=== PATIENT | female | born 1970 | race Caucasian/White ===

== ENCOUNTER 2016-03-11 22:26 | Inpatient (IN) | payer MEDICARE, MEDICAID ==
[~2016-03-11] VITALS: Ht 104.1 cm; Wt 44.4 kg
[~2016-03-11 22:26] MED LIST: CETI10TA PO; CITA20TA PO; DES50 PO; GABA300C PO; HYDR1CAP2 PO; IND10 PO; MDR150V IM; OMEP20TA86 PO; PREN-105 PO
[2016-03-11 22:44] VITALS: BP 120/83; PULSE 94; RESP 20; O2SAT 100
--- NOTE | 2016-03-11 22:44 | ED.REPORT ---
HPI-Altered Mental Status Date of Service Mar 11, 2016 ED Provider: Butch Simmons MD A 45 year old female with a medical history including congenital dwarfism, pancytopenia, Felty syndrome, migraines, and CHF presents to the ED via EMS from [facility] with decreased level of consciousness onset this morning. Per EMS the patient has "heart-related issues." Nursing Notes Stated Complaint: DECREASED LOC Nursing Notes Reviewed: Yes Allergies: Coded Allergies: No Known Allergies (Unverified Allergy, Unknown, 03/11/16) Sulfa (Sulfonamide Antibiotics) (Verified Allergy, Unknown, 04/14/12) Scheduled Cetirizine-Expunged Drug, Do Not Renew! (Cetirizine-Expunged Drug, Do Not Renew! ) 10 Mg Tablet 10 MG PO DAILY Citalopram-Expunged Drug, Do Not Renew! (Citalopram-Expunged Drug, Do Not Renew! ) 20 Mg Tablet 20 MG PO DAILY Gabapentin-Expunged Drug, Do Not Renew! (Neurontin-Expunged Drug, Do Not Renew! ) 300 Mg Capsule 300 MG PO BID Hydrocod/APAP-Expunged, Do Not Renew! (Hydrocod/APAP 5/500-Expunged, Do Not Renew!) 1 Cap Capsule 2 CAP PO DAILY MedroxyPROGESTERone (Depo-Provera) 150 Mg/Ml Susp 150 MG IM [id number] Omeprazole-Expunged Drug, Do Not Renew! (Omeprazole-Expunged Drug, Do Not Renew! ) 20 Mg Tablet.dr 20 MG PO DAILY VITS-Expunged Drug, Do Not Renew! ( FORMULA-Expunged Drug, Do Not Renew!) 1 Each Tablet 1 EACH PO DAILY Propranolol-Expunged Drug, Do Not Renew! (Propranolol-Expunged Drug, Do Not Renew!) 10 Mg Tab PO Q6 PRN CESAR Trazodone-Expunged Drug, Do Not Renew! 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 Smoking History Unknown if Ever Smoker Social History Other Social History: Good social support, Lives in half-way Ambulatory Status Independent Review of Systems Unable to Obtain ROS Patient condition, Mental status Physical Exam Initial Vital Signs Vital Signs (First) Date Time Temp Pulse Resp B/P Pulse Ox O2 Delivery O2 Flow Rate FiO2 03/11/16 22:44 36.4 94 20 120/83 100 Room Air 03/11/16 22:45 10 Initial VS: Reviewed, Vital signs normal Alertness: Positive: Unresponsive Multiple body deformities related to congenital dwarfism and Felty syndrome. Head / Eyes: Atraumatic, PERRL Neck: Atraumatic, No swelling Respiratory / Chest: Breath sounds = bilat, No respiratory distress Rales / Rhonchi: Positive: Rhonchi diffuse (Bilateral) Cardiovascular: Heart rate NL, Regular rhythm, Heart sounds NL Mental Status: Positive: Unresponsive ENT: Airway patent, No pooling of secretions Skin: No swelling Color / Condition: Positive: Diaphoresis present No cellulitis Interpretation & Diagnostics Lab Results Interpretation Result Diagram: 03/11/16 2336 03/11/16 2336 Test 03/11/16 23:36 03/11/16 23:54 03/12/16 00:32 White Blood Count 6.2th/mm3 (3.8-10.1) Red Blood Count 5.63mil/mm3 (3.90-5.20) Hemoglobin 16.5g/dL (12.0-15.6) Hematocrit 50.5% (35.0-46.0) Mean Corpuscular Volume 89.7fL (81-100) Mean Corpuscular Hemoglobin 29.3pg (27.0-35.0) Mean Corpuscular Hemoglobin Concent 32.7% (32.0-37.0) Red Cell Distribution Width 15.5% (12.3-15.4) Platelet Count 292bil/L (150-400) Neutrophils (%) (Auto) 75% (40-74) Lymphocytes (%) (Auto) 15% (14-46) Monocytes (%) (Auto) 9% (4-12) Eosinophils (%) (Auto) 0% (0-5) Basophils (%) (Auto) 0% (0-3) Band Neutrophils % 1% (1-5) Sodium Level 145mEq/L (134-144) Potassium Level 4.3mEq/L (3.5-5.2) Chloride Level 94mEq/L (97-108) Carbon Dioxide Level 34mmol/L (18-29) Blood Urea Nitrogen 7mg/dL (6-24) Creatinine 0.15mg/dL (0.57-1.00) Estimat Glomerular Filtration Rate 763mL/min (>59) Glucose Level 150mg/dL (60-99) Calcium Level 10.4mg/dL (8.5-10.1) Phosphorus Level 4.1mg/dL (2.5-4.9) Magnesium Level 2.1mg/dL (1.6-2.6) Total Bilirubin 0.7mg/dL (0.0-1.2) Aspartate Amino Transf (AST/SGOT) 31U/L (0-50) Alanine Aminotransferase (ALT/SGPT) 12U/L (0-32) Alkaline Phosphatase 117U/L (25-150) Troponin T < 0.010ug/L (0.0-0.011) Total Protein 7.6g/dL (6.4-8.4) Albumin 4.5g/dL (3.4-5.0) Lipase 8U/L (13-60) Prothrombin Time 10.6sec (8.1-12.5) Prothromb Time International Ratio 0.99ratio Urine Color Yellow (YELLOW) Urine Appearance Cloudy (CLEAR,HAZY) Urine pH 6.0 (5.0-8.0) Urine Specific [place] 1.026 (1.003-1.035) Urine Protein 100mg/dL (NEG,TRACE) Urine Glucose (UA) Negativemg/dL (NEGATIVE) Urine Ketones 40mg/dL (NEGATIVE) Urine Occult Blood Negative (NEGATIVE) Urine Nitrite Positive (NEGATIVE) Urine Bilirubin Negative (NEGATIVE) Urine Urobilinogen Normalmg/dL (NORMAL) Urine Leukocyte Esterase Negative (NEGATIVE) Urine RBC 0-2/hpf (0-2) Urine WBC >50/hpf (0-5) Urine Epithelial Cells Moderate/hpf (NONE-MOD) Urine Crystals None seen (NONE SEEN) Urine Bacteria Many/hpf (NONE-FEW) Urine Hyaline Casts Rare/lpf (NONE) Urine Granular Casts None seen (NONE SEEN) Urine Waxy Casts None seen (NONE SEEN) Urine Red Blood Cell Casts None seen (NONE SEEN) Urine White Blood Cell Casts None seen (NONE SEEN) Urine Mucus Present (None Seen) Urine Trichomonas None seen (NONE SEEN) Urine Yeast None (NONE SEEN) Urinalysis Comment None Urine Culture Reflexed Indicated Lab values outside NL range: no clinical significance. ECG Interpretation ECG Interpretation: Sinus rhythm rate 95 Prolonged [place] interval Low voltage, extremity leads Time: 22:50 Interpreted by: ED physician X-Ray Chest Interpretation View: Portable, 1 view Interpretation / Wet Read by: Wet read ED physician Infiltrate / Pneumothorax: Infiltrate R lower lung, Infiltrate L upper lung Re-Eval/Medical Decision Med Decision/Clinical Course 35-year-old disabled female who is currently residing in a half-way. She presents with decreased mental status and is found to have multilobar pneumonia and urinary tract infection. She was very difficult to access and Dr. Devine was finally able to get a deep arm IV by ultrasound. She was hydrated and treated with healthcare associated pneumonia antibiotics. Her mental status improved considerably with hydration. Her case was discussed with Dr. Murry and she will be admitted to the hospitalist service. Source of Hx: Old records Re-Evaluation/Progress #1: Time of Eval: 23:30 Patient Status: Condition unchanged Re-Evaluation/Progress Note: Patient rechecked. Re-Evaluation/Progress #2: Time of Eval: 00:30 Patient Status: Condition improved Re-Evaluation/Progress Note: Patient is able to open her eyes. Discussed patient's case with her family. Discussed with patient's family x-ray and lab results, diagnosis, and plan for admit. Patient's family agrees with plan for care and all questions were addressed. Re-Evaluation/Progress #3: Time of Eval: 02:39 Patient Status: Condition improved Re-Evaluation/Progress Note: Patient is tachycardic and sleeping. She was awake and talking to family earlier. Consultation : Referral / Consult Name: Aj Murry MD Consulted With: Hospitalist Call Returned at: 02:32 Staff Sonographer: Agrees with eval, Agrees with plan, Accepts admit Counseled Regarding: Diagnosis, Lab results, Need for admission Patient Discharge & Departure Impression: Primary Impression: Pneumonia Pneumonia type: due to unspecified organism Laterality: bilateral Lung location: unspecified part of lung Qualified Code: J18.9 - Pneumonia, unspecified organism Additional Impressions: UTI (urinary tract infection) Urinary tract infection type: site unspecified Hematuria presence: without hematuria Qualified Code: N39.0 - Urinary tract infection, site not specified Sepsis Sepsis type: sepsis due to unspecified organism Qualified Code: A41.9 - Sepsis, unspecified organism Disposition: ADMITTED TO HOSPITAL Discharge Condition All VS Reviewed: Yes Condition: Stable Crit Care Except Billable Proc Time Spent: 30-74 minutes Services Performed: Patient management by me, Time spent at bedside, Reviewing test results, Reviewing imaging, Discussing patient care, Documentation in record, Time with fam/surrogate Critical Care Notes: Disabled 45-year-old patient with decreased level of consciousness. She was found to have pneumonia and UTI with likely sepsis. She will be admitted to [facility]. Scribe Attestation Portions of this note were transcribed by Enedina Silverman. I, Dr. Simmons, personally performed the history, physical exam, and medical decision-making; I reviewed and confirmed the accuracy of the information in the transcribed note. Signed by: Bernie Lozano, 03/12/2016, 04:08 Butch Simmons MD Mar 11, 2016 22:44 ENEDINA SILVERMAN Mar 11, 2016 23:18
[2016-03-11 22:45] VITALS: BP 120/83; PULSE 97; RESP 16; O2SAT 100
[2016-03-11 23:53] LABS: Mean Corpuscular Hemoglobin 29.3 pg (27.0-35.0); Mean Corpuscular Volume 89.7 fL (81-100); Platelet Count 292 bil/L (150-400)
[2016-03-12] VITALS (16 sets, daily range): BP systolic 82–124; BP diastolic 54–98; PULSE 97–143; RESP 13–24; O2SAT 92–100
[2016-03-12 00:07] LABS: INR 0.99 ratio
[2016-03-12] MEDS ORDERED: Piperacillin-Tazo 3.375 Gm Inj 3.375 GM in Dextrose 5% Minibag Plus 50 ML IV ONE (00:35)
[2016-03-12] MEDS ORDERED: levoFLOXacin Inj 750 MG in IV Premix 1 EACH IV ONE (00:35)
[2016-03-12] MEDS ORDERED: Vancomycin Dose per Pharmacist XX ONE (00:35)
[2016-03-12 00:37] LABS: Magnesium 2.1 mg/dL (1.6-2.6); Phosphorus 4.1 mg/dL (2.5-4.9)
[2016-03-12 00:38] LABS: Lipase 8 U/L (13-60); TROPONIN T < 0.010 ug/L (0.0-0.011)
[2016-03-12 00:49] LABS: BASOPHILS % (AUTO) 0 % (0-3); EOSINOPHILS % (AUTO) 0 % (0-5); MONOCYTES % (AUTO) 9 % (4-12); NEUTROPHILS % (AUTO) 75 % (40-74)
[2016-03-12 00:56] LABS: APPEARANCE,URINE CLOUDY (CLEAR,HAZY); COLOR,URINE YELLOW (YELLOW)
[2016-03-12 01:00] LABS: OCCULT BLOOD,URINE NEGATIVE (NEGATIVE); UROBILINOGEN,URINE NORMAL (NORMAL)
[2016-03-12] MEDS ORDERED: 0.9% Sodium Chloride 1,000 ML IV SCH (06:01)
--- NOTE | 2016-03-12 06:03 | PCM.HPMED ---
Subjective Date of Service Mar 12, 2016 Primary Provider: Admitting Physician: Aj Murry MD Primary Care Physician: Erlinda Mcclellan MD Attending Physician: Aj Murry MD Chief Complaint: altered mental status and cough History of Present Illness: Patient is a 45 year old female with a pmh as out line below that is presenting with altered mental status and shortness of breath. The family was not nearby for the history and the patient could not provide adequate history, the majority of the history was obtained throught ER physician. As per the ER physician the patient has been having worsening cough for the past few day which progressed to the point where the patient was having a difficult time staying awake and did not answer question appropriately. Patient was brought to the ED found to have an incidental finding of uti as well. Patient on exam was found to be saturating in the low 90s and upper 80s. Patient was placed on non rebreather, but only reached to 95%, most likely due to patients body habitus and existing infection. Patient is otherwise hemodynamically stable. Review of Systems: Unable to Obtain ROS Patient condition, Mental status Allergies Coded Allergies: No Known Allergies (Unverified Allergy, Unknown, 03/11/16) Sulfa (Sulfonamide Antibiotics) (Verified Allergy, Unknown, 04/14/12) Home Medications Cetirizine 10 Mg Tablet 10 MG PO DAILY Citalopram 20 Mg Tablet 20 MG PO DAILY Gabapentin 300 Mg Capsule 300 MG PO BID Hydrocod/APAP-1 Cap Capsule 2 CAP PO DAILY MedroxyPROGESTERone (Depo-Provera) 150 Mg/Ml Susp 150 MG IM [id number] Omeprazole 20 Mg Tablet.dr 20 MG PO DAILY VITS-1 Each Tablet 1 EACH PO DAILY Propranolol 10 Mg Tab PO Q6 PRN CESAR Trazodone 50 Mg Tab 50 MG PO HS PMH Congenital dwarfism Juvenile arthritis History of pancytopenia 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 Family History non-contributory Social History Hx Alcohol Use: No Hx Substance Use: No Smoking Status: Unknown if Ever Smoker Exam Vital Signs Vital Sign - Last Date Time Temp Pulse Resp B/P Pulse Ox O2 Delivery O2 Flow Rate FiO2 03/12/16 04:11 37.1 134 17 124/86 97 Non-Rebreather 15 Exam Multiple body deformities related to congenital dwarfism and Felty syndrome. Head / Eyes: Atraumatic, PERRL Neck: Atraumatic, No swelling Respiratory / Chest: Breath sounds = bilat, No respiratory distress, poor air exhange due to body habitus Rales / Rhonchi: Positive: Rhonchi diffuse (Bilateral) Cardiovascular: Heart rate NL, Regular rhythm, Heart sounds NL Mental Status: Positive: responsive however does not answer questions appropriately ENT: Airway patent, No pooling of secretions Skin: No swelling Color / Condition: Positive: Diaphoresis present Lab and Diagnostics Result Diagram: 03/11/166 03/11/162335 X-Rays, CTs and MRIs X-Ray Chest Interpretation View: Portable, 1 view Interpretation / Wet Read by: Wet read ED physician Infiltrate / Pneumothorax: Infiltrate R lower lung, Infiltrate L upper lung 12-lead ECG Sinus rhythm rate 95 Prolonged [place] interval Low voltage, extremity leads Assessment & Plan Patient is a 45 year old female with multiple medical problems that is presenting with a few day history of cough, that has now progressed to altered mental status with shortness of breath. Patient is currently stable albeit confused and tachypnic. Shortness of breath - Patient has had cough for the better part of the week - Patient seen to have bilateral pneumonia on chest xray - Patient is having a difficult time breathing secondary to pneumonia, scoliosis, and chest wall habitus - Pt currently saturating appropriately on non rebreather - will treat with ceftriaxone and azithromycin - will provide duoneb treatments periodically to improve oxygenation - will maintain patient on non rebreather for the time being UTI - Pt has an incidental finding of UTI - will treat with ceftriaxone as above Altered mental status - As per the family patient was mentating at her baseline until this morning - Pt was initially unresponsive however after fluid resuscitation and antibiotics patient was begging to speak - Pt is unable to understand questions and does not answer appropriately Hypertension - Established - c/w propranolol 10 mg q6 prn Depression - established - c/w trazadone and citalopram when pt is more alert and awak Juvenile arthritis - established - c.w gabapentin as prescribed DVT ppx via heparin GI ppx not warranted Pt is from home Aj Murry MD Mar 12, 2016 06:03
[2016-03-12] MEDS ORDERED: Polyethylene Glycol (PEG) 17 Gm Powder PO PRN (06:05)
[2016-03-12] MEDS ORDERED: Alum-Mag Hydrox-Simeth 30 mL Suspension PO PRN (06:05)
--- NOTE | 2016-03-12 08:02 | DRSVH ---
PROCEDURE: X-RAY CHEST ONE VIEW, PORTABLE ([id number]) INDICATIONS: decreased level of consciousness, diaphoresis TECHNIQUE: One view of the chest was acquired. COMPARISON: 12/16/2012 FINDINGS: Surgical changes and devices: None. Lungs and pleura: Probable small right pleural effusions, no pneumothorax. Lungs show diminished timothy g volume with patchy interstitial infiltrate, right greater than left. Mediastinum: Mediastinal contours appear normal. Heart size is unchanged. Bones and chest wall: No suspicious bony lesions. Overlying soft tissues appear unremarkable. IMPRESSION: Interstitial infiltrate, suspect for bronchopneumonia. Dictated by: Thien Lopez M.D. on 03/12/2016 at 8:00 Approved by: Thien Lopez M.D. on 03/12/2016 at 8:00
[2016-03-12] MEDS ORDERED: Azithromycin Inj 500 MG in Dextrose 5% w/Vial Mate 250 ML IV SCH (08:30)
[2016-03-12] MEDS ORDERED: cefTRIAXone Inj 1,000 MG in IV Premix 1 EACH IV SCH (08:30)
[2016-03-12] MEDS ORDERED: DEXT1DRO8 BOTH_EYES (08:58)
[2016-03-12] MEDS ORDERED: OMEP20CA11 PO (08:58)
[2016-03-12] MEDS ORDERED: ACET325T51 PO (08:58)
[2016-03-12] MEDS ORDERED: SENN-133 PO (08:58)
[2016-03-12] MEDS ORDERED: TRAZ-115 PO (08:58)
[2016-03-12] MEDS ORDERED: OXYC5TAB72 PO (08:58)
[2016-03-12] MEDS ORDERED: MTH10T PO (08:58)
[2016-03-12] MEDS ORDERED: MAG355OR31 PO (08:58)
[2016-03-12] MEDS ORDERED: PREN-12 PO (08:58)
[2016-03-12] MEDS ORDERED: GABA600T2 PO (08:58)
[2016-03-12] MEDS ORDERED: MONT10TA23 PO (08:58)
[2016-03-12] MEDS ORDERED: NA P133E23 RC (08:58)
[2016-03-12] MEDS ORDERED: KEN1C TOP (08:58)
[2016-03-12] MEDS ORDERED: CETI10CA PO (08:58)
[2016-03-12] MEDS ORDERED: MEDR150V3 IM (08:58)
[2016-03-12] MEDS ORDERED: POLY17PO2 PO (08:58)
[2016-03-12] MEDS ORDERED: MAGN400O4 PO (08:58)
[2016-03-12] MEDS ORDERED: L.AC1CAP6 PO (08:58)
[2016-03-12] MEDS ORDERED: ONDA-53 PO (08:58)
[2016-03-12] MEDS ORDERED: FLUT16SP NOSTRIL (08:58)
[2016-03-12] MEDS ORDERED: CITA20TA11 PO (08:58)
[2016-03-12] MEDS ORDERED: AMT50T PO (08:58)
[2016-03-12] MEDS ORDERED: PROP20TA5 PO (08:58)
[2016-03-12] MEDS ORDERED: LOPE2CAP PO (08:58)
[2016-03-12] MEDS ORDERED: PROC5TAB PO (08:58)
[2016-03-12] MEDS ORDERED: GUAI473S22 PO (08:58)
[2016-03-12] MEDS ORDERED: BISA10SU61 RC (08:58)
[2016-03-12] MEDS ORDERED: HYDR-3825 PO (08:58)
[2016-03-12] MEDS ORDERED: GUAI600T2 PO (08:58)
[2016-03-12] MEDS: Heparin 5,000 Unit/mL Inj SUBQ SCH ×2 (10:19→16:30)
[2016-03-12] MEDS ORDERED: 0.9% Sodium Chloride 250 ML IV ONE ×2 (11:45→15:30)
[2016-03-12] MEDS ORDERED: Albuterol 2.5 mg/3 mL Inhalation Solution NEB PRN (11:50)
[2016-03-12] MEDS ORDERED: Acetaminophen IV 1,000 MG in IV Premix 1 EACH IV PRN (11:55)
[2016-03-12] MEDS ORDERED: Sodium Chloride LOK Flush 10 mL Syringe IVFLUSH PRN ×2 (15:30)
[2016-03-12] MEDS: Albuterol-Ipratropium 3 mL Inhalation Solution NEB SCH ×2 (16:06→21:27)
[2016-03-12] MEDS: Norepineph 8,000 mCg/250 mL NS 8,000 MCG in IV Premix 1 EACH IV SCH (16:15)
--- NOTE | 2016-03-12 16:44 | NUR ---
Wound Care Pressure ulcer protocol received, rounded with nursing no skin issues at this time.
--- NOTE | 2016-03-12 17:02 | NUR ---
Hypotension/Tachycardia Pt. heart rate increased to high 130s-140 around 0900 this a.m. Tachycardia has been sustaining all day, despite fluid bolus and antibiotics. This afternoon BP began to drop from 110s/70s, to 80s/50s. Lowest MAP 63. MDs updated frequently with changes, and pt. transferred to CCU at 1630.
--- NOTE | 2016-03-12 17:56 | NUR ---
Transfer Pt transferred to CCU room # 2015 from [facility] room #2008 at 1730. Levophed ordered. IV therapy unable to place PICC at this time, IJ being ordered by purple team for anaesthesia to come place. DW=271/56 and SL=774. Aerosol mask at 50% fio2. Pt yells out when placed on her left side, favors right. Alert to person. 1/2 NS at 80cc/hr.
[2016-03-12] MEDS ORDERED: Piperacillin-Tazo 3.375 Gm Inj 3.375 GM in Dextrose 5% Minibag Plus 50 ML IV SCH (20:30)
[2016-03-12] MEDS: Linezolid Inj 600 MG in IV Premix 1 EACH IV SCH (20:58)
--- NOTE | 2016-03-12 21:52 | PCM.PNMED ---
Subjective Date of Service Mar 12, 2016 Subjective Meredith Sterling is a 45 year old female with a history of congenital dwarfism, juvenille arthritis, Felty syndrome, and CHF who presented to the ED from [facility] with altered mental status and shortness of breath. Admitted for severe sepsis secondary to pneumonia and UTI. Hospital day #1. Patient in mild respiratory distress, somnolent and confused. Not able to obtain review of systems due to patient condition. She is tachycardic with heart rate consistently in the 140s and hypotensive with SBP high 80s and low 90s. SpO2 98% on 11L oxymask. Exam Vital Signs Vital Sign - Last Date Time Temp Pulse Resp B/P Pulse Ox O2 Delivery O2 Flow Rate FiO2 03/12/16 19:30 Supplement Oxygen 03/12/16 19:22 37.0 134 13 99/80 98 40 03/12/16 16:06 12.00 Exam General: Somnolent, small female with multiple body deformities including severe kyphosis and bilateral contractures of lower extremities. In mild respiratory distress. HEENT: Atraumatic. External ears without defect. PERRLA, amblyopia, no scleral icterus. Mucosa dry. Neck: No jugular venous distension. No bruits. No lymphadenopathy or thyromegaly. Cardiovascular: Tachycardic, regular rhythm with no murmurs, rubs, or gallops appreciated Pulmonary: Moderate air movement with coarse rhonchi bilaterally.Increased respiratory effort with use of accessory muscles.Oxymask in place. Abdomen: Bowel tones present. Soft, nondistended. No hepatosplenomegaly or masses appreciated. Extremities: Bilateral contractures upper/lower extremities, brawny skin discoloration of feet bilaterally, club feet. no cyanosis or edema appreciated. Skin: Warm, damp, no rashes or ulcerations appreciated. IVs and Medications Medications Reviewed: Medications were reviewed in detail Lab and Diagnostics Laboratory Tests 03/11/16 23:36: White Blood Count 6.2, Red Blood Count 5.63, Hemoglobin 16.5, Hematocrit 50.5, Mean Corpuscular Volume 89.7, Mean Corpuscular Hemoglobin 29.3, Mean Corpuscular Hemoglobin Concent 32.7, Red Cell Distribution Width 15.5, Platelet Count 292, Neutrophils (%) (Auto) 75, Lymphocytes (%) (Auto) 15, Monocytes (%) ( Auto) 9, Eosinophils (%) (Auto) 0, Basophils (%) (Auto) 0, Band Neutrophils % 1 , Sodium Level 145, Potassium Level 4.3, Chloride Level 94, Carbon Dioxide Level 34, Blood Urea Nitrogen 7, Creatinine 0.15, Estimat Glomerular Filtration Rate 763, Glucose Level 150, Calcium Level 10.4, Phosphorus Level 4.1, Magnesium Level 2.1, Total Bilirubin 0.7, Aspartate Amino Transf (AST/SGOT) 31, Alanine Aminotransferase (ALT/SGPT) 12, Alkaline Phosphatase 117, Troponin T < 0.010, Total Protein 7.6, Lipase 8 03/11/16 23:54: Prothrombin Time 10.6, Prothromb Time International Ratio 0.99 03/12/16 00:32: Urine Color Yellow, Urine Appearance Cloudy, Urine pH 6.0, Urine Specific [place] 1.026, Urine Protein 100, Urine Glucose (UA) Negative, Urine Ketones 40 , Urine Occult Blood Negative, Urine Nitrite Positive, Urine Bilirubin Negative , Urine Urobilinogen Normal, Urine Leukocyte Esterase Negative, Urine RBC 0-2, Urine WBC >50, Urine Epithelial Cells Moderate, Urine Crystals None seen, Urine Bacteria Many, Urine Hyaline Casts Rare, Urine Granular Casts None seen, Urine Waxy Casts None seen, Urine Red Blood Cell Casts None seen, Urine White Blood Cell Casts None seen, Urine Mucus Present, Urine Trichomonas None seen, Urine Yeast None, Urinalysis Comment None, Urine Culture Reflexed Indicated, Urine Legionella pneumophilia Ag Negative 03/12/16 05:00: Albumin 3.4, Prealbumin 9, Procalcitonin 0.20 03/12/16 13:26: Hold Urine Received 03/12/16 13:45: Lactic Acid Level 1.7 Result Diagram: 03/11/16 2336 03/11/166 Microbiology Respiratory virus panel positive for RSV. MRSA screen, blood and urine cultures pending. Strep pneumo and Legionella urine antigens negative. X-Rays, CTs and MRIs X-Ray Chest Interpretation View: Portable, 1 view Interpretation / Wet Read by: Wet read ED physician Infiltrate / Pneumothorax: Infiltrate R lower lung, Infiltrate L upper lung 12-lead ECG Sinus rhythm rate 95 Prolonged [place] interval Low voltage, extremity leads Assessment & Plan 45 year old female with multiple medical problems that is presenting with a few day history of cough, that has now progressed to altered mental status with shortness of breath. Admitted for severe sepsis secondary to pneumonia and UTI. Hospital day #1. 1. Severe sepsis, present on admission. Active -Met criteria on admission with temp 37.7, HR 117, RR 22, pulmonary and urinary source of infection as well as encephalopathy. -CXR findings consistent with bilateral pneumonia -Received dose of zosyn/vancomycin and levofloxacin in the ED. -Pt hypotensive despite ongoing fluid resuscitation and transferred to CCU to initiate pressor support -IV therapy unable to place PICC line due to patient's unique anatomy and increased risk for complications. -Spoke with IR, who agree placing line in this pt is high risk. -Re-evaluate after patient has received 2liters of fluid resuscitation.If still requiring pressor support, consult IR or anesthesiology. -Continue IV fluids, antibiotics and trend infectious markers. 2. Pneumonia, acute (likely HCAP). present on admission. Active. -Pt full-time resident of [facility], start antibiotics for HCAP coverage. -Resp panel positive for RSV, Strep pneumo and Legionella urine antigens negative -MRSA screen, blood and sputum cultures pending -Switch Ceftriaxone/azithromycin to Linezolid, levofloxacin and zoysn for HCAP. -Continue antibiotics, supplemental oxygen and bronchodilators 3. Acute UTI, present on admission. Active. -Pt does not have chronic indwelling catheter at baseline. -Urine analysis- pyuria. Culture pending -Continue antibiotics, as above. 4. Acute encephalopathy, present on admission. Active -Pt was unresponsive on arrival and not at baseline mentation, per family. -Likely secondary to #1. -Continue treatment for sepsis, as above. 5. Chronic hypertension, present on admission. Stable -Hold home medication in setting of hypotension secondary to sepsis. -Resume home dosing of propranolol when appropriate. 6. Chronic depression, present on admission. Stable -Hold home citalopram due to risk of serotonin syndrome when combined with Linezolid -Continue home dosing trazadone and citalopram when appropriate. 7. Juvenile arthritis, chronic. present on admission. Stable -Continue home dosing, gabapentin. High-risk medication: IV dilaudid Acetaminophen-fever/headache/mild/moderate pain Antiemetics, as needed Bowel regimen, as needed. Pain Evaluation: Adequate Pain Control VTE Prophylaxis: Sub-Q Heparin (Unfractionated) VTE Mechanical Devices: Intermittant Pneumatic CD Resuscitation Status: CPR: Attempt Resuscitation Attending Statement The patient was seen and examined together with Dr. Solis on 03-12-16 and I agree with the history, exam and plan as outlined in the note above. Sumi Solis DO Mar 12, 2016 21:52 Natalia Fermin MD Mar 13, 2016 16:37
[2016-03-12] MEDS: HYDROmorphone 0.5 mg/0.5 mL iSecure Syringe IVPUSH PRN (22:05)
[2016-03-13] VITALS (12 sets, daily range): BP systolic 91–115; BP diastolic 58–75; PULSE 112–138; RESP 12–21; O2SAT 94–100
[2016-03-13] MEDS: Heparin 5,000 Unit/mL Inj SUBQ SCH ×3 (00:07→16:30)
[2016-03-13] MEDS: Albuterol-Ipratropium 3 mL Inhalation Solution NEB SCH ×4 (01:15→21:33)
[2016-03-13 04:31] LABS: EOSINOPHILS % (AUTO) 0 % (0-5); Mean Corpuscular Volume 89.3 fL (81-100); Platelet Count 190 bil/L (150-400)
[2016-03-13 04:48] LABS: Magnesium 1.5 mg/dL (1.6-2.6)
[2016-03-13 05:05] LABS: BASOPHILS % (AUTO) 0 % (0-3); MONOCYTES % (AUTO) 5 % (4-12); NEUTROPHILS % (AUTO) 64 % (40-74)
[2016-03-13 05:06] LABS: Phosphorus 0.6 mg/dL (2.5-4.9)
[2016-03-13] MEDS ORDERED: Potassium Phos (mEq) Inj 40 MEQ in Dextrose 5% 500 ML IV ONE (05:20)
[2016-03-13] MEDS ORDERED: Magnesium Sulf 4 Gm/100 mL H2O 4 GM in IV Premix 1 EACH IV ONE (05:20)
--- NOTE | 2016-03-13 06:40 | NUR ---
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 MD notified of electrolytes, micro results. Replacements ordered. MD aware of poor IV access and med compatibility issues. Patient prefers to be on her right side at all times. Patient is turned Q2 hours but at times does not stay on back or left side for more than 30 minutes, starts yelling out "Help me!" and requests to be turned. Education of pressure ulcers offered. Patient has a difficult time getting comfortable. Dilaudid administered x1, moderately effective. Close monitoring of skin on right hip.
--- NOTE | 2016-03-13 07:46 | DRSVH ---
PROCEDURE: US RENAL SONOGRAM INDICATIONS: UTI, r/o pyelonephritis TECHNIQUE: Real-time scanning was performed of the kidneys and bladder, with image documentation. COMPARISON: None. FINDINGS: Kidneys: Kidneys are normal in size. Right kidney measures 10.9 cm long; left kidney measures 10.9 cm long. Right renal cortical thickness is 1.3 cm; left renal cortical thickness is 1.3 cm. Renal c ortical echotexture is normal. No hydronephrosis or nephrolithiasis. No suspicious solid mass lesio ns. Right renal cyst measuring 1.4 x 1.2 x 1.3 cm. Left renal cyst measuring 3.3 x 2.9 x 3.0, and 1. 2 x 0.9 x 1.1 cm. The upper pole left kidney is not well visualized sonographically secondary to body habitus Bladder: Decompressed and grossly unremarkable secondary to Beltran catheter Miscellaneous: No free pelvic fluid. IMPRESSION: No hydronephrosis. Bilateral simple appearing renal cysts. Dictated by: Koby Miller M.D. on 03/13/2016 at 7:44 Approved by: Koby Miller M.D. on 03/13/2016 at 7:44
--- NOTE | 2016-03-13 08:25 | DRSVH ---
PROCEDURE: X-RAY CHEST ONE VIEW, PORTABLE ([id number]) INDICATIONS: shortness of breath TECHNIQUE: One view of the chest was acquired. COMPARISON: [facility], CR, CHEST 1VW, 09/09/2010, 11:38. [facility], CR, X R CHEST 1VW (PORTABLE), 03/11/2016, 23:14. FINDINGS: Limited evaluation due to skeletal deformity Surgical changes and devices: None. Lungs and pleura: No pleural effusions or pneumothorax. No gross focal consolidation or interval ruy nge in patchy opacities in particular involving the right lung base since 03/11/16 Mediastinum: Mediastinal contours appear normal. Heart size is normal. Bones and chest wall: No suspicious bony lesions. Bilateral shoulder degeneration. Overlying soft t issues appear unremarkable. Severe scoliosis. IMPRESSION: Overall no interval change in patchy right basilar opacities since 03/11/16. No new focal c onsolidation Dictated by: Koby Miller M.D. on 03/13/2016 at 8:23 Approved by: Koby Miller M.D. on 03/13/2016 at 8:23
[2016-03-13] MEDS: HYDROmorphone 0.5 mg/0.5 mL iSecure Syringe IVPUSH PRN (09:03)
--- NOTE | 2016-03-13 09:32 | PCM.PNMED ---
Subjective Date of Service Mar 13, 2016 Subjective Patient has improved overnight, she is a bit more responsive, blood pressure has improved with NS bolus nd patient is off pressors. Positive blood culture, gram positive cocci,, gram negative rods in the urine culture today. Multiple electrolyte abnormalities that are being addressed. I passed a NG-Tube this am , patient tolerated procedure well. IV therapy unable to establish new IV, I spoke with anesthesia, they will stop by and evaluate for IG or EJ with ultrasound. 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, lethargic but awakens to voice, cooperative Eyes, disconjugate ENMT, moist membranes, CV; murmur, no gallop, regular Resp; course, no wheezing GI; soft, nonacute, nontender MS; multiple contractures Vital Sign - Last Date Time Temp Pulse Resp B/P Pulse Ox O2 Delivery O2 Flow Rate FiO2 03/13/16 03:31 Supplement Oxygen 03/13/16 03:28 37.3 122 18 97/75 98 03/13/16 01:15 11.00 40 Intake and Output 03/12/16 03/12/16 03/13/16 Cumulative From/Thru 14:59 22:59 06:59 03/11/16 22:44 - 03/13/16 06:33 Intake Total 1724 ml 1724 ml Output Total 600 ml 600 ml Balance 1124 ml 1124 ml Intake IV Total 1724 ml 1724 ml Output Urine Total 600 ml 600 ml # Bowel Movements 2 2 Lab and Diagnostics Result Diagram: 03/13/16 0335 03/13/16 0335 Microbiology Respiratory virus panel positive for RSV. MRSA screen, blood and urine cultures pending. Strep pneumo and Legionella urine antigens negative. X-Rays, CTs and MRIs X-Ray Chest Interpretation View: Portable, 1 view Interpretation / Wet Read by: Wet read ED physician Infiltrate / Pneumothorax: Infiltrate R lower lung, Infiltrate L upper lung 12-lead ECG Sinus rhythm rate 95 Prolonged W[place] interval Low voltage, extremity leads Assessment & Plan 45 year old female with multiple medical problems that is presenting with a few day history of cough, that has now progressed to altered mental status with shortness of breath. Admitted for severe sepsis secondary to pneumonia and UTI. Hospital day #1. 1. Severe sepsis, present on admission. improving -Met criteria on admission with temp 37.7, HR 117, RR 22, pulmonary and urinary source of infection as well as encephalopathy. -CXR findings consistent with bilateral pneumonia, also with UTI acute -continue treating underlying infections 2. Pneumonia, acute (likely HCAP). present on admission. Active. -tests positive for rsv, possible bacterial etiology -Pt full-time resident of [facility], start antibiotics for HCAP coverage. -Resp panel positive for RSV, Strep pneumo and Legionella urine antigens negative -MRSA screen, blood and sputum cultures pending -continue Levaquin, linezolid, change Zosyn to cefepime (hypokalemia) 3. Acute UTI, present on admission. Active. -Pt does not have chronic indwelling catheter at baseline. -Urine analysis- pyuria. Culture pending -Continue antibiotics, as above. -Ultrasound unremarkable 4. Acute encephalopathy, present on admission.improving -Pt was unresponsive on arrival and not at baseline mentation, per family. -Likely secondary to #1. -Continue treatment for sepsis, as above. 5. Chronic hypertension, present on admission. Stable -Hold home medication in setting of hypotension secondary to sepsis. -Resume home dosing of propranolol when appropriate. 6. Chronic depression, present on admission. Stable -Hold home citalopram due to risk of serotonin syndrome when combined with Linezolid -Continue home dosing trazadone and citalopram when appropriate. 7. Juvenile arthritis, chronic. present on admission. Stable -Continue home dosing, gabapentin. 8. Chronic pain meds, present on admission, avctive -restart methadone to avoid withdrawl -give 50% dose bid 9. IV access, -I am unable to get additional access, spoike with Dr. Trujillo who asked me to call Anesthesia, I did and they will stop by in a while. 10. reported history of CHF, present on admission, stable -obtain echo to check function, no other echo available High-risk medication: IV dilaudid Acetaminophen-fever/headache/mild/moderate pain Antiemetics, as needed Bowel regimen, as needed. VTE Prophylaxis: Sub-Q Heparin (Unfractionated) VTE Mechanical Devices: Intermittant Pneumatic CD Resuscitation Status: CPR: Attempt Resuscitation Natalia Fermin MD Mar 13, 2016 09:32
[2016-03-13] MEDS: Ondansetron 2 mg/mL 2 mL Inj IVPUSH PRN ×2 (09:44→22:13)
[2016-03-13] MEDS ORDERED: Potassium Chloride 20 mEq/15 mL 15mL Oral Soln PO STA (10:32)
[2016-03-13] MEDS: Linezolid Inj 600 MG in IV Premix 1 EACH IV SCH ×2 (10:48→20:23)
[2016-03-13] MEDS: levoFLOXacin Inj 750 MG in IV Premix 1 EACH IV SCH (10:48)
[2016-03-13] MEDS: D5 0.9% NaCl + KCl 20 mEq/L 1,000 ML IV SCH (11:04)
[2016-03-13] MEDS: Sodium-Potassium Phosphorus Packet TUBE SCH ×2 (11:32→20:24)
[2016-03-13] MEDS: Methadone 10 mg/mL Oral Concentrate PO SCH ×2 (11:33→21:13)
[2016-03-13] MEDS ORDERED: HYDROmorphone 0.5 mg/0.5 mL iSecure Syringe IVPUSH ONE (12:25)
--- NOTE | 2016-03-13 13:03 | NUR ---
IJ Right IJ placed by at 1230 after several unsuccessful peripheral attempts. AM antibiotics started. NG placed in left nare by . Able to push PO Phos-Nak and K+ via NG. Receiving PRN IV Dilaudid, and scheduled PO methadone for pain. Large loose incontinent stool. Beltran draining freely. Contact/Droplet precautions posted. Family at bedside.
[2016-03-13] MEDS ORDERED: Lactated Ringer's 1,000 ML IV ONE (13:23)
--- NOTE | 2016-03-13 13:38 | DRSVH ---
PROCEDURE: X-RAY CHEST ONE VIEW, PORTABLE ([id number]) INDICATIONS: CATH TIP PLACEMENT TECHNIQUE: One view of the chest was acquired. COMPARISON: [facility], CR, XR CHEST 1VW (PORTABLE), 03/13/2016, 3:37. FINDINGS: Surgical changes and devices: Right internal jugular central venous catheter with the tip projecting in the lower SVC. Enteric tube with the tip in the stomach Lungs and pleura: Patchy right basilar opacities as before. No interval change Mediastinum: Mediastinal contours appear normal. Heart size is normal. Bones and chest wall: No suspicious bony lesions. Overlying soft tissues appear unremarkable. Bila teral shoulder joint degeneration. IMPRESSION: Right central venous catheter with the tip projecting in the lower SVC Enteric tube with the tip in the stomach Dictated by: Koby Miller M.D. on 03/13/2016 at 13:34 Approved by: Koby Miller M.D. on 03/13/2016 at 13:36
[2016-03-13] MEDS ORDERED: Lactated Ringer's 500 ML IV ONE (13:40)
--- NOTE | 2016-03-13 13:49 | CONS ---
[address] [address] CONSULTATION REPORT PATIENT: TRAM LAZO : 1970 MR#: [id number] ADMIT: 03/12/2016 JOB ID: [id number] DATE OF SERVICE: 03/13/2016 PULMONARY CRITICAL CARE CONSULTATION NOTE: This is a 45-year-old woman with congenital dwarfism, juvenile rheumatoid arthritis presenting with severe sepsis seen in consultation at the request of Dr. Fermin for acute respiratory failure with hypoxia. HISTORY OF PRESENT ILLNESS: The patient has difficult to understand speech because of her dwarfism. I was able to obtain much of the history from review of medical records. She reportedly lives at [facility] and was brought in because of cough and worsening shortness of breath. She was hypoxic in the emergency department and initially admitted to [facility]. She has been on 10-11 L oxygen via OxyMask and had pulmonary infiltrates on her chest x-ray. She also had urine culture that was growing E. coli as well as a positive blood culture with gram-positive cocci. She has been broadly covered with linezolid, Zosyn, and levofloxacin for sepsis, unknown source. She had some episodes of hypotension which resolved with 1.5 L of IV fluid given as boluses. Overnight she was moved to the ICU because of issues with blood pressure and hypoxia. We have struggled with IV access and peripheral IV placement because of her congenital dwarfism. Symptom-hanna, she continues to have a cough productive of thick yellow sputum, as well as shortness of breath. She had a fever to 39.2 overnight. Past medical history, social history, family history, and review of systems could not be obtained directly from the patient because of extreme difficulty understanding her speech. PAST MEDICAL HISTORY: 1. Congenital dwarfism. 2. Juvenile rheumatoid arthritis. 3. 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 4. Choledocholithiasis status post cholecystectomy. PHYSICAL EXAMINATION: Vital signs reviewed. T-max 39.2, pulse 138, respirations 18, BP 115/63, sats 98% on 10-11 L aerosol mask. General: This is an extremely petite woman because of her congenital dwarfism with multiple contractures of the arms. Neck: Has extremely unusual anatomy because of her dwarfism and neck fusion, and she has a thick short neck with kyphoscoliosis. HEENT: She has thick yellow secretions inside her mouth. Speech is very difficult to understand. Heart: Regular rate, rhythm. Tachycardic. No murmurs. Lungs: Bilateral rhonchi. Abdomen: Nontender. Extremities: Multiple contractures in the upper and lower extremities. Skin: No rashes. LABORATORIES: Reviewed. WBC 9.8, hemoglobin 13, platelets 190. Chemistry also reviewed. Notable for potassium of 2.8, phos of 0.6, lactate down to 1.2 this morning. CO2 of 31. Procalcitonin is 0.75 this morning from 0.2 yesterday. CULTURES: Respiratory viral PCR is positive for RSV. Blood culture positive for gram-positive cocci. Urine strep pneumoniae antigen is negative. Urine culture has gram-negative rods likely E. coli. Chest x-ray reviewed and shows bilateral right greater than left infiltrates. ASSESSMENT: 1. Severe sepsis. 2. Acute hypoxic respiratory failure. 3. Gram-positive cocci bacteremia. 4. Respiratory syncytial virus pneumonia. 5. Eschericia coli urinary tract infection. 6. Congenital dwarfism with kyphoscoliosis and juvenile rheumatoid arthritis. RECOMMENDATIONS: This 45-year-old woman with multiple pre-existing medical problems as listed above is presenting with severe sepsis due to unclear source, pulmonary versus urine, plus/minus bacteremia. We are waiting on cultures to give us more information. We have had a lot of difficulty with IV access so far and despite multiple attempts a peripheral IV could not be placed for any medications, so we just placed a right IJ central line through which meds are being administered. Hemodynamically she is stable at this time and does not require pressors. Her blood pressure has improved with IV fluid boluses. Antibiotic-hanna she is getting linezolid, levofloxacin, and cefepime at this time. I am hoping we can stop the linezolid as soon as her MRSA nasal swab comes back. Other positive cultures are as detailed above. She has chronic pain for which she takes narcotics and these are being managed by the primary hospitalist team. She is on appropriate DVT prophylaxis. Her parents were updated at the bedside. TIME: Critical care time 60 minutes.
--- NOTE | 2016-03-13 13:58 | PROCED ---
[address] [address] PROCEDURE NOTE PATIENT: TRAM LAZO : 1970 MR#: [id number] ADMIT: 03/12/2016 JOB ID: [id number] DATE OF SERVICE: 03/13/2016 POSTOPERATIVE DIAGNOSIS(ES): PREOPERATIVE DIAGNOSIS(ES): SURGEON: Nathalia Olivera MD, pulmonary critical care medicine. PROCEDURE: Right internal jugular central venous catheter placement. INDICATION: Hypotension, IV access, severe sepsis. Informed consent was obtained from the patient after risks and benefits of the procedure including bleeding, inadvertent arterial catheterization and pneumothorax were discussed. The patient was unable to sign the consent but a verbal consent was obtained with a witness present. DESCRIPTION: An ultrasound was used to localize the right internal jugular vein. Because of the patient's dwarfism and neck anatomy this was somewhat difficult. The area was then prepped and draped in a sterile fashion. We proceeded to administer local anesthetic in the skin and subcutaneous tissue of the right neck. A finder needle was used to identify and enter the right internal jugular vein under ultrasound guidance and a flash of blood was obtained. Guidewire was then passed. Ultrasound was used again to confirm guidewire was present in the vein and not the artery. We then used a scalpel to make an incision at the skin entry point. Dilator was passed without difficulty. Triple lumen catheter was then passed and secured at 15 cm. Chest x-ray: Postprocedure chest x-ray showed line is in appropriate position at the cavoatrial junction. There is no pneumothorax. The patient tolerated the procedure well. There were no complications.
--- NOTE | 2016-03-13 14:21 | NUR ---
Levophed BP dropped to 68/33. 500cc LR bolus given over 30min per . BP 74/48, Levophed started at 1415, 0.05mcg/kg/min. Labs sent. Pediatric mask placed by RT.
[2016-03-13] MEDS: Norepineph 8,000 mCg/250 mL NS 8,000 MCG in IV Premix 1 EACH IV SCH ×2 (14:44→18:20)
[2016-03-13] MEDS ORDERED: 0.9% Sodium Chloride 1,000 ML ONE (16:04)
--- NOTE | 2016-03-13 16:31 | NUR ---
NUTRITION ASSESSMENT: ASSESS:45 YO female admitted to CCU with severe sepsis, acute hypoxic respiratory failure, gram-positive cocci bacteremia, respiratory syncytial virus pneumonia, eschericia coli UTI in patient with congenital dwarfism with kyphoscoliosis and juvenile rheumatoid arthritis. She is currently NPO, pending swallow evaluation. AMS improved. Code status: full. PMHx:Congenital dwarfism, kyphoscoliosis, juvenile RA, migraines, bilateral leg contractures, CHF, HTN, depression. DIET:NPO pending swallow eval. LABS: Reviewed. Chloride 95, CO2 31, Glu 282. MEDICATIONS: Reviewed. NUTRITION FOCUSED PHYSICAL ASSESSMENT: GI symptoms / stool: No stool reported.Jones: 9. Skin Integrity: Wound evaluation pending. ANTHROPOMETRICS: Current Wt: 46.4 kgBMI: 42.0 kg/m2. IBW: Unable to calculate due to decreased height. ESTIMATED NEEDS (CLASS III OBESITY): Calories: 510 - 650 calories (11 - 14 kcal / kg BW) Protein: 28 - 37 g protein (0.6 - 0.8 g / kg BW) Fluid: Approx 1392 ml (30 ml / kg BW) NUTRITION DIAGNOSIS: 1)Chewing / swallowing difficulties related to congenital malformations, as evidenced by NPO status, pending swallow evaluation. INTERVENTION: 1) No intervention at this time. MONITOR/EVALUATE: Diet advance / tolerance, PO intake, labs, GI/nutrition status. Follow up per high nutrition risk guidelines.
--- NOTE | 2016-03-13 16:43 | NUR ---
Social Work Screening D: EMR reviewed. See initial assessment. Pt is a 45Y old female admitted for Pneumonia, UTI, Sepsis. Insurance is Medicare and [facility] Supplement. PCP is Dr. Mcclellan. Per EMR, Pt comes from [facility] where she is a LTC resident. Pt has resided there since 2010. Pt uses a wheel chair at base and has limited use of her hands. Pt requires total care. ALMA DELIA spoke with Roxanne Fulton at [facility] who confirms the above. Pt able to return when medically stable. SW anticipates Pt to discharge back to [facility] when medically stable, likely via [facility] transport. SW to follow. A: Pt who comes from [facility]-LTC P: SW spoke with Roxanne Fulton at [facility] who confirms the above. Pt able to return when medically stable. ALMA DELIA anticipates Pt to discharge back to [facility] when medically stable, likely via [facility] transport. SW to follow. TIARA Guardado
[2016-03-13 17:37] LABS: Magnesium 3.5 mg/dL (1.6-2.6); Phosphorus 3.6 mg/dL (2.5-4.9)
--- NOTE | 2016-03-13 17:37 | DRSVH ---
[facility] [address] [place] [place] [address] Echocardiogram Report Name: TRAM LAZO JStudy Date: 03/13/2016 Height: 41 in Hospital Exam Location: [facility] Weight: 102 lb Gender: Female BSA: 1.1 m2 : 1970 Age: 45 yrs BP: 115/63 mmHg Reason For Study: REPORTED HISTORY OF CHF Ordering Physician: HOSPITALIST MIKEerformed By: Adam Garrett Referring Physician: Natalia PIERRE Interpretation Summary Patient has dwarfism. The LV is difficult to reliably measure due to angle. The left ventricular cavity is small. There is normal left ventricular wall thickness. The left ventricular ejection fraction is grossly normal or hyperdynamic. Regional wall motion abnormalities cannot be excluded due to limited visualization. The right ventricular cavity is small. The right ventricular systolic function is normal. The right ventricular systolic pressure is estimated at 34 mmHg assuming a right atrial pressure of 3 mm Hg. The left atrium is not well visualized. The aortic root is normal size. Procedure: A two-dimensional transthoracic echocardiogram with color flow and Doppler was performed. The study quality was technically difficult. The patient needed to be in a right lateral decubuitus position which complicated scanning. Apical views could not be obtained. The patient was in sinus tachycardia with heart rates between 132-139 bpm during the exam. Left Ventricle: The left ventricular cavity is small. There is normal left ventricular wall thickness. The left ventricular ejection fraction is grossly normal. Regional wall motion abnormalities cannot be excluded due to limited visualization. Right Ventricle: The right ventricular cavity is small. The right ventricular systolic function is normal. Atria: The left atrium is not well visualized. Right atrium not well visualized. The interatrial septum is intact with no evidence for an atrial septal defect. Mitral Valve: The mitral valve is not well visualized. There is no mitral regurgitation noted. Aortic Valve: The aortic valve opens well. There is no aortic valve stenosis. No aortic regurgitation is present. Tricuspid Valve: The tricuspid valve is not well visualized, but is grossly normal. There is trace tricuspid regurgitation. The right ventricular systolic pressure is estimated at 34 mmHg assuming a right atrial pressure of 3 mm Hg. Pulmonic Valve: The pulmonic valve is not well seen, but is grossly normal. There is a trace or physiologic amount of pulmonic regurgitation. Great Vessels: The aortic root is normal size. The pulmonary artery is normal size. The IVC is of normal diameter and collapses greater than 50% with a sniff. This suggests a low right atrial pressure of 3 mm Hg. Pericardium/ Pleura There is no pericardial effusion. Doppler Measurements & Calculations TR max avery: 293.0 cm/sec TR max P.3 mmHg Reading Physician:DALJIT
[2016-03-13] MEDS: Meropenem Inj 1,000 MG in IV Premix 1 EACH IV SCH (18:18)
--- NOTE | 2016-03-13 18:44 | NUR ---
BP Levophed at 0.04mcg/kg/min. CVP=3. Bolused LR 500cc, CP remained at 3. Bolused 250cc per . Total of 750cc LR bolus on day shift. 550cc output of weber.
[2016-03-13] MEDS: Famotidine Inj 20 MG in IV Premix 1 EACH IV SCH (20:24)
[2016-03-13] MEDS ORDERED: Methadone 10 mg/mL Oral Concentrate PO SCH (20:30)
[2016-03-13] MEDS ORDERED: Cefepime Inj 2 GM in IV Premix 1 EACH IV SCH (20:30)
[2016-03-14] VITALS (11 sets, daily range): BP systolic 110–134; BP diastolic 65–86; PULSE 107–126; RESP 16–26; O2SAT 96–100
[2016-03-14] MEDS: Meropenem Inj 1,000 MG in IV Premix 1 EACH IV SCH ×3 (00:01→16:14)
[2016-03-14] MEDS: Heparin 5,000 Unit/mL Inj SUBQ SCH ×4 (00:01→23:54)
[2016-03-14] MEDS: D5 0.9% NaCl + KCl 20 mEq/L 1,000 ML IV SCH ×2 (03:41→16:15)
[2016-03-14 03:57] LABS: BASOPHILS % (AUTO) 0.1 % (0-3); EOSINOPHILS % (AUTO) 0 % (0-5); MONOCYTES % (AUTO) 5.2 % (4-12); Mean Corpuscular Volume 90.7 fL (81-100); NEUTROPHILS % (AUTO) 84.6 % (40-74); Platelet Count 148 bil/L (150-400)
[2016-03-14 04:24] LABS: Phosphorus 3.7 mg/dL (2.5-4.9)
[2016-03-14] MEDS ORDERED: Acetaminophen IV 1,000 MG in IV Premix 1 EACH IV ONE (04:30)
--- NOTE | 2016-03-14 06:24 | NUR ---
Hemodynamics CVP 6, MAP > 65, able to titrate Levophed off. No boluses given. Maintenance rate infusing. Tele remains ST 100-120.
[2016-03-14] MEDS: Albuterol-Ipratropium 3 mL Inhalation Solution NEB SCH ×4 (07:41→21:02)
[2016-03-14] MEDS: Famotidine Inj 20 MG in IV Premix 1 EACH IV SCH ×2 (08:39→21:04)
[2016-03-14] MEDS: Linezolid Inj 600 MG in IV Premix 1 EACH IV SCH ×2 (08:39→21:04)
[2016-03-14] MEDS: levoFLOXacin Inj 750 MG in IV Premix 1 EACH IV SCH (08:40)
[2016-03-14] MEDS: Sodium-Potassium Phosphorus Packet TUBE SCH ×2 (08:42→21:06)
[2016-03-14] MEDS ORDERED: 0.9% Sodium Chloride 250 ML ONE (08:48)
[2016-03-14] MEDS: Methadone 10 mg/mL Oral Concentrate PO SCH ×2 (09:48→21:09)
--- NOTE | 2016-03-14 10:26 | DRSVH ---
PROCEDURE: X-RAY CHEST ONE VIEW, PORTABLE ([id number]) INDICATIONS: sob TECHNIQUE: One view of the chest was acquired. COMPARISON: None. FINDINGS: Surgical changes and devices: There is an NG tube into the stomach. There is a right internal jugular central line with the tip at the level of the inferior aspect of the right hilum. rebrander le ads are seen over the chest. Lungs and pleura: There are patchy areas of density in the right lower lung field in the periphery o f the right mid to upper lung field as well as the left perihilar area. Compared to the previous days film I do not see any worsening or improvement. Mediastinum: Mediastinal contours appear normal. Heart size is normal. Bones and chest wall: Prominent rotoscoliosis convex to the right in the thoracolumbar junction regio n.. Overlying soft tissues appear unremarkable. IMPRESSION: Changes of bilateral pneumonia without worsening or improvement since the previous film a t 1244 hrs. 03/13/16 Dictated by: Ashkan Helton M.D. on 03/14/2016 at 10:24 Approved by: Ashkan Helton M.D. on 03/14/2016 at 10:24
[2016-03-14] MEDS: Norepineph 8,000 mCg/250 mL NS 8,000 MCG in IV Premix 1 EACH IV SCH ×2 (13:45→16:02)
--- NOTE | 2016-03-14 14:59 | PROG NOTE ---
[address] [address] PROGRESS NOTE PATIENT: TRAM LAZO : 1970 MR#: [id number] ADMIT: 03/12/2016 JOB ID: [id number] CORRECTED REPORT: DATE: 03/14/2016 PULMONARY/CRITICAL CARE PROGRESS NOTE: The patient is a 45-year-old woman with congenital dwarfism and juvenile rheumatoid arthritis admitted with acute hypoxic respiratory failure and septic shock due to pneumonia. INTERVAL HISTORY: She has a cough with sputum and some physical discomfort and shortness of breath but no other complaints. She has been having nosebleeds. REVIEW OF SYSTEMS: As above. No fever, chills. PHYSICAL EXAMINATION: Vital signs reviewed. Temperature 36.6, pulse 111, respirations 21, BP 112/70, sats 98% on 10 L aerosol mask. Extremely petite woman due to dwarfism with deformities in all her limbs due to her juvenile rheumatoid arthritis. Speech is very difficult to understand. Chest clear today. LABORATORIES: Reviewed. Procalcitonin is down to 0.2. Nasal swab was positive for MRSA. Also respiratory viral PCR is positive for RSV. Urine culture positive for E. coli. Blood cultures still positive for gram-positive cocci which has not been speciated. IMAGING: Chest x-ray shows no change compared to prior, with bilateral pulmonary infiltrates. ASSESSMENT: 1. Septic shock. Now off pressors. 2. Acute hypoxic respiratory failure. On aerosol mask. 3. Acute RSV pneumonia. 4. E. coli urinary tract infection. 5. ? gram-positive cocci bacteremia. 6. Healthcare associated pneumonia. 7. Congenital dwarfism with kyphoscoliosis and juvenile rheumatoid arthritis. RECOMMENDATIONS: This 45-year-old woman presented with hypoxemia and hypotension requiring vasopressors very briefly yesterday. She has been off pressors for a while now, hemodynamically stable. She is on an aerosol mask, humidified for comfort because of her nosebleeds. She had a central line placed yesterday in the right internal jugular vein for IV access and this is her only IV access at this point. She is getting antibiotics through it and Dr. Hernandez is now involved, managing antibiotics and making adjustments. Given that her nasal swab is positive for MRSA, it looks like we will need to cover this at least until we know more about the organism in her blood She is on narcotics for chronic pain. ADDITIONAL INFORMATION: CRITICAL CARE TIME: 35 minutes Addenda added by KACEY 04/22/16 at 9:27am
--- NOTE | 2016-03-14 15:29 | NUR ---
NAIN Signed TIARA Guardado
[2016-03-14] MEDS: Mupirocin 2% 22 Gm Ointment TOPICAL SCH ×2 (16:02→21:05)
--- NOTE | 2016-03-14 16:25 | CONS ---
[address] [address] CONSULTATION REPORT PATIENT: TRAM LAZO : 1970 MR#: [id number] ADMIT: 03/12/2016 JOB ID: [id number] DATE OF SERVICE: 03/14/2016 INFECTIOUS DISEASE CONSULTATION: I thank Dr. Fermin for this timely consult. REASON FOR CONSULTATION: Complicated urinary tract infection with sepsis, possible pneumonia, and respiratory syncytial viral infection. HISTORY OF PRESENT ILLNESS: The patient is an unfortunate 45-year-old woman with a variety of congenital musculoskeletal problems including dwarfism and contractures of the extremities. These problems have left her unable to care for herself and she currently resides in a group home facility in [place] and gets around some apparently with a wheelchair. The patient was in her usual compensated state of health until this March 12 or so, when she developed progressive cough and shortness of breath. Apparently this had started a couple of days before and was steadily worsening. She was evaluated in the emergency department and found to be hypoxic and because of that was placed on a mask and admitted to the [facility] initially. She was subsequently transferred to the ICU with some possible hypotension. Her admission was on March 12 and her transfer to the ICU was March 13. The reason for transfer to the ICU with some hypotension, which resolved fairly quickly, as well as increasing respiratory difficulty. The patient is very difficult to understand. At this point she is quite somnolent and short of breath and, although she is awake, I really cannot understand more than a couple of words of her history. I have attempted to ask her yes or no type questions, but even this has been difficult. This morning she tells me that she continues to be short of breath and that she would like to be repositioned. She also notes that she has some cough. Beyond that, I am uncertain as to much that is going on with her as of this morning. I did discuss this case extensively with the numerous physicians taking care of her, as well as the ICU nurse at the bedside, to get a better appreciation for her situation. PAST MEDICAL HISTORY: 1. 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 3. History of juvenile rheumatoid arthritis. 4. Extensive contractures of all four limbs. 5. History of MRSA bacteremia in 2010. 6. Possible history of congestive heart failure. SOCIAL HISTORY: The patient neither smokes nor drinks and lives in a group home facility. FAMILY HISTORY: Could not be obtained as I just cannot understand enough of what the patient says. REVIEW OF SYSTEMS: Likewise unobtainable. The patient is not able to speak more than one word at a time and even that is extraordinarily difficult to understand secondary to her hoarse voice and shortness of breath. PHYSICAL EXAMINATION: Reveals a chronically ill-appearing woman, lying on her right side in the ICU bed. She is receiving supplemental oxygen but is not intubated. The patient is obviously very short, as one would expect from her dwarfish, and has contractures of the extremities, more so in the lower than upper extremities. She is obese, given that her weight is almost 50 kg and her height is only about 100 cm. Today's temperature is 36.6. Note that she had high fevers during her first 24 hours in the hospital with a spike to 39.2 at one point but has been afebrile now for 48 hours. Her pulse is 107, respiratory rate 16, blood pressure 112/70. She is saturating reasonably well with some blow-by facial oxygen. Despite her normal respiratory rate and reasonable sats, she appears short of breath as one watches her breathe, partly due to what appears to be a lot of secretions. Examination of the head reveals no obvious recent injury. Sinuses are nontender. There is some facial flushing. The nose appears normal. Oral cavity difficult to examine as the patient does not open her mouth very far, but what I see is no thrush or hairy leukoplakia. No apparent pharyngitis. The neck is fairly rigidly flexed, and I think is part of her underlying orthopedic issues. A right IJ line has been placed and is in good position. Her lungs are notable for diminished breath sounds, with rales and rhonchi bilaterally. Cardiac tones regular rate and rhythm, without murmur. Abdomen has an umbilical hernia. It is a bit obese. Soft and nontender. She has a Beltran catheter now but not does not usually have one. Examination of her buttocks and perineal area reveals some mild erythema in the inner thighs but otherwise negative. No evidence of skin breakdown or infection in that area. The legs are contractured. She has Charcot type feet bilaterally. The lower extremities do not appear infected and they are not edematous. Neurologically, the patient is apparently not able to do much, and she did not move her extremities at all during my examination. LABORATORIES: Include a white count which has ranged from 6000 to 9000. The diff on yesterday's labs showed 16% bands, otherwise the diff has been fairly innocuous, though today there is 85% polys. Creatinine is 0.59 today. Procalcitonin has been 0.2, 0.7, and 0.2 on three successive measurements the last three days. Her urinalysis showed greater than 50 white cells and her urine grew an E coli which was resistant to quinolones. Urine Legionella and urine pneumococcal antigens were negative. Other micro data includes one of four blood cultures on admission which grew a coag-negative staph, which I am certain is a contaminant. Followup blood cultures have been negative. Multiplex respiratory PCR was positive for RSV and a nasal swab positive for MRSA. Chest x-ray is difficult to interpret due to her body habitus but her films show what appears to be some bilateral interstitial changes. IMPRESSION: This is a difficult patient to evaluate given the fact that she is currently not speaking a great deal and is very difficult to understand when she does speak. Based on the limited history we have, it sounds like her presentation of three days ago was largely of her respiratory nature, and I suspect that is primarily due to her RSV pneumonia. Her reassuring procalcitonin levels suggest this is not a serious bacterial pneumonia. Another concern here, in addition to the RSV respiratory tract process, is the heavy pyuria the patient had which has grown a somewhat resistant E. coli. It would appear the patient has a significant urinary tract infection and I think that is contributing to her situation. Note that by report she does not have a Beltran at the [facility], though she does have one here, so I think that the heavy pyuria and urine cultures positive for E. coli likely explain most of her initial fever, and perhaps some of her initial toxicity, which now seems to be improving. The patient is also colonized with MRSA, though I see no reason to suspect that she has an underlying MRSA pneumonia at this point. In summary, it seems reasonable that the patient has both an RSV respiratory tract infection which may be causing these interstitial infiltrates as well as a complicated but not bacteremic E. coli urinary tract infection. I doubt that she has any significant bacterial pneumonia. RECOMMENDATIONS: 1. I would add Bactroban nasal ointment to her regimen in an attempt to decolonize her from the MRSA. 2. We can continue with linezolid overnight while we closely observe the patient. 3. Will continue with the meropenem as well overnight while we observe this patient. 4. Will go ahead and stop the linezolid as it is certainly not going to work for the E. coli in the urine and I am not at all certain that the patient has any significant respiratory infection beyond her RSV. 5. Will considerably narrow the patient's antibiotics tomorrow, depending on her clinical course overnight. Thank you very much for this consultation.
--- NOTE | 2016-03-14 17:07 | PCM.PNMED ---
Subjective Date of Service Mar 14, 2016 Subjective Meredith Sterling is a 45 year old female with a history of congenital dwarfism, juvenille arthritis, Felty syndrome, and CHF who presented to the ED from [facility] with altered mental status and shortness of breath. Admitted for severe sepsis secondary to pneumonia and UTI. Hospital day #3 No acute events overnight. Per nursing, able to titrate off norepinephrine and patient remains tachycardic with heart rate 100-120. Patient somnolent, appears confused and slurring her words. Not able to obtain review of systems due to patient condition. She is tachycardic with heart rate consistently in low 100s-120s. Hemodynamically stable with SpO2 98% on 10L aerosol mask with FiO2 of 40%. Exam Vital Signs Vital Sign - Last Date Time Temp Pulse Resp B/P Pulse Ox O2 Delivery O2 Flow Rate FiO2 03/14/16 07:42 107 100 Aerosol Mask 11.00 50 03/14/16 07:41 16 03/14/16 03:42 36.6 112/70 Intake and Output 03/13/16 03/13/16 03/14/16 Cumulative From/Thru 15:00 23:00 07:00 03/11/16 22:44 - 03/14/16 06:18 Intake Total 2099 ml 1645 ml 5468 ml Output Total 550 ml 725 ml 1875 ml Balance 1549 ml 920 ml 3593 ml Intake IV Total 2099 ml 1645 ml 5468 ml Output Urine Total 550 ml 725 ml 1875 ml # Bowel Movements 2 4 Exam General: Somnolent, small female with multiple body deformities including severe kyphosis and bilateral contractures of lower extremities. In mild respiratory distress. HEENT: Atraumatic. External ears without defect. PERRLA, amblyopia, no scleral icterus. Mucosa dry. Neck: No jugular venous distension. No bruits. No lymphadenopathy or thyromegaly. Cardiovascular: Tachycardic, regular rhythm with no murmurs, rubs, or gallops appreciated Pulmonary: Moderate air movement with coarse rhonchi bilaterally.Increased respiratory effort with use of accessory muscles.Oxymask in place. Abdomen: Bowel tones present. Soft, nondistended. No hepatosplenomegaly or masses appreciated. Extremities: Bilateral contractures upper/lower extremities, brawny skin discoloration of feet bilaterally, club feet. no cyanosis or edema appreciated. Skin: Warm, damp, no rashes or ulcerations appreciated. IVs and Medications Medications Reviewed: Medications were reviewed in detail Lab and Diagnostics White Blood Count 8.3, Red Blood Count 3.65, Hemoglobin 10.6, Hematocrit 33.1, Mean Corpuscular Volume 90.7, Mean Corpuscular Hemoglobin 29.0, Mean Corpuscular Hemoglobin Concent 32.0, Red Cell Distribution Width 15.0, Platelet Count 148, Neutrophils (%) (Auto) 84.6, Lymphocytes (%) (Auto) 9.6, Monocytes (% ) (Auto) 5.2, Eosinophils (%) (Auto) 0, Basophils (%) (Auto) 0.1 Sodium Level 144, Potassium Level 3.7, Chloride Level 103, Carbon Dioxide Level 32, Blood Urea Nitrogen 11, Creatinine 0.59, Estimat Glomerular Filtration Rate 157, Glucose Level 134, Calcium Level 8.2, Phosphorus Level 3.7, Total Bilirubin 0.6, Aspartate Amino Transf (AST/SGOT) 19, Alanine Aminotransferase ( ALT/SGPT) 10, Alkaline Phosphatase 73, Total Protein 4.4, Albumin 2.5 Procalcitonin 0.20 Result Diagram: 03/14/16 0345 03/14/16 0345 Microbiology Respiratory virus panel positive for RSV. MRSA screen positive. Blood cultures 1 of 2 positive for GRAM POSITIVE COCCI Urine culture positive for E. coli Strep pneumo and Legionella urine antigens negative. X-Rays, CTs and MRIs X-RAY CHEST ONE VIEW, PORTABLE (03/14/16) IMPRESSION: Interstitial infiltrate, suspect for bronchopneumonia. Dictated and approved by: Thien Lopez M.D. on 03/12/2016 at 8:00 US RENAL SONOGRAM (03/13/16) IMPRESSION: - No hydronephrosis. - Bilateral simple appearing renal cysts. Dictated and approved by: Koby Miller M.D. on 03/13/2016 at 7:44 X-RAY CHEST ONE VIEW, PORTABLE (03/14/16) IMPRESSION: Overall no interval change in patchy right basilar opacities since . No new focal consolidation Dictated and approved by: Koby Miller M.D. on 03/13/2016 at 8:23 X-RAY CHEST ONE VIEW, PORTABLE (03/14/16) IMPRESSION: Right central venous catheter with the tip projecting in the lower SVC Enteric tube with the tip in the stomach Dictated and approved by: Koby Miller M.D. on 03/13/2016 at 13:34 . 12-lead ECG Sinus rhythm rate 95 Prolonged MT interval Low voltage, extremity leads Assessment & Plan 45 year old female with multiple medical problems that is presenting with a few day history of cough, that has now progressed to altered mental status with shortness of breath. Admitted for severe sepsis secondary to pneumonia and UTI. Hospital day #3. 1. Severe sepsis, present on admission. Improving -Met criteria on admission with temp 37.7, HR 117, RR 22, encephalopathy, urinary & pulmonary source of infection -Continue treating underlying infections 2. Acute bacteremia, present on admission. Active. -Blood culture positive for gram positive, coag negative, cocci -Echo with no evidence of vegetations. -MRSA screen positive -Continue antibiotics, as below 3. Pneumonia, acute (likely HCAP). present on admission. Active. -Positive for RSV, possible bacterial etiology. MRSA screen positive. -Pt full-time resident of [facility], antibiotics to cover HCAP -Right lower lobe opacities as well as bilateral perihilar opacities on chest xray -Blood cultures, as above -Stop levofloxacin. Continue Linezolid, meropenem and Bactroban nasal ointment, per ID. -Day 3 of antibiotics. 4. Acute UTI, present on admission. Active. -Pt does not have chronic indwelling catheter at baseline. Renal ultrasound unremarkable -Urine culture positive for E. coli, resistant to levofloxacin, ciprofloxacin and tetracycline -Continue antibiotics, as above 5. Acute encephalopathy, present on admission. Active -Pt was unresponsive on arrival and not at baseline mentation, per family. -Likely secondary to #1. -Continue treatment for sepsis, as above. 6. Acute hyperglycemia, present on admission. Active -Pt w/ no known diagnosis of diabetes -Most recent blood glucose, 282. -HbA1c pending -Blood glucose monitoring q6h -Low dose correctional insulin lispro ordered. 7.Chronic hypertension, present on admission. Stable -Hold home medication in setting of hypotension secondary to sepsis. -Resume home dosing of propranolol when appropriate. 8. Chronic depression, present on admission. Stable -Hold home citalopram due to risk of serotonin syndrome when combined with Linezolid -Continue home dosing citalopram when pt no longer receiving Linezolid. 9. Juvenile arthritis, chronic. present on admission. Stable -Continue home dosing, gabapentin. 10. Chronic pain, present on admission. Active -Continue methadone at reduced dose to avoid withdrawal 11. Reported history of CHF, present on admission. Stable -Echo (03/14/16) while an suboptimal study showed no evidence of CHF. High-risk medication: IV dilaudid 0.5mg Q6h prn Acetaminophen-fever/headache/mild/moderate pain Antiemetics, as needed Bowel regimen, as needed. Pain Evaluation: Adequate Pain Control VTE Prophylaxis: Sub-Q Heparin (Unfractionated) VTE Mechanical Devices: Intermittant Pneumatic CD Resuscitation Status: CPR: Attempt Resuscitation Attending Statement The patient was seen and examined together with Dr. Solis on 03-14-16 and I agree with the history, exam and plan as outlined in the note above. Sumi Solis DO Mar 14, 2016 09:06 Natalia Fermin MD Mar 15, 2016 15:54
[2016-03-14] MEDS ORDERED: Glucose 40% Oral Gel 15 Gm Tube PO PRN (17:35)
--- NOTE | 2016-03-14 17:50 | NUR ---
IJ Pt has been off Levophed since 03/13/16 at 1700. BP has been stable. Pt has been receiving D5 1/2 N2 with 20 meq K at 60cc/hr and Zyvox and Meropenem IV. Pt has been on an aerosol peds mask with fio2 40% Pt started pulling on her O2 tube and was placed back on her face. Pt became restless and unable to answer yes and no questions. Venous gases were ordered. When entering the room to collect gases the 3 L right IJ had been half way pulled out. IV therapy, and notified. IV therapy tried a peripheral site several times but was unsuccessful. Pt is up 5L on fluid with 600cc out of weber. Awaiting to see if antibiotic can be given through her NGT. Ordered WC consult for redness and rashing in dian area and right inner thigh, ordered Nystatin cream. Held heparin r/t right nare bleed where NG placed.
--- NOTE | 2016-03-14 17:58 | NUR ---
IV Attempts I am Rashid Nguyen RN, both tried to obtain peripheral IV access with and without ultrasound without success. I then notified Angie HALL the patients nurse and informed her. She then called Dr. Cage and advised him. I then called Dr. Cage and discussed the difficulty with IV attempts. I provied Dr. Cage with the phone number for Dr. Diaz from anesthesia to discuss placing another central line. Jammie Gracia
--- NOTE | 2016-03-14 20:33 | DRSVH ---
PROCEDURE: X-RAY CHEST ONE VIEW, PORTABLE ([id number]) INDICATIONS: tube placement. TECHNIQUE: One view of the chest was acquired. COMPARISON: [facility], CR, XR CHEST 1VW (PORTABLE), 03/14/2016, 4:54. FINDINGS: Surgical changes and devices: There is an NG tube in the stomach. Previously present right internal j ugular central line has been removed. Lungs and pleura: No pneumothorax or pleural fluid is seen. The bilateral patchy infiltrates remain u nchanged since the film at 0454 hrs. 03/14/16. Mediastinum: Mediastinal contours appear normal. Heart size is normal. Bones and chest wall: No suspicious bony lesions. Overlying soft tissues appear unremarkable. IMPRESSION: There is no change in the bilateral infiltrates. NG tube into the stomach. Dictated by: Ashkan Helton M.D. on 03/14/2016 at 20:31 Approved by: Ashkan Helton M.D. on 03/14/2016 at 20:31
--- NOTE | 2016-03-14 20:46 | DRSVH ---
PROCEDURE: X-RAY ABDOMEN, ONE VIEW ([id number]) INDICATIONS: femoral line placement TECHNIQUE: One view of the abdomen acquired. COMPARISON: None. FINDINGS: Surgical changes and devices: There is a catheter in the region of the left inguinal area consistent with a femoral line extending superiorly. The position suggests this is venous as opposed to arterial . There is an NG tube on the margin of the images. There is a small angiocatheter overlying the right upper pelvis. Whether this is in the patient overlying the patient I cannot tell. Bowel: Bowel gas pattern is normal. Soft tissues: No suspicious abdominal calcifications. Visualized solid organ contours appear normal in size. Bones: Severe rotoscoliosis and degenerative changes and malformed hips are noted. IMPRESSION: Left inguinal catheter placement. Medial position but suggest venous. Dictated by: Ashkan Helton M.D. on 03/14/2016 at 20:44 Approved by: Ashkan Helton M.D. on 03/14/2016 at 20:44
[2016-03-14] MEDS ORDERED: Sodium Chloride LOK Flush 10 mL Syringe IVFLUSH PRN ×2 (21:05)
--- NOTE | 2016-03-14 21:09 | ABG ---
DateTimeAnalyzed 21:03:00 -_ pH ____7.298 - pCO2 ___70.0__ -mmHg pO2 ___51.1__ -mmHg HCO3- ___33.2__ -mmol/L ABE ____5.6__ -mmol/L tHb ___10.4__ -g/dL O2Hb ___84.1__ -% COHb ____1.3__ -% MetHb ____0.9__ -% sO2 ___86.0__ -% FIO2 ___40.0__ -% Drawn By RN - Date/Time Notified____ 21:07:00 -_ Spontaneous_RR ___26.0__ -b/min Liter_Flow ____7.0__ -L/min Oxygen Device 1 __OXYMASK - Notified By BLF - Notified Whom JOSSE SWAN RN - B 743 -mmHg tO2 ___12.4__ -Vol% Osmani test N/A -
--- NOTE | 2016-03-14 21:11 | PROCED ---
[address] [address] PROCEDURE NOTE PATIENT: TRAM LAZO : 1970 MR#: [id number] ADMIT: 03/12/2016 JOB ID: [id number] DATE OF SERVICE: POSTOPERATIVE DIAGNOSIS(ES): PREOPERATIVE DIAGNOSIS(ES): SURGEON: Duncan Diaz MD. I was asked to see this patient by the hospitalist secondary to need for IV access. The patient had previously had a central line which she pulled and we were unable to establish peripheral IV access due to the patient's body habitus. The patient has severe rheumatoid arthritis and her body skeleton is very distorted and contorted in a state of contracture. After obtaining informed consent from her legal guardians, the patient was positioned for right IJ access. The right IJ area of the neck was sterilely prepped with ChloraPrep and full barrier precautions were taken. Ultrasound guidance was used to identify the internal jugular vein and 1% lidocaine was used to create a skin wheal infiltration. The vein was cannulated and venous blood was aspirated, after which a guidewire was advanced into the introducer needle. The introducer needle was pulled and a skin chavez was made after which attempt was made to dilate the incision over the guidewire. I was unable to advance the dilator more then 3 cm in and subsequently the catheter as well was unable to be advanced over the guidewire more than 3 cm. It appeared that there was an obstruction of some sort which I believe to be at the level of the clavicle which was preventing further advancement. Most likely this is a result of the patient's body habitus. After some attempts were made unsuccessfully it was decided that we would pursue a femoral approach. Thus, the left femoral groin area was prepped with ChloraPrep and full barrier precautions were taken. Using ultrasound guidance, the femoral vein was cannulated with the introducer needle and a guidewire was advanced easily. Skin chavez was made and dilator was advanced over the guidewire and that was also easily advanced. Then a triple-lumen 7-Tajik catheter was advanced over the guidewire using Seldinger technique. The guidewire was removed and the line was sutured in place at the hub. It was decided that suturing the line as opposed to a simple occlusive barrier was necessary given the patient's tendency to pull her IV access. Abdominal x-ray was done, and venous blood gases also pending. All three ports of the line were aspirated and aspirated well with dark red blood. Of note, I did review the x-ray and it showed the central line has a 90-degree bend in it. However, once again, the line appears to be venous and is aspirating well and this extreme angulation is due to the patient's anatomy. The patient tolerated the procedure reasonably and vital signs were stable.
[2016-03-14] MEDS: Insulin LISPRO 300 Unit/3 mL Inj SUBQ SCH (21:17)
[2016-03-15] VITALS (15 sets, daily range): BP systolic 114–127; BP diastolic 74–96; PULSE 111–127; RESP 18–26; O2SAT 98–100
[2016-03-15] MEDS: Meropenem Inj 1,000 MG in IV Premix 1 EACH IV SCH ×3 (00:35→17:36)
[2016-03-15 04:52] LABS: BASOPHILS % (AUTO) 0.1 % (0-3); EOSINOPHILS % (AUTO) 0 % (0-5); MONOCYTES % (AUTO) 4.3 % (4-12); Mean Corpuscular Hemoglobin 28.8 pg (27.0-35.0); Mean Corpuscular Volume 91.3 fL (81-100); NEUTROPHILS % (AUTO) 86.4 % (40-74); Platelet Count 141 bil/L (150-400)
--- NOTE | 2016-03-15 05:43 | NUR ---
IV / Resp / GI IV access established in right femoral vein by anesthesia. Patient immediately reaches for the line and tries to pull on it. Attempted to orient patient but unable to do so. MD is notified and orders received for a soft wrist restraint to protect the line. Patient continues to immediately attempt to reach for line when restraint is removed for her repositioning and assessments. Venous gas ordered on day shift and drawn after line is placed. MD notified of results and orders received for RT to start high flow O2 as suggested by RT. Patient has a frequent cough, weak but productive at times. 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 Frequent skin care and divine applied.
[2016-03-15] MEDS: Famotidine Inj 20 MG in IV Premix 1 EACH IV SCH ×2 (07:37→20:52)
[2016-03-15] MEDS: Linezolid Inj 600 MG in IV Premix 1 EACH IV SCH ×2 (07:38→20:18)
[2016-03-15] MEDS: Mupirocin 2% 22 Gm Ointment TOPICAL SCH ×2 (07:38→20:52)
[2016-03-15] MEDS: Insulin LISPRO 300 Unit/3 mL Inj SUBQ SCH ×4 (07:38→21:53)
[2016-03-15] MEDS: Albuterol-Ipratropium 3 mL Inhalation Solution NEB SCH ×4 (08:00→19:32)
[2016-03-15] MEDS: Sodium-Potassium Phosphorus Packet TUBE SCH ×2 (08:30→20:52)
[2016-03-15] MEDS: Heparin 5,000 Unit/mL Inj SUBQ SCH ×2 (08:30→17:35)
[2016-03-15] MEDS: Methadone 10 mg/mL Oral Concentrate PO SCH ×2 (09:36→21:00)
[2016-03-15] MEDS: D5 0.9% NaCl + KCl 20 mEq/L 1,000 ML IV SCH (11:10)
--- NOTE | 2016-03-15 11:12 | NUR ---
NUTRITION FOLLOW UP: ASSESS: 45 YO F admitted to CCU with severe sepsis, acute hypoxic respiratory failure, gram-positive cocci bacteremia, RSV pneumonia, e.coli UTI in patient with congenital dwarfism. Pt remains NPO X 3 days, plan for speech eval. PMHx: Congenital dwarfism, kyphoscoliosis, juvenile RA, migraines, bilateral leg contractures, CHF, HTN, depression. DIET: NPO pending swallow eval. LABS: Reviewed. Cr 0.52, Glu 119, Alb 2.6, PAB 6 MEDICATIONS: Reviewed. GI: 5 BM 03/15. Loose stool noted. SKIN: No skin issues per wound eval. ANTHROPOMETRICS: Current Wt: 48.4 kg, BMI: 44.6 kg/m2. IBW: 31 kg, Adj BW 35.4 kg. ESTIMATED NEEDS: BMI Calories: 886-1065 calories (25-30 kcal/kg Adj. BW) Protein: 43-53 g protein (1.2-1.5 g/kg Adj. BW) Fluid: Approx 1392 ml (30 ml/kg BW) NUTRITION DIAGNOSIS: 1) Chewing/swallowing difficulties related to congenital malformations, as evidenced by NPO status, pending swallow evaluation.---PERSISTS. INTERVENTION: 1) Diet advance per speech therapy. If unable to advance diet in the next 48 hours consider nutrition support. MONITOR/EVALUATE: Diet advance, NPO status, ST eval, labs, GI/nutrition status. Follow per high nutrition risk guidelines.
--- NOTE | 2016-03-15 11:27 | NUR ---
Evaluation completed. Please go to "Notes" then click on "Assessments and Notes" (bottom left corner of screen). Then select appropriate discipline tab on top of screen.
--- NOTE | 2016-03-15 11:42 | PROG NOTE ---
[address] [address] PROGRESS NOTE PATIENT: TRAM LAZO : 1970 MR#: [id number] ADMIT: 03/12/2016 JOB ID: [id number] PULMONARY CRITICAL CARE NOTE: DATE: 03/15/2016 PROBLEM: 1. Hypoxemic hypercarbic respiratory failure. 2. Pneumonia. 3. Congenital dwarfism. 4. Juvenile rheumatoid arthritis. SUBJECTIVE: None. Very difficult to understand her speech. I believe she indicated she was not having any pain or breathing problem. OBJECTIVE: Temperature 37, with T-max being 37.6. Pulse 115-127, respiratory rate 20-26. Blood pressure 127/74. O2 sat on high-flow system with an FiO2 of 0.35 and a flow of 40 L a minute was 99%. General appearance: Lying in bed. Appears uncomfortable, but nods off to sleep. Opens her eyes to visual stimuli. Seems to look around, though does not always seem to focus on any particular object. With speaking to her directly, she does seem to focus on the questioner. Mouth: Unable to examine. Chest: Difficult to examine, but her left chest sounds are clear. Her right chest has numerous crackles throughout both lung akers. Heart: Difficult to auscultate. Abdomen: Soft. Extremities: Wrapped in Joaquin bandage. LABORATORY DATA: Shows a white count of 7400 with moderate neutrophilia. Hemoglobin 9.3, slowly decreasing. Platelet count 141,000, down from 292,000 four days ago. Sodium 142, potassium 3.5, chloride 100, CO2 is 33, BUN 8, creatinine 0.5, calcium 8.6, magnesium 2. Transaminases are normal. Total protein 4.2, albumin 2.6, pre-albumin is 6. Procalcitonin is 25.65, up from 0.2 yesterday. Urine for Legionella antigen is negative. Urine for Streptococcal pneumoniae antigen is negative. MRSA nasal screen is positive. Respiratory viral PCR panel positive for RSV. Sputum growing MRSA resistant to cefazolin, clindamycin, erythromycin, as well as oxacillin. Sensitive to linezolid and vancomycin. Chest x-ray shows significant scoliosis. Concave to the left. Infiltrate in the right lower lung field, with some increased interstitial markings in the right upper lung field. ASSESSMENT: 1. Pneumonia. Etiology unclear. May be dealing with respiratory syncytial virus. Possibly Staphylococcus. On appropriate antibiotics. 2. Hypoxemic hypercarbic respiratory failure. Oxygen by mask apparently not sufficient to satisfy O2 needs. Currently, unable to wear BiPAP, as she did not tolerate the adult mask. Probably needs pediatric mask in any case. Currently, she is on high-flow system which is resulting in O2 saturations of 99%+. Concerned about the ventilatory component here. She does not seem particularly lethargic. Is somewhat uncomfortable. Although not ideal, will have to settle for this modality for the moment. Would wonder about an OxyMask. On FiO2 of 0.35 with a flow of 40 L a minute. Probably could supply enough oxygen with the OxyMask alone, though not sure the benefit over the high-flow system, as neither is of any ventilatory support. 3. Inadequate IV access. The patient pulled out her IJ line yesterday. Currently has a femoral line. Looking at her habitus, not quite sure where we are going to get lines. Her arms are certainly not going to be able to take a line. Might have to be content for the moment for the femoral line, changing it as soon as we can, maybe when she can take enteral medications via the nasogastric tube. PLAN: 1. Supplement potassium. 2. Check with Respiratory Therapy that we have adequate suction catheters if she gets intubated with a smallish tube. Hopefully, she will not need intubation but conquer this problem on her own. 3. Discuss nutrition as well as IV access. TIME SPENT: Critical care, 22 minutes.
--- NOTE | 2016-03-15 12:43 | PROG NOTE ---
[address] [address] PROGRESS NOTE PATIENT: TRAM LAZO : 1970 MR#: [id number] ADMIT: 03/12/2016 JOB ID: [id number] DATE: 03/15/2016 REASON FOR FOLLOWUP: RSV pneumonia/possible MRSA pneumonia and E. coli urinary tract infection in a woman from a care home facility. INTERVAL HISTORY: Overnight, the patient has had issues with pulling out IV lines, and for that reason a new line had to be placed in the left groin and restraints added. She continues to be moderately short of breath and the almost noncommunicative. The patient can occasionally give one-word answers to questions, but today when seen on rounds, she is really not interactive at all, though she is intermittently awake and fidgeting with airway tubing. This case was discussed extensively during ICU rounds this morning. PHYSICAL EXAMINATION: Reveals a woman with congenital abnormalities as described yesterday. She is breathing through trach and lying comfortably in bed. She is not, however, very interactive. As noted, when she came in back on the , she spiked high fevers and has now been afebrile for 48 hours or so. Temp now 37 degrees, pulse 1-teens to 120s, blood pressure 122/74. She is not on any vasopressor agents at this point. She is saturating well on 35% flow. Eyes without conjunctivitis. Trach site looks benign. Lungs more clear than yesterday with fair air flow bilaterally. Some scattered rales and rhonchi are heard, however. Abdomen without change. The only skin abnormality is a possible Anh in posterior thighs, intertriginous zones, that was seen yesterday but is not especially severe or concerning at this point. LABORATORIES: Include white count 7400, platelet count 141,000. Creatinine 0.52. LFTs are normal. Procalcitonin is 26. Urinalysis as previously mentioned, greater than 50 white cells, and the urine culture grew an E. coli which was resistant to most of our oral agents except trimethoprim, sulfamethoxazole, and nitrofurantoin. Also note that this is actually penicillin susceptible but resistant to quinolones and tetracycline. Other positive cultures of interest include a single positive blood culture for coag-negative staph which is almost certainly a contaminant. Sputum has grown MRSA. Note that the Gram stain showed many polys, though moderate mixed mary was seen on the Gram stain, MRSA grew in heavy concentrations with a legal financial specialist growth of what appears to be a pseudomonad. Nasal swab was also positive for MRSA. PCR was positive for respiratory syncytial virus. Abdominal x-ray was done overnight which shows a placement of a left inguinal catheter which appears to be venous. Most recent chest radiograph was done yesterday which shows no changes in the patchy bilateral infiltrates seen previously. IMPRESSION: This is a difficult patient to examine because of her multiple skeletal abnormalities, as well as the fact that she has been largely noncommunicative during the past few days. It sounds like she was primarily admitted for respiratory process which sounds most consistent with respiratory syncytial virus pneumonia. Her bump in procalcitonin levels overnight, however, strongly suggest that there is an underlying bacterial process which could be her multidrug or somewhat resistant Escherichia coli complicated urinary tract infection, or perhaps complicating methicillin-resistant Staphylococcus aureus pneumonia. At this point, I am more concerned about the possibility of methicillin-resistant Staphylococcus aureus complicated in respiratory syncytial virus pneumonia and about the Escherichia coli in the urine which seems fairly straightforward in terms of its treatment. RECOMMENDATIONS: 1. Will continue with nasal Bactroban. 2. Will continue with linezolid as a drug for her possible MRSA pneumonia. Note that this could be given orally, as it is 100% orally absorbed. 3. Will continue with the meropenem for one more day while we await the susceptibilities on the Pseudomonas from the sputum. 4. This case discussed extensively during ICU rounds this morning and will continue to follow.
[2016-03-15] MEDS: Norepineph 8,000 mCg/250 mL NS 8,000 MCG in IV Premix 1 EACH IV SCH (13:31)
--- NOTE | 2016-03-15 13:31 | NUR ---
03/15/16 Wound Care [facility] Patient seen for pressure ulcer protocol. Patient found with excoriated but intact area, not related to pressure, approx 8cm x 8cm to left inner thigh. Applied Calmoseptine. Per nursing, patient rolls self back to right side after any repositioning. No redness or evidence of pressure to right hip or leg. Recommend cont q2hour turning schedule, continue use of P500 bed, and placing pillows to keep on left side during turns. Recommend apply calmoseptine daily to excoriated area. Wound care to follow up as needed.
--- NOTE | 2016-03-15 14:35 | PCM.PNMED ---
Subjective Date of Service Mar 15, 2016 Subjective Meredith Sterling is a 45 year old female with a history of congenital dwarfism, juvenille arthritis, Felty syndrome, and CHF who presented to the ED from [facility] with altered mental status and shortness of breath. Admitted for severe sepsis secondary to pneumonia and UTI. Hospital day . Overnight patient had left femoral access obtained as she pulled out her right IJ. No other acute events overnight. Per nursing, able to titrate off norepinephrine and patient remains tachycardic with heart rate 100-120. Patient responds to yes and no questions intermittently. Unable to understand other verbalization and she slurs and mumbles. Mother at bedside this afternoon has the same difficulty. Mother states that she is normally conversational and feeds herself at baseline. She remains hemodynamically stable on high flow at FiO2 of 35%. Exam Vital Signs Vital Sign - Last Date Time Temp Pulse Resp B/P Pulse Ox O2 Delivery O2 Flow Rate FiO2 03/15/16 05:02 121 22 100 Nasal Cannula 40 40 03/15/16 03:17 37.4 123/77 Intake and Output 03/14/16 03/14/16 03/15/16 Cumulative From/Thru 15:00 23:00 07:00 03/11/16 22:44 - 03/15/16 06:21 Intake Total 945 ml 971 ml 7384 ml Output Total 600 ml 875 ml 3350 ml Balance 345 ml 96 ml 4034 ml Intake IV Total 945 ml 971 ml 7384 ml Output Urine Total 600 ml 875 ml 3350 ml # Bowel Movements 5 9 Exam General: Somnolent, small female with multiple body deformities including severe kyphosis and bilateral contractures of lower extremities. In mild respiratory distress. HEENT: Atraumatic. External ears without defect. PERRLA, amblyopia, no scleral icterus. Mucosa dry. Neck: No jugular venous distension. No bruits. No lymphadenopathy or thyromegaly. Cardiovascular: Tachycardic, regular rhythm with no murmurs, rubs, or gallops appreciated Pulmonary: Moderate air movement with coarse rhonchi bilaterally.Increased respiratory effort with use of accessory muscles.Oxymask in place. Abdomen: Bowel tones present. Soft, nondistended. No hepatosplenomegaly or masses appreciated. Extremities: Bilateral contractures upper/lower extremities, brawny skin discoloration of feet bilaterally, club feet. no cyanosis or edema appreciated. Skin: Warm, damp, no rashes or ulcerations appreciated. IVs and Medications Medications Meropenem Heparin subcutaneous Methadone 5 mg every 12 Linezolid Famotidine DuoNeb Dilaudid 0.5 mg every 6 when necessary Norepinephrine Lispro Lab and Diagnostics Result Diagram: 03/15/1641403/15/16414 Microbiology Respiratory virus panel positive for RSV. MRSA screen positive. Blood cultures 1 of 2 positive for GRAM POSITIVE COCCI Urine culture positive for E. coli Strep pneumo and Legionella urine antigens negative. X-Rays, CTs and MRIs X-RAY CHEST ONE VIEW, PORTABLE (03/14/16) IMPRESSION: Interstitial infiltrate, suspect for bronchopneumonia. Dictated and approved by: Thien Lopez M.D. on 03/12/2016 at 8:00 US RENAL SONOGRAM (03/13/16) IMPRESSION: - No hydronephrosis. - Bilateral simple appearing renal cysts. Dictated and approved by: Koby Miller M.D. on 03/13/2016 at 7:44 X-RAY CHEST ONE VIEW, PORTABLE (03/14/16) IMPRESSION: Overall no interval change in patchy right basilar opacities since . No new focal consolidation Dictated and approved by: Koby Miller M.D. on 03/13/2016 at 8:23 X-RAY CHEST ONE VIEW, PORTABLE (03/14/16) IMPRESSION: Right central venous catheter with the tip projecting in the lower SVC Enteric tube with the tip in the stomach Dictated and approved by: Koby Miller M.D. on 03/13/2016 at 13:34 . 12-lead ECG Sinus rhythm rate 95 Prolonged MN interval Low voltage, extremity leads Assessment & Plan 45 year old female with multiple medical problems that is presenting with a few day history of cough, that has now progressed to altered mental status with shortness of breath. Admitted for severe sepsis secondary to pneumonia and UTI. Hospital day 5. 1. Severe sepsis, present on admission. Improving -Met criteria on admission with temp 37.7, HR 117, RR 22, encephalopathy, urinary & pulmonary source of infection -Continue treating underlying infections. 2. Acute bacteremia, present on admission. Active. -Blood culture positive for gram positive, coag negative, cocci -Echo with no evidence of vegetations. -MRSA screen positive -Continue antibiotics, as below 3. Pneumonia, acute (likely HCAP). present on admission. Active. -Positive for RSV, possible bacterial etiology. MRSA screen positive. -Pt full-time resident of [facility], antibiotics to cover HCAP -Right lower lobe opacities as well as bilateral perihilar opacities on chest xray. -Repeat chest x-ray tomorrow. -Blood cultures, as above -Stop levofloxacin. Continue Linezolid, meropenem and Bactroban nasal ointment, per ID. -Day 4 of antibiotics. 4. Acute UTI, present on admission. Active. -Pt does not have chronic indwelling catheter at baseline. Renal ultrasound unremarkable. -Urine culture positive for E. coli, resistant to levofloxacin, ciprofloxacin and tetracycline. -Continue antibiotics, as above. 5. Acute encephalopathy, present on admission. Active -Pt was unresponsive on arrival and not at baseline mentation, per family. Baseline mentation per family is conversational and able to feed herself. -Likely secondary to #1. -Continue treatment for sepsis, as above. 6. Acute hyperglycemia, present on admission. Active -Pt w/ no known diagnosis of diabetes -Most recent blood glucose, 119. -HbA1c pending -Blood glucose monitoring q6h -Low dose correctional insulin lispro ordered. 7.Chronic hypertension, present on admission. Stable -Hold home medication in setting of hypotension secondary to sepsis. -Resume home dosing of propranolol when appropriate. 8. Chronic depression, present on admission. Stable -Hold home citalopram due to risk of serotonin syndrome when combined with Linezolid -Continue home dosing citalopram when pt no longer receiving Linezolid. 9. Juvenile arthritis, chronic. present on admission. Stable -Continue home dosing, gabapentin. 10. Chronic pain, present on admission. Active -Continue methadone at reduced dose to avoid withdrawal 11. Reported history of CHF, present on admission. Stable -Echo (03/14/16) while an suboptimal study showed no evidence of CHF. High-risk medication: IV dilaudid 0.5mg Q6h prn Acetaminophen-fever/headache/mild/moderate pain Antiemetics, as needed Bowel regimen, as needed. Disposition: Patient continues to have altered mental status far below baseline. We will continue antibiotics per infectious disease appreciate pulmonology/critical care following. Discharge back to [facility]. Pain Evaluation: Adequate Pain Control GI Prophylaxis: H2 amparo VTE Prophylaxis: Sub-Q Heparin (Unfractionated) VTE Mechanical Devices: Intermittant Pneumatic CD Resuscitation Status: CPR: Attempt Resuscitation Attending Statement The patient was seen and examined together with Dr. Clifford on 03/15/2016 and I agree with the history, exam and plan as outlined in the note above. . JEANNIE CLIFFORD DO Mar 15, 2016 06:46 Braxton Gaona MD Mar 17, 2016 07:43
[2016-03-15] MEDS ORDERED: 0.9% Sodium Chloride 250 ML ONE (17:32)
--- NOTE | 2016-03-15 17:54 | NUR ---
Mentation/bowel movements/respiratory Throughout shift, pt mumbling words, and it is unclear if she is coherent. She will squeeze your hand when asked to, but otherwise does not seem to be following direction. She does track with her eyes. Mom states this is different from her baseline. MD aware. Pt had x4 loose small bowel movements on day shift. Sent sample per order. Using calmoseptine and nystatin on dian area/rectum. Pt coughing intermittently that sounds dry and barking. Using oral suction PRN, but only getting out scant-small amount of white creamy secretions. Pt continues to be on high flow O2. Frequent oral care, turns and rounding continues. Pt independently turns to right, even when putting pillows and intentionally turning to left.
--- NOTE | 2016-03-15 22:26 | NUR ---
Mother Porsha calling [employer] First call stating a doctor was suppose to call her ama at home to discuss why daughter is not talking. Shortly thereafter calling again wondering if daughter may have had a stroke. Pt eyes open. Makes eye contact not answering or nodding start of shift. Would squeeze hands when asked. After cleaning pt stool and repositioning to opposite side pt saying "turn, turn" wanting go back to R side. Also soft restraint on L hand to protect L femoral CVL line and pt stating "let go". No c/o pain. Coughing, productive yellow sputum.
[2016-03-16] VITALS (13 sets, daily range): BP systolic 128–148; BP diastolic 80–116; PULSE 105–121; RESP 16–36; O2SAT 95–100
[2016-03-16] MEDS: Heparin 5,000 Unit/mL Inj SUBQ SCH ×3 (00:10→16:46)
[2016-03-16] MEDS: Meropenem Inj 1,000 MG in IV Premix 1 EACH IV SCH (00:11)
[2016-03-16] MEDS: D5 0.9% NaCl + KCl 20 mEq/L 1,000 ML IV SCH ×2 (04:16→17:00)
[2016-03-16 05:12] LABS: BASOPHILS % (AUTO) 0.1 % (0-3); EOSINOPHILS % (AUTO) 0 % (0-5); MONOCYTES % (AUTO) 6.3 % (4-12); Mean Corpuscular Hemoglobin 28.7 pg (27.0-35.0); Mean Corpuscular Volume 89.9 fL (81-100); NEUTROPHILS % (AUTO) 78.7 % (40-74); Platelet Count 145 bil/L (150-400)
--- NOTE | 2016-03-16 06:30 | NUR ---
P: neuros I: reorient, oral care, repositioning, explain care E: Generally awake. Makes eye contact. Has only state "turn" and "let go" last night, otherwise not answering or nodding to any direct questions. Pt nudges staff hands away when care given. Restraints to protect high flow, NGT, L groin CVL, weber. Tele ST, borderline 1st AVB, moderately high BP. MAX temp 38 AX. Stooling x 4. High Flow at 28% (40L), sats in the high 90s. RR teens to mid/high 20s. Intermittently coughing. Yellow sputum x 2.
[2016-03-16] MEDS ORDERED: KCl 40 mEq/100 mL (CENTRAL) 20 MEQ in IV Premix 1 EACH IV ONE (06:45)
[2016-03-16] MEDS: Albuterol-Ipratropium 3 mL Inhalation Solution NEB SCH ×4 (07:44→21:00)
[2016-03-16] MEDS: Insulin LISPRO 300 Unit/3 mL Inj SUBQ SCH ×4 (08:00→22:00)
[2016-03-16] MEDS: Famotidine Inj 20 MG in IV Premix 1 EACH IV SCH ×2 (08:17→20:58)
[2016-03-16] MEDS: Mupirocin 2% 22 Gm Ointment TOPICAL SCH ×2 (08:28→20:59)
--- NOTE | 2016-03-16 08:43 | DRSVH ---
PROCEDURE: X-RAY CHEST ONE VIEW, PORTABLE ([id number]) INDICATIONS: shortness of breath TECHNIQUE: One view of the chest was acquired. COMPARISON: [facility], CR, XR CHEST 1VW (PORTABLE), 03/14/2016, 19:57. [facility], CR, XR CHEST 1VW (PORTABLE), 03/14/2016, 4:54. FINDINGS: Surgical changes and devices: Nasogastric tube in normal position.. Lungs and pleura: No pleural effusions or pneumothorax. Lungs are unchanged, with reduced inspirato ry volume, and prominent convex rightward scoliosis again noted. Bibasilar atelectasis and/or pneumo daniella appears present. Mediastinum: Mediastinal contours appear normal. Heart size is normal. Bones and chest wall: No suspicious bony lesions. Overlying soft tissues appear unremarkable. IMPRESSION: Stable appearance of the chest, nasogastric tube in normal position. There is bibasilar atelectasis but also likely superimposed mild or early pneumonia greater on the right than the left, previously also present. Dictated by: Bill Long M.D. on 03/16/2016 at 8:41 Approved by: Bill Long M.D. on 03/16/2016 at 8:41
[2016-03-16] MEDS: Linezolid Inj 600 MG in IV Premix 1 EACH IV SCH (08:55)
[2016-03-16] MEDS: Sodium-Potassium Phosphorus Packet TUBE SCH ×2 (08:57→20:59)
--- NOTE | 2016-03-16 09:59 | PROG NOTE ---
[address] [address] PROGRESS NOTE PATIENT: TRAM LAZO : 1970 MR#: [id number] ADMIT: 03/12/2016 JOB ID: [id number] DATE: 03/16/2016 REASON FOR FOLLOW UP: Pneumonia and complex urinary tract infection in a patient with respiratory failure. INTERVAL HISTORY: Overnight, the patient has been relatively stable, though her mental status has still not returned to baseline and she continues to have fevers. The patient is still not communicative, though she is awake and occasionally will give a one-word answer to question, but the single word answers are often unintelligible. This case was discussed extensively during ICU rounds and with the pharmacy. PHYSICAL EXAMINATION: Reveals a woman with multiple skeletal abnormalities, lying supine in her ICU bed. She is receiving oxygen by nasal prongs. She continues to have low-grade fevers, including a temperature of 38 degrees during the night, and she is 37.9 right now. Eyes without scleral icterus or conjunctivitis. Lungs with rales at the bases. Abdomen benign. No new lines or devices are present. LABORATORIES: Include a white count of 6900, platelet count 145, which is improving. Creatinine 0.48. LFTs are normal. Procalcitonin has come down from 25 yesterday to 8 today. Urinalysis had greater than 50 white cells on admission and that urine culture grew E. coli. Sputum had grown MRSA and nasal swabs also grew MRSA. The respiratory viral multiplex PCR was positive for RSV. C. diff was done and was negative. IMAGING: Includes a chest x-ray, which shows stable appearance of the chest with atelectasis. Difficult to tell, but there may also be some pneumonia at the right base. IMPRESSION: This continues to be a complex case of a woman with multiple skeletal abnormalities as well as Felty syndrome. She was admitted from the group home where she resides for respiratory distress and was also found to have a complicated urinary tract infection with Escherichia coli. Her pneumonia seems to be due to two things, namely respiratory syncytial virus and possibly methicillin-resistant Staphylococcus aureus. She was initially treated with linezolid, but it has now been recognized that patient drugs was an selective serotonin reuptake inhibitor which was given to her at the nursing facility, and it could be that some of her altered mental status and perhaps even her low-grade continuing fevers are due to serotonin syndrome. RECOMMENDATIONS: 1. Will continue with nasal Bactroban. 2. Will switch the linezolid to ceftaroline. 3. We will be able to stop the meropenem entirely as the ceftaroline will cover both the MRSA in the sputum as well as the E. coli, allowing us to consolidate and simplify therapy. 4. This case discussed in detail with the ICU team as well as the ICU pharmacist.
--- NOTE | 2016-03-16 10:04 | PCM.PNMED ---
Subjective Date of Service Mar 16, 2016 Subjective PULMONARY CRITICAL CARE NOTE: PROBLEM: 1. Hypoxemic hypercarbic respiratory failure. 2. Pneumonia. 3. Congenital dwarfism. 4. Juvenile rheumatoid arthritis. SUBJECTIVE: Fever overnight with Tmax of 38C. Nursing report of patient requesting "turn, turn, turn" indicating desire to be on right side. Patient reportedly also indicating desire to have restraints removed. However, restraints maintained due to patient attempts to remove L femoral CV line. Very difficult to understand her speech. She does make eye contact, and does lightly squeeze hands on command. Mother was in last night, and reported that the patient's baseline mentation is active, conversational, and feeds self. Exam Vital Signs Vital Sign - Last Date Time Temp Pulse Resp B/P Pulse Ox O2 Delivery O2 Flow Rate FiO2 03/16/16 08:04 37.9 110 22 148/116 99 high flow 03/16/16 07:45 29 03/16/16 07:44 40 Intake and Output 03/15/16 03/15/16 03/16/16 Cumulative From/Thru 15:00 23:00 07:00 03/11/16 22:44 - 03/16/16 06:29 Intake Total 1187 ml 1185 ml 9756 ml Output Total 750 ml 850 ml 4950 ml Balance 437 ml 335 ml 4806 ml Intake IV Total 1187 ml 1185 ml 9756 ml Output Urine Total 750 ml 650 ml 4750 ml Gastric Drainage Total 200 ml 200 ml # Bowel Movements 4 4 17 Exam General: obese female lying in hospital bed on L side. does not appear to be in acute distress. HEENT: Opens eyes and makes eye contact. conjunctiva not injected, EOMi. Membranes moist. Chest: coarse rhonchorous breath sounds throughout, but worse on the R. cough is wet and weak. CV: Tachycardic without appreciable murmur. radials are 2+ bilaterally. ABD: Soft and nontender with infrequent, normal-sounding BT. EXT: contractures in all 4 extremities. LE wrapped in Joaquin bandage bilaterally. IVs and Medications IV Fluids D5 with KCl at 60ml/hr Medications Reviewed: Medications were reviewed in detail Medications Primary team ordered 20mEq of KCl today. Continues on Meropenem and Linezolid for now. Mupirocin and Nystatin. Continues on Methadone. Lab and Diagnostics calcium 8.3 (corrects to 9.3). LFT are normal. Total protein 4.2, albumin 2.6. Procalcitonin is 8.39, down from 25.65 yesterday. Result Diagram: 03/16/16 0500 03/16/16 0500 Microbiology Urine for Legionella antigen is negative. Urine for Streptococcal pneumoniae antigen is negative. MRSA nasal screen is positive. Respiratory viral PCR panel positive for RSV. Sputum growing MRSA resistant to cefazolin, clindamycin , erythromycin, as well as oxacillin. Sensitive to linezolid and vancomycin. C. diff was negative. X-Rays, CTs and MRIs Chest x-ray shows significant scoliosis. Concave to the left. Infiltrate in the right lower lung field, with some increased interstitial markings in the right upper lung field. No significant improvement from 03/14/16. Assessment & Plan ASSESSMENT: Problem list: 1. Hypoxemic hypercarbic respiratory failure. 2. Pneumonia. 3. Congenital dwarfism. 4. Juvenile rheumatoid arthritis. 5. Rash, likely cutaneous candidiasis 1. Pneumonia. Etiology unclear (likely viral, but some thought to secondary bacterial, or fungal). Question dealing with solitary respiratory syncytial virus. Possibly Staphylococcus (though question colonization vs infection). Given the fact that she is not really improving, there is suspicion that she has a secondary pulmonary infection. Discussed antibiotics today on ICU rounds , and will plan per ID to stop Linezolid (given risk of serotonin syndrome in setting of concomitant SSRI administration) and replace with Ceftaroline (would cover both MRSA and E. coli UTI). There is some concern that we do not have a clear understanding of the underlying process. Will pursue CT chest for improved visualization today. She is 4.8L fluid balance positive without significant peripheral edema. Consideration could be made for some diuresis should the CT demonstrate fluid overload. 2. Hypoxemic, hypercarbic respiratory failure. Oxygen by mask was apparently not sufficient to satisfy O2 needs, and she was started on high-flow on 03/14/16. Currently, unable to wear BiPAP, as she did not tolerate the adult mask. Probably needs pediatric mask in any case, and we are pursuing that with RT. Currently, she is on high-flow system (0.25 FiO2, 40L/min) which is resulting in O2 saturations of 99%+. Concerned about the ventilatory component here. She does not seem particularly lethargic, and yesterday's VBG (noted above) did not demonstrate a significant acute component to her hypercapnia. However, there is the question of her chronic hypercapnia (significant kyphoscoliosis perhaps resulting in restrictive function). Is somewhat uncomfortable and incontinent of stool. Although not ideal, will have to settle for this modality for the moment. Probably could supply enough oxygen with the OxyMask alone, though not sure the benefit over the high-flow system, as neither is of any ventilatory support. Please note that we do have the appropriate-sized ETT and suction catheters if, hopefully not necessary, she needs to be intubated. 3. Inadequate IV access. The patient pulled out her IJ line 03/15/16. Currently has a L femoral line. Looking at her habitus, not quite sure where we are going to get lines. Her arms are certainly not going to be able to take a line. Might have to be content for the moment for the femoral line, changing it as soon as we can, maybe when she can take enteral medications via the nasogastric tube. PLAN: 1. Supplement potassium per primary team. 2. CT chest today. 3. Discussed nutrition on rounds, and will start trickle TF. 4. Antibiotics per primary and ID. Lines: L femoral CV, Beltran DVT: Heparin SQ GI: Famotidine TIME SPENT: Critical care, 45 minutes. Attending Statement The patient was seen and examined together with Dr. Huerta on 03/16/2016 and I agree with the history, exam and plan as outlined in the note above. Kwan Huerta DO Mar 16, 2016 10:04 Jacobo Gipson MD Apr 07, 2016 17:23
--- NOTE | 2016-03-16 10:06 | DRSVH ---
PROCEDURE: CT CHEST WITH CONTRAST ([id number]) INDICATIONS: respiratory failure, PNA TECHNIQUE: After the administration of intravenous contrast, 5 mm thick sections acquired from the pulmonary api shyam to the posterior costophrenic angles. 7 mm thick coronal and sagittal MIP reformats were acquire d. For radiation dose reduction, the following was used: automated exposure control, adjustment of mA and/or kV according to patient size. COMPARISON: None. FINDINGS: Image quality: Degraded by motion artifact. Lungs and pleura: There is moderate to severe patchy bilateral mid and lower lung predominant air spa ce opacity, as well as scattered groundglass densities. There are scattered superimposed focal nodula r and groundglass densities. For instance within the right upper lobe anterolaterally, there is a 9 m m diameter subpleural nodule. There are scattered groundglass densities within the bilateral apices p osteriorly, ranging in size from 5-12 mm. Groundglass density within the left upper lobe anterolatera lly measuring 9 mm. No pneumothorax. Small right pleural effusion. Central and peripheral airways are patent and normal in caliber. Mediastinum: Heart size is normal. No pericardial effusion. No mediastinal or hilar adenopathy by size criteria. Thoracic aorta and central pulmonary arteries are normal in size. Esophagus is aishwarya l in caliber. No hiatal hernia. Bones and chest wall: No suspicious bony lesions. Moderate to severe rightward curvature of the mid/ lower thoracic spine. Severe thoracic kyphosis. No vertebral body compression fractures. No axillary or supraclavicular adenopathy by size criteria. Thyroid gland is within normal limits. Abdomen: Visualized portions of the upper abdomen demonstrate a 28 mm diameter personally calcified vascular structure at the superior splenic filum, suggestive of a splenic artery aneurysm. IMPRESSION: 1. Moderate to severe bilateral pneumonia. Small right parapneumonic effusion. 2. Superimposed nodular and ground glass densities, possibly due to focal pneumonitis. Followup chest CT in 3 months is recommended to exclude the less likely possibility of underlying neoplasm. 3. Severe kyphoscoliosis. 4. Probable 20 mm diameter splenic artery aneurysm. Dictated by: Rickie Meeks M.D. on 03/16/2016 at 10:03 Approved by: Rickie Meeks M.D. on 03/16/2016 at 10:03
--- NOTE | 2016-03-16 10:17 | PCM.PNMED ---
Subjective Date of Service Mar 16, 2016 Subjective Meredith Sterling is a 45 year old female with a history of congenital dwarfism, juvenille arthritis, Felty syndrome, and CHF who presented to the ED from [facility] with altered mental status and shortness of breath. Admitted for severe sepsis secondary to pneumonia and UTI. Hospital day 6. Patient febrile overnight with Tmax of 38. No other acute events overnight. Patient remained tachycardic with heart rates between 100-120. Today patient squeezes hand on command but does not respond to other questions. She remains hemodynamically stable and is currently on high flow oxygen with an FiO2 of 25% at 40 L. No significant improvement in mentation over the last few days. Exam Vital Signs Vital Sign - Last Date Time Temp Pulse Resp B/P Pulse Ox O2 Delivery O2 Flow Rate FiO2 03/16/16 06:28 121 03/16/16 06:00 Supplement Oxygen 03/16/16 04:30 37.5 18 141/80 99 28 03/16/16 04:25 40 Intake and Output 03/15/16 03/15/16 03/16/16 Cumulative From/Thru 15:00 23:00 07:00 03/11/16 22:44 - 03/16/16 06:29 Intake Total 1187 ml 1185 ml 9756 ml Output Total 750 ml 850 ml 4950 ml Balance 437 ml 335 ml 4806 ml Intake IV Total 1187 ml 1185 ml 9756 ml Output Urine Total 750 ml 650 ml 4750 ml Gastric Drainage Total 200 ml 200 ml # Bowel Movements 4 4 17 Exam General: Small female with multiple body deformities including severe kyphosis and bilateral contractures of lower extremities. In mild respiratory distress. No verbal responses. HEENT: Atraumatic. External ears without defect. PERRLA, amblyopia, no scleral icterus. Mucosa dry. Neck: No jugular venous distension. No bruits. No lymphadenopathy or thyromegaly. Cardiovascular: Tachycardic, regular rhythm with no murmurs, rubs, or gallops appreciated Pulmonary: Moderate air movement with coarse rhonchi bilaterally right greater than left. High flow cannula in place. Abdomen: Bowel tones present. Soft, nondistended. No hepatosplenomegaly or masses appreciated. Extremities: Bilateral contractures upper/lower extremities, brawny skin discoloration of feet bilaterally, club feet. no cyanosis or edema appreciated. Skin: Rash in groin and left leg consistent with yeast. Lab and Diagnostics Pro calcitonin 8.39 Result Diagram: 03/16/16 0500 03/16/16 0500 Microbiology Respiratory virus panel positive for RSV. MRSA screen positive. Blood cultures 1 of 2 positive for GRAM POSITIVE COCCI Urine culture positive for E. coli Strep pneumo and Legionella urine antigens negative. C diff PCR negative. X-Rays, CTs and MRIs X-RAY CHEST ONE VIEW, PORTABLE (03/14/16) IMPRESSION: Interstitial infiltrate, suspect for bronchopneumonia. Dictated and approved by: Thien Lopez M.D. on 03/12/2016 at 8:00 US RENAL SONOGRAM (03/13/16) IMPRESSION: - No hydronephrosis. - Bilateral simple appearing renal cysts. Dictated and approved by: Koby Miller M.D. on 03/13/2016 at 7:44 X-RAY CHEST ONE VIEW, PORTABLE (03/14/16) IMPRESSION: Overall no interval change in patchy right basilar opacities since . No new focal consolidation Dictated and approved by: Koby Miller M.D. on 03/13/2016 at 8:23 X-RAY CHEST ONE VIEW, PORTABLE (03/14/16) IMPRESSION: Right central venous catheter with the tip projecting in the lower SVC Enteric tube with the tip in the stomach Dictated and approved by: Koby Miller M.D. on 03/13/2016 at 13:34 . 12-lead ECG Sinus rhythm rate 95 Prolonged [place] interval Low voltage, extremity leads Assessment & Plan 45 year old female with multiple medical problems that is presenting with a few day history of cough, that has now progressed to altered mental status with shortness of breath. Admitted for severe sepsis secondary to pneumonia and UTI. Hospital day 6. 1. Severe sepsis, present on admission. Improving -Met criteria on admission with temp 37.7, HR 117, RR 22, encephalopathy, urinary & pulmonary source of infection -Continue treating underlying infections. 2. Healthcare associated pneumonia, has not on admission. Active. -Positive for RSV, possible bacterial etiology. MRSA screen positive. -Pt full-time resident of [facility], antibiotics to cover HCAP -Right lower lobe opacities as well as bilateral perihilar opacities on chest xray. -Repeat chest x-ray today showed minimal/no improvement. -Blood cultures are +1 out of 4 thought to be contaminant. -Levofloxacin, linezolid, and meropenem stopped in antibiotics switched to ceftaroline per ID. As patient was not improving and concern for possible interaction between citalopram and linezolid. -CT chest with contrast planned for today to further evaluate pneumonia and look for possible abscess or necrotizing component. 3. Acute UTI, present on admission. Active. -Pt does not have chronic indwelling catheter at baseline. Renal ultrasound unremarkable. -Urine culture positive for E. coli, resistant to levofloxacin, ciprofloxacin and tetracycline. -Continue antibiotics, as above. 4. Acute encephalopathy, present on admission. Active -Pt was unresponsive on arrival and not at baseline mentation, per family. Baseline mentation per family is conversational and able to feed herself. -Likely secondary to #1. -Continue treatment for sepsis, as above. 5. Acute hyperglycemia, present on admission. Active -Pt w/o known diagnosis of diabetes -Most recent blood glucose, 125. -HbA1c pending -Blood glucose monitoring q6h -Low dose correctional insulin lispro ordered. 6.Chronic hypertension, present on admission. Stable -Hold home medication in setting of hypotension secondary to sepsis. -Resume home dosing of propranolol when appropriate. 7. Chronic depression, present on admission. Stable -Hold home citalopram due to risk of serotonin syndrome when combined with Linezolid -Continue home dosing citalopram when pt no longer receiving Linezolid. 8. Juvenile arthritis, chronic. present on admission. Stable -Continue home dosing, gabapentin. 9. Chronic pain, present on admission. Active -Continue methadone at reduced dose to avoid withdrawal 10. Reported history of CHF, present on admission. Stable -Echo (03/14/16) while an suboptimal study showed no evidence of CHF. 11. Acute bacteremia, present on admission. Ruled out. -1 out of 4 blood culture positive for gram positive, coag negative, cocci. Thought to be contaminant. -Echo with no evidence of vegetations. High-risk medication: IV dilaudid 0.5mg Q6h prn Acetaminophen-fever/headache/mild/moderate pain Antiemetics, as needed Bowel regimen, as needed. Disposition: Patient continues to have altered mental status far below baseline. Patient's respiratory status improving with decreased O2 needs. We will continue antibiotics per infectious disease appreciate pulmonology/ critical care following. Discharge back to [facility]. GI Prophylaxis: H2 amparo VTE Prophylaxis: Sub-Q Heparin (Unfractionated) VTE Mechanical Devices: Intermittant Pneumatic CD Resuscitation Status: CPR: Attempt Resuscitation Attending Statement The patient was seen and examined together with Dr. Clifford on 03/16/2016 and I agree with the history, exam and plan as outlined in the note above. . JEANNIE CLIFFORD DO Mar 16, 2016 06:49 Braxton Gaona MD Mar 17, 2016 07:43
--- NOTE | 2016-03-16 10:39 | NUR ---
NUTRITION FOLLOW UP: ASSESS: 45 YO F admitted to CCU with severe sepsis, acute hypoxic respiratory failure, gram-positive cocci bacteremia, RSV pneumonia, e.coli UTI in patient with congenital dwarfism. Pt continues to have AMS and failed ST eval. Received verbal orders per morning rounds to start TF. PMHx: Congenital dwarfism, kyphoscoliosis, juvenile RA, migraines, bilateral leg contractures, CHF, HTN, depression. DIET: NPO per ST LABS: Reviewed. K 3.1, CO2 34, We[employer] Housing [employer] .48, Glu 125, Ca 8.3, Alb 2.6 MEDICATIONS: Reviewed. GI: 9 BM 03/15. Loose stool noted. SKIN: No skin issues per wound eval. ANTHROPOMETRICS: Current Wt: 48.5 kg, BMI: 44.7 kg/m2. IBW: 36.8kg, Adj BW 39.7kg. ESTIMATED NEEDS: BMI Calories: 995-1190calories (25-30 kcal/kg Adj. BW) Protein: 45-60 g protein (1.2-1.5 g/kg Adj. BW) Fluid: Approx 1450 ml (30 ml/kg BW) NUTRITION DIAGNOSIS: 1) Chewing/swallowing difficulties related to congenital malformations, as evidenced by NPO status, pending swallow evaluation.---PERSISTS. 2) Inadequate oral intake related to decreased ability to consume sufficient energy as evidenced by current NPO status per ST due to AMS INTERVENTION: 1) Diet advance per speech therapy. 2) Due to persistent time NPO, received verbal orders to start trickle TF. Recommend start TF of Jevity 1.5 @ 10ml/hr with fluid flush of 40q 4 hrs. TF at trickle will provide 330kcal and 14g pro (33% kcal and 25% pro needs). Will monitor for tolerance and for okay per MD to advance TF past trickle. 3) Once okay to advance TF, recommend advance by 10ml q 6 hrs until reach goal rate of 35ml/hr to provide 1155kcal and 50g pro (100% estimated needs). MONITOR/EVALUATE: TF start/fortino, NPO status, ST eval, labs, GI/nutrition status. Follow per high nutrition risk guidelines.
--- NOTE | 2016-03-16 10:49 | NUR ---
Palliative Care Palliative Care received order from Dr 03/16/16 to assist with goals of care. Patient is a 45 year old woman with history of congenital dwarfism, juvenile arthritis, Felty syndrome and CHF. She was admitted 03/12/16 for care of severe sepsis secondary to pneumonia and UTI. Patient lives at [facility]. Porsha Asher (mom) [phone] Trevor Sterling (dad) [phone] Palliative Care to follow. Cass Davis Addendum: 03/16/16 at 1055 by CASS CASTRO Palliative Care [facility] today at [address] Mcintyre. Cass Davis
[2016-03-16] MEDS: Methadone 10 mg/mL Oral Concentrate PO SCH ×2 (11:14→21:16)
[2016-03-16] MEDS: Ceftaroline Inj 600 MG in Dextrose 5% 250 ML IV SCH ×2 (12:37→20:58)
--- NOTE | 2016-03-16 18:20 | PCM.CONPAL ---
Date of Service Mar 16, 2016 Date of Hospital Admission: Mar 12, 2016 at 02:52 Date of Palliative Consult: Mar 16, 2016 Reason Palliative Care Consult: Goals of Care Discussion Reason for Consultation Palliative Care received order from Dr 03/16/16 to assist with goals of care. Patient is a 45 year old woman with history of congenital dwarfism, juvenile arthritis, Felty syndrome and CHF. She was admitted 03/12/16 for care of severe sepsis secondary to pneumonia and UTI. Patient lives at [facility]. Porsha Sterling (mom) [phone] Trevor Sterling (dad) [phone] Hospital Unit @time of consult: Critical Care (room 2015) Palliative Care Recommendation Summary of palliative recommendations: Symptom management (Pain/other): per Attending Purple Team and Pulmonary Pattern Maker Programer. Patient's functional baseline (per Mom's history 03/16): Meredith could walk a little bit, with some assistance until she was about 10 years old. Since then, she has been wheelchair bound. She lived with her parents until about 4 years ago, when she moved to [facility]. Her PCP is Dr. Mcclellan. She loves to color, watch TV, play video games, collect stuffed animals and coloring books. She socializes with the facility staff, as all the other patients are much older than she. She follows staff around in her W/C, and is quite conversive. Sometimes strangers cannot understand her speech well, but people who are used to the way she talks, can understand her. She has a chronic cough, but no trouble swallowing or drinking thin fluids. She eats a regular diet, but meat is cut up for her into smaller bites. She loves sodas and sugary food. DPOA/Advanced Directives/POLST: 1. Code status: FULL. At this time, there is no identified need by medical team to engage family in discussions to change code or goals of care. At this time, we are asked to support family, spend more time talking to them about medical questions in order to free up the primary medical teams, and communicate family concerns back to the primary Attending team and/or consultants. 2. DPOA: Alena Story 3. POLST: unknown if prior paperwork, need to clarify. Family/emotional support: Good. Porsha Sterling (mom) [phone] Trevor Sterling ( dad) [phone]. Brother Gene in [place] and Sister Rupa locally. Spiritual support: not addressed today. Family Care Team Meeting (FCTM): 1. On 03/16, Dr. Mcintyre met with Mom Porsha to elicit her understanding of Meredith's medical condition. Her understanding is marginal and she worries about what she cannot understand. She wants frequent conversations with medical and nursing teams. She asks lots of questions about lab results and what they mean to the doctors, how they change a management plan for her daughter. She can see that her daughter is not waking up and carrying on conversations as she usually can do, and Porsha has a lot of anxiety about this. Porsha says that today is Meredith's 3rd day in the hospital "with no speech." She wants doctors to explain why Meredith is not speaking and worries that Meredith may have had a stroke. Dr. Mcintyre went over signs and symptoms of a stroke and explained that medical team does not think Meredith has that problem right now. Next, Dr. Mcintyre went over each of Meredith's current medical problems outlined in CCU rounds today, explaining them slowly and in simple Belarusian using no medical terms. Dr. Mcintyre timothy pictures to explain Meredith's finding of a splenic artery aneurysm and counseled that Mom will have to wait until surgery tells medical team what they think about this finding on her CT Chest/Abdomen today. Dr. Mcintyre explained lung findings on CT and counseled that Meredith will need a follow-up CT in 3 months to look at her lungs and her the artery coming out of her spleen. Dr. Mcintyre talked about each of Meredith's infections and how they cause sepsis and what sepsis is and how Mom can not expect sepsis to get better in a few days, because Meredith will need more time to recover. After 90 minutes of counseling, Porsha is more relaxed and seems to grasp more of the situation. Dr. Mcintyre counsels that the most likely problem keeping Meredith from speaking is that she is still too sick from her sepsis. Mom seems to accept this. Additional Medical Diagnoses with primary management by Hospitalist team include : 1. Sepsis with underlying infections of RSV pneumonia, E. coli UTI treated with ceftaroline. Also positive for MRSA (colonization), 2. Encephalopathy, not at prior baseline, likely due to #1 3. Acute hyperglycemia in context of no prior known diagnosis of diabetes 4. Chronic HTN 5. Chronic depression on home citalopram (Linozolid stopped to eliminate risk of serotonin syndrome) 6. Juvenile arthritis, on gabapentin and methadone for chronic pain. Prn dilaudid IV for acute pain here. 7. ? hx CHF, not found on ECHO here but study was suboptimal. Problems: (1) Palliative care by specialist Status: Acute ICD Code: Z51.5 Goals of Care Family Goals: 1. Family hopes for Meredith's full recovery to her prior baseline. 2. Family is medically not sophisticated, but desires daily [id number] contact from medical team to explain Meredith's condition as it changes. They mostly want to know a bottom line of are things getting better (or not). Not quite understanding the medical terms is frustrating and isolating for her parents, and heightens their worry and stress. Daily conversations that they can understand will be helpful. Palliative Care hopes to intercede here and relieve some of the burden on medical and nursing teams by acting as an paraprofessional interpreter for medical updates discussed in rounds. Resuscitation Status Resuscitation Status: CPR: Attempt Resuscitation POLST Updates/Changes Antibiotics: Use ABX if can Prolong Life Artificially Admin Nutrition: Long-Term Nutrition by Tube Feeding . 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 Pt had worsening cough for the past few days which progressed to the point where the patient was having a difficult time staying awake and did not answer question appropriately. Patient was brought to the ED found to have an incidental finding of UTI as well. Patient on exam was found to be saturating in the low 90s and upper 80s. Patient was placed on non rebreather, but only reached to 95%, most likely due to patients body habitus and existing infection. Patient is otherwise hemodynamically stable. She was admitted for severe sepsis due to UTI and pneumonia. Hospital Course: Today is Hospital Day 6 (Mar 16). On Mar 12, she was moved to the ICU because of issues with blood pressure and hypoxia. The medical team has struggled with IV access and peripheral IV placement because of her congenital dwarfism. She has had IV antibiotics to cover her UTI and oxygen support for her viral pneumonia. She was discussed extensively in CCU rounds today by Pulmonary (Dr. Gipson), ID (Dr Hernandez), respiratory therapist, RNs and her Attending Dr. Gaona ([facility]ist team). She was febrile overnight and tachycardic.She is on HFO2 or 25% at 40LPM. Concerns are primarily ongoing treatment for her sepsis and her decreased interaction with staff and family. However, today she does make eye contact, and does lightly squeeze hands on command. Medications Current Medications: Current Medications Insulin Human Lispro Nutritional Dose to be given pr... [facility] SUBQ; Start at 22:00 Ceftaroline Fosamil 600 mg/ Dextrose/Water 250 ml @ 250 mls/hr Q12 IV Last administered on 03/16/16t 12:37; Admin Dose 250 MLS/HR; Start 03/16/16 at 09:35 Ceftaroline Fosamil/Dextrose/ Water 250 ml @ 250 mls/hr Q12 IV; Start 03/16/16 at 20:30; Status Cancel Scheduled Amitriptyline (Amitriptyline) 50 Mg Tab 50 MG PO BID Cetirizine HCl (Zyrtec) 10 Mg Capsule 10 MG PO DAILY Citalopram (Citalopram) 20 Mg Tablet 20 MG PO DAILY Gabapentin (Gabapentin) 600 Mg Tablet 600 MG PO TID 6am, 12pm, 7pm L.acidoph & Paracasei,B.lactis (Probiotic) 10 Billion Cell Capsule 1 CAPSULE PO BID Medroxyprogesterone Acetate (Medroxyprogesterone Acetate) 150 Mg/1 Ml Vial 1 ML IM every 3 months Methadone (Methadone) 10 Mg Tab 10 MG PO QAM Montelukast (Montelukast) 10 Mg Tablet 10 MG PO DAILY Omeprazole (Omeprazole) 20 Mg Capsule.dr 20 MG PO DAILY Polyethylene Glycol 3350 (Polyethylene Glycol 3350) 17 Gm Powd.pack 17 GM PO every other day Vit W-Ca,Fe,FA(<1 mg) ( Formula) 1 Each Tablet 1 EACH PO DAILY Propranolol HCl (Propranolol HCl) 20 Mg Tablet 20 MG PO QID hold for HR <55 Trazodone (Trazodone) 50 Mg Tablet 50 MG PO HS Scheduled PRN Acetaminophen (Acetaminophen) 325 Mg Tablet 650 MG PO Q4H PRN PRN For Fever PO or [place] Bisacodyl (Dulcolax Rectal) 10 Mg Supp.rect 10 MG RC PRN For Constipation if no BM in 3 days, after trying milk of magnesia first Dextran 70/Hypromellose/Pf (Artificial Tears Drops) 1 Each Droperette 2 DROP BOTH_EYES Q1H PRN PRN dry eyes Fluticasone Propionate (Fluticasone Propionate Nasal) 16 Gm [place].susp 2 SPRAYS NOSTRIL QAM PRN PRN For Congestion Guaifenesin (Mucinex) 600 Mg Tablet.er 600 MG PO BID PRN PRN Allergies Guaifenesin/Codeine Phosphate (Guaifenesin AC Cough Syrup) 473 Ml Liquid 10 ML PO Q4H PRN PRN For Cough Hydrocodone-Acetaminophen 7.5-325 mg (Hydrocodone-Acetaminophen 7.5-325 mg) 1 Each Tablet 1 TAB PO TID PRN PRN For Pain Loperamide (Loperamide) 2 Mg Capsule 2 MG PO Q4H PRN PRN For Diarrhea or Loose Stool Mag Hydrox/Al Hydrox/Simeth (Antacid M Liquid) 355 Ml Oral.susp 30 ML PO Q4H PRN PRN For Indigestion Magnesium Hydroxide (Milk of Magnesia) 400 Mg/5 Ml Oral.susp 30 ML PO PRN For Constipation Na Phos,M-B/Na Phos,Di-Ba (Fleet Enema) 133 Ml Enema 1 DOSE RC PRN For Constipation if no BM 8 hours after suppository Ondansetron (Ondansetron) 4 Mg Tablet 4 MG PO Q4H PRN PRN For Nausea Prochlorperazine Maleate (Prochlorperazine) 5 Mg Tablet 5 MG PO QID PRN PRN For Nausea Sennosides (Senna) 8.6 Mg Tablet 17.2 MG PO DAILY PRN PRN For Constipation Triamcinolone Acet (Triamcinolone Acetonide Cream) 1 Applic/0.25 Gm Cr 1 APPLIC TOP DAILY PRN PRN rash apply daily to rash on low back/buttocks daily as needed oxyCODONE (oxyCODONE) 5 Mg Tablet 5 MG PO Q6H PRN PRN For Pain Objective Findings Exam Vital Sign - Last Date Time Temp Pulse Resp B/P Pulse Ox O2 Delivery O2 Flow Rate FiO2 03/16/16 16:54 117 27 96 OxyMask 2.00 03/16/16 12:52 38.7 147/100 03/16/16 11:37 24 Intake and Output 03/15/16 03/15/16 03/16/16 Cumulative From/Thru 15:00 23:00 07:00 03/11/16 22:44 - 03/16/16 06:29 Intake Total 1187 ml 1185 ml 9756 ml Output Total 750 ml 850 ml 4950 ml Balance 437 ml 335 ml 4806 ml Intake IV Total 1187 ml 1185 ml 9756 ml Output Urine Total 750 ml 650 ml 4750 ml Gastric Drainage Total 200 ml 200 ml # Bowel Movements 4 4 17 Objective General: small, obese female with severe kyphosis and bilateral contractures of lower extremities. Nonverbal, but sometimes moving lips as if trying to vocalize. HEENT: Atraumatic head, ears, nose. eyes: PERRL, amblyopia, nonicteric. MMM dry. Cardio: tachycardia, regular rhythm, no murmur appreciated Lungs: coarse B/L rhonchi, R>L Abdomen: soft, ND, NT, +bowel sounds. : weber catheter present Skin: mild erythema inner thighs, brawny skin color of feet Extremities: bilateral leg>arm contractures, Charcot foot presentation bilaterally (club feet/loss of arch) Neuro: tracking, follow simple command to shake feeder bilaterally with hands, nonverbal , mouth moving as if trying to speak. Lab/Diagnostics Lab and Imaging results reviewed in detail in EMR. Time spent Total time 130 minutes; >50% face to face with patient and/or family, providing counselling regarding plans and recommendations, and in care coordination with his/her medical teams. Included above, I spent 60 minutes counseling for advanced care planning with the patients family. copies to: Elrinda Mcclellan MD [facility] TulsaCelia medrano MD Mar 16, 2016 18:20
[2016-03-16] MEDS ORDERED: Ceftaroline Inj 600 MG in Dextrose 5% 250 ML IV SCH (20:30)
[2016-03-17] VITALS (10 sets, daily range): BP systolic 128–166; BP diastolic 0–92; PULSE 105–117; RESP 22–30; O2SAT 99–100
[2016-03-17] MEDS ORDERED: 0.9% Sodium Chloride 500 ML ONE (00:46)
[2016-03-17] MEDS: Heparin 5,000 Unit/mL Inj SUBQ SCH ×3 (01:29→16:35)
[2016-03-17 04:32] LABS: BASOPHILS % (AUTO) 0.3 % (0-3); EOSINOPHILS % (AUTO) 0 % (0-5); Mean Corpuscular Hemoglobin 28.6 pg (27.0-35.0); Mean Corpuscular Volume 90.8 fL (81-100); Platelet Count 138 bil/L (150-400)
--- NOTE | 2016-03-17 04:41 | NUR ---
P: Febrile I: scheduled ABX, remove covers, fan on in room, repositioning E: MAX temp 38.1. Makes some eye contact. Not speaking or following cues. High flow at 28% (30L). Sats in the high 90s. RR mid 30s start of shift and also any time care given -trend down to mid 20s while at rest during night. Tele ST, 1st AVB. BP moderately high at times. UOP elier. Stool x 2. Appears to sleep more tonight than prior night.
[2016-03-17 05:16] LABS: Magnesium 1.6 mg/dL (1.6-2.6); Phosphorus 2.6 mg/dL (2.5-4.9)
[2016-03-17] MEDS: Albuterol-Ipratropium 3 mL Inhalation Solution NEB SCH ×4 (07:46→19:59)
[2016-03-17] MEDS: Insulin LISPRO 300 Unit/3 mL Inj SUBQ SCH ×3 (08:00→16:48)
[2016-03-17] MEDS: Sodium-Potassium Phosphorus Packet TUBE SCH ×2 (08:30→20:06)
--- NOTE | 2016-03-17 09:09 | PROG NOTE ---
[address] [address] PROGRESS NOTE PATIENT: TRAM LAZO : 1970 MR#: [id number] ADMIT: 03/12/2016 JOB ID: [id number] DATE: 03/17/2016 INFECTIOUS DISEASE FOLLOW UP NOTE: REASON FOR FOLLOW UP: RSV pneumonia complicated by possible MRSA and/or Pseudomonas and/or aspiration pneumonia in a woman with congenital dwarfism and multiple skeletal abnormalities. INTERVAL HISTORY: Overnight, the patient has been relatively stable from an overall clinical point of view, but she has continued to have recrudescent fevers. In addition, her mental status is still below her baseline and she is not interactive, following commands or answering questions though she appears to be awake. This case discussed in detail with the ICU team. We carefully examined the CT scans of the chest with them as well as discussed antimicrobial management. This case also discussed with the nursing staff. PHYSICAL EXAMINATION: Reveals a woman with congenital dwarfism lying on her side in the ICU. She is breathing with paradoxical respirations with the aid of high-flow nasal oxygen. She is continuing to have good saturations with that mechanism of oxygen delivery. Still spiking temperatures, 38.1 earlier this morning, now 38. Pulse 110, respiratory rate in the upper 20s, blood pressure 130/84. The patient's eyes are open and she obviously tracks and is awake, but really does not interact in a meaningful way. NG tube is present. High-flow nasal oxygen is present. Oral examination is notable for a lot of secretions but nothing abnormal beyond that. The patient's lungs seem clear anteriorly today though there are still some crackles towards the bases. Cardiac tones: Tachycardia is noted. Abdomen is slightly distended with paradoxical respirations but no focal abnormalities. No skin rash. The extremities are perfused. LABORATORIES: Include a white count very stable at 7000, basically normal differential. Platelet count 138. Creatinine is 0.51. LFTs are normal. Albumin 2.6. Micro studies include a nasal swab positive for MRSA. Respiratory multiplex PCR positive for RSV and a sputum which grew mainly MRSA but also a light growth of Pseudomonas was just came on. Additionally, the patient's urine culture on admission grew an E. coli which was relatively susceptible to standard antimicrobials. IMAGING: Includes a CT scan of the chest, which we reviewed in detail today. It shows bilateral pneumonia with a right parapneumonic effusion as well as some ground glass infiltrates which were scattered through the lung akers. Some of the ground-glass infiltrates are a bit nodular in their appearance. IMPRESSION: This is a complex case of a woman with congenital dwarfism who comes in with respiratory distress which is probably primarily due to respiratory syncytial virus but has had persistent fevers and respiratory difficulty. Her sputum as well as her nasal swab have grown MRSA and her sputum also grew a light growth of Pseudomonas. I suspect that Pseudomonas is primarily just colonizing rather than infecting as it was not seen on the Gram stain and came up late in the cultures but probably cannot be overlooked in view of her ongoing fevers. The MRSA is of more concern and suggests the possibility of a secondary MRSA pneumonia following a severe respiratory infection with RSV. The patient also has what appears to be a UTI. She had heavy pyuria and the urine grew E. coli in a patient who does not use a Beltran ordinarily. Given her ongoing fevers and respiratory decompensation, I think it is reasonable to add coverage for anaerobic aspiration type organisms as well as Pseudomonas. One way to do this is with the addition of Zosyn. RECOMMENDATIONS: 1. Will continue with nasal Bactroban. 2. Will continue with ceftaroline for MRSA and I have asked the lab to check susceptibilities. 3. Will add Zosyn to the ceftaroline for coverage of possible anaerobic aspiration type pneumonia as well as for the Pseudomonas in the sputum. 4. This case discussed in great detail.
--- NOTE | 2016-03-17 09:26 | NUR ---
NAIN: Patient is delayed at base and is currently not verbally communicating at all. Mother is not in room this morning. EMERGENCY OPERATOR asked to follow up via phone today and give NAIN.
[2016-03-17] MEDS: Famotidine Inj 20 MG in IV Premix 1 EACH IV SCH ×2 (09:40→20:05)
[2016-03-17] MEDS: Ceftaroline Inj 600 MG in Dextrose 5% 250 ML IV SCH ×2 (09:45→20:37)
[2016-03-17] MEDS: guaiFENesin 20 mg/mL 10 mL Syrup PO SCH ×2 (09:46→16:34)
[2016-03-17] MEDS: D5 0.9% NaCl + KCl 20 mEq/L 1,000 ML IV SCH (09:50)
[2016-03-17] MEDS: Mupirocin 2% 22 Gm Ointment TOPICAL SCH ×2 (09:52→20:06)
[2016-03-17] MEDS: Piperacillin-Tazo 3.375 Gm Inj 3.375 GM in Dextrose 5% Minibag Plus 50 ML IV SCH ×2 (11:00→16:34)
[2016-03-17] MEDS: Methadone 10 mg/mL Oral Concentrate PO SCH ×2 (11:25→20:06)
--- NOTE | 2016-03-17 11:42 | PCM.PNMED ---
Subjective Date of Service Mar 17, 2016 Subjective PULMONARY CRITICAL CARE NOTE: PROBLEM: 1. Hypoxemic hypercarbic respiratory failure. 2. Pneumonia, viral and likely bacterial. 3. Congenital dwarfism. 4. Juvenile rheumatoid arthritis. SUBJECTIVE: Fever overnight with Tmax of 38.1C. otherwise, respiratory status remains unchanged. There was a short period of time overnight when she was off of oxygen mask (just room air) and satting in the mid 90s. Very difficult to understand her speech. She does make eye contact, and does lightly squeeze hands on command. ROS otherwise not obtainable. Exam Vital Signs Vital Sign - Last Date Time Temp Pulse Resp B/P Pulse Ox O2 Delivery O2 Flow Rate FiO2 03/17/16 08:15 Supplement Oxygen 03/17/16 08:15 37.8 111 28 166/0 99 28 03/17/16 07:47 30 Intake and Output 03/16/16 03/16/16 03/17/16 Cumulative From/Thru 15:00 23:00 07:00 03/11/16 22:44 - 03/17/16 06:01 Intake Total 1349 ml 62290 ml Output Total 1225 ml 6175 ml Balance 124 ml 4930 ml Intake IV Total 1072 ml 18317 ml Tube Feeding 117 ml 117 ml Tube Irrigant 160 ml 160 ml Output Urine Total 1225 ml 5975 ml Gastric Drainage Total 200 ml # Bowel Movements 3 20 Exam General: obese female lying in hospital bed on R side. does not appear to be in acute distress. HEENT: Opens eyes and makes eye contact. conjunctiva not injected, EOMi. Membranes moist. Chest: coarse rhonchorous breath sounds throughout, but worse on the R. cough is wet and weak. CV: Tachycardic without appreciable murmur. radials are 2+ bilaterally. ABD: Soft and nontender with infrequent, normal-sounding BT. EXT: contractures in all 4 extremities. LE wrapped in Joaquin bandage bilaterally. Lines: Left femoral CV line, Beltran catheter. IVs and Medications IV Fluids D5 with KCl at 60ml/hr Medications Reviewed: Medications were reviewed in detail Medications Ceftaroline, and ID started Zosyn today. Bactroban and nystatin. Continues on methadone with as needed Dilaudid Lab and Diagnostics Neutrophils 71%. Calcium 8.3 (corrects to 9.3). Magnesium 1.6, phosphorus 2.6. LFT are normal. Total protein 4.3, albumin 2.6. Procalcitonin is 1.48 ( yesterday 8.39, down from 25.65 03/15/16). Result Diagram: 03/17/1642403/17/16424 Microbiology Urine for Legionella antigen is negative. Urine for Streptococcal pneumoniae antigen is negative. MRSA nasal screen is positive. Respiratory viral PCR panel positive for RSV. Sputum growing MRSA resistant to cefazolin, clindamycin , erythromycin, as well as oxacillin. Sensitive to linezolid and vancomycin. C. diff was negative. X-Rays, CTs and MRIs Chest CT with contrast performed 03/16/16 demonstrated: IMPRESSION per radiology: 1. Moderate to severe bilateral pneumonia. Small right parapneumonic effusion. 2. Superimposed nodular and ground glass densities, possibly due to focal pneumonitis. Followup chest CT in 3 months is recommended to exclude the less likely possibility of underlying neoplasm. 3. Severe kyphoscoliosis. 4. Probable 20 mm diameter splenic artery aneurysm. 12-lead ECG Sinus rhythm rate 95 Prolonged LA interval Low voltage, extremity leads Assessment & Plan ASSESSMENT: Problem list: 1. Hypoxemic hypercarbic respiratory failure. 2. Pneumonia. 3. Congenital dwarfism. 4. Juvenile rheumatoid arthritis. 5. Rash, likely cutaneous candidiasis 1. Pneumonia. Etiology remains unclear (likely viral, but some thought to secondary bacterial, or fungal). Question dealing with solitary respiratory syncytial virus. Possibly Staphylococcus (though question colonization vs infection). Following significant discussion during ICU rounds today, there is the question of whether or not aspiration/anaerobes are a concern at this time. Given the fact that she is not really improving, this was discussed regarding antibiotics today on ICU rounds, and will plan per ID to continue Ceftaroline ( would cover both MRSA and E. coli UTI), and add Zosyn to extend coverage. Alternative differential diagnoses such as ILD or fungal infection are considered less likely at this time. There is also the question of long-term complications secondary to her underlying congenital dwarfism. Regardless, her significant kyphoscoliosis is likely contributing to her impaired ability to clear secretions and subsequent infection. I do not think that she would tolerate CPT at this time. Juvenile rheumatoid arthritis and is not historically/significantly associated with pulmonary sequela (such as ILD). She has not been on any medications for her JRA as far as we can tell from historical record. This is significant in that there are not medications which could potentially compromise her immune status. 2. Hypoxemic, hypercarbic respiratory failure. Oxygen by mask was apparently not sufficient to satisfy O2 needs, and she was started on high-flow on 03/14/16. Currently, unable to wear BiPAP, as she did not tolerate the adult mask. We now have pediatric masks that are available should she require this. Currently , she is on high-flow system (0.25 FiO2, 40L/min) which is resulting in O2 saturations of 99%+. Continue to be concerned about the ventilatory component here. She does not seem particularly lethargic, and VBG on 03/15/16 did not demonstrate a significant acute component to her hypercapnia. However, there is the question of her chronic hypercapnia (significant kyphoscoliosis perhaps resulting in restrictive function). Is somewhat uncomfortable and incontinent of stool. Although not ideal, will have to settle for this modality for the moment. Intermittent respiratory support with the OxyMask alone, though not sure the benefit over the high-flow system, as neither is of any ventilatory support. Please note that we do have the appropriate-sized ETT and suction catheters if, hopefully not necessary, she needs to be intubated. 3. Inadequate IV access. The patient pulled out her IJ line 03/15/16. Currently has a L femoral line. Looking at her habitus, not quite sure where we are going to get lines. Her arms are certainly not going to be able to take a line. Might have to be content for the moment for the femoral line, changing it as soon as we can, maybe when she can take enteral medications via the nasogastric tube. PLAN: 1. Per discussion with ID, Zosyn added to antibiotic regimen 2. Added mucolytic to be administered through her nasogastric tube to help thin secretions 3. Discussed nutrition on rounds, and will advance TF. DVT prophylaxis: Heparin SQ GI prophylaxis: Famotidine TIME SPENT: Critical care, 30 minutes. Attending Statement The patient was seen and examined together with Dr. Huerta on 03/17/2016 and I agree with the history, exam and plan as outlined in the note above. Kwan Huerta DO Mar 17, 2016 11:42 Jacobo Gipson MD Apr 07, 2016 17:32
--- NOTE | 2016-03-17 11:59 | NUR ---
NUTRITION FOLLOW UP: ASSESS: 45 YO F admitted to CCU with severe sepsis, acute hypoxic respiratory failure, gram-positive cocci bacteremia, RSV pneumonia, e.coli UTI in patient with congenital dwarfism. Pt continues to have AMS and failed ST eval. Trickle feeding started 03/16 pt tolerated well. Verbal order received to begin increasing TF to goal rate. PMHx: Congenital dwarfism, kyphoscoliosis, juvenile RA, migraines, bilateral leg contractures, CHF, HTN, depression. DIET: NPO per ST LABS: Reviewed. CO2 34, Cr 0.51, Glu 120, Ca 8.3, Albumin 2.6 MEDICATIONS: Reviewed. GI: BM x3 03/17 SKIN: No skin issues per wound eval. ANTHROPOMETRICS: Current Wt: 48.4 kg, BMI: 44.7 kg/m2. IBW: 36.8kg, Adj BW 39.7kg. Admit Wt: 44.6 kg ESTIMATED NEEDS: BMI Calories: 995-1190calories (25-30 kcal/kg Adj. BW) Protein: 45-60 g protein (1.2-1.5 g/kg Adj. BW) Fluid: Approx 1450 ml (30 ml/kg BW) NUTRITION DIAGNOSIS: 1) Chewing/swallowing difficulties related to congenital malformations, as evidenced by NPO status, pending swallow evaluation.---PERSISTS. 2) Inadequate oral intake related to decreased ability to consume sufficient energy as evidenced by current NPO status per ST due to AMS---IMPROVING INTERVENTION: 1) Diet advance per speech therapy. 2) Recommend advancing Jevity 1.5 by 10ml q 6 hrs until reach goal rate of 35ml/hr to provide 1155kcal and 50g pro (100% estimated needs). MONITOR/EVALUATE: TF fortino, NPO status, ST eval, labs, GI/nutrition status. Follow per high nutrition risk guidelines.
--- NOTE | 2016-03-17 14:42 | PCM.PNMED ---
Subjective Date of Service Mar 17, 2016 Subjective Meredith Sterling is a 45 year old female with a history of congenital dwarfism, juvenille arthritis, Felty syndrome, and CHF who presented to the ED from [facility] with altered mental status and shortness of breath. Admitted for severe sepsis secondary to pneumonia and UTI. Hospital day 7. Overnight: Patient febrile overnight with Tmax of 38.4. No other acute events overnight. Today: Patient remains tachycardic with heart rates between 100-120. Patient continues with no verbal responses. She will squeeze hand and move extremities on command. She remains hemodynamically stable and is currently on high flow oxygen with an FiO2 of 25% at 40 L. No significant improvement in mentation over the last few days. Exam Vital Signs Vital Sign - Last Date Time Temp Pulse Resp B/P Pulse Ox O2 Delivery O2 Flow Rate FiO2 03/17/16 04:30 116 30 100 HIGH FLOW 28 03/17/16 04:03 38.0 130/81 03/16/16 19:37 30 Intake and Output 03/16/16 03/16/16 03/17/16 Cumulative From/Thru 15:00 23:00 07:00 03/11/16 22:44 - 03/17/16 06:01 Intake Total 1349 ml 54147 ml Output Total 1225 ml 6175 ml Balance 124 ml 4930 ml Intake IV Total 1072 ml 40123 ml Tube Feeding 117 ml 117 ml Tube Irrigant 160 ml 160 ml Output Urine Total 1225 ml 5975 ml Gastric Drainage Total 200 ml # Bowel Movements 3 20 Exam General: Small female with multiple body deformities including severe kyphosis and bilateral contractures of lower extremities. In mild respiratory distress. No verbal responses. HEENT: Atraumatic. External ears without defect. PERRLA, amblyopia, no scleral icterus. Mucosa dry. Neck: No jugular venous distension. No bruits. No lymphadenopathy or thyromegaly. Cardiovascular: Tachycardic, regular rhythm with no murmurs, rubs, or gallops appreciated Pulmonary: Moderate air movement with coarse rhonchi bilaterally right greater than left. High flow cannula in place. Abdomen: Bowel tones present. Soft, nondistended. No hepatosplenomegaly or masses appreciated. Extremities: Bilateral contractures upper/lower extremities, brawny skin discoloration of feet bilaterally, club feet. no cyanosis or edema appreciated. Skin: Rash in groin and left leg consistent with yeast. Lab and Diagnostics Result Diagram: 03/17/16 04203/17/16424 Microbiology Respiratory virus panel positive for RSV. MRSA screen positive. Blood cultures 1 of 2 positive for GRAM POSITIVE COCCI Urine culture positive for E. coli Strep pneumo and Legionella urine antigens negative. C diff PCR negative. X-Rays, CTs and MRIs CT CHEST WITH CONTRAST IMPRESSION: 1. Moderate to severe bilateral pneumonia. Small right parapneumonic effusion. 2. Superimposed nodular and ground glass densities, possibly due to focal pneumonitis. Followup chest CT in 3 months is recommended to exclude the less likely possibility of underlying neoplasm. 3. Severe kyphoscoliosis. 4. Probable 20 mm diameter splenic artery aneurysm. Dictated by: Rickie Meeks M.D. on 03/16/2016 at 10:03 Approved by: Rickie Meeks M.D. on 03/16/2016 at 10:03 X-RAY CHEST ONE VIEW, PORTABLE (03/14/16) IMPRESSION: Interstitial infiltrate, suspect for bronchopneumonia. Dictated and approved by: Thien Lopez M.D. on 03/12/2016 at 8:00 US RENAL SONOGRAM (03/13/16) IMPRESSION: - No hydronephrosis. - Bilateral simple appearing renal cysts. Dictated and approved by: Koby Miller M.D. on 03/13/2016 at 7:44 X-RAY CHEST ONE VIEW, PORTABLE (03/14/16) IMPRESSION: Overall no interval change in patchy right basilar opacities since . No new focal consolidation Dictated and approved by: Koby Miller M.D. on 03/13/2016 at 8:23 X-RAY CHEST ONE VIEW, PORTABLE (03/14/16) IMPRESSION: Right central venous catheter with the tip projecting in the lower SVC Enteric tube with the tip in the stomach Dictated and approved by: Koby Miller M.D. on 03/13/2016 at 13:34. 12-lead ECG Sinus rhythm rate 95 Prolonged HI interval Low voltage, extremity leads Assessment & Plan 45 year old female with multiple medical problems that is presenting with a few day history of cough, that has now progressed to altered mental status with shortness of breath. Admitted for severe sepsis secondary to pneumonia and UTI. Hospital day 7. 1. Severe sepsis, present on admission. Improving -Met criteria on admission with temp 37.7, HR 117, RR 22, encephalopathy, urinary & pulmonary source of infection -Continue treating underlying infections. 2. Healthcare associated pneumonia, has not on admission. Active. -Positive for RSV, possible bacterial etiology. MRSA screen positive. -Pt full-time resident of [facility], antibiotics to cover HCAP -Right lower lobe opacities as well as bilateral perihilar opacities on chest xray. -Blood cultures are +1 out of 4 thought to be contaminant. -Levofloxacin, linezolid, and meropenem stopped and antibiotics switched to ceftaroline per ID. As patient was not improving and concern for possible interaction between citalopram and linezolid. -Piperacillin/Tazobactam added 03/17/16 for better anaerobic coverage. -Guaifenesin 200 mg every 8 hours to help thin secretions. -CT chest with contrast shows moderate to severe bilateral pneumonia with small right parapneumonic effusion. Superimposed nodular and groundglass densities. 3. Acute UTI, present on admission. Active. -Pt does not have chronic indwelling catheter at baseline. Renal ultrasound unremarkable. -Urine culture positive for E. coli, resistant to levofloxacin, ciprofloxacin and tetracycline. -Continue antibiotics, as above. 4. Acute encephalopathy, present on admission. Active -Pt was unresponsive on arrival and not at baseline mentation, per family. Baseline mentation per family is conversational and able to feed herself. -Likely secondary to #1. -Continue treatment for sepsis, as above. 5. Acute hyperglycemia, present on admission. Active -Pt w/o known diagnosis of diabetes -Most recent blood glucose, 125. -HbA1c 5.0 -Blood glucose monitoring q6h -Low dose correctional insulin lispro ordered. 6.Chronic hypertension, present on admission. Stable -Hold home medication in setting of hypotension secondary to sepsis. -Resume home dosing of propranolol when appropriate. 7. Chronic depression, present on admission. Stable -Consider restarting Citalopram 20 mg daily when appropriate. 8. Juvenile arthritis, chronic. present on admission. Stable -Continue home dosing, gabapentin. 9. Chronic pain, present on admission. Active -Continue methadone at reduced dose to avoid withdrawal 10. Reported history of CHF, present on admission. Stable -Echo (03/14/16) while an suboptimal study showed no evidence of CHF. 11. Acute bacteremia, present on admission. Ruled out. -1 out of 4 blood culture positive for gram positive, coag negative, cocci. Thought to be contaminant. -Echo with no evidence of vegetations. High-risk medication: IV dilaudid 0.5mg Q6h prn Acetaminophen-fever/headache/mild/moderate pain Antiemetics, as needed Bowel regimen, as needed. Disposition: Patient continues to have altered mental status far below baseline. Patient's respiratory status improving with decreased O2 needs. We will continue antibiotics per infectious disease appreciate pulmonology/ critical care following. Discharge back to [facility]. GI Prophylaxis: H2 amparo VTE Prophylaxis: Sub-Q Heparin (Unfractionated) VTE Mechanical Devices: Intermittant Pneumatic CD Resuscitation Status: CPR: Attempt Resuscitation Attending Statement The patient was seen and examined together with Dr. Clifford on 03/17/2016 and I agree with the history, exam and plan as outlined in the note above. . JEANNIE CLIFFORD DO Mar 17, 2016 07:01 Braxton Gaona MD Mar 18, 2016 12:22
--- NOTE | 2016-03-17 16:11 | PCM.PALLBR ---
Palliative Care Recommendation Summary of palliative recommendations: Symptom management (Pain/other): per Attending Purple Team and Pulmonary Integration Assistant. Patient's functional baseline (per Mom's history 03/16): Meredith could walk a little bit, with some assistance until she was about 10 years old. Since then, she has been wheelchair bound. She lived with her parents until about 4 years ago, when she moved to [facility]. Her PCP is Dr. Mcclellan. She loves to color, watch TV, play video games, collect stuffed animals and coloring books. She socializes with the facility staff, as all the other patients are much older than she. She follows staff around in her W/C, and is quite conversive. Sometimes strangers cannot understand her speech well, but people who are used to the way she talks, can understand her. She has a chronic cough, but no trouble swallowing or drinking thin fluids. She eats a regular diet, but meat is cut up for her into smaller bites. She loves sodas and sugary food. DPOA/Advanced Directives/POLST: 1. Code status: FULL. At this time, there is no identified need by medical team to engage family in discussions to change code or goals of care. At this time, we are asked to support family, spend more time talking to them about medical questions in order to free up the primary medical teams, and communicate family concerns back to the primary Attending team and/or consultants. 2. DPOA: Alena Story 3. POLST: unknown if prior paperwork, need to clarify. Family/emotional support: Good. Porsha Sterling (mom) [phone] Trevor Sterling ( dad) [phone]. Brother Gene in [place] and Sister Rupa locally. Spiritual support: not addressed today. Family Care Team Meeting (FCTM): 1. On 03/16, Dr. Mcintyre met with Alena Meierki to elicit her understanding of Meredith's medical condition. Her understanding is marginal and she worries about what she cannot understand. She wants frequent conversations with medical and nursing teams. She asks lots of questions about lab results and what they mean to the doctors, how they change a management plan for her daughter. She can see that her daughter is not waking up and carrying on conversations as she usually can do, and Porsha has a lot of anxiety about this. Porsha says that today is Meredith's 3rd day in the hospital "with no speech." She wants doctors to explain why Meredith is not speaking and worries that Meredith may have had a stroke. Dr. Mcintyre went over signs and symptoms of a stroke and explained that medical team does not think Meredith has that problem right now. Next, Dr. Mcintyre went over each of Meredith's current medical problems outlined in CCU rounds today, explaining them slowly and in simple Pakistani using no medical terms. Dr. Mcintyre timothy pictures to explain Meredith's finding of a splenic artery aneurysm and counseled that Mom will have to wait until surgery tells medical team what they think about this finding on her CT Chest/Abdomen today. Dr. Mcintyre explained lung findings on CT and counseled that Meredith will need a follow-up CT in 3 months to look at her lungs and her the artery coming out of her spleen. Dr. Mcintyre talked about each of Meredith's infections and how they cause sepsis and what sepsis is and how Mom can not expect sepsis to get better in a few days, because Meredith will need more time to recover. After 90 minutes of counseling, Porsha is more relaxed and seems to grasp more of the situation. Dr. Mcintyre counsels that the most likely problem keeping Meredith from speaking is that she is still too sick from her sepsis. Mom seems to accept this. On 03/17, Dr. Mcintyre met with Mom who is worried again, that Meredith either has something wrong with her vocal cords that makes it hard for her to speak, or she has had a stroke and is not mentating, so can't talk. After a lengthy discussion, she is somewhat accepting my counseling that Meredith may take a long time to start to show improvement, and that she is neither improving nor getting worse today, but the medical team thinks that her decreased mental status is primarily due to her sepsis, not a stroke or a vocal cord injury. Plan: on 03/18, PC provider will either meet Mom [id number] or talk to her on phone for update sometime after CCU rounds completed. Additional Medical Diagnoses with primary management by Hospitalist team include : 1. Sepsis with underlying infections of RSV pneumonia, E. coli UTI treated with ceftaroline. Also positive for MRSA (colonization), 2. Encephalopathy, not at prior baseline, likely due to #1 3. Acute hyperglycemia in context of no prior known diagnosis of diabetes 4. Chronic HTN 5. Chronic depression on home citalopram (Linozolid stopped to eliminate risk of serotonin syndrome) 6. Juvenile arthritis, on gabapentin and methadone for chronic pain. Prn dilaudid IV for acute pain here. 7. ? hx CHF, not found on ECHO here but study was suboptimal. Problems: (1) Palliative care by specialist Status: Acute ICD Code: Z51.5 Goals of Care Family Goals: 1. Family hopes for Meredith's full recovery to her prior baseline. 2. Family is medically not sophisticated, but desires daily [id number] contact from medical team to explain Meredith's condition as it changes. They mostly want to know a bottom line of are things getting better (or not). Not quite understanding the medical terms is frustrating and isolating for her parents, and heightens their worry and stress. Daily conversations that they can understand will be helpful. Palliative Care hopes to intercede here and relieve some of the burden on medical and nursing teams by acting as an warehouse and receiving supervisor for medical updates discussed in rounds. Resuscitation Status Resuscitation Status: CPR: Attempt Resuscitation POLST Updates/Changes Antibiotics: Use ABX if can Prolong Life Artificially Admin Nutrition: Long-Term Nutrition by Tube Feeding Total time 105 minutes; >50% face to face with patient and/or family, providing counselling regarding plans and recommendations, and in care coordination with his/her medical teams. Palliative Brief Note Date of Service Mar 17, 2016 . 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 Pt had worsening cough for the past few days which progressed to the point where the patient was having a difficult time staying awake and did not answer question appropriately. Patient was brought to the ED and on exam was found to be saturating in the low 90s and upper 80s. Patient was placed on non rebreather, but only reached to 95%, most likely due to patient's body habitus and existing infection. Patient is otherwise hemodynamically stable. She was admitted for severe sepsis due to UTI and pneumonia. Hospital Course: Today is Hospital Day 7 (Mar 17). On Mar 12, she was moved to the ICU because of issues with blood pressure and hypoxia. The medical team has struggled with IV access and peripheral IV placement because of her congenital dwarfism. She has had IV antibiotics to cover her UTI and oxygen support for her viral pneumonia. She was discussed extensively in CCU rounds today by Pulmonary (Dr. Gipson), ID (Dr Hernandez), respiratory therapist, RNs and [facility] Patient continues with no verbal responses. She will squeeze hand and move extremities on command. She remains hemodynamically stable and is currently on high flow oxygen with an FiO2 of 25% at 40 L. No significant improvement in mentation over the last few days. Exam: General: small, obese female with severe kyphosis and bilateral contractures of lower extremities. Nonverbal, but sometimes moving lips as if trying to vocalize. HEENT: Atraumatic head, ears, nose. eyes: PERRL, amblyopia, nonicteric. MMM dry. Cardio: tachycardia, regular rhythm, no murmur appreciated Lungs: coarse B/L rhonchi, R>L Abdomen: soft, ND, NT, +bowel sounds. : weber catheter present Skin: mild erythema inner thighs, brawny skin color of feet Extremities: bilateral leg>arm contractures, Charcot foot presentation bilaterally (club feet/loss of arch) Neuro: tracking, follow simple command to talent development consultant bilaterally with hands, nonverbal , mouth moving as if trying to speak. Lab/Diagnostics Result Diagram: 03/17/16 0425 Microbiology Respiratory virus panel positive for RSV. MRSA screen positive. Blood cultures 1 of 2 positive for GRAM POSITIVE COCCI Urine culture positive for E. coli Strep pneumo and Legionella urine antigens negative. C diff PCR negative. CT CHEST WITH CONTRAST 03/16/2016 IMPRESSION: 1. Moderate to severe bilateral pneumonia. Small right parapneumonic effusion. 2. Superimposed nodular and ground glass densities, possibly due to focal pneumonitis. Followup chest CT in 3 months is recommended to exclude the less likely possibility of underlying neoplasm. 3. Severe kyphoscoliosis. 4. Probable 28 mm diameter splenic artery aneurysm. Dictated by: Jesse Dykes Cynthia MD Mar 17, 2016 16:11
--- NOTE | 2016-03-17 17:54 | NUR ---
Social Work Note: Continued Discharge Planning Data& Assessment: Pt is not medically ready for discharge at this time. SW spoke with pt mother Misty to check in and assess for any unmet needs. Pt mother denies any needs and we confirmed the discharge plan of returning to [facility] as a [facility] Pt where she has lived for the past 11 years. SW to continue to follow if any needs arise. Plan: Anticipated discharge back to [facility] where she is a [facility]. Pt mother denies any needs at this time. SW to continue to follow. TIARA Claudio
--- NOTE | 2016-03-17 17:54 | NUR ---
NAIN verbal consent with pt mother via phone call. TIARA Claudio
--- NOTE | 2016-03-17 19:13 | NUR ---
P: Resp, Hemodynamics, Nutrition, Neuro I,E: Pt continues on high flow O2 today, and she seems to be doing better today, RR is down to the high 20's to low 30's, HR has been mostly in the 100's and BP stable. UOP was good, > 1000cc today. Pt is tolerating her tube feeds and they have been advanced per enterprise services manager up to 30cc at this time, goal is 35cc. Pt's family is here at this time and pt's mother was able to speak with Dr. Ibarra today and was updated on plan of care. Pt has some excoriated skin on her buttocks, upper posterior thighs and dian area. She had some stool leakage and this was causing ongoing problems with her skin even though she had calmoseptine on and was turned and cleaned frequently (at least Q2, at times more often). I placed an FMS this am and this has really helped to keep her skin clean and dry, and I have continued to apply calmoseptine Q2. Her skin already this evening looks improved.
[2016-03-17] MEDS: Insulin Human REGular 300 Unit/3 mL Inj SUBQ SCH (20:30)
[2016-03-18] VITALS (13 sets, daily range): BP systolic 110–140; BP diastolic 68–100; PULSE 98–126; RESP 20–27; O2SAT 98–100
[2016-03-18] MEDS: Heparin 5,000 Unit/mL Inj SUBQ SCH ×3 (00:56→16:48)
[2016-03-18] MEDS: guaiFENesin 20 mg/mL 10 mL Syrup PO SCH ×3 (00:56→16:49)
[2016-03-18] MEDS: Piperacillin-Tazo 3.375 Gm Inj 3.375 GM in Dextrose 5% Minibag Plus 50 ML IV SCH ×2 (00:56→10:07)
[2016-03-18] MEDS: Insulin Human REGular 300 Unit/3 mL Inj SUBQ SCH ×4 (02:30→22:13)
[2016-03-18 04:34] LABS: BASOPHILS % (AUTO) 0.4 % (0-3); EOSINOPHILS % (AUTO) 0 % (0-5); MONOCYTES % (AUTO) 9.4 % (4-12); Mean Corpuscular Hemoglobin 28.5 pg (27.0-35.0); Mean Corpuscular Volume 90.2 fL (81-100); NEUTROPHILS % (AUTO) 68.8 % (40-74); Platelet Count 146 bil/L (150-400)
[2016-03-18] MEDS: D5 0.9% NaCl + KCl 20 mEq/L 1,000 ML IV SCH (04:40)
--- NOTE | 2016-03-18 05:52 | NUR ---
P: decrease interaction I: repositioning, oral care, explain care E: Pt more alert tonight than prior night. Making some eye contact. Not following cues or talking. Watching tv. Trying to reposition self more than prior night. Sleeping best on her right side. Afebrile. Fan on in room. Tele SR/ST, 1st AVB. Lisa UOP. Tolerating TF. Green liquid stool via FMS. High flow 28%, 30L. Sats in the high 90s. RR low 20s to low 30s. Using accessory muscles w/ short fast respirations. Rare congested cough, nonproductive.
--- NOTE | 2016-03-18 08:12 | PCM.PNMED ---
Subjective Date of Service Mar 18, 2016 Subjective PULMONARY CRITICAL CARE NOTE: PROBLEM: 1. Hypoxemic hypercarbic respiratory failure. 2. Pneumonia, viral and likely bacterial. 3. Congenital dwarfism. 4. Juvenile rheumatoid arthritis. SUBJECTIVE: Afebrile overnight. Otherwise, respiratory status remains unchanged. She does make eye contact, and does lightly squeeze hands on command. ROS otherwise not obtainable. Exam Vital Signs Vital Sign - Last Date Time Temp Pulse Resp B/P Pulse Ox O2 Delivery O2 Flow Rate FiO2 03/18/16 07:51 36.9 110 23 140/100 100 high flow 28 03/18/16 05:21 30 Intake and Output 03/17/16 03/17/16 03/18/16 Cumulative From/Thru 15:00 23:00 07:00 03/11/16 22:44 - 03/18/16 05:07 Intake Total 1609 ml 1431 ml 42292 ml Output Total 1250 ml 775 ml 8200 ml Balance 359 ml 656 ml 5945 ml Intake IV Total 1174 ml 961 ml 03191 ml Tube Feeding 195 ml 320 ml 632 ml Tube Irrigant 240 ml 150 ml 550 ml Output Urine Total 1150 ml 750 ml 7875 ml Stool Total 100 ml 25 ml 125 ml Gastric Drainage Total 200 ml # Bowel Movements 20 Exam General: obese female lying in hospital bed on R side. does not appear to be in acute distress. HEENT: Opens eyes and makes eye contact. conjunctiva not injected, EOMi. Membranes moist. Chest: coarse rhonchorous breath sounds throughout, but worse on the R. CV: Tachycardic without appreciable murmur. radials are 2+ bilaterally. ABD: Soft and nontender with infrequent, normal- sounding BT. EXT: contractures in all 4 extremities. LE wrapped in Joaquin bandage bilaterally. Lines: Left femoral CV line, Beltran catheter. IVs and Medications IV Fluids D5 with Kcl at 60cc/hr Medications Reviewed: Medications were reviewed in detail Medications Ceftaroline, and ID started Zosyn. Bactroban and nystatin. Continues on methadone with as needed Dilaudid Lab and Diagnostics Result Diagram: 03/18/1642403/18/16424 Microbiology Urine for Legionella antigen is negative. Urine for Streptococcal pneumoniae antigen is negative. MRSA nasal screen is positive. Respiratory viral PCR panel positive for RSV. Sputum growing MRSA resistant to cefazolin, clindamycin , erythromycin, as well as oxacillin. Sensitive to linezolid and vancomycin. C. diff was negative. Assessment & Plan ASSESSMENT: Problem list: 1. Hypoxemic hypercarbic respiratory failure. 2. Pneumonia. 3. Congenital dwarfism. 4. Juvenile rheumatoid arthritis. 5. Rash, likely cutaneous candidiasis 1. Pneumonia. Etiology remains unclear (likely viral, but some thought to secondary bacterial, or fungal). Question dealing with solitary respiratory syncytial virus. Possibly Staphylococcus (though question colonization vs infection). Zosyn was added on 03/17/16 for suspected aspiration/anaerobes. ID to continue Ceftaroline (would cover both MRSA and E. coli UTI), and Zosyn to extend coverage. Alternative differential diagnoses such as ILD or fungal infection are considered less likely at this time. There is also the question of long-term complications secondary to her underlying congenital dwarfism. Regardless, her significant kyphoscoliosis is likely contributing to her impaired ability to clear secretions and subsequent infection. I do not think that she would tolerate CPT at this time. Juvenile rheumatoid arthritis and is not historically/significantly associated with pulmonary sequela (such as ILD). She has not been on any medications for her JRA as far as we can tell from historical record. This is significant in that there are not medications which could potentially compromise her immune status. 2. Hypoxemic, hypercarbic respiratory failure. Oxygen by mask was apparently not sufficient to satisfy O2 needs, and she was started on high-flow on 03/14/16. Currently, unable to wear BiPAP, as she did not tolerate the adult mask. We now have pediatric masks that are available should she require this. Currently , she is on high-flow system (0.28 FiO2, 40L/min) which is resulting in O2 saturations of 99%+. Continue to be concerned about the ventilatory component here. She does not seem particularly lethargic, and VBG on 03/15/16 did not demonstrate a significant acute component to her hypercapnia. However, there is the question of her chronic hypercapnia (significant kyphoscoliosis perhaps resulting in restrictive function). Although not ideal, will have to settle for this modality for the moment. Intermittent respiratory support with the OxyMask alone, though not sure the benefit over the high-flow system, as neither is of any ventilatory support. Please note that we do have the appropriate-sized ETT and suction catheters if, hopefully not necessary, she needs to be intubated. 3. Inadequate IV access. The patient pulled out her IJ line 03/15/16. Currently has a L femoral line. Looking at her habitus, not quite sure where we are going to get lines. Her arms are certainly not going to be able to take a line. Will discuss line options during rounds today (options include IJ or, if we can, a PICC-even midline). PLAN: 1. ID to continue abx as noted 2. Discuss nutrition on rounds, and lines. 3. Will add VBG to assessment this AM to monitor her pH and PCO2. DVT prophylaxis: Heparin SQ GI prophylaxis: Famotidine TIME SPENT: Critical care, 30 minutes. Attending Statement The patient was seen and examined together with Dr. Huerta on 03/18/2016 and I agree with the history, exam and plan as outlined in the note above. Kwan Huerta DO Mar 18, 2016 08:12 Jacobo Gipson MD Apr 07, 2016 17:40
[2016-03-18] MEDS: Sodium-Potassium Phosphorus Packet TUBE SCH ×2 (09:01→22:20)
[2016-03-18] MEDS: Methadone 10 mg/mL Oral Concentrate PO SCH ×2 (09:02→22:20)
[2016-03-18] MEDS: Famotidine Inj 20 MG in IV Premix 1 EACH IV SCH (09:02)
[2016-03-18] MEDS: Ceftaroline Inj 600 MG in Dextrose 5% 250 ML IV SCH (09:08)
[2016-03-18] MEDS: Mupirocin 2% 22 Gm Ointment TOPICAL SCH ×2 (09:10→22:20)
[2016-03-18] MEDS: Albuterol-Ipratropium 3 mL Inhalation Solution NEB SCH ×4 (09:36→20:12)
--- NOTE | 2016-03-18 09:52 | ABG ---
DateTimeAnalyzed 09:47:00 -_ pH ____7.438 - pCO2 ___55.1__ -mmHg pO2 ___40.5__ -mmHg HCO3- ___36.6__ -mmol/L ABE ___11.1__ -mmol/L tHb ___10.1__ -g/dL O2Hb ___73.4__ -% COHb ____1.6__ -% MetHb ____0.9__ -% sO2 ___75.3__ -% FIO2 ___28.0__ -% Drawn By gj - Date/Time Notified____ 09:52:00 -_ Spontaneous_RR ___20.0__ -b/min Liter_Flow ___30.0__ -L/min Oxygen Device 1 HIGH FLOW - Notified Whom DE LA HOUSSAYE - B 764 -mmHg tO2 ___10.4__ -Vol% Osmani test N/A -
--- NOTE | 2016-03-18 09:57 | DRSVH ---
PROCEDURE: X-RAY CHEST ONE VIEW, PORTABLE ([id number]) INDICATIONS: shortness of breath TECHNIQUE: One view of the chest was acquired. COMPARISON: [facility], CR, XR CHEST 1VW (PORTABLE), 03/16/2016, 5:27. [facility], CR, XR CHEST 1VW (PORTABLE), 03/14/2016, 19:57. FINDINGS: Surgical changes and devices: Nasogastric tube coiled within the gastric lumen. Lungs and pleura: No pleural effusions or pneumothorax. Lungs are somewhat difficult to accurately assess due to reduced inspiration and prominent convex-right scoliosis and patient tilt and rotation leftward. With this qualification there likely is bibasilar pneumonia greater on the right left, and possible mild superimposed pulmonary edema pattern. Mediastinum: Mediastinal contours appear normal. Heart size is normal. Bones and chest wall: No suspicious bony lesions. Overlying soft tissues appear unremarkable. IMPRESSION: Nasogastric tube in normal position, bibasilar pneumonia greater on the right than the le ft. Prominently reduced inspiratory volume and prominent convex-right scoliosis centered at the lowe r thoracic spine. Dictated by: Bill Long M.D. on 03/18/2016 at 9:54 Approved by: Bill Long M.D. on 03/18/2016 at 9:54
--- NOTE | 2016-03-18 10:16 | PROG NOTE ---
[address] [address] PROGRESS NOTE PATIENT: TRAM LAZO : 1970 MR#: [id number] ADMIT: 03/12/2016 JOB ID: [id number] DATE: 03/18/2016 INFECTIOUS DISEASE FOLLOW UP NOTE: REASON FOR FOLLOWUP: Possible pneumonia with urinary tract infection and respiratory syncytial virus infection in a woman with multiple skeletal abnormalities and congenital dwarfism. INTERVAL HISTORY: Overnight, the patient has remained stable from a hemodynamic and respiratory point of view, but she continues to be essentially mute in that she does not respond to conversation or questions and will attempt to pull out lines and devices if left to do so. Yesterday, I had an opportunity to discuss her normal clinical state with her correction physician, Dr. Chris Mcclellan. He reports that ordinarily she is driving around the correction conversing with many people and is completely lucid and normal except for a bit of difficulty with her speech which takes a while to understand but the content of her speech is completely fluid and logical on a normal day and this is dramatically different from what we have seen during her admission now which is just about to complete a full week. We continue to treat the patient for what could be a MRSA pneumonia or tracheal bronchitis superimposed on RSV as well as for her urinary tract infection but have seen little improvement with respect to her cognition. This case discussed exhaustively on the ICU rounds this morning as well as at the bedside with the nursing staff. PHYSICAL EXAMINATION: Reveals a woman whose eyes are open but who basically does not seem to be interacting in any way and makes no attempt to speak or follow commands. She remains afebrile and has been now for more than 24 hours after periods of fever in the first and second hospital day, as well as the fourth and fifth hospital days. Current pulse is about 110, respiratory rate in the low 20s, blood pressure 140/100. She is using high-flow nasal oxygen. Oral cavity cannot really be examined as she is not opening her mouth. Her lips appear normal. The eyes likewise without conjunctivitis. Nasal oxygen in place. Lungs: The largely transmitted upper airway sounds obscure most of her lung findings but she probably has a few rales at the bases but it is difficult given her abnormal anatomy to say with certainty. The patient's abdomen continues to be relatively benign. She has a Beltran catheter which she does not have in the correction. No skin rash noted. LABORATORIES: Include white blood count 9500, platelet count 146,000. Creatinine 0.42. LFTs normal. Procalcitonin is 1.48, which is down from 25 three days ago and eight two days ago. Urinalysis had heavy pyuria when she came in and grew an E coli which has now been treated, of course, for several days. In addition, a sputum has grown MRSA as well as a light growth of Pseudomonas. The respiratory PCR was positive for RSV and a nasal swab positive for MRSA. C. difficile was done and was negative. IMAGING: Includes a chest x-ray from today which shows little change. IMPRESSION: This continues to be a confusing case of a woman with congenital dwarfism and extensive musculoskeletal abnormalities who was admitted for respiratory issues and was found to have pyuria with the UTI. Early in her hospital stay, it was clear she had respiratory syncytial virus which likely produced a great deal of her pulmonary infiltrates and pulmonary issues. I am concerned that the patient may have a superimposed bacterial process and certainly the procalcitonin and other parameters as well as her fevers would be consistent with that. The exact nature of the pneumonia has been unclear. Initially we attempted to treat her with ceftaroline for the MRSA as well as for the E coli UTI which seemed like a parsimonious use of antibiotics, but due to failure to improve, we added Zosyn for enhanced anaerobic coverage being concerned about aspiration with her abnormal mental status. Today there is a crisis in that we are losing peripheral IV access and there is discussion about the risk and benefits of placement of a central line. Such a line will have to be very small and very short given the patient's body habitus and there would be increased risk of DVT and other issues in the upper extremity. A switch to oral antibiotics could be appropriate here and we have been asked to consider that by the team. RECOMMENDATIONS: 1. I would check a procalcitonin today to make sure we are still in the right direction with that parameter. 2. I think a trial of switching to oral antibiotics may not be unreasonable as the patient in no way appear septic or grossly infected at this point, and I think the risk of putting a central line in this patient are significant. 3. We could use doxycycline 100 mg down the NG tube 100 mg p.o. b.i.d., as well as Augmentin 875 p.o. b.i.d. These are relatively heavy doses considering her small size, but I think they are appropriate. This will provide coverage for the MRSA found in her airway which may be colonizing or infecting as well as coverage for any anaerobes which may have occurred during possible aspiration as well as cover the E coli which was the cause of her UTI. We will not have coverage anymore for Pseudomonas but the growth was only light growth and was not seen on the Gram stain of the sputum so I think it is probably a colonizer more than an infecting pathogen. 4. Will need to follow her closely on this oral regimen but at least it may give her freedom so that she can be among other things released from restraints and sat up in a chair where she will have better respiratory mechanics.
[2016-03-18] MEDS: Amoxicillin-Clav 875-125 mg Tablet PO SCH ×2 (11:13→22:19)
--- NOTE | 2016-03-18 11:46 | NUR ---
NUTRITION FOLLOW UP: ASSESS: 45 YO F admitted to CCU with severe sepsis, acute hypoxic respiratory failure, gram-positive cocci bacteremia, RSV pneumonia, e.coli UTI in patient with congenital dwarfism. Pt continues to be minimally interactive. ST unable to assess for the last few days. Pt tolerating TFs at goal rate. Verbal order received to increase fluids via NG d/t IVF @ 70 ml/hr being d/c'd. PMHx: Congenital dwarfism, kyphoscoliosis, juvenile RA, migraines, bilateral leg contractures, CHF, HTN, depression. DIET: NPO per ST LABS: Reviewed. CO2 35, Cr, 0.72, Glu 153, Ca 8.1, Albumin 2.7 MEDICATIONS: Reviewed. GI: BM x3 03/17 SKIN: No skin issues per wound eval. ANTHROPOMETRICS: Current Wt: 48.1 kg, BMI: 44.7 kg/m2. IBW: 36.8kg, Adj BW 39.7kg. Admit Wt: 44.6 kg ESTIMATED NEEDS: BMI Calories: 995-1190 calories (25-30 kcal/kg Adj. BW) Protein: 45-60 g protein (1.2-1.5 g/kg Adj. BW) Fluid: Approx 1450 ml (30 ml/kg BW) NUTRITION DIAGNOSIS: 1) Chewing/swallowing difficulties related to congenital malformations, as evidenced by NPO status, pending swallow evaluation.---PERSISTS. 2) Inadequate oral intake related to decreased ability to consume sufficient energy as evidenced by current NPO status per ST due to AMS---IMPROVING INTERVENTION: 1) Recommend free fluid flush w/ 45 ml q 1 hr. Flush + free fluid in TF provides 1665 ml/d H2O, meeting >100% of est fluid needs. 2) Recommend continuing Jevity 1.5 by 10ml q 6 hrs until reach goal rate of 35ml/hr to provide 1155kcal and 50g pro (100% estimated needs). 3) Diet advancement per ST MONITOR/EVALUATE: TF, NPO status, ST eval, labs, GI/nutrition status. Follow per high nutrition risk guidelines.
--- NOTE | 2016-03-18 11:53 | PCM.PNMED ---
Subjective Date of Service Mar 18, 2016 Subjective Meredith Sterling is a 45 year old female with a history of congenital dwarfism, juvenille arthritis, Felty syndrome, and CHF who presented to the ED from [facility] with altered mental status and shortness of breath. Admitted for severe sepsis secondary to pneumonia and UTI. Hospital day 8. Overnight: Patient afebrile since 0800 yesterday. No other acute events overnight. Today: Patient remains tachycardic with heart rates between 100-120. Patient continues with no verbal responses and does not follow commands. She remains hemodynamically stable and has been switched this morning to nasal canula. Exam Vital Signs Vital Sign - Last Date Time Temp Pulse Resp B/P Pulse Ox O2 Delivery O2 Flow Rate FiO2 03/18/16 06:33 112 03/18/16 05:21 20 100 Nasal Cannula 30 28 03/18/16 04:30 37.1 136/92 Intake and Output 03/17/16 03/17/16 03/18/16 Cumulative From/Thru 15:00 23:00 07:00 03/11/16 22:44 - 03/18/16 05:07 Intake Total 1609 ml 1431 ml 54022 ml Output Total 1250 ml 775 ml 8200 ml Balance 359 ml 656 ml 5945 ml Intake IV Total 1174 ml 961 ml 38404 ml Tube Feeding 195 ml 320 ml 632 ml Tube Irrigant 240 ml 150 ml 550 ml Output Urine Total 1150 ml 750 ml 7875 ml Stool Total 100 ml 25 ml 125 ml Gastric Drainage Total 200 ml # Bowel Movements 20 Exam General: Small female with multiple body deformities including severe kyphosis and bilateral contractures of lower extremities. In mild respiratory distress. No verbal responses. HEENT: Atraumatic. External ears without defect. PERRLA, amblyopia, no scleral icterus. Mucosa dry. Neck: No jugular venous distension. No bruits. No lymphadenopathy or thyromegaly. Cardiovascular: Tachycardic, regular rhythm with no murmurs, rubs, or gallops appreciated Pulmonary: Moderate air movement with coarse rhonchi bilaterally right greater than left. High flow cannula in place. Abdomen: Bowel tones present. Soft, nondistended. No hepatosplenomegaly or masses appreciated. Extremities: Bilateral contractures upper/lower extremities, brawny skin discoloration of feet bilaterally, club feet. no cyanosis or edema appreciated. Skin: Rash in groin and left leg consistent with yeast. Lab and Diagnostics CMP Test 03/16/16 14:40 03/17/16 04:25 03/18/16 04:25 Hold Dickens Top Tube Received Phosphorus Level 2.6mg/dL Magnesium Level 1.6mg/dL Procalcitonin 1.48ng/mL Sodium Level 142mEq/L Potassium Level 3.8mEq/L Chloride Level 99mEq/L Carbon Dioxide Level 35mmol/L Blood Urea Nitrogen 12mg/dL Creatinine 0.42mg/dL Estimat Glomerular Filtration Rate 233mL/min Glucose Level 153mg/dL Calcium Level 8.1mg/dL Total Bilirubin 1.0mg/dL Aspartate Amino Transf (AST/SGOT) 30U/L Alanine Aminotransferase (ALT/SGPT) 21U/L Alkaline Phosphatase 69U/L Total Protein 4.3g/dL Albumin 2.7g/dL Result Diagram: 03/18/1642403/18/16424 Microbiology Respiratory virus panel positive for RSV. MRSA screen positive. Blood cultures 1 of 2 positive for GRAM POSITIVE COCCI Urine culture positive for E. coli Strep pneumo and Legionella urine antigens negative. C diff PCR negative. X-Rays, CTs and MRIs CT CHEST WITH CONTRAST IMPRESSION: 1. Moderate to severe bilateral pneumonia. Small right parapneumonic effusion. 2. Superimposed nodular and ground glass densities, possibly due to focal pneumonitis. Followup chest CT in 3 months is recommended to exclude the less likely possibility of underlying neoplasm. 3. Severe kyphoscoliosis. 4. Probable 20 mm diameter splenic artery aneurysm. Dictated by: Rickie Meeks M.D. on 03/16/2016 at 10:03 Approved by: Rickie Meeks M.D. on 03/16/2016 at 10:03 X-RAY CHEST ONE VIEW, PORTABLE (03/14/16) IMPRESSION: Interstitial infiltrate, suspect for bronchopneumonia. Dictated and approved by: Thien Lopez M.D. on 03/12/2016 at 8:00 US RENAL SONOGRAM (03/13/16) IMPRESSION: - No hydronephrosis. - Bilateral simple appearing renal cysts. Dictated and approved by: Koby Miller M.D. on 03/13/2016 at 7:44 X-RAY CHEST ONE VIEW, PORTABLE (03/14/16) IMPRESSION: Overall no interval change in patchy right basilar opacities since . No new focal consolidation Dictated and approved by: Koby Miller M.D. on 03/13/2016 at 8:23 X-RAY CHEST ONE VIEW, PORTABLE (03/14/16) IMPRESSION: Right central venous catheter with the tip projecting in the lower SVC Enteric tube with the tip in the stomach Dictated and approved by: Koby Miller M.D. on 03/13/2016 at 13:34. 12-lead ECG Sinus rhythm rate 95 Prolonged [place] interval Low voltage, extremity leads Assessment & Plan 45 year old female with multiple medical problems that is presenting with a few day history of cough, that has now progressed to altered mental status with shortness of breath. Admitted for severe sepsis secondary to pneumonia and UTI. Hospital day 8. 1. Severe sepsis, present on admission. Resolved. -Met criteria on admission with temp 37.7, HR 117, RR 22, encephalopathy, urinary & pulmonary source of infection -Continue treating underlying infections. 2. Healthcare associated pneumonia, has not on admission. Active. -Positive for RSV. Sputum positive for MRSA. -Pt full-time resident of [facility], antibiotics to cover HCAP -Blood cultures are +1 out of 4 thought to be contaminant. -Antibiotics switched to PO: doxycycline 100 mg twice a day and Augmentin 875 mg twice a day by mouth. -Guaifenesin 200 mg every 8 hours to help thin secretions. -Right lower lobe opacities as well as bilateral perihilar opacities on chest xray. -CT chest with contrast shows moderate to severe bilateral pneumonia with small right parapneumonic effusion. Superimposed nodular and groundglass densities. 3. Acute UTI, present on admission. Active. -Pt does not have chronic indwelling catheter at baseline. Renal ultrasound unremarkable. -Urine culture positive for E. coli, resistant to levofloxacin, ciprofloxacin and tetracycline. -Continue antibiotics, as above. 4. Acute encephalopathy, present on admission. Active -Pt was unresponsive on arrival and not at baseline mentation, per family. Baseline mentation per family is conversational and able to feed herself. -Likely secondary to #1. -Continue treatment for sepsis, as above. 5. Acute hyperglycemia, present on admission. Active -Pt w/o known diagnosis of diabetes -HbA1c 5.0 -Blood glucose monitoring q6h -Low-dose regular insulin protocol in place. 6.Chronic hypertension, present on admission. Stable -Hold home medication in setting of hypotension secondary to sepsis. -Resume home dosing of propranolol when appropriate. 7. Chronic depression, present on admission. Stable -Consider restarting Citalopram 20 mg daily when appropriate. 8. Juvenile arthritis, chronic. present on admission. Stable -Continue home dosing, gabapentin. 9. Chronic pain, present on admission. Active -Continue methadone at reduced dose to avoid withdrawal 10. Reported history of CHF, present on admission. Stable -Echo (03/14/16) while an suboptimal study showed no evidence of CHF. 11. Nutrition - Tube feeds at goal at 35 mL's per hour. - Femoral line removed and supplemental fluids given through tube. - Nutrition following. Appreciate time and expertise. High-risk medication: IV dilaudid 0.5mg Q6h prn Acetaminophen-fever/headache/mild/moderate pain Antiemetics, as needed Bowel regimen, as needed. Disposition: Patient continues to have altered mental status far below baseline. Patient's respiratory status improving with decreased O2 needs. We will continue antibiotics per infectious disease appreciate pulmonology/ critical care following. Discharge back to [facility]. Pain Evaluation: Other (hard to assess as patient does not verbalize but appears comfortable) GI Prophylaxis: H2 amparo VTE Prophylaxis: Sub-Q Heparin (Unfractionated) VTE Mechanical Devices: Intermittant Pneumatic CD Resuscitation Status: CPR: Attempt Resuscitation Attending Statement The patient was seen and examined together with Dr. Clifford on 03/18/2069 and I agree with the history, exam and plan as outlined in the note above. . JEANNIE CLIFFORD DO Mar 18, 2016 06:57 Braxton Gaona MD Mar 18, 2016 12:21
--- NOTE | 2016-03-18 14:46 | NUR ---
Status change: Pt downgraded to PCC status, with tele. Tele ST 110s, VSS, O2 sats 95% on 2L NC. Tube feeds at goal of 35mL/hr. Femoral line d/c'd, pt has no IV access, okay per MD orders. Antibiotics per NG tube. Pt able to nod once this shift. Q2h turn, care ongoing.
--- NOTE | 2016-03-18 15:34 | PCM.PALLBR ---
Palliative Care Recommendation Meredith Sterling is a 45 year old female with a history of congenital dwarfism, juvenille arthritis, Felty syndrome, and CHF who presented to the ED from [facility] with altered mental status and shortness of breath. Admitted for severe sepsis secondary to pneumonia and UTI. Hospital day 8. Patient remains mostly unresponsive. No other acute events overnight. Summary of palliative recommendations: Symptom management (Pain/other): per Attending Purple Team and Pulmonary Medical Staff Assistant. Patient's functional baseline (per Mom's history 03/16): Meredith could walk a little bit, with some assistance until she was about 10 years old. Since then, she has been wheelchair bound. She lived with her parents until about 4 years ago, when she moved to [facility]. Her PCP is Dr. Mcclellan. She loves to color, watch TV, play video games, collect stuffed animals and coloring books. She socializes with the facility staff, as all the other patients are much older than she. She follows staff around in her W/C, and is quite conversive. Sometimes strangers cannot understand her speech well, but people who are used to the way she talks, can understand her. She has a chronic cough, but no trouble swallowing or drinking thin fluids. She eats a regular diet, but meat is cut up for her into smaller bites. She loves sodas and sugary food. DPOA/Advanced Directives/POLST: 1. Code status: FULL. At this time, there is no identified need by medical team to engage family in discussions to change code or goals of care. At this time, we are asked to support family, spend more time talking to them about medical questions in order to free up the primary medical teams, and communicate family concerns back to the primary Attending team and/or consultants. 2. DPOA: Alena Story 3. POLST: unknown if prior paperwork, need to clarify. Family/emotional support: Good. Porsha Sterling (mom) [phone] Trevor Sterling ( dad) [phone]. Brother Gene in [place] and Sister Rupa locally. Spiritual support: not addressed today. Family Care Team Meeting (FCTM): 1. On 03/16, Dr. Mcintyre met with Alena Story to elicit her understanding of Meredith's medical condition. Her understanding is marginal and she worries about what she cannot understand. She wants frequent conversations with medical and nursing teams. She asks lots of questions about lab results and what they mean to the doctors, how they change a management plan for her daughter. She can see that her daughter is not waking up and carrying on conversations as she usually can do, and Porsha has a lot of anxiety about this. Porsha says that today is Meredith's 3rd day in the hospital "with no speech." She wants doctors to explain why Meredith is not speaking and worries that Meredith may have had a stroke. Dr. Mcintyre went over signs and symptoms of a stroke and explained that medical team does not think Meredith has that problem right now. Next, Dr. Mcintyre went over each of Meredith's current medical problems outlined in CCU rounds today, explaining them slowly and in simple Macedonian using no medical terms. Dr. Mcintyre timothy pictures to explain Meredith's finding of a splenic artery aneurysm and counseled that Mom will have to wait until surgery tells medical team what they think about this finding on her CT Chest/Abdomen today. Dr. Mcintyre explained lung findings on CT and counseled that Meredith will need a follow-up CT in 3 months to look at her lungs and her the artery coming out of her spleen. Dr. Mcintyre talked about each of Meredith's infections and how they cause sepsis and what sepsis is and how Mom can not expect sepsis to get better in a few days, because Meredith will need more time to recover. After 90 minutes of counseling, Porsha is more relaxed and seems to grasp more of the situation. Dr. Mcintyre counsels that the most likely problem keeping Meredith from speaking is that she is still too sick from her sepsis. Mom seems to accept this. On 03/17, Dr. Mcintyre met with Mom who is worried again, that Meredith either has something wrong with her vocal cords that makes it hard for her to speak, or she has had a stroke and is not mentating, so can't talk. After a lengthy discussion, she is somewhat accepting my counseling that Meredith may take a long time to start to show improvement, and that she is neither improving nor getting worse today, but the medical team thinks that her decreased mental status is primarily due to her sepsis, not a stroke or a vocal cord injury. On 03/18, PC provider spoke with Mom on phone for update sometime after CCU rounds completed. She understands that the patient's condition, while more stable, is not changing regarding her encephalopathy. Counseled again about expecting a very slow progression of her return to baseline s/p sepsis. Mother called later in the afternoon, requesting that the medical team consider transfer of patient to [facility] "they know her there"--states that the patient was there 5 years ago, very sick, not expected to survive and they "pulled her through". Additional Medical Diagnoses with primary management by Hospitalist team include : 1. Sepsis with underlying infections of RSV pneumonia, E. coli UTI treated with ceftaroline. Also positive for MRSA (colonization), 2. Encephalopathy, not at prior baseline, likely due to #1 3. Acute hyperglycemia in context of no prior known diagnosis of diabetes 4. Chronic HTN 5. Chronic depression on home citalopram (Linozolid stopped to eliminate risk of serotonin syndrome) 6. Juvenile arthritis, on gabapentin and methadone for chronic pain. Prn dilaudid IV for acute pain here. 7. ? hx CHF, not found on ECHO here but study was suboptimal. Problems: (1) Palliative care by specialist Status: Acute ICD Code: Z51.5 Goals of Care Family Goals: 1. Family hopes for Meredith's full recovery to her prior baseline. 2. Family is medically not sophisticated, but desires daily [id number] contact from medical team to explain Meredith's condition as it changes. They mostly want to know a bottom line of are things getting better (or not). Not quite understanding the medical terms is frustrating and isolating for her parents, and heightens their worry and stress. Daily conversations that they can understand will be helpful. Palliative Care hopes to intercede here and relieve some of the burden on medical and nursing teams by acting as an beauty director for medical updates discussed in rounds. Resuscitation Status Resuscitation Status: CPR: Attempt Resuscitation POLST Updates/Changes Previous POLST?: No Antibiotics: Use ABX if can Prolong Life Artificially Admin Nutrition: Long-Term Nutrition by Tube Feeding Total time 35 minutes; >50% face to face with patient and/or family, providing counselling regarding plans and recommendations, and in care coordination with his/her medical teams. I copies to: Erlinda Mcclellan MD Palliative Brief Note Date of Service Mar 18, 2016 . Attended rounds for patient care, discussed support with , RN, PT. Mother contacted by phone for support. She continues to be worried about lack of return to baseline but does state that the patient did open her eyes and did squeeze/hold her finger when directed to last night during family visit. Encouraged family to visit and report any responses they get from patient. Stated goal of increased therapies to encourage her to wake up. Mother later requested transfer to [facility]--they cared for her during another serious setback and she survived; the mother is hopeful that "they" could provide life-saving care because "they know her" and they did before. Request passed on to attending team/resident.Mother instructed that transfer is unlikely as her care here is optimized. She is grateful to have her request considered. Melva Eduardo Mar 18, 2016 15:34
[2016-03-19] VITALS (14 sets, daily range): BP systolic 106–144; BP diastolic 80–103; PULSE 83–121; RESP 16–25; O2SAT 94–100
[2016-03-19] MEDS: Heparin 5,000 Unit/mL Inj SUBQ SCH ×3 (00:30→17:36)
[2016-03-19] MEDS: guaiFENesin 20 mg/mL 10 mL Syrup PO SCH ×3 (00:30→17:37)
[2016-03-19] MEDS: Insulin Human REGular 300 Unit/3 mL Inj SUBQ SCH ×4 (02:30→20:30)
[2016-03-19 05:19] LABS: BASOPHILS % (AUTO) 0.2 % (0-3); EOSINOPHILS % (AUTO) 0 % (0-5); MONOCYTES % (AUTO) 14.7 % (4-12); Mean Corpuscular Hemoglobin 28.2 pg (27.0-35.0); Mean Corpuscular Volume 88.4 fL (81-100); NEUTROPHILS % (AUTO) 62.4 % (40-74); Platelet Count 121 bil/L (150-400)
[2016-03-19 05:30] LABS: Magnesium 1.4 mg/dL (1.6-2.6); Phosphorus 3.2 mg/dL (2.5-4.9)
--- NOTE | 2016-03-19 06:05 | NUR ---
tube feedings pt vomiting tube feedings, turned off tube feedings and checked tube placement which was in the right place. unable to suction anything out of tube advanced tube a little bit and able to pull back 350cc called and reported to MD, order to placed tube feedings on hold and get a chest x-ray. MD looked at chest x-ray and he asked that tube be pulled back 3cm did. tube feedings still on hold, no more vomiting. pt has been non-verbal but did shake head no about being nausea. ok to use for medications
[2016-03-19] MEDS ORDERED: Magnesium Chloride SR 64 mg ER24 Tablet PO ONE (06:35)
[2016-03-19] MEDS: Albuterol-Ipratropium 3 mL Inhalation Solution NEB SCH ×4 (08:02→20:59)
[2016-03-19] MEDS: Amoxicillin-Clav 875-125 mg Tablet PO SCH (08:59)
[2016-03-19] MEDS: Methadone 10 mg/mL Oral Concentrate PO SCH ×2 (09:00→21:45)
[2016-03-19] MEDS: Sodium-Potassium Phosphorus Packet TUBE SCH ×2 (09:01→21:45)
[2016-03-19] MEDS: Mupirocin 2% 22 Gm Ointment TOPICAL SCH ×2 (09:01→21:45)
--- NOTE | 2016-03-19 09:43 | NUR ---
NAIN: Verbal consent from mother 230AM
--- NOTE | 2016-03-19 10:14 | DRSVH ---
PROCEDURE: X-RAY CHEST ONE VIEW, PORTABLE ([id number]) INDICATIONS: ng tube placement TECHNIQUE: One view of the chest was acquired. COMPARISON: [facility], CR, XR CHEST 1VW (PORTABLE), 03/18/2016, 5:07. FINDINGS: Surgical changes and devices: A nasogastric tube is redemonstrated in the left upper quadrant within the stomach.. Lungs and pleura: The lung apices are obscured by patient's neck soft tissues. There are persistent small bilateral pleural effusions as well as patchy bibasilar opacities, right greater than left. T here is also persistent mild pulmonary edema. Mediastinum: Mediastinal contours appear unchanged given differences in technique. Heart size is no rmal. Bones and chest wall: No suspicious bony lesions. Overlying soft tissues appear unremarkable. IMPRESSION: 1. Nasogastric tube redemonstrated within the stomach. 2. Small bilateral pleural effusions and mild pulmonary edema redemonstrated. 3. Patchy bibasilar airspace opacities, right greater than left, consistent with consolidation, aspi ration, or atelectasis. Dictated by: Dejon Santillan M.D. on 03/19/2016 at 10:12 Approved by: Dejon Santillan M.D. on 03/19/2016 at 10:12
--- NOTE | 2016-03-19 12:01 | PROG NOTE ---
[address] [address] PROGRESS NOTE PATIENT: TRAM LAZO : 1970 MR#: [id number] ADMIT: 03/12/2016 JOB ID: [id number] DATE: 03/19/2016 INFECTIOUS DISEASE FOLLOWUP NOTE: REASON FOR FOLLOWUP: RSV pneumonitis with possible MRSA superinfection and a probable E coli urinary tract infection in a patient with congenital dwarfism and multiple skeletal abnormalities. INTERVAL HISTORY: The patient has continued to be relatively stable in the PCC unit over the past 24 hours. She remains restrained, as the patient will pull out lines and devices, and does not seem to follow commands. Additionally, we note that the patient is verbal at the [facility] where she resides but she still is not speaking at all here which has been perplexing. Recall that yesterday we attempted to switch the ceftaroline she had been receiving IV for the possible respiratory MRSA and proven E. coli UTI to a combination of doxycycline and Augmentin to be given through an NG tube. The idea there was to allow the patient to be free of IVs, as they have been a constant problem and she seemed to be improving with a declining procalcitonin. Overnight a new problem has surfaced in that she has been vomiting, and there has been no ability to give her any intraoral nutrition or antibiotics. This morning the patient is once again lying in her PCC room. She is restrained and not sedated. Her eyes are open and they seem to track somewhat but she does not respond to conversation at all. PHYSICAL EXAMINATION: Reveals a restrained woman with the skeletal deformities and dwarfism previously described. She has now been completely afebrile for greater than 48 hours, about 60 hours. Temperature now 37.1, her pulse is 112, respiratory rate about 20, blood pressure 122/99. She is saturating well on room air. Her eyes are without conjunctivitis and seem to track normally. Oral cavity cannot be examined, as she is not opening her mouth. She is breathing with nasal cannula and oxygenating well to 99%. Her lungs have a bit of wheezing and an occasional crackle but if anything, seems to be improving as the days go by. Abdomen essentially benign, and she has some ecchymoses at the site of IVs in her arms, otherwise no change. LABORATORIES: Include white blood count very stable at 8000, normal diff. Creatinine is 0.45. Procalcitonin has been declining in a linear fashion. Recall that on March 15 a procalcitonin was 25, the next value was 8, then 0.5 yesterday and 0.23 today. C diff done two days ago was negative. Recall that earlier in her stay a week ago now a MRSA screen of the nose was positive. A respiratory syncytial viral PCR of the nares was positive, and sputum grew MRSA predominantly with a light growth of Pseudomonas aeruginosa. Urine showed pyuria and grew E. coli. IMAGING: A chest x-ray today shows nasogastric tube in the stomach, mild pulmonary edema and some patchy bibasilar airspace opacities consistent with consolidation, aspiration, or atelectasis. IMPRESSION: This has been a challenging case. The patient presented with respiratory difficulties from the fpc facility where she usually resides. It is clear that she has a respiratory syncytial viral pulmonary infection. Whether or not she has methicillin-resistant Staphylococcus aureus superinfection is unclear but we have treated it for several days now and would have likely completed what is a reasonable course for a methicillin-resistant Staphylococcus aureus superinfection of her viral respiratory tract infection based on the absence of fever, normalizing of white count and normalizing of procalcitonin. Likewise, her urinary tract infection has now been treated for about a week, and I think that will likely suffice. One might wish to extend the therapy for the urinary tract infection a bit longer with oral meds but right now, that is not possible, as the patient is vomiting and even the nasogastric tube access is not available. RECOMMENDATIONS: 1. I would discontinue all antibiotics and observe this patient. 2. I agree with Dr. Gipson that a cuellar part in her care will be to release her from these restraints as much as we can and get her out of bed and in a seated position either in a chair or wheelchair, so that her pulmonary mechanics improve. 3. I remain unclear as to the nature of her altered mental status in that she appears awake but is mute. We had earlier worried about serotonin syndrome due to the interaction of linezolid and SSRIs but she has now long since stopped the linezolid, and it is implausible that a serotonin syndrome would last this long. 4. This case discussed with the ICU team.
--- NOTE | 2016-03-19 13:36 | NUR ---
NUTRITION FOLLOW UP: ASSESS: 45 YO F admitted to CCU with severe sepsis, acute hypoxic respiratory failure, gram-positive cocci bacteremia, RSV pneumonia, e.coli UTI in patient with congenital dwarfism. Pt continues to be minimally interactive. ST unable to assess for the last few days. TF reached goal rate on 03/17. Pt was tolerating well until she had a bout of emesis overnight TFs on hold. Pt w/out BM since 03/17. PMHx: Congenital dwarfism, kyphoscoliosis, juvenile RA, migraines, bilateral leg contractures, CHF, HTN, depression. DIET: NPO per ST TUBE FEEDING: Jevity 1.5 @ 35ml/hr + 45 ml H2O flush q 1 hr to provide 1155kcal, 50g pro, and 1665 ml/d H2O (100% estimated needs). (ON HOLD) LABS: Reviewed. CO2 35, Cr, 0.45, Ca 8.1, Mg 1.4, Albumin 2.7 MEDICATIONS: Reviewed. GI: BM x3 03/17 SKIN: No skin issues per wound eval. ANTHROPOMETRICS: Current Wt: 48.1 kg, BMI: 44.7 kg/m2. IBW: 36.8kg, Adj BW 39.7kg. Admit Wt: 44.6 kg ESTIMATED NEEDS: BMI Calories: 995-1190 calories (25-30 kcal/kg Adj. BW) Protein: 45-60 g protein (1.2-1.5 g/kg Adj. BW) Fluid: Approx 1450 ml (30 ml/kg BW) NUTRITION DIAGNOSIS: 1) Chewing/swallowing difficulties related to congenital malformations, as evidenced by NPO status, pending swallow evaluation.---PERSISTS. 2) Inadequate oral intake related to decreased ability to consume sufficient energy as evidenced by current NPO status per ST due to AMS---PERSISTS, TFs now on hold. INTERVENTION: 1) When appropriate, recommend restarting TF @ 15 ml/hr. Once pt tolerating, advance 10 ml q 8 hrs to goal rate of 35 ml/hr + 45 ml H2O q 1 hr. 2) Diet per ST recommendations once they are able to assess pt MONITOR/EVALUATE: TF, NPO status, ST eval, labs, GI/nutrition status. Follow per high nutrition risk guidelines. Addendum: 03/20/16 at [address] Enteral feeding restarted; rate currently 10 ml/hr. Patient remains NPO.
--- NOTE | 2016-03-19 16:41 | PCM.PNMED ---
Subjective Date of Service Mar 19, 2016 Subjective Meredith Sterling is a 45 year old female with a history of congenital dwarfism, juvenille arthritis, Felty syndrome, and CHF who presented to the ED from [facility] with altered mental status and shortness of breath. Admitted for severe sepsis secondary to pneumonia and UTI. Hospital day 8. Overnight: Patient afebrile over last 48 hours. Patient vomited tube feedings. Tube feedings turned often to placement checked with chest x-ray. Tube pulled back 3 cm. Tube feeds placed on hold. Today: Patient not verbally responsive at this time. She does seem to track slightly better with her eyes and appears comfortable. No subsequent nausea. Residuals after medications given this morning was 25. Tube feeds will be restarted at 15 mL per hour. With hourly checks for residuals. ROS unable to obtain. Exam Vital Signs Vital Sign - Last Date Time Temp Pulse Resp B/P Pulse Ox O2 Delivery O2 Flow Rate FiO2 03/19/16 05:12 115 03/19/16 05:04 36.8 20 137/90 99 Nasal Cannula 2.00 03/18/16 07:51 28 Intake and Output 03/18/16 03/18/16 03/19/16 Cumulative From/Thru 15:00 23:00 07:00 03/11/16 22:44 - 03/19/16 06:10 Intake Total 1213 ml 526 ml 80268 ml Output Total 750 ml 1100 ml 38734 ml Balance 463 ml -574 ml 5834 ml Intake Oral 0 ml 0 ml IV Total 550 ml 03826 ml Tube Feeding 398 ml 235 ml 1265 ml Tube Irrigant 265 ml 291 ml 1106 ml Output Urine Total 700 ml 650 ml 9225 ml Stool Total 50 ml 100 ml 275 ml Gastric Drainage Total 350 ml 550 ml # Bowel Movements 20 Exam General: Small female with multiple body deformities including severe kyphosis and bilateral contractures of lower extremities. In mild respiratory distress. No verbal responses. HEENT: Atraumatic. External ears without defect. PERRLA, amblyopia, no scleral icterus. NG tube in place Neck: No jugular venous distension. No bruits. No lymphadenopathy or thyromegaly. Cardiovascular: Tachycardic, regular rhythm with no murmurs, rubs, or gallops appreciated Pulmonary: Moderate air movement with coarseness throughout. Nasal cannula in place. Abdomen: Bowel tones present. Soft, nondistended. No hepatosplenomegaly or masses appreciated. Extremities: Bilateral contractures upper/lower extremities, brawny skin discoloration of feet bilaterally, club feet. no cyanosis or edema appreciated. Arm restraints in place. Skin: Normal temperature, turgor, and texture. Area of ecchymosis on the right arm. No rash, ulcers, or subcutaneous nodules appreciated. Lab and Diagnostics Result Diagram: 03/19/16 0445 03/19/16 0445 Microbiology Respiratory virus panel positive for RSV. MRSA screen positive. Blood cultures 1 of 2 positive for GRAM POSITIVE COCCI Urine culture positive for E. coli Strep pneumo and Legionella urine antigens negative. C diff PCR negative. X-Rays, CTs and MRIs X-RAY CHEST ONE VIEW, PORTABLE IMPRESSION: 1. Nasogastric tube redemonstrated within the stomach. 2. Small bilateral pleural effusions and mild pulmonary edema redemonstrated. 3. Patchy bibasilar airspace opacities, right greater than left, consistent with consolidation, aspiration, or atelectasis. Dictated by: Dejon Santillan M.D. on 03/19/2016 at 10:12 Approved by: Dejon Santillan M.D. on 03/19/2016 at 10:12 CT CHEST WITH CONTRAST IMPRESSION: 1. Moderate to severe bilateral pneumonia. Small right parapneumonic effusion. 2. Superimposed nodular and ground glass densities, possibly due to focal pneumonitis. Followup chest CT in 3 months is recommended to exclude the less likely possibility of underlying neoplasm. 3. Severe kyphoscoliosis. 4. Probable 20 mm diameter splenic artery aneurysm. Dictated by: Rickie Meeks M.D. on 03/16/2016 at 10:03 Approved by: Rickie Meeks M.D. on 03/16/2016 at 10:03 X-RAY CHEST ONE VIEW, PORTABLE (03/14/16) IMPRESSION: Interstitial infiltrate, suspect for bronchopneumonia. Dictated and approved by: Thien Lopez M.D. on 03/12/2016 at 8:00 US RENAL SONOGRAM (03/13/16) IMPRESSION: - No hydronephrosis. - Bilateral simple appearing renal cysts. Dictated and approved by: Koby Miller M.D. on 03/13/2016 at 7:44 X-RAY CHEST ONE VIEW, PORTABLE (03/14/16) IMPRESSION: Overall no interval change in patchy right basilar opacities since . No new focal consolidation Dictated and approved by: Koby Miller M.D. on 03/13/2016 at 8:23 X-RAY CHEST ONE VIEW, PORTABLE (03/14/16) IMPRESSION: Right central venous catheter with the tip projecting in the lower SVC Enteric tube with the tip in the stomach Dictated and approved by: Koby Miller M.D. on 03/13/2016 at 13:34. 12-lead ECG Sinus rhythm rate 95 Prolonged NM interval Low voltage, extremity leads Assessment & Plan 45 year old female with multiple medical problems that is presenting with a few day history of cough, that has now progressed to altered mental status with shortness of breath. Admitted for severe sepsis secondary to pneumonia and UTI. Hospital day 8. 1. Severe sepsis, present on admission. Resolved. -Met criteria on admission with temp 37.7, HR 117, RR 22, encephalopathy, urinary & pulmonary source of infection -Continue treating underlying infections. 2. Healthcare associated pneumonia, present on admission. Treatment completed. -Positive for RSV. Sputum positive for MRSA. -Pt full-time resident of [facility], antibiotics to cover HCAP. -Guaifenesin 200 mg every 8 hours to help thin secretions. -Right lower lobe opacities as well as bilateral perihilar opacities on chest xray. -CT chest with contrast shows moderate to severe bilateral pneumonia with small right parapneumonic effusion. Superimposed nodular and groundglass densities. 3. Acute UTI, present on admission. Under treatment. -Pt does not have chronic indwelling catheter at baseline. Renal ultrasound unremarkable. -Urine culture positive for E. coli, resistant to levofloxacin, ciprofloxacin and tetracycline. -Completed antibiotic treatment. 4. Acute encephalopathy, present on admission. Active -Pt was unresponsive on arrival and not at baseline mentation, per family. Baseline mentation per family is conversational and controlling wheelchair. -Likely secondary to infectious process. -Patient more responsive with family. She will nod and squeeze hands but no verbal response. -Plan to get patient to wheelchair today and out of restraints. 5. Acute hyperglycemia, present on admission. Active -Pt w/o known diagnosis of diabetes -HbA1c 5.0 -Blood glucose monitoring q6h -Low-dose regular insulin protocol in place. 6.Chronic hypertension, present on admission. Stable -Restarted propranolol 10 mg 3 times a day. Home regimen is 20 mg 4 times a day. 7. Chronic depression, present on admission. Stable -Restarted Citalopram 20 mg daily. 8. Juvenile arthritis, chronic. present on admission. Stable -Home regimen includes gabapentin which is held at this time. 9. Chronic pain, present on admission. Active -Methadone 5 mg every 12 hours 10. Reported history of CHF, present on admission. Stable -Echo (03/14/16) while an suboptimal study showed no evidence of CHF. 11. Nutrition - Tube feeds restarted at 15 mL per hour due to emesis overnight. . - Nutrition following. Appreciate time and expertise. Acetaminophen-fever/headache/mild/moderate pain Antiemetics, as needed Bowel regimen, as needed. Disposition: Patient continues to have altered mental status far below baseline. Patient's respiratory status improving with decreased O2 needs. We will continue antibiotics per infectious disease appreciate pulmonology/ critical care following. Discharge back to [facility]. GI Prophylaxis: H2 amparo VTE Prophylaxis: Sub-Q Heparin (Unfractionated) VTE Mechanical Devices: Intermittant Pneumatic CD Resuscitation Status: CPR: Attempt Resuscitation Attending Statement The patient was seen and examined together with Dr. Clifford on 03/19/2016 and I agree with the history, exam and plan as outlined in the note above. . JEANNIE CLIFFORD DO Mar 19, 2016 07:20 Braxton Gaona MD Mar 19, 2016 16:45
--- NOTE | 2016-03-19 16:50 | PCM.PNMED ---
Subjective Date of Service Mar 19, 2016 Subjective PULMONARY CRITICAL CARE NOTE: PROBLEM: 1. Hypoxemic hypercarbic respiratory failure. 2. Pneumonia, viral and likely bacterial. 3. Congenital dwarfism. 4. Juvenile rheumatoid arthritis. 5. No IV access 6. N/V overnight (via NGT is the only route of medication administration currently). SUBJECTIVE: Yesterday, L femoral line was removed (moist area, but clean). IV nurse not able to appreciate any decent intravenous access points due to her extremity contractures. Afebrile overnight. Otherwise, respiratory status remains unchanged. She does make eye contact, but is otherwise noncommunicative. She had n/v overnight and TF were stopped. ROS otherwise not obtainable. Exam Vital Signs Vital Sign - Last Date Time Temp Pulse Resp B/P Pulse Ox O2 Delivery O2 Flow Rate FiO2 03/19/16 09:20 37.1 112 21 122/99 99 Room Air 03/19/16 08:02 2.00 03/18/16 07:51 28 Intake and Output 03/18/16 03/18/16 03/19/16 Cumulative From/Thru 15:00 23:00 07:00 03/11/16 22:44 - 03/19/16 06:10 Intake Total 1213 ml 526 ml 99681 ml Output Total 750 ml 1100 ml 18711 ml Balance 463 ml -574 ml 5834 ml Intake Oral 0 ml 0 ml IV Total 550 ml 33062 ml Tube Feeding 398 ml 235 ml 1265 ml Tube Irrigant 265 ml 291 ml 1106 ml Output Urine Total 700 ml 650 ml 9225 ml Stool Total 50 ml 100 ml 275 ml Gastric Drainage Total 350 ml 550 ml # Bowel Movements 20 Exam General: obese female lying in hospital bed on L side. does not appear to be in acute distress. HEENT: Opens eyes and makes eye contact. conjunctiva not injected, EOMi. Membranes moist. Chest: coarse rhonchorous breath sounds throughout, but worse on the R (though somewhat improved from yesterday). CV: Tachycardic without appreciable murmur. radials are 2+ bilaterally. ABD: Soft and nontender with infrequent, normal-sounding BT. EXT: contractures in all 4 extremities, ecchymosis of the RUE at the anterior shoulder. LE wrapped in Joaquin bandage bilaterally. Lines: Beltran catheter. NGT. IVs and Medications IV Fluids None Medications Reviewed: Medications were reviewed in detail Medications Doxycycline and Augmentin were started yesterday (Ceftaroline and Zosyn stopped) Bactroban and nystatin. Continues on methadone with as needed Dilaudid Lab and Diagnostics Result Diagram: 03/19/1644403/19/16444 Microbiology Urine for Legionella antigen is negative. Urine for Streptococcal pneumoniae antigen is negative. MRSA nasal screen is positive. Respiratory viral PCR panel positive for RSV. Sputum growing MRSA resistant to cefazolin, clindamycin , erythromycin, as well as oxacillin. Sensitive to linezolid and vancomycin. C. diff was negative. X-Rays, CTs and MRIs CXR today is largely unchanged from previous. Assessment & Plan ASSESSMENT: Problem list: 1. Hypoxemic hypercarbic respiratory failure. 2. Pneumonia. 3. Congenital dwarfism. 4. Juvenile rheumatoid arthritis. 5. Rash, likely cutaneous candidiasis 5. No IV access 6. N/V overnight (via NGT is the only route of medication administration currently). 1. Pneumonia. Etiology remains unclear (likely viral, but some thought to secondary bacterial, or fungal). Question dealing with solitary respiratory syncytial virus. Possibly Staphylococcus (though question colonization vs infection). Zosyn Ceftaroline have been stopped, and replaced with PO Doxycycline and Augmentin for coverage of MRSA and broad-spectrum pulmonary microbes. Alternative differential diagnoses such as ILD or fungal infection are considered less likely at this time. There is also the question of long- term complications secondary to her underlying congenital dwarfism. Regardless , her significant kyphoscoliosis is likely contributing to her impaired ability to clear secretions and subsequent infection. I do not think that she would tolerate CPT at this time. Juvenile rheumatoid arthritis and is not historically/significantly associated with pulmonary sequela (such as ILD). She has not been on any medications for her JRA as far as we can tell from historical record. This is significant in that there are not medications which could potentially compromise her immune status. 2. Hypoxemic, hypercarbic respiratory failure. Oxygen by mask was apparently not sufficient to satisfy O2 needs, and she was started on high-flow on 03/14/16. Currently, unable to wear BiPAP, as she did not tolerate the adult mask. We now have pediatric masks that are available should she require this. Currently , she is now on oxymask and satting well. However, there is the question of her chronic hypercapnia (significant kyphoscoliosis perhaps resulting in restrictive function). Please note that we do have the appropriate-sized ETT and suction catheters if, hopefully not necessary, she needs to be intubated. 3. Inadequate IV access. The patient pulled out her IJ line 03/15/16. L femoral line removed to avoid infectious complication. Looking at her habitus, not quite sure where we are going to get lines. Her arms are certainly not going to be able to take a line. PICC is not an option given her contractures. IJ may very well not be an option (anesthesiology was not able to thread an IJ after she pulled her first). At the current time, there is only the viable option of IO in an emergency situation. Pediatric IO available in the ER. 4. N/V have complicated her medication administration today (no IV access, and not really any great IM options given her coverage requirements). Clamp tube and test residuals. Restart TF tomorrow if doing well. PLAN: 1. ID to continue abx as noted 2. Discuss nutrition on rounds, and lines. DVT prophylaxis: Heparin SQ GI prophylaxis: Famotidine TIME SPENT: Critical care, 30 minutes. Attending Statement The patient was seen and examined together with Dr. Huerta on 03/19/2016 and I agree with the history, exam and plan as outlined in the note above. Kwan Huerta DO Mar 19, 2016 11:18 Jacobo Gipson MD Apr 07, 2016 17:46
--- NOTE | 2016-03-19 17:09 | PCM.PALLBR ---
Palliative Care Recommendation Meredith Sterling is a 45 year old female with a history of congenital dwarfism, juvenille arthritis, Felty syndrome, and CHF who presented to the ED from [facility] with altered mental status and shortness of breath. Admitted for severe sepsis secondary to pneumonia and UTI. Hospital day 8. The patient has her eyes open and appears to track as I speak to her today. She then withdraws without answering questions. The nurse states she DID verbally confirm that she was comfortable today after her bath. Summary of palliative recommendations: Symptom management (Pain/other): per Attending Purple Team and Pulmonary Spray Operator. Patient's functional baseline (per Mom's history 03/16): Meredith could walk a little bit, with some assistance until she was about 10 years old. Since then, she has been wheelchair bound. She lived with her parents until about 4 years ago, when she moved to [facility]. Her PCP is Dr. Mcclellan. She loves to color, watch TV, play video games, collect stuffed animals and coloring books. She socializes with the facility staff, as all the other patients are much older than she. She follows staff around in her W/C, and is quite conversive. Sometimes strangers cannot understand her speech well, but people who are used to the way she talks, can understand her. She has a chronic cough, but no trouble swallowing or drinking thin fluids. She eats a regular diet, but meat is cut up for her into smaller bites. She loves sodas and sugary food. DPOA/Advanced Directives/POLST: 1. Code status: FULL. At this time, there remains no identified need by medical team to engage family in discussions to change code or goals of care. At this time, we are asked to support family, spend more time talking to them about medical questions in order to free up the primary medical teams, and communicate family concerns back to the primary Attending team and/or consultants. 2. DPOA: Mom Porsha 3. POLST: unknown if prior paperwork, need to clarify. Family/emotional support: Good. Porsha Asher (mom) [phone] Trevor Alexsandersánchez ( dad) [phone]. Brother Gene in [place] and Sister Rupa [facility]. See discussion below with mother per phone for daily support, answering questions, liaison with medical team. Spiritual support: not addressed today. Additional Medical Diagnoses with primary management by Hospitalist team include : 1. Sepsis with underlying infections of RSV pneumonia, E. coli UTI treated with ceftaroline. Also positive for MRSA (colonization), 2. Encephalopathy, not at prior baseline, likely due to #1 3. Acute hyperglycemia in context of no prior known diagnosis of diabetes 4. Chronic HTN 5. Chronic depression on home citalopram (Linozolid stopped to eliminate risk of serotonin syndrome) 6. Juvenile arthritis, on gabapentin and methadone for chronic pain. Prn dilaudid IV for acute pain here. 7. ? hx CHF, not found on ECHO here but study was suboptimal. Problems: (1) Palliative care by specialist Status: Acute ICD Code: Z51.5 End of Life Preferences not addressed, but mother does seem to be more willing to consider the "what if " that lies ahead. Goals of Care Family Goals: 1. Family hopes for Meredith's full recovery to her prior baseline. 2. Family is medically not sophisticated, but desires daily [id number] contact from medical team to explain Meredith's condition as it changes. They mostly want to know a bottom line of are things getting better (or not). Not quite understanding the medical terms is frustrating and isolating for her parents, and heightens their worry and stress. Daily conversations that they can understand will be helpful. Palliative Care hopes to intercede here and relieve some of the burden on medical and nursing teams by acting as an pipe production worker for medical updates discussed in rounds. Resuscitation Status Resuscitation Status: CPR: Attempt Resuscitation POLST Updates/Changes Previous POLST?: No Antibiotics: Use ABX if can Prolong Life Artificially Admin Nutrition: Long-Term Nutrition by Tube Feeding POLST Review Outcome: No Change Total time 15 minutes; >50% face to face with patient and/or family, providing counselling regarding plans and recommendations, and in care coordination with his/her medical teams. copies to: Erlinda Mcclellan MD Palliative Brief Note Date of Service Mar 19, 2016 . Spoke with mother on the phone about patient condition today. She understands that the goal is to see if the patient can tolerate feedings and medications per tube. We talked at length about the patient's continued poor responsiveness. She wonders whether the patient has "lost her spirit" rather than being unable to respond. She reports that while the patient sometimes follows her with her eyes and did squeeze/hold her finger with seeming intention the other day, she did not do this last night. The mother is afraid her withdrawn affect is an indication of her "giving up". She will let the RN know when she is visiting today so that Dr. Sun can observe the patient with her mom. We confirmed that the goal of getting her in her chair may help, and the mother understands we are trying to personal development mentor when this can happen without undue stress to the patient. Melva Eduardo Mar 19, 2016 16:01 Resuscitation Status Resuscitation Status: CPR: Attempt Resuscitation POLST Updates/Changes Previous POLST?: No Antibiotics: Use ABX if can Prolong Life Artificially Admin Nutrition: Long-Term Nutrition by Tube Feeding Total time [ ] minutes; >50% face to face with patient and/or family, providing counselling regarding plans and recommendations, and in care coordination with his/her medical teams. I also spent an additional [ ] minutes counseling for advanced care planning with the patient/the patients family/the surrogate decision maker. Palliative Brief Note Date of Service Mar 19, 2016 . Spoke with mother on the phone about patient condition Melva Eduardo Mar 19, 2016 16:01
--- NOTE | 2016-03-19 17:47 | NUR ---
Tube Feeding Tube feeding started at 1530 at 15mls/hr. Checked residual at 1730 and had 45cc's come back out. Gave 1630 medications and restarted the tube feed but will inform MD of findings.
[2016-03-20] VITALS (13 sets, daily range): BP systolic 127–149; BP diastolic 85–98; PULSE 81–97; RESP 15–21; O2SAT 93–99
[2016-03-20] MEDS: guaiFENesin 20 mg/mL 10 mL Syrup PO SCH ×3 (02:19→15:57)
[2016-03-20] MEDS: Heparin 5,000 Unit/mL Inj SUBQ SCH ×3 (02:19→15:57)
[2016-03-20] MEDS: Insulin Human REGular 300 Unit/3 mL Inj SUBQ SCH ×4 (02:30→20:30)
[2016-03-20 03:44] LABS: Magnesium 1.5 mg/dL (1.6-2.6)
[2016-03-20 03:59] LABS: Mean Corpuscular Hemoglobin 28.9 pg (27.0-35.0); Mean Corpuscular Volume 88.4 fL (81-100)
--- NOTE | 2016-03-20 05:57 | NUR ---
Interaction/NG tube Patient awake but minimally interactive throughout shift. Makes some eye contact. Does not follow directions, no verbal interactions with caregivers. NG tube in place, meds given per tube without difficulty. Blood sugars in the 70s; 0300 sugar of 64. 20 ml apple juice given per NG tube and glucose improved to 74. Continue to monitor.
[2016-03-20] MEDS: Albuterol-Ipratropium 3 mL Inhalation Solution NEB SCH ×4 (08:14→20:31)
[2016-03-20] MEDS: Magnesium Chloride SR 64 mg ER24 Tablet PO SCH ×2 (09:52→11:47)
[2016-03-20] MEDS: Methadone 10 mg/mL Oral Concentrate PO SCH ×2 (09:54→20:52)
[2016-03-20] MEDS: Sodium-Potassium Phosphorus Packet TUBE SCH ×2 (09:56→20:52)
[2016-03-20] MEDS: Mupirocin 2% 22 Gm Ointment TOPICAL SCH ×2 (09:56→20:52)
--- NOTE | 2016-03-20 10:17 | NUR ---
Blood Glucose This morning BG check was 58, administered sugar water along with medications via NG tube. Will recheck BG in 1 hour. Addendum: 03/20/16 at 1622 by RAMOS GARZA RN Rechecked BG and it came up to 65, gave apple juice and checked again an hour later and it came up to 70. Tube feeding started at 1500. Will continue to monitor.
--- NOTE | 2016-03-20 11:42 | PROG NOTE ---
[address] [address] PROGRESS NOTE PATIENT: TRAM LAZO : 1970 MR#: [id number] ADMIT: 03/12/2016 JOB ID: [id number] DATE: 03/20/2016 PROBLEMS: 1. Pneumonia. 2. Congenital dwarfism. 3. Kyphoscoliosis. SUBJECTIVE: None. OBJECTIVE: Temperature 36.9, pulse 90, respiratory rate 21, blood pressure 127/85, O2 sat on room air is 94%. General appearance: Looking at examiner. Makes no attempt at verbal reply. Chest has some inspiratory, rather coarse leathery crackles in the upper lung akers, left more than right. Markedly decreased breath sounds in the lower lung akers with essentially absent breath sounds in the right lower lung field. Heart: Regular rhythm. Abdomen is soft. Extremities: 1+ pretibial edema on the left. None on the right. LABORATORY STUDIES: White cell count is 9200. Differential not available. Hemoglobin stable at 10. Platelet count rising at 203,000. Sodium 140, potassium 4.3, chloride 97, CO2 is 33, BUN 12, creatinine 0.4. Calcium is 8.1. Magnesium 1.5. ASSESSMENT: Pneumonia. Oxygenation markedly improved. Doing quite a bit better with regard to that. Concern about the right lower lung field as that seems to be compressed by the scoliosis and I think will be slow to clear. Mental status seems much better. She seems more awake. However, she remains nonverbal. Whether this is CALIBRATION TESTER pathology or whether it represents more of a frightened reaction is unclear. PLAN: 1. Continue current regimen and medications. 2. Work on nutritional status. 3. Hopefully we can get the NG tube out after a few days.
--- NOTE | 2016-03-20 15:14 | DRSVH ---
PROCEDURE: MRI BRAIN WITHOUT CONTRAST ([id number]) INDICATIONS: Altered mental status TECHNIQUE: Noncontrast axial T1 spin echo, axial T2 fast spin echo, sagittal and axial FLAIR, coronal T2 fast sp in echo, axial gradient echo, axial diffusion and ADC through the brain. COMPARISON: None. FINDINGS: Image quality: Diagnostic. Brain: There is no acute intra-axial or extra-axial hemorrhage. Fluid signal along the medial aspect of the anterior left frontal lobe adjacent to the focus is identified, which is asymmetric when comp ared to the contralateral side. No definite cyst or loculated fluid collection is appreciated within this region. The possibility of a subtle nonvisualized arachnoid cyst is difficult to exclude. The re is no shift of the midline falx related to this fluid. There may be mild mass effect of the fluid on the anterior left frontal lobe, however. No abnormal signal is appreciated on the flair images w ithin this region or the T1 images to suggest a chronic hemorrhage. A similar appearance is noted in volving the mid aspect of the right frontal lobe adjacent to the falx, which is slightly more centere d within the region of the convexity (image 18, series 6 and image 11, series 10). The orbits are gr ossly unremarkable. There are a few subtle areas of increased flair signal noted within the deep white matter of the supr atentorial brain adjacent to the frontal horns of the lateral ventricles. Along the dura of the righ t frontal region there is a structure adjacent to the dura that appears to have a dural tail that is isointense to the brain parenchyma and measures 1.2 x 0.7 x 1.0 cm. No definite additional lesions a re evident within the brain. There is no parenchymal edema. No restricted diffusion is present. Th e midline intracranial structures are within normal limits. The major expected intracranial flow voi ds are visualized and unremarkable. The ventricles and cortical sulci are age-appropriate. Bones: The imaged osseous structures are grossly intact. No suspicious osseous lesions are identifie d. There are large bilateral mastoid effusions. Mucosal thickening is noted involving the inferior bilateral maxillary sinuses. There is also mucosal thickening of the sphenoid sinuses and ethmoid ai r cells. Extracranial soft tissues: The imaged overlying soft tissues of the face and head are grossly unremar kable. IMPRESSION: 1. No acute intracranial hemorrhage or ischemia. 2. Moderate sized extra-axial lesion adjacent to the dura overlying the right frontal region probabl y is a meningioma. Contrast enhanced MRI is recommended. 3. Asymmetric prominence of the extra-axial fluid along the right and left frontal regions near the falx (left greater than right) is unusual and most likely represents arachnoid cysts. Chronic subdur al hygromas are felt to be less likely; however, cannot be excluded. 4. Prominent bilateral mastoid effusions. 5. Moderate paranasal sinus disease. Dictated by: Jakob Post M.D. on 03/20/2016 at 14:12 Approved by: Jakob Post M.D. on 03/20/2016 at 14:12
--- NOTE | 2016-03-20 15:53 | PCM.PNMED ---
Subjective Date of Service Mar 20, 2016 Subjective Meredith Sterling is a 45 year old female with a history of congenital dwarfism, juvenille arthritis, Felty syndrome, and CHF who presented to the ED from [facility] with altered mental status and shortness of breath. Admitted for severe sepsis secondary to pneumonia and UTI. Hospital day 9. Overnight: No acute events. Tube feeds stopped overnight. Today: Patient sitting in wheelchair. Appears comfortable. Responding with head nods to mother. No verbal responses at this time. Tube feeds restarted at 10 mls /hr. Low residuals this morning. ROS unable to obtain. Exam Vital Signs Vital Sign - Last Date Time Temp Pulse Resp B/P Pulse Ox O2 Delivery O2 Flow Rate FiO2 03/20/16 05:26 37.0 81 16 134/93 99 Nasal Cannula 2.00 03/18/16 07:51 28 Intake and Output 03/19/16 03/19/16 03/20/16 Cumulative From/Thru 15:00 23:00 07:00 03/11/16 22:44 - 03/20/16 06:32 Intake Total 60 ml 80 ml 99234 ml Output Total 450 ml 565 ml 78451 ml Balance -390 ml -485 ml 4959 ml Intake Oral 0 ml 0 ml IV Total 45722 ml Tube Feeding 30 ml 1295 ml Tube Irrigant 30 ml 80 ml 1216 ml Output Urine Total 450 ml 500 ml 31349 ml Stool Total 275 ml Gastric Drainage Total 65 ml 615 ml # Bowel Movements 100 120 Exam General: Small female with multiple body deformities including severe kyphosis and bilateral contractures of lower extremities. In mild respiratory distress. No verbal responses. HEENT: Atraumatic. External ears without defect. PERRLA, amblyopia, no scleral icterus. NG tube in place Neck: No jugular venous distension. No bruits. No lymphadenopathy or thyromegaly. Cardiovascular: Tachycardic, regular rhythm with no murmurs, rubs, or gallops appreciated Pulmonary: Moderate air movement with coarseness throughout. Nasal cannula in place. Abdomen: Bowel tones present. Soft, nondistended. No hepatosplenomegaly or masses appreciated. Extremities: Bilateral contractures upper/lower extremities, brawny skin discoloration of feet bilaterally, club feet. no cyanosis or edema appreciated. Arm restraints in place. Skin: Normal temperature, turgor, and texture. Area of ecchymosis on the right arm. No rash, ulcers, or subcutaneous nodules appreciated. Lab and Diagnostics Result Diagram: 03/20/1630203/20/16302 Microbiology Urine for Legionella antigen is negative. Urine for Streptococcal pneumoniae antigen is negative. MRSA nasal screen is positive. Respiratory viral PCR panel positive for RSV. Sputum growing MRSA resistant to cefazolin, clindamycin , erythromycin, as well as oxacillin. Sensitive to linezolid and vancomycin. C. diff was negative. X-Rays, CTs and MRIs CXR today is largely unchanged from previous. 12-lead ECG Sinus rhythm rate 95 Prolonged SD interval Low voltage, extremity leads Assessment & Plan 45 year old female with multiple medical problems that is presenting with a few day history of cough, that has now progressed to altered mental status with shortness of breath. Admitted for severe sepsis secondary to pneumonia and UTI. Hospital day 9. 1. Acute encephalopathy, present on admission. Active -Pt was unresponsive on arrival and not at baseline mentation, per family. Baseline mentation per family is conversational and controlling wheelchair. -Likely secondary to infectious process. -Patient more responsive with family. She will nod and squeeze hands but no verbal response. -Plan to get patient to wheelchair today and out of restraints. -MRI planned for today. 2. Severe sepsis, present on admission. Resolved. -Met criteria on admission with temp 37.7, HR 117, RR 22, encephalopathy, urinary & pulmonary source of infection 3. Healthcare associated pneumonia, present on admission. Treatment completed. -Positive for RSV. Sputum positive for MRSA. -Pt full-time resident of [facility], antibiotics to cover HCAP. -Guaifenesin 200 mg every 8 hours to help thin secretions. -Right lower lobe opacities as well as bilateral perihilar opacities on chest xray. -CT chest with contrast shows moderate to severe bilateral pneumonia with small right parapneumonic effusion. Superimposed nodular and groundglass densities. 4. Acute UTI, present on admission. Treatment completed. -Pt does not have chronic indwelling catheter at baseline. Renal ultrasound unremarkable. -Urine culture positive for E. coli, resistant to levofloxacin, ciprofloxacin and tetracycline. -Completed antibiotic treatment. 5. Acute hyperglycemia, present on admission. Active -Pt w/o known diagnosis of diabetes -HbA1c 5.0 -Blood glucose monitoring q6h -Low-dose regular insulin protocol in place. 6.Chronic hypertension, present on admission. Stable -Restarted propranolol 10 mg 3 times a day. Home regimen is 20 mg 4 times a day. 7. Chronic depression, present on admission. Stable -Restarted Citalopram 20 mg daily. 8. Juvenile arthritis, chronic. present on admission. Stable -Home regimen includes gabapentin which is held at this time. 9. Chronic pain, present on admission. Active -Methadone 5 mg every 12 hours 10. Reported history of CHF, present on admission. Stable -Echo (03/14/16) while an suboptimal study showed no evidence of CHF. 11. Nutrition - Tube feeds restarted at 10 mL per hour. - Will consider motility agent if residuals remain elevated. - Nutrition following. Appreciate time and expertise. Acetaminophen-fever/headache/mild/moderate pain Antiemetics, as needed Bowel regimen, as needed. Disposition: Patient continues to have altered mental status far below baseline. Patient's respiratory status improving with decreased O2 needs. We will continue antibiotics per infectious disease appreciate pulmonology/ critical care following. Discharge back to [facility]. VTE Mechanical Devices: Intermittant Pneumatic CD Resuscitation Status: CPR: Attempt Resuscitation Attending Statement The patient was seen and examined together with Dr. Sun on 03/20/2016 and I agree with the history, exam and plan as outlined in the note above. . JEANNIE SUN DO Mar 20, 2016 07:03 Braxton Gaona MD Mar 21, 2016 08:07
[2016-03-21] VITALS (12 sets, daily range): BP systolic 105–137; BP diastolic 82–97; PULSE 84–98; RESP 13–21; O2SAT 93–98
[2016-03-21] MEDS: guaiFENesin 20 mg/mL 10 mL Syrup PO SCH ×3 (00:05→16:27)
[2016-03-21] MEDS: Heparin 5,000 Unit/mL Inj SUBQ SCH ×3 (00:05→16:27)
[2016-03-21] MEDS: Insulin Human REGular 300 Unit/3 mL Inj SUBQ SCH ×4 (02:26→20:30)
--- NOTE | 2016-03-21 06:01 | NUR ---
Tube feed/Blood Glucose Trickle feed continues; residuals 5-10 mls. Tolerating feed with no apparent nausea and no vomiting. Blood glucose readings in the 60s early in the shift; apple juice given and BG improved to 69. Sugar water given and BG improved to 89. Continue to monitor.
[2016-03-21 06:03] LABS: Mean Corpuscular Volume 87.5 fL (81-100)
[2016-03-21] MEDS: Albuterol-Ipratropium 3 mL Inhalation Solution NEB SCH ×4 (07:44→19:54)
[2016-03-21] MEDS ORDERED: Vancomycin Serum Trough XX ONE (08:00)
[2016-03-21] MEDS: Sodium-Potassium Phosphorus Packet TUBE SCH ×2 (09:27→20:47)
[2016-03-21] MEDS: Magnesium Chloride SR 64 mg ER24 Tablet PO SCH (09:27)
[2016-03-21] MEDS: Methadone 10 mg/mL Oral Concentrate PO SCH ×2 (09:27→20:47)
[2016-03-21] MEDS: Mupirocin 2% 22 Gm Ointment TOPICAL SCH ×2 (09:28→20:48)
--- NOTE | 2016-03-21 12:33 | NUR ---
NAIN: verbal consent from mother @10:30
--- NOTE | 2016-03-21 14:33 | PCM.PNMED ---
Subjective Date of Service Mar 21, 2016 Subjective Meredith Sterling is a 45 year old female with a history of congenital dwarfism, juvenile arthritis, Felty syndrome, and CHF who presented to the ED from [facility] with altered mental status and shortness of breath. Admitted for severe sepsis secondary to RSV and pseudomonas pneumonia and UTI. Hospital day 10. Overnight: No acute events.Patient had small residuals overnight via NG tube. Today: This morning patient was interactive with nurse and began to verbalize. During our interview and exam the patient appeared to say "no" when asked if she was uncomfortable. ROS is not obtainable. Exam Vital Signs Vital Sign - Last Date Time Temp Pulse Resp B/P Pulse Ox O2 Delivery O2 Flow Rate FiO2 03/21/16 12:58 37.3 93 13 137/84 98 Room Air 03/20/16 08:05 2.00 03/18/16 07:51 28 Intake and Output 03/20/16 03/20/16 03/21/16 Cumulative From/Thru 15:00 23:00 07:00 03/11/16 22:44 - 03/21/16 05:55 Intake Total 58 ml 311 ml 05200 ml Output Total 900 ml 900 ml 58417 ml Balance -842 ml -589 ml 3528 ml Intake Oral 0 ml 0 ml IV Total 36481 ml Tube Feeding 38 ml 111 ml 1444 ml Tube Irrigant 20 ml 200 ml 1436 ml Output Urine Total 500 ml 900 ml 25108 ml Stool Total 400 ml 675 ml Gastric Drainage Total 615 ml # Bowel Movements 120 Exam General: Small female with multiple body deformities including severe kyphosis and bilateral contractures of lower extremities. In no respiratory distress. Following with eyes and did verbalize at one point. HEENT: Atraumatic. External ears without defect. PERRLA, amblyopia, no scleral icterus. NG tube in place Neck: No jugular venous distension. No bruits. No lymphadenopathy or thyromegaly. Cardiovascular: Tachycardic, regular rhythm with no murmurs, rubs, or gallops appreciated. Pulmonary: Moderate air movement with coarseness throughout. Nasal cannula in place. Abdomen: Bowel tones present. Soft, nondistended. No hepatosplenomegaly or masses appreciated. Extremities: Bilateral contractures upper/lower extremities, brawny skin discoloration of feet bilaterally, club feet. no cyanosis or edema appreciated. Arm restraints in place. Skin: Normal temperature, turgor, and texture. Area of ecchymosis on the right arm. No rash, ulcers, or subcutaneous nodules appreciated. IVs and Medications Medications Reviewed: Medications were reviewed in detail Lab and Diagnostics Result Diagram: 03/21/1644003/21/16440 Microbiology Urine for Legionella antigen is negative. Urine for Streptococcal pneumoniae antigen is negative. MRSA nasal screen is positive. Respiratory viral PCR panel positive for RSV. Sputum growing MRSA resistant to cefazolin, clindamycin , erythromycin, as well as oxacillin. Sensitive to linezolid and vancomycin. C. diff was negative. X-Rays, CTs and MRIs CXR today is largely unchanged from previous. 12-lead ECG Sinus rhythm rate 95 Prolonged FL interval Low voltage, extremity leads Assessment & Plan Meredith Sterling is a 45 year old female with a history of congenital dwarfism, juvenile arthritis, Felty syndrome, and CHF who presented to the ED from [facility] with altered mental status and shortness of breath. Admitted for severe sepsis secondary to RSV and pseudomonas pneumonia and UTI. Hospital day 10. 1. Acute encephalopathy, present on admission. Improving -Pt was unresponsive on arrival and not at baseline mentation, per family. Baseline mentation per family is conversational and controlling wheelchair. -Likely secondary to infectious process. -Patient more responsive with family. She will nod and squeeze hands but no verbal response. -MRI not revealing any intracranial pathology -Patient is much more interactive today, conversing with the nurse with improved interaction with our team. 2. Acute hyperglycemia, present on admission. Active -Pt w/o known diagnosis of diabetes -HbA1c 5.0 -Blood glucose monitoring q6h -Low-dose regular insulin protocol in place. 3. Severe sepsis, present on admission. Resolved. -Met criteria on admission with temp 37.7, HR 117, RR 22, encephalopathy, urinary & pulmonary source of infection 4. Healthcare associated pneumonia, present on admission. Treatment completed. -Positive for RSV. Sputum positive for MRSA. -Pt full-time resident of [facility], antibiotics to cover HCAP. -Guaifenesin 200 mg every 8 hours to help thin secretions. -Right lower lobe opacities as well as bilateral perihilar opacities on chest xray. -CT chest with contrast shows moderate to severe bilateral pneumonia with small right parapneumonic effusion. Superimposed nodular and groundglass densities. 5. Acute UTI, present on admission. Treatment completed. -Pt does not have chronic indwelling catheter at baseline. Renal ultrasound unremarkable. -Urine culture positive for E. coli, resistant to levofloxacin, ciprofloxacin and tetracycline. -Completed antibiotic treatment. 6.Chronic hypertension, present on admission. Stable -Restarted propranolol 10 mg 3 times a day. Home regimen is 20 mg 4 times a day. 7. Chronic depression, present on admission. Stable -Restarted Citalopram 20 mg daily. 8. Juvenile arthritis, chronic. present on admission. Stable -Home regimen includes gabapentin which is held at this time. 9. Chronic pain, present on admission. Active -Methadone 5 mg every 12 hours 10. Reported history of CHF, present on admission. Stable -Echo (03/14/16) while an suboptimal study showed no evidence of CHF. 11. Nutrition - Tube feeds restarted at 10 mL per hour. - Will consider motility agent if residuals remain elevated. - May need to broach the topic of PEG tube with family if this continues to be an issue. - Nutrition following. Appreciate time and expertise. Acetaminophen-fever/headache/mild/moderate pain Antiemetics, as needed Bowel regimen, as needed. Disposition: Patient's mentation appears to be improving significantly today. Will monitor over the next day or so and make a decision with the family about feeding with anticipated discharge early to mid part of this week. Discharge back to [facility] [place]. VTE Mechanical Devices: Intermittant Pneumatic CD Resuscitation Status: CPR: Attempt Resuscitation Attending Statement The patient was seen and examined together with Dr. Lara on 03/21/2016 and I agree with the history, exam and plan as outlined in the note above. . Steph Lara DO Mar 21, 2016 13:56 Braxton Gaona MD Mar 21, 2016 15:43
--- NOTE | 2016-03-21 14:38 | PROG NOTE ---
[address] [address] PROGRESS NOTE PATIENT: TRAM LAZO : 1970 MR#: [id number] ADMIT: 03/12/2016 JOB ID: [id number] DATE: 03/21/2016 PULMONARY FOLLOWUP NOTE: PROBLEM: Pneumonia. SUBJECTIVE: None. OBJECTIVE: Temperature 37.3 with T-max being 37.4. Pulse 93, respiratory rate 13-20, blood pressure 137/84, O2 sat on room air is 98%. General appearance: Looking around. Seems to orient on observer or make an effort to avoid looking at the observer. Seems a somewhat cognitive response. Makes no attempt at verbalization, though nurses state she has been vocalizing some with them. Comfortable appearing. No use of accessory muscles. Chest: Fair breath sounds bilaterally. There are a few crackles in the upper lung field. Seems to be clearing, with better air entry. Heart tones normal. Abdomen: Bowel tones present. LABORATORY DATA: Shows a white count of 14,000, up from yesterday's value of 9200. No differential available. Hemoglobin 10.9. Platelet count 272,000. Sodium 139, potassium 4.4, chloride 95, CO2 is 30, BUN 14, creatinine 0.5. Calcium 8.4. Procalcitonin yesterday was 2.3. Sputum from March 12, 2016, currently growing Pseudomonas aeruginosa with sensitivities to cefepime, the aminoglycosides, Zosyn, and ciprofloxacin, with an ASHU of less than or equal to 0.25 mcg/mL. ASSESSMENT: Pneumonia. Has patient clinically quite a bit better. Currently off supplemental oxygen. Breathing comfortably. Much more awake and alert. A problem currently is the Pseudomonas aeruginosa. There has been a slight increase in the white count. Unfortunately no diff is available. In addition, we did not get a procalcitonin today. She is without IV access due to her congenital dwarfism. At this point it is unclear whether to treat her with oral Cipro through the NG tube or merely monitor her. Will obtain a differential on the white count. If there is a left shift I would be more in favor of treating as best we can with oral agents. Alternatively might continue to just watch her at this point, getting a chest x-ray, procalcitonin level, diff on the white cell count. PLAN: 1. Ask for a differential on today's WBC. 2. Chest x-ray in the morning. 3. Procalcitonin in the morning. 4. For the moment will hold Cipro or consider levofloxacin once a day.
--- NOTE | 2016-03-21 15:40 | NUR ---
Social Work: Continued Discharge Planning shoe worker spoke with Carlotta in [facility] admissions and she stated that they will be able to accept the patient back with the feeding tube. Carlotta also stated that that patient will need to be transported back to the facility via medicaid transport. SW will continue to follow patient. Plan: Patient will discharge back to [facility] via [facility] transport. SW will continue to follow. Naye Veloz, ALEX, LUTHER
--- NOTE | 2016-03-21 18:30 | NUR ---
Tube feed/Blood glucose/Mentation Jevity currently running at 20mls/hour (increased from 10) with Q1 hour 20ml flush -- tolerating well throughout shift, no episodes of emesis and no apparent signs of GI/ distress. BG throughout shift high low 70s-mid 80s, no dextrose given, rechecked 15 minutes later per protocol and BG would range low 70s-mid 80s Patient alert to self, and would frequently make eye contact with RN but would not respond. After PRODUCT SPECIALIST and RN got patient up to her wheelchair at approx 1100, patient would respond with yes and no and although difficult to understand was discussing the TV show she was watching however her verbalization was not consistent and would remain silent other times throughout the shift. No reports of pain, 0 using FELDT scale.
[2016-03-22] VITALS (12 sets, daily range): BP systolic 109–137; BP diastolic 59–91; PULSE 77–97; RESP 11–20; O2SAT 93–97
[2016-03-22] MEDS: guaiFENesin 20 mg/mL 10 mL Syrup PO SCH ×4 (00:15→23:10)
[2016-03-22] MEDS: Heparin 5,000 Unit/mL Inj SUBQ SCH ×3 (00:17→15:44)
[2016-03-22] MEDS: Insulin Human REGular 300 Unit/3 mL Inj SUBQ SCH ×4 (02:30→20:30)
[2016-03-22 03:30] LABS: BASOPHILS % (AUTO) 0.2 % (0-3); EOSINOPHILS % (AUTO) 0.1 % (0-5); MONOCYTES % (AUTO) 21.5 % (4-12); Mean Corpuscular Hemoglobin 28.8 pg (27.0-35.0); Mean Corpuscular Volume 86.4 fL (81-100); NEUTROPHILS % (AUTO) 52.3 % (40-74); Platelet Count 272 bil/L (150-400)
--- NOTE | 2016-03-22 05:32 | NUR ---
Tube Feed/Blood Glucose/Mentation Tube feed running at 20 mls/hour. No signs of GI distress; residuals less than 10 ml at each check. Rate advanced to 25 ml/hour. Blood glucose readings of 114 and 104; no supplementary sugar sources given. Patient briefly interactive with nursing staff during care, saying "that's ok" and "yes" in response to some questions. Continue to monitor.
[2016-03-22] MEDS: Albuterol-Ipratropium 3 mL Inhalation Solution NEB SCH ×4 (08:02→20:25)
[2016-03-22] MEDS: Sodium-Potassium Phosphorus Packet TUBE SCH ×2 (09:24→22:47)
[2016-03-22] MEDS: Methadone 10 mg/mL Oral Concentrate PO SCH ×2 (09:25→22:52)
[2016-03-22] MEDS: Mupirocin 2% 22 Gm Ointment TOPICAL SCH ×2 (09:26→22:48)
--- NOTE | 2016-03-22 09:39 | DRSVH ---
PROCEDURE: X-RAY CHEST ONE VIEW, PORTABLE ([id number]) INDICATIONS: pneumonia TECHNIQUE: One view of the chest was acquired. COMPARISON: [facility], CR, XR CHEST 1VW (PORTABLE), 03/19/2016, 1:56. FINDINGS: Surgical changes and devices: Nasogastric tube present and the tip is not well-seen on the current ex am. Lungs and pleura: Trace right pleural effusion present otherwise lungs are clear. No pneumothorax. Mediastinum: Mediastinal contours appear normal. Heart size is normal. Bones and chest wall: No suspicious bony lesions. Overlying soft tissues appear unremarkable. S-sh aped scoliosis redemonstrated. IMPRESSION: Trace right pleural effusion otherwise interval resolution of basilar infiltrates. Dictated by: Nehemiah De León RRA Interpreted: Floresita Noble MD on 03/22/2016 at 9:39 Transcribed by: CHATA on 03/22/2016 at 9:39 Approved by: Floresita Noble M.D. on 03/22/2016 at 13:37
--- NOTE | 2016-03-22 09:45 | PCM.PNMED ---
Subjective Date of Service Mar 22, 2016 Subjective PULMONARY CRITICAL CARE NOTE: PROBLEM: 1. Hypoxemic hypercarbic respiratory failure. 2. Pneumonia, viral and likely bacterial. Improved. 3. Congenital dwarfism. 4. Juvenile rheumatoid arthritis. 5. No IV access SUBJECTIVE: Fever overnight of 38.1C. Nursing reports that she was much more talkative/interactive over the weekend, though somewhat selective in her interactions. Today, she denies pain of any kind (except for some discomfort associated with the BP cuff). She reports that her breathing is so/so, but denies significant SOB. Nursing reports that she was up most of the night watching TV. Limited ROS otherwise negative except as noted above. Exam Vital Signs Vital Sign - Last Date Time Temp Pulse Resp B/P Pulse Ox O2 Delivery O2 Flow Rate FiO2 03/22/16 09:19 37.4 97 18 122/65 93 Room Air 03/20/16 08:05 2.00 03/18/16 07:51 28 Intake and Output 03/21/16 03/21/16 03/22/16 Cumulative From/Thru 15:00 23:00 07:00 03/11/16 22:44 - 03/22/16 06:52 Intake Total 339 ml 527 ml 82231 ml Output Total 350 ml 38358 ml Balance 339 ml 177 ml 4044 ml Intake Oral 0 ml 0 ml IV Total 21015 ml Tube Feeding 108 ml 265 ml 1817 ml Tube Irrigant 231 ml 262 ml 1929 ml Output Urine Total 350 ml 48446 ml Stool Total 675 ml Gastric Drainage Total 615 ml # Bowel Movements 120 Exam General: obese female lying in hospital bed on L side. does not appear to be in acute distress. More communicative today. HEENT: Opens eyes and makes eye contact and tracks around the room. conjunctiva not injected, EOMi. Membranes moist. Voice is somewhat hoarse. Chest: fairly clear to auscultation today with minimal rhonchi. CV: Regular rate and rhythm without appreciable murmur. radials are 2+ bilaterally. ABD: Soft and nontender with infrequent, normal- sounding BT. EXT: contractures in all 4 extremities. LE wrapped in Joaquin bandage bilaterally. Lines: Beltran catheter. NGT. IVs and Medications IV Fluids None Medications Reviewed: Medications were reviewed in detail Medications Currently not on any antibiotics. Bactroban and nystatin. Continues on methadone with as needed Dilaudid Lab and Diagnostics Result Diagram: 03/22/16 0307 03/22/16 0307 Microbiology Urine for Legionella antigen is negative. Urine for Streptococcal pneumoniae antigen is negative. MRSA nasal screen is positive. Respiratory viral PCR panel positive for RSV. Sputum growing MRSA resistant to cefazolin, clindamycin , erythromycin, as well as oxacillin. Sputum also growing pseudomonas aeruginosa (pansensitive). C. diff was negative. X-Rays, CTs and MRIs Chest x-ray today shows resolution of bibasilar infiltrates with perhaps some persistence of the right small pleural effusion. Additional Diagnostics Her urine output has been decreasing on a daily basis (03/17-2375 mL, 03/18-1450 mL, 03/19-1100 mL, 03/20-1000 mL, 03/21-900 mL, 03/22 (today)-350 mL so far). Please note the tube feeds are currently going at 25 mL an hour, but no other maintenance fluids. Assessment & Plan ASSESSMENT: Problem list: 1. Hypoxemic hypercarbic respiratory failure. Resolved 2. Pneumonia. Resolved 3. Congenital dwarfism. 4. Juvenile rheumatoid arthritis. 5. No IV access 1. Pneumonia. Completed an antibiotic course per the recommendations of ID, and chest x-ray showing improvement/resolution of her bibasilar infiltrates. With the discovery of Pseudomonas in her sputum there is some consideration for further treatment. However, given her outpatient living situation and a significant, and her lack of worsening symptoms, and her recent antibiotic course completion, there is no further need for antibiotic coverage at this time (this is following discussion with ID). 2. Hypoxemic, hypercarbic respiratory failure. Resolved, and currently satting well on room air. She is much more communicative today, and I anticipate that as she gets up into her chair more she will continue to improve. 3. Inadequate IV access. Not currently requiring IV administration. The patient pulled out her IJ line 03/15/16. L femoral line removed to avoid infectious complication. Looking at her habitus, not quite sure where we are going to get lines. Her arms are certainly not going to be able to take a line. PICC is not an option given her contractures. IJ may very well not be an option (anesthesiology was not able to thread an IJ after she pulled her first) . At the current time, there is only the viable option of IO in an emergency situation. Pediatric IO available in the ER. PLAN: 1. We will continue to make ourselves available for any further questions or concerns, but will not continue to directly follow the patient. DVT prophylaxis: Heparin SQ GI prophylaxis: Famotidine TIME SPENT: Critical care, 25 minutes. Kwan Huerta DO Mar 22, 2016 09:45
--- NOTE | 2016-03-22 09:54 | PROG NOTE ---
[address] [address] PROGRESS NOTE PATIENT: TRAM LAZO : 1970 MR#: [id number] ADMIT: 03/12/2016 JOB ID: [id number] DATE: 03/22/2016 REASON FOR FOLLOW UP: Possible MRSA pneumonia superimposed on RSV respiratory tract infection. INTERVAL HISTORY: Over the weekend, the patient is awake! This is a dramatic improvement, as last week we were concerned about what appeared to be basically mutism in this patient who otherwise seemed to be recovering from her respiratory tract infections as well as possible urinary tract infection. Today, the patient is awake and alert. She denies significant shortness of breath, fevers, chills, or sweats, and notes she is feeling much better. PHYSICAL EXAMINATION: Reveals a woman who was febrile at midnight to 38.1, but otherwise has been afebrile now for many days. Her pulse is 95, respiratory rate 16. She is breathing room air and saturating 96%. Blood pressure 109/59. She is awake, alert, responds appropriately to questions and makes very reasonable requests. She still has an NG tube present. Oral cavity unremarkable. Lungs fairly clear bilaterally for the first time. Abdomen soft and nontender. The patient wears a diaper. She has no notable changes in the upper extremities. LABORATORIES: Include white count which jumped to 14,000 over the weekend, but is now down to 12,000. The diff is relatively normal but she has a monocytosis of 20%. In and of itself, the monocytosis accounts for her excess total white count. Creatinine is 0.52. Procalcitonin was 0.3 on the , and a repeat is pending today. No new cultures are available as C. diff done last week was negative. A brain MRI was done over the weekend, which was done because of her altered mental status, which has now resolved. This showed what was thought to be a meningioma in addition what appeared to be arachnoid cysts were noted as well as bilateral mastoid effusions. The chest x-ray of the showed patchy airspace opacities consistent with atelectasis or pneumonia. IMPRESSION: Though the patient did have a bump in white count over the weekend and a low-grade fever at midnight, her overall course is one of dramatic improvement. Today, she is awake and alert. for the first time, able to provide an excellent history, and basically denies any respiratory difficulty. She is saturating extremely well on room air and her lungs sound quite clear. Based on these clinical parameters, I would not be too worried about her mildly increased white count (almost all the excess in her white count is due to monocytes in any event) or her single low-grade fever spike. RECOMMENDATIONS: 1. I continue to watch the patient off systemic antibiotics. 2. Will continue with the nasal Bactroban. 3. We await this morning's procalcitonin. If it is less than 0.5, I would be most reassured and would absolutely continue to observe the patient without antibiotics. Thank you very much. Note that this case was discussed with the ICU team.
--- NOTE | 2016-03-22 10:25 | NUR ---
Evaluation completed. Rec: Stim diet with ice chips for comfort. MECHANICAL TECHNOLOGIST to follow Please go to "Notes" then click on "Assessments and Notes" (bottom left corner of screen). Then select appropriate discipline tab on top of screen.
--- NOTE | 2016-03-22 15:02 | PCM.PNMED ---
Subjective Date of Service Mar 22, 2016 Subjective Meredith Sterling is a 45 year old female with a history of congenital dwarfism, juvenile arthritis, Felty syndrome, and CHF who presented to the ED from [facility] with altered mental status and shortness of breath. Admitted for severe sepsis secondary to RSV and pseudomonas pneumonia and UTI. Hospital day 11. Overnight: No acute events. Patient had small residuals overnight via NG tube. Today: Patient conversive with nursing staff and myself. She verbalizes that she has no pain, nausea, vomiting. She would like to sit up in her wheelchair. Patient does not recall much of the last few days and requested to be updated on her progress. Remaining review of systems was negative. Exam Vital Signs Vital Sign - Last Date Time Temp Pulse Resp B/P Pulse Ox O2 Delivery O2 Flow Rate FiO2 03/22/16 03:53 37.0 92 11 109/59 93 Room Air 03/20/16 08:05 2.00 03/18/16 07:51 28 Intake and Output 03/21/16 03/21/16 03/22/16 Cumulative From/Thru 15:00 23:00 07:00 03/11/16 22:44 - 03/22/16 06:26 Intake Total 339 ml 527 ml 02102 ml Output Total 72391 ml Balance 339 ml 527 ml 4394 ml Intake Oral 0 ml IV Total 98501 ml Tube Feeding 108 ml 265 ml 1817 ml Tube Irrigant 231 ml 262 ml 1929 ml Output Urine Total 61961 ml Stool Total 675 ml Gastric Drainage Total 615 ml # Bowel Movements 120 Exam General: Small female with multiple body deformities including severe kyphosis and bilateral contractures of lower extremities. In no respiratory distress. Conversive. HEENT: Atraumatic. External ears without defect. PERRLA, amblyopia, no scleral icterus. NG tube in place. Neck: No jugular venous distension. No bruits. No lymphadenopathy or thyromegaly. Cardiovascular: Regular rate and rhythm with no murmurs, rubs, or gallops appreciated. Pulmonary: Moderate air movement with coarseness throughout. Nasal cannula in place. Abdomen: Bowel tones present. Soft, nondistended. No hepatosplenomegaly or masses appreciated. Extremities: Bilateral contractures upper/lower extremities, brawny skin discoloration of feet bilaterally, club feet. no cyanosis or edema appreciated. Arm restraints in place. Skin: Normal temperature, turgor, and texture. Area of ecchymosis on the right arm. No rash, ulcers, or subcutaneous nodules appreciated. Lab and Diagnostics Result Diagram: 03/22/16 03003/22/16306 Microbiology Urine for Legionella antigen is negative. Urine for Streptococcal pneumoniae antigen is negative. MRSA nasal screen is positive. Respiratory viral PCR panel positive for RSV. Sputum growing MRSA resistant to cefazolin, clindamycin , erythromycin, as well as oxacillin. Sensitive to linezolid and vancomycin. C. diff was negative. X-Rays, CTs and MRIs X-RAY CHEST ONE VIEW, PORTABLE ([id number]) IMPRESSION: Trace right pleural effusion otherwise interval resolution of basilar infiltrates. Dictated by: Nehemiah NORTONA Interpreted: Floresita Noble MD on 03/22/2016 at 9:39 Transcribed by: CHATA on 03/22/2016 at 9:39 Approved by: Floresita Noble M.D. on 03/22/2016 at 13:37 Assessment & Plan Meredith Sterling is a 45 year old female with a history of congenital dwarfism, juvenile arthritis, Felty syndrome, and CHF who presented to the ED from [facility] with altered mental status and shortness of breath. Admitted for severe sepsis secondary to RSV and pseudomonas pneumonia and UTI. Hospital day 11. 1. Acute encephalopathy, present on admission. Resolved. -Pt was unresponsive on arrival and not at baseline mentation, per family. Baseline mentation per family is conversational and controlling wheelchair. -Likely secondary to infectious process.e. -MRI not revealing any intracranial pathology -Today patient conversive with staff and myself. States she does not recall much of her hospitalization. 2. Acute hyperglycemia, present on admission. Active. -Pt w/o known diagnosis of diabetes -HbA1c 5.0 -Blood glucose monitoring q6h -Low-dose regular insulin protocol in place. 3. Severe sepsis, present on admission. Resolved. -Met criteria on admission with temp 37.7, HR 117, RR 22, encephalopathy, urinary & pulmonary source of infection 4. Healthcare associated pneumonia, present on admission. Treatment completed. -Positive for RSV. Sputum positive for MRSA. -Pt full-time resident of [facility], antibiotics to cover HCAP. -Guaifenesin 200 mg every 8 hours to help thin secretions. -Right lower lobe opacities as well as bilateral perihilar opacities on chest xray. -CT chest with contrast shows moderate to severe bilateral pneumonia with small right parapneumonic effusion. Superimposed nodular and groundglass densities. 5. Acute UTI, present on admission. Treatment completed. -Pt does not have chronic indwelling catheter at baseline. Renal ultrasound unremarkable. -Urine culture positive for E. coli, resistant to levofloxacin, ciprofloxacin and tetracycline. -Completed antibiotic treatment. 6.Chronic hypertension, present on admission. Stable -Restarted propranolol 10 mg 3 times a day. Home regimen is 20 mg 4 times a day. 7. Chronic depression, present on admission. Stable -Restarted Citalopram 20 mg daily. 8. Juvenile arthritis, chronic. present on admission. Stable -Home regimen includes gabapentin which is held at this time. 9. Chronic pain, present on admission. Active -Methadone 5 mg every 12 hours 10. Reported history of CHF, present on admission. Stable -Echo (03/14/16) while an suboptimal study showed no evidence of CHF. 11. Nutrition - Tube feeds advanced to 30 mils per hour. Residuals are minimal. - Speech evaluation cleared patient for stimulation diet on 03/22. Acetaminophen-fever/headache/mild/moderate pain Antiemetics, as needed Bowel regimen, as needed. Disposition: Patient's mentation significantly improved. Nutrition advanced to stimulation diet and continue tube feeds. Will discharge back to [facility] tomorrow pending any overnight events. Pain Evaluation: Adequate Pain Control GI Prophylaxis: H2 amparo VTE Prophylaxis: Sub-Q Heparin (Unfractionated) VTE Mechanical Devices: Intermittant Pneumatic CD Resuscitation Status: CPR: Attempt Resuscitation Attending Statement The patient was seen and examined together with Dr. Clifford on 03-22-16 and I agree with the history, exam and plan as outlined in the note above. JEANNIE CLIFFORD DO Mar 22, 2016 06:39 Natalia Fermin MD Mar 23, 2016 14:23
--- NOTE | 2016-03-22 18:20 | NUR ---
Mentation/Tube feed/Blood glucose Patient much more verbal this shift, delayed and mumbled speech but was conversing with staff. She was alert to self and knew she was in a hospital, but thought it was [facility] -- did not know the year. Jevity tube feed currently going at 35mls per hour with Q1 hour 40ml flush per Dr. Sun orders. Patient has been tolerating 35mls per hour feed okay with no n/v since approx 1400, 20ml flush increased to 40ml at approx 1800. Blood glucose levels 100s-130 throughout shift, which is a significant increase from 70s and 80s when I had this patient yesterday. Reported generalized pain, receiving scheduled liquid methadone. Tolerating some PO intake -- currently stimulation diet.
--- NOTE | 2016-03-22 19:40 | NUR ---
ng tube pulled out patient pulled ngtube out. unwitnessed. vs stable. blood sugar 100. 96% ra. afebrile. rr 16. patient fatigued. plan to replace ng tube.
--- NOTE | 2016-03-22 22:03 | DRSVH ---
PROCEDURE: X-RAY ABDOMEN, ONE VIEW ([id number]) INDICATIONS: NG TUBE PLACEMENT TECHNIQUE: One view of the abdomen acquired. COMPARISON: [facility], CR, XR CHEST 1VW (PORTABLE), 03/22/2016, 3:59. [facility], CR, XR ABD AP 1VW, 03/14/2016, 19:57. FINDINGS: Surgical changes and devices: There is a nasogastric tube redemonstrated with the tip extending into the stomach in the region of the antrum. Bowel: Bowel gas pattern is within normal limits. Soft tissues: There are small bilateral pleural effusions, left greater than right, with bibasilar p atchy infrahilar opacities. Bones: There is in marked dextroscoliosis of the thoracolumbar spine redemonstrated as well as the d ysmorphic appearance of the pelvis and hips. IMPRESSION: 1. Nasogastric tube extends into the stomach directed towards the antrum. 2. Small bilateral pleural effusions with medial bibasilar opacities in the lungs consistent with at electasis, consolidation, or aspiration. 3. Scoliosis of the thoracolumbar spine and dysmorphic appearance of the bony pelvis and hips redemo nstrated. Dictated by: Dejon Santillan M.D. on 03/22/2016 at 22:02 Approved by: Dejon Santillan M.D. on 03/22/2016 at 22:02
--- NOTE | 2016-03-22 23:02 | NUR ---
ng tube replaced replaced ng tube. abd xray shows ng tube leading toward antrum of stomach per radiologist report. ng feeds restarted at 35ml/hr. scheduled medications given. vs stable. no distress. patient transferred earlier back to bed. 2 person lift.
[2016-03-23] VITALS (10 sets, daily range): BP systolic 93–121; BP diastolic 68–93; PULSE 76–93; RESP 14–20; O2SAT 92–98
[2016-03-23] MEDS: Heparin 5,000 Unit/mL Inj SUBQ SCH ×4 (00:04→23:36)
[2016-03-23] MEDS: Insulin Human REGular 300 Unit/3 mL Inj SUBQ SCH ×4 (02:30→20:30)
[2016-03-23 04:13] LABS: Mean Corpuscular Hemoglobin 28.7 pg (27.0-35.0); Mean Corpuscular Volume 87.3 fL (81-100)
[2016-03-23] MEDS: Albuterol-Ipratropium 3 mL Inhalation Solution NEB SCH ×4 (08:00→20:45)
[2016-03-23] MEDS: Mupirocin 2% 22 Gm Ointment TOPICAL SCH ×2 (09:02→20:49)
[2016-03-23] MEDS: guaiFENesin 20 mg/mL 10 mL Syrup PO SCH ×3 (09:02→23:36)
[2016-03-23] MEDS: Methadone 10 mg/mL Oral Concentrate PO SCH ×2 (09:02→20:48)
[2016-03-23] MEDS: Sodium-Potassium Phosphorus Packet TUBE SCH ×2 (09:03→20:49)
--- NOTE | 2016-03-23 10:21 | PROG NOTE ---
[address] [address] PROGRESS NOTE PATIENT: TRAM LAZO : 1970 MR#: [id number] ADMIT: 03/12/2016 JOB ID: [id number] DATE: 03/23/2016 REASON FOR FOLLOWUP: RSV pneumonia in a patient colonized or perhaps infected with MRSA. INTERVAL HISTORY: The patient remains quite awake and conversant today, though she falls back to sleep if not stimulated. She reports her breathing is fine this morning, and she states she has no fevers or chills. No difficulty whatsoever breathing and denies GI problems as well. PHYSICAL EXAMINATION: Reveals an afebrile woman lying in bed. Temp 36.7, her last temperature is now almost 36 hours ago and since then, she has been completely afebrile. Pulse 76, respiratory rate 20, blood pressure 117/68. She is saturating well on room air. Oral cavity without change. Lungs reasonably clear posteriorly today. Abdomen basically negative. She does have considerable bruising on her upper extremities from blood draws and IV lines. LABORATORIES: Include white count 14,000. Note that this is 22% monocytes, however and if one takes out the monocytes she actually has a normal neutrophil count. Creatinine is 0.46. Procalcitonin was 0.1 yesterday down from a high of 25 one week ago. A repeat is pending today, though I am not certain we need to keep checking them given the fact we have reached basically a negative level. Micro studies include the positive nasal smear for MRSA previously as well as RSV that was found in respiratory viral PCR panel. Some Pseudomonas was also found in an earlier sputum, but I think that is likely to be strictly colonization. A chest x-ray done yesterday showed trace right pleural effusion, otherwise interval resolution of the bibasilar infiltrates. IMPRESSION: This patient seems to be doing extremely well off antibiotics. She received a short course of treatment for the MRSA as well which would also cover the E. coli that was found in the urine on admission. At this point she looks to be approaching her normal state of health and is free of infection or any outward sign of infection. The leukocytosis she has is exclusively due to monocytosis which has a broad differential diagnosis, but I do not think it is indicative of an underlying or under treated infection. RECOMMENDATIONS: 1. I would continue to watch this patient off antibiotics. 2. Will wait today's procalcitonin. 3. I will continue to follow this patient with you for the time being, but I do think the patient is nearing a point where she could be moved out of the [facility] and perhaps even transferred back to her retirement facility if she continues to be stable.
--- NOTE | 2016-03-23 10:43 | NUR ---
NUTRITION FOLLOW UP: ASSESS: 45 YO F admitted to CCU with severe sepsis, acute hypoxic respiratory failure, gram-positive cocci bacteremia, RSV pneumonia, e.coli UTI in patient with congenital dwarfism. Pt has slowly been improving, ST has placed pt on stimulation diet and is to re-evaluate pt again today. TF reached goal rate of 35ml/hr. Pt pulled out NG tube overnight but tube was able to be replaced and TF re-started with no complications. There was some confusion regarding fluid flushes. Pt is to get 45ml q 1 hr. Order in chart. Wt has decreased down to below admit wt. PMHx: Congenital dwarfism, kyphoscoliosis, juvenile RA, migraines, bilateral leg contractures, CHF, HTN, depression. DIET: NPO per ST TUBE FEEDING: Jevity 1.5 @ 35ml/hr + 45 ml H2O flush q 1 hr to provide 1155kcal, 50g pro, and 1665 ml/d H2O (100% estimated needs). LABS: Reviewed. Cl 96, CO2 31, Tap Dancer .46, Glu 120 MEDICATIONS: Reviewed. GI: BM x2 03/23 SKIN: No skin issues per wound eval. ANTHROPOMETRICS: Current Wt: 40.9 kg, BMI: 40.9 kg/m2. IBW: 36.8kg, Adj BW 39.7kg. Admit Wt: 44.6 kg ESTIMATED NEEDS: BMI Calories: 995-1190 calories (25-30 kcal/kg Adj. BW) Protein: 45-60 g protein (1.2-1.5 g/kg Adj. BW) Fluid: Approx 1450 ml (30 ml/kg BW) NUTRITION DIAGNOSIS: 1) Chewing/swallowing difficulties related to congenital malformations, as evidenced by NPO status, pending swallow evaluation.---PERSISTS, pt on stim diet 2) Inadequate oral intake related to decreased ability to consume sufficient energy as evidenced by current NPO status per ST due to AMS---IMPROVING W/TF @ GOAL INTERVENTION: 1) Continue TF of Jevity 1.5 @ goal rate of 35 ml/hr + 45 ml H2O q 1 hr. If pt is able to tolerate PO intake, recommend re-assessing TF goal rate and fluid flushes. Recommend continue TF until pt is able to tolerate <50% of all meals on general diet. 2) Diet per ST recommendations MONITOR/EVALUATE: TF, ST eval, labs, wt, GI/nutrition status. Follow per high nutrition risk guidelines.
--- NOTE | 2016-03-23 11:09 | PCM.PNMED ---
Subjective Date of Service Mar 23, 2016 Subjective PULMONARY CRITICAL CARE CONSULTATION PROGRESS NOTE: PROBLEM: 1. Hypoxemic hypercarbic respiratory failure. 2. Pneumonia, viral and likely bacterial. Treated and resolved. 3. Congenital dwarfism. 4. Juvenile rheumatoid arthritis. 5. No IV access 6. Continues to require nutritional supplementation SUBJECTIVE: Fever overnight of 38.1C. Nursing reports that she was much more talkative/interactive over the weekend, though somewhat selective in her interactions. Today, she denies pain of any kind (except for some discomfort associated with the BP cuff). She reports that her breathing is so/so, but denies significant SOB. Nursing reports that she was up most of the night watching TV. Exam Vital Signs Vital Sign - Last Date Time Temp Pulse Resp B/P Pulse Ox O2 Delivery O2 Flow Rate FiO2 03/23/16 08:00 76 20 96 Room Air 03/23/16 07:34 36.7 117/68 03/20/16 08:05 2.00 03/18/16 07:51 28 Intake and Output 03/22/16 03/22/16 03/23/16 Cumulative From/Thru 15:00 23:00 07:00 03/11/16 22:44 - 03/23/16 06:08 Intake Total 1020 ml 510 ml 54817 ml Output Total 500 ml 0 ml 03743 ml Balance 520 ml 510 ml 5074 ml Intake Oral 400 ml 50 ml 450 ml IV Total 09623 ml Tube Feeding 312 ml 220 ml 2349 ml Tube Irrigant 308 ml 240 ml 2477 ml Output Urine Total 500 ml 83002 ml Stool Total 675 ml Gastric Drainage Total 0 ml 615 ml # Voids 3 3 # Bowel Movements 2 122 Exam General: obese female lying in hospital bed on L side. does not appear to be in acute distress. More communicative today. HEENT: Opens eyes and makes eye contact and tracks around the room. conjunctiva not injected, EOMi. Membranes moist. Voice is somewhat hoarse. Chest: fairly clear to auscultation today with minimal rhonchi. CV: Regular rate and rhythm without appreciable murmur. radials are 2+ bilaterally. ABD: Soft and nontender with infrequent, normal- sounding BT. EXT: contractures in all 4 extremities. LE wrapped in Joaquin bandage bilaterally. Lines: Beltran catheter. NGT. IVs and Medications IV Fluids None Medications Reviewed: Medications were reviewed in detail Lab and Diagnostics Result Diagram: 03/23/1633403/23/16334 Microbiology Urine for Legionella antigen is negative. Urine for Streptococcal pneumoniae antigen is negative. MRSA nasal screen is positive. Respiratory viral PCR panel positive for RSV. Sputum growing MRSA resistant to cefazolin, clindamycin , erythromycin, as well as oxacillin. Sensitive to linezolid and vancomycin. Sputum also growing pseudomonas aeruginosa (pansensitive). C. diff was negative. Assessment & Plan ASSESSMENT: Problem list: 1. Hypoxemic hypercarbic respiratory failure. Resolved 2. Pneumonia. Resolved 3. Congenital dwarfism. 4. Juvenile rheumatoid arthritis. 5. No IV access 6. Continues to require nutritional supplementation 1. Pneumonia. Completed an antibiotic course per the recommendations of ID, and chest x-ray showing improvement/resolution of her bibasilar infiltrates. With the discovery of Pseudomonas in her sputum there is some consideration for further treatment. However, given her outpatient living situation and a significant, and her lack of worsening symptoms, and her recent antibiotic course completion, there is no further need for antibiotic coverage at this time (this is following discussion with ID). One point of concern is her elevated WBC. At this time agree with ID to hold off on further antibiotics and watch while awaiting repeat pro calcitonin today. 2. Hypoxemic, hypercarbic respiratory failure. Resolved, and currently satting well on room air. I anticipate that as she gets up into her chair more she will continue to improve. 3. Inadequate IV access. Not currently requiring IV administration. The patient pulled out her IJ line 03/15/16. L femoral line removed to avoid infectious complication. Looking at her habitus, not quite sure where we are going to get lines. Her arms are certainly not going to be able to take a line. PICC is not an option given her contractures. IJ may very well not be an option (anesthesiology was not able to thread an IJ after she pulled her first) . At the current time, there is only the viable option of IO in an emergency situation. Pediatric IO available in the ER. 4. At this point with reports of her tolerating stim diet, and continuing to get tube feeds at a rate of 35 mL/h through the NGT, the only further recommendation to be given would be to remove the NGT as soon as possible in order to minimize aspiration risk. PLAN: 1. Recommend removing NGT as soon as possible to reduce risk of aspiration. Pulmonary critical care team will sign off at this time. Please do not hesitate to contact us with further questions or concerns. DVT prophylaxis: Heparin SQ GI prophylaxis: Famotidine TIME SPENT: 25 minutes. Kwan Huerta DO Mar 23, 2016 11:09
--- NOTE | 2016-03-23 11:09 | NUR ---
Social Work Note: Readiness for Discharge Data& Assessment: Per MD pt is getting closer to being medically ready for discharge. ALMA DELIA spoke with Roxanne health and wellness coordinator from [facility] and confirmed they are able to accept pt today if medically ready when discharge orders are written. Confirmed that [facility] has pt formula Gevity 1.5 in stock for her NG tube. Pt is currently on 2L 02. SW to await for DC orders and arrange transportation for wheelchair van to transport pt to SNF. SW to continue to follow. Plan: Anticipated discharge to [facility] when medically ready. SW to await for DC orders and arrange transportation for wheelchair van to transport pt to SNF. SW to continue to follow. TIARA Claudio
[2016-03-23] MEDS ORDERED: ALBU2.5V4 NEB (12:06)
[2016-03-23] MEDS ORDERED: LACT-75 PO (12:06)
--- NOTE | 2016-03-23 13:23 | PCM.DIMED ---
JEANNIE CLIFFORD DO 03/23/16 1323: Discharge Instructions Date of Service Mar 23, 2016 Dates of Hospitalization Mar 12, 2016 at 02:52 Discharge Diagnosis Discharge Diagnosis 1. Acute encephalopathy, present on admission. Resolved. 2. Acute hyperglycemia, present on admission. Active. 3. Severe sepsis, present on admission. Resolved. 4. Healthcare associated pneumonia, present on admission. Treatment completed. 5. Acute UTI, present on admission. Treatment completed. 6.Chronic hypertension, present on admission. Stable 7. Chronic depression, present on admission. Stable 8. Juvenile arthritis, chronic. present on admission. Stable 9. Chronic pain, present on admission. Active 10. Reported history of CHF, present on admission. Stable Medication Instructions No changes to your medications have been made during your hospitalization. Jevity was added for nutrition. Currently Jevity is running at 35 ml/hr. Please continue to use Jevity per Speech pathologist. Diet Other (Tube feeds and stimulation diet. Please advance per speech pathologist ) Activity Other (Patient wheelchair bound at baseline) Call your provider Fever or Chills, Shortness of breath, Chest pain, Excessive diarrhea, Weakness ( unilateral) Patient Instructions - During your hospitalization you were treated for multiple infections which have now resolved at this time. - Please continue with your home medication regimen. - Use Jevity until you are able to eat a general diet. Currently Jevity is running at 35 ml/hr through your nasogastric tube. - Speech pathology at [facility] will continue to assess your tube feeds and ability to eat on your own. They will determine when your nasogastric tube can be removed. - Please follow up with Dr. Mcclellan within 1 week. - Repeat labs on 03/26/16, are recommended including a CBC and CMP. - Thank you for allowing us to participate in your care. Follow-up Provider: Erlinda Mcclellan MD Follow-up with PCP in: 1 week Natalia Fermin MD 04/19/16 0934: Discharge Instructions Attending's Statement The patient was seen and examined together with Dr. Clifford on 03-23-16 and I have added additional information to the note above. Patient was not discharged on this day, please see same residents progress note for the same day. JEANNIE CLIFFORD DO Mar 23, 2016 13:23 Natalia Fermin MD Apr 19, 2016 09:34
--- NOTE | 2016-03-23 13:40 | NUR ---
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 [employer]AK[employer] NANNY updated Addendum: 03/23/16 at 1410 by GIGI SILVERIO CM This transport was cancelled and we are currently working on discharge and plan to get patient back to [facility]. Updated SPANISH SPEAKING NANNY
--- NOTE | 2016-03-23 15:27 | NUR ---
Called and spoke with Roxanne Fulton sports coordinator at [facility] [phone]. She was told this morning about the NG tube and there was miscommunication on the function of this tube and what it entails to have someone with this tube. She confirmed with some nurses in the building that this particular tube requires certification and they would not be able to accept patient back tonight. [employer]PECTOR health unit supervisor updated on this case. Updated TIARA
--- NOTE | 2016-03-23 15:40 | NUR ---
Tube feed/wheelchair Patient has Jevity 1.5 running at 35ml/hr with a 45ml flush every hour. Patient is tolerating tube feed well. Pqatients wheelchair has not been working properly, patients family called [employer] to come take a look. Phillip was unable to fix here so they took wc to their shop. Family is aware. Phillip will remain in contact with family regarding status of wc.
--- NOTE | 2016-03-23 18:11 | PCM.PNMED ---
Subjective Date of Service Mar 23, 2016 Subjective Meredith Sterling is a 45 year old female with a history of congenital dwarfism, juvenile arthritis, Felty syndrome, and CHF who presented to the ED from [facility] with altered mental status and shortness of breath. Admitted for severe sepsis secondary to RSV and pseudomonas pneumonia and UTI. Hospital day 12. Overnight: No acute events. Today: Patient conversive with nursing staff and myself. She verbalizes that she has no pain, nausea, vomiting. She would like to sit up in her wheelchair. Remaining review of systems was negative. Exam Vital Signs Vital Sign - Last Date Time Temp Pulse Resp B/P Pulse Ox O2 Delivery O2 Flow Rate FiO2 03/23/16 17:20 82 17 113/70 95 Room Air 03/23/16 12:20 35.8 03/20/16 08:05 2.00 03/18/16 07:51 28 Intake and Output 03/22/16 03/22/16 03/23/16 Cumulative From/Thru 15:00 23:00 07:00 03/11/16 22:44 - 03/23/16 06:08 Intake Total 1020 ml 510 ml 12361 ml Output Total 500 ml 0 ml 89385 ml Balance 520 ml 510 ml 5074 ml Intake Oral 400 ml 50 ml 450 ml IV Total 64517 ml Tube Feeding 312 ml 220 ml 2349 ml Tube Irrigant 308 ml 240 ml 2477 ml Output Urine Total 500 ml 74912 ml Stool Total 675 ml Gastric Drainage Total 0 ml 615 ml # Voids 3 3 # Bowel Movements 2 122 Exam General: Small female with multiple body deformities including severe kyphosis and bilateral contractures of lower extremities. In no respiratory distress. Conversive. HEENT: Atraumatic. External ears without defect. PERRLA, amblyopia, no scleral icterus. NG tube in place. Neck: No jugular venous distension. No bruits. No lymphadenopathy or thyromegaly. Cardiovascular: Regular rate and rhythm with no murmurs, rubs, or gallops appreciated. Pulmonary: Moderate air movement with coarseness throughout. Nasal cannula in place. Abdomen: Bowel tones present. Soft, nondistended. No hepatosplenomegaly or masses appreciated. Extremities: Bilateral contractures upper/lower extremities, brawny skin discoloration of feet bilaterally, club feet. no cyanosis or edema appreciated. Arm restraints in place. Skin: Normal temperature, turgor, and texture. Area of ecchymosis on the right arm. No rash, ulcers, or subcutaneous nodules appreciated. Lab and Diagnostics Result Diagram: 03/23/1633403/23/16334 Microbiology Urine for Legionella antigen is negative. Urine for Streptococcal pneumoniae antigen is negative. MRSA nasal screen is positive. Respiratory viral PCR panel positive for RSV. Sputum growing MRSA resistant to cefazolin, clindamycin , erythromycin, as well as oxacillin. Sensitive to linezolid and vancomycin. Sputum also growing pseudomonas aeruginosa (pansensitive). C. diff was negative. Assessment & Plan Meredith Sterling is a 45 year old female with a history of congenital dwarfism, juvenile arthritis, Felty syndrome, and CHF who presented to the ED from [facility] with altered mental status and shortness of breath. Admitted for severe sepsis secondary to RSV and pseudomonas pneumonia and UTI. Hospital day 12. 1. Acute encephalopathy, present on admission. Resolved. -Pt was unresponsive on arrival and not at baseline mentation, per family. Baseline mentation per family is conversational and controlling wheelchair. -Likely secondary to infectious process.e. -MRI not revealing any intracranial pathology -Today patient conversive with staff and myself. States she does not recall much of her hospitalization. 2. Acute hyperglycemia, present on admission. Resolved. -Pt w/o known diagnosis of diabetes -HbA1c 5.0 -Blood glucose monitoring q6h -Low-dose regular insulin protocol in place. 3. Severe sepsis, present on admission. Resolved. -Met criteria on admission with temp 37.7, HR 117, RR 22, encephalopathy, urinary & pulmonary source of infection 4. Healthcare associated pneumonia, present on admission. Treatment completed. -Positive for RSV. Sputum positive for MRSA. -Pt full-time resident of [facility], antibiotics to cover HCAP. -Guaifenesin 200 mg every 8 hours to help thin secretions. -Right lower lobe opacities as well as bilateral perihilar opacities on chest xray. -CT chest with contrast shows moderate to severe bilateral pneumonia with small right parapneumonic effusion. Superimposed nodular and groundglass densities. 5. Acute UTI, present on admission. Treatment completed. -Pt does not have chronic indwelling catheter at baseline. Renal ultrasound unremarkable. -Urine culture positive for E. coli, resistant to levofloxacin, ciprofloxacin and tetracycline. -Completed antibiotic treatment. 6.Chronic hypertension, present on admission. Stable -Restarted propranolol 10 mg 3 times a day. Home regimen is 20 mg 4 times a day. 7. Chronic depression, present on admission. Stable -Restarted Citalopram 20 mg daily. 8. Juvenile arthritis, chronic. present on admission. Stable -Home regimen includes gabapentin which is held at this time. 9. Chronic pain, present on admission. Stable. -Methadone 5 mg every 12 hours 10. Reported history of CHF, present on admission. Stable -Echo (03/14/16) while an suboptimal study showed no evidence of CHF. 11. Nutrition - Tube feeds at goal at 35 ml/hr. Residuals minimal. - Increased free water flushes to 40 ml per hr. - Speech evaluation cleared patient for stimulation diet on 03/22. Acetaminophen-fever/headache/mild/moderate pain Antiemetics, as needed Bowel regimen, as needed. Disposition: Patient's mentation significantly improved. Nutrition advanced to stimulation diet and continue tube feeds. Will discharge back to [facility] tomorrow pending any overnight events. Pain Evaluation: Adequate Pain Control GI Prophylaxis: H2 amparo VTE Prophylaxis: Sub-Q Heparin (Unfractionated) Resuscitation Status: CPR: Attempt Resuscitation Attending Statement The patient was seen and examined together with Dr. Sun on 03-23-16 and I agree with the history, exam and plan as outlined in the note above. JEANNIE SUN DO Mar 23, 2016 18:11 Natalia Fermin MD Mar 24, 2016 14:41
--- NOTE | 2016-03-23 22:35 | NUR ---
Transfer note: Report was call to receiving ISABEL Reddy on [facility]. Pt was informed of transfer all belongings were packed and loaded on to bed along with medications. Tube feeds were due to be changed they stopped during transfer. Pt was slide over to bed in room 3012. Addendum: 03/23/16 at 2239 by ALFREDO BROWN RN pt was transfered from room 2015.
[2016-03-24] MEDS: Insulin Human REGular 300 Unit/3 mL Inj SUBQ SCH ×4 (02:30→20:30)
--- NOTE | 2016-03-24 04:07 | NUR ---
transfer/TF Pt transferred to 3012 from 2014 around 22:30. pt is alert and oriented to self and place. able to make needs known and use a soft call light. Pt is adamant to have her HOB all the way flat to help her sleep. education done why HOB needs to be up more than 30degrees while on TF. Pt refused to have TF running so she could sleep with her HOB down. TF was stopped for 2.5hours. BG at 3AM was 78, TF was resumed with HOB elevated. TF was patent and residual was 10mL. Pt continued to sleep. bed alarm on for safety.
[2016-03-24 05:28] VITALS: BP 103/69; PULSE 103; RESP 18; O2SAT 92
[2016-03-24] MEDS: Albuterol-Ipratropium 3 mL Inhalation Solution NEB SCH ×4 (06:00→20:50)
[2016-03-24] MEDS: guaiFENesin 20 mg/mL 10 mL Syrup PO SCH ×2 (07:51→17:40)
[2016-03-24] MEDS: Mupirocin 2% 22 Gm Ointment TOPICAL SCH ×2 (07:52→21:33)
[2016-03-24] MEDS: Sodium-Potassium Phosphorus Packet TUBE SCH ×2 (07:52→21:33)
[2016-03-24] MEDS: Heparin 5,000 Unit/mL Inj SUBQ SCH ×2 (07:53→17:40)
--- NOTE | 2016-03-24 07:53 | NUR ---
Social Work Note: Continued Discharge Planning Data& Assessment: SW spoke with pt parents who informed SW they do not feel like pt is medically ready for discharge and would like to appeal the discharge. SW informed UR RN. However after further conversation with [facility] admissions, admission staff previously did not fully understand what an NG tube is and they will not be able to meet the care needs of the pt after all. ALMA DELIA Heating Engineer updated. SW to follow up with pt parents regarding discharge planning. SW to r/o [facility] if appropriate. SW to continue to follow. Plan: SW to follow up with pt family regarding discharge planning. SW to r/o [facility] if appropriate. SW to continue to follow. TIARA Claudio
[2016-03-24 08:05] LABS: Mean Corpuscular Hemoglobin 29.9 pg (27.0-35.0); Mean Corpuscular Volume 86.6 fL (81-100)
[2016-03-24] MEDS: Methadone 10 mg/mL Oral Concentrate PO SCH ×2 (08:14→21:32)
--- NOTE | 2016-03-24 10:19 | PROG NOTE ---
[address] [address] PROGRESS NOTE PATIENT: TRAM LAZO : 1970 MR#: [id number] ADMIT: 03/12/2016 JOB ID: [id number] DATE: 03/24/2016 INFECTIOUS DISEASE FOLLOWUP NOTE: REASON FOR FOLLOWUP: RSV pneumonitis, with possible MRSA superinfection, as well as urinary tract infection. INTERVAL HISTORY: The patient today is completely awake, conversational and states she wants to go home. She has no trouble breathing. No cough. No fever. No chills, and no GI complaints. She still has an NG tube, which is not typical for her. PHYSICAL EXAMINATION: Reveals a comfortable woman lying in bed, in no acute distress. She has a NG tube but otherwise no nasal oxygen or other encumbrances. Her temperature is 36.6, pulse 103, respiratory rate 18, blood pressure 103/69. She is saturating well on room air and comfortable. The patient speaks in full sentences, and is lucid and oriented. Oral cavity negative. Lungs quite clear bilaterally. Abdomen benign. No skin rash. LABORATORY DATA: White count is now 10,000, completely normal for the first time. Creatinine 0.46. Procalcitonin 0.1 twice which basically excludes bacterial pneumonia or sepsis. Her micro has no new positives. Recall that she is colonized with MRSA, and did have respiratory syncytial virus when she came. IMPRESSION: This patient has done very well, and I think, at this point, there is no evidence for infection. At this point, I think she is ready for discharge without antibiotics. RECOMMENDATIONS: 1. No antibiotics. 2. The patient is ready for transfer back to her skilled nurse facility from an infectious disease point of view. 3. Infectious Disease will sign off at this time. Thank you very much for this consult.
[2016-03-24 13:45] VITALS: BP 100/71; PULSE 96; RESP 16; O2SAT 95
--- NOTE | 2016-03-24 14:01 | NUR ---
Social Work-readiness for discharge: Data:EMR Reviewed. Pt is on day 12 of hospitalization for pneumonia per H&P. Pt is not medically tsable, but may be ready tomorrow. ALMA DELIA spoke again with Roxanne at [facility] who states their music executive Lucy came to see pt this morning and they are agreeable to taking pt back with NG tube for feeds and have everything they need. ALMA DELIA called Mother Porsha and provided her with update, Porsha agreeable to plan. Porsha wonders about pt's w/c which is at [facility]. ALMA DELIA explained that SW would call [facility] and have them check on this. ALMA DELIA called Roxanne back at [facility], who will have Case management at facility touch base with mother Porsha. Paperwork in the chart. SW will continue to follow. 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 Plan:Pt to discharge back to [facility] with Dr. Mcclellan to follow when medically stable.[facility] wiling to accept pt with NG tube. Paperwork in the chart. SW will continue to follow. TIARA Freeman
[2016-03-24 15:12] VITALS: PULSE 90; RESP 16; O2SAT 95
--- NOTE | 2016-03-24 18:46 | NUR ---
Tube feeding Dobbhoff placed for decreased LOC and poor oral intake. STIM diet in place as well now that pt is awake and responsive. Feeding continues at 35mls with 45mls flush. 100ml residual, no c/o, returned to pt. Plan is to d[facility]c to [facility] with feeding in place. Meds admin crushed with applesauce.
[2016-03-24 20:56] VITALS: PULSE 92; RESP 16; O2SAT 95
[2016-03-24 21:15] VITALS: BP 97/64; PULSE 88; RESP 16; O2SAT 93
--- NOTE | 2016-03-24 23:31 | PCM.PNMED ---
Subjective Date of Service Mar 24, 2016 Subjective Patient is more alert and verbal today. She has no new complaints. Exam Vital Signs Vital Sign - Last Date Time Temp Pulse Resp B/P Pulse Ox O2 Delivery O2 Flow Rate FiO2 03/24/16 21:15 37.2 88 16 97/64 93 Room Air 03/20/16 08:05 2.00 03/18/16 07:51 28 Intake and Output 03/23/16 03/23/16 03/24/16 Cumulative From/Thru 15:00 23:00 07:00 03/11/16 22:44 - 03/24/16 05:16 Intake Total 1176 ml 543 ml 10474 ml Output Total 02038 ml Balance 1176 ml 543 ml 6793 ml Intake Oral 100 ml 550 ml IV Total 81442 ml Tube Feeding 401 ml 247 ml 2997 ml Tube Irrigant 675 ml 296 ml 3448 ml Output Urine Total 85418 ml Stool Total 675 ml Gastric Drainage Total 615 ml # Voids 3 6 # Bowel Movements 2 124 Exam General: Patient is laying on her right side almost flat in bed with her head elevated approximately 10-20. She is in no apparent distress. Patient exhibits poor physical and deformities associated with rheumatoid arthritis HEENT: Head is atraumatic normocephalic. Eyes: Pupils are equally round and reactive to light and accommodation. Extraocular muscles are intact. Sclera are white anicteric. Subconjunctival mucosa is pink. Ears are unremarkable. Nose: she has a nasogastric tube in place site is unremarkable. Oropharynx: There is no mucosal lesions, there is no thrush, there is no pharyngitis. Neck: Is supple, there are no nodes, or masses or tenderness appreciated. Chest: Exhibits coarse breath sounds are otherwise clear to auscultation and percussion. There are no rales, rhonchi, wheezes or rubs. Heart: Rate is slightly tachycardic, rhythm is regular. There is no murmur, rub or gallop. Abdomen: Good bowel sounds are present. Abdomen is soft, nontender, no organomegaly or masses were appreciated. Extremities: Are symmetrical and well perfused. There is no edema, there is no cellulitis, no rash. Neurologic: There are no focal neurological deficits. Cranial nerves II through XII are intact. There are no sensory or motor deficits. Psychiatric: Patients mood is calm and shows no sign of agitation. Genital: Deferred Rectal: Deferred Lab and Diagnostics Result Diagram: 03/24/16 0706 03/24/16 0706 Microbiology Urine for Legionella antigen is negative. Urine for Streptococcal pneumoniae antigen is negative. MRSA nasal screen is positive. Respiratory viral PCR panel positive for RSV. Sputum growing MRSA resistant to cefazolin, clindamycin , erythromycin, as well as oxacillin. Sensitive to linezolid and vancomycin. Sputum also growing pseudomonas aeruginosa (pansensitive). C. diff was negative. X-Rays, CTs and MRIs PROCEDURE: X-RAY ABDOMEN, ONE VIEW ([id number]) INDICATIONS: NG TUBE PLACEMENT TECHNIQUE: One view of the abdomen acquired. COMPARISON: [facility], CR, XR CHEST 1VW (PORTABLE), 03/22/2016, 3: 59. [facility], CR, XR ABD AP 1VW, 03/14/2016, 19:57. FINDINGS: Surgical changes and devices: There is a nasogastric tube redemonstrated with the tip extending into the stomach in the region of the antrum. Bowel: Bowel gas pattern is within normal limits. Soft tissues: There are small bilateral pleural effusions, left greater than right, with bibasilar patchy infrahilar opacities. Bones: There is in marked dextroscoliosis of the thoracolumbar spine redemonstrated as well as the dysmorphic appearance of the pelvis and hips. IMPRESSION: 1. Nasogastric tube extends into the stomach directed towards the antrum. 2. Small bilateral pleural effusions with medial bibasilar opacities in the lungs consistent with atelectasis, consolidation, or aspiration. 3. Scoliosis of the thoracolumbar spine and dysmorphic appearance of the bony pelvis and hips redemonstrated. Dictated by: Dejon Santillan M.D. on 03/22/2016 at 22:02 Approved by: Dejon Santillan M.D. on 03/22/2016 at 22:02 PROCEDURE: X-RAY CHEST ONE VIEW, PORTABLE ([id number]) INDICATIONS: pneumonia TECHNIQUE: One view of the chest was acquired. COMPARISON: [facility], CR, XR CHEST 1VW (PORTABLE), 03/19/2016, 1: 56. FINDINGS: Surgical changes and devices: Nasogastric tube present and the tip is not well- seen on the current exam. Lungs and pleura: Trace right pleural effusion present otherwise lungs are clear. No pneumothorax. Mediastinum: Mediastinal contours appear normal. Heart size is normal. Bones and chest wall: No suspicious bony lesions. Overlying soft tissues appear unremarkable. S-shaped scoliosis redemonstrated. IMPRESSION: Trace right pleural effusion otherwise interval resolution of basilar infiltrates. Dictated by: Nehemiah De León RRA Interpreted: Floresita Noble MD on 03/22/2016 at 9:39 Transcribed by: CHATA on 03/22/2016 at 9:39 Approved by: Floresita Noble M.D. on 03/22/2016 at 13:37 PROCEDURE: MRI BRAIN WITHOUT CONTRAST ([id number]) INDICATIONS: Altered mental status TECHNIQUE: Noncontrast axial T1 spin echo, axial T2 fast spin echo, sagittal and axial FLAIR, coronal T2 fast spin echo, axial gradient echo, axial diffusion and ADC through the brain. COMPARISON: None. FINDINGS: Image quality: Diagnostic. Brain: There is no acute intra-axial or extra-axial hemorrhage. Fluid signal along the medial aspect of the anterior left frontal lobe adjacent to the focus is identified, which is asymmetric when compared to the contralateral side. No definite cyst or loculated fluid collection is appreciated within this region. The possibility of a subtle nonvisualized arachnoid cyst is difficult to exclude. There is no shift of the midline falx related to this fluid. There may be mild mass effect of the fluid on the anterior left frontal lobe, however. No abnormal signal is appreciated on the flair images within this region or the T1 images to suggest a chronic hemorrhage. A similar appearance is noted involving the mid aspect of the right frontal lobe adjacent to the falx , which is slightly more centered within the region of the convexity (image 18, series 6 and image 11, series 10). The orbits are grossly unremarkable. There are a few subtle areas of increased flair signal noted within the deep white matter of the supratentorial brain adjacent to the frontal horns of the lateral ventricles. Along the dura of the right frontal region there is a structure adjacent to the dura that appears to have a dural tail that is isointense to the brain parenchyma and measures 1.2 x 0.7 x 1.0 cm. No definite additional lesions are evident within the brain. There is no parenchymal edema. No restricted diffusion is present. The midline intracranial structures are within normal limits. The major expected intracranial flow voids are visualized and unremarkable. The ventricles and cortical sulci are age-appropriate. Bones: The imaged osseous structures are grossly intact. No suspicious osseous lesions are identified. There are large bilateral mastoid effusions. Mucosal thickening is noted involving the inferior bilateral maxillary sinuses. There is also mucosal thickening of the sphenoid sinuses and ethmoid air cells. Extracranial soft tissues: The imaged overlying soft tissues of the face and head are grossly unremarkable. IMPRESSION: 1. No acute intracranial hemorrhage or ischemia. 2. Moderate sized extra-axial lesion adjacent to the dura overlying the right frontal region probably is a meningioma. Contrast enhanced MRI is recommended. 3. Asymmetric prominence of the extra-axial fluid along the right and left frontal regions near the falx (left greater than right) is unusual and most likely represents arachnoid cysts. Chronic subdural hygromas are felt to be less likely; however, cannot be excluded. 4. Prominent bilateral mastoid effusions. 5. Moderate paranasal sinus disease. Dictated by: Jakob Post M.D. on 03/20/2016 at 14:12 Approved by: Jakob Post M.D. on 03/20/2016 at 14:12 Cardiac Echo Impressions Echocardiogram Report Name: MEREDITH LAZO JStudy Date: 03/13/2016 Height: 41 in Hospital Exam Location: [facility] Weight: 102 lb Gender: Female BSA: 1.1 m2 : 1970 Age: 45 yrs BP: 115/63 mmHg Reason For Study: REPORTED HISTORY OF CHF Ordering Physician: HOSPITALIST SVHPerformed By: Adam Garrett Referring Physician: Natalia PIERRE Interpretation Summary Patient has dwarfism. The LV is difficult to reliably measure due to angle. The left ventricular cavity is small. There is normal left ventricular wall thickness. The left ventricular ejection fraction is grossly normal or hyperdynamic. Regional wall motion abnormalities cannot be excluded due to limited visualization. The right ventricular cavity is small. The right ventricular systolic function is normal. The right ventricular systolic pressure is estimated at 34 mmHg assuming a right atrial pressure of 3 mm Hg. The left atrium is not well visualized. The aortic root is normal size Assessment & Plan Meredith Lazo is a 45 year old female with a history of congenital dwarfism, juvenile arthritis, Felty syndrome, and CHF who presented to the ED from [facility] with altered mental status and shortness of breath. Admitted for severe sepsis secondary to RSV and pseudomonas pneumonia and UTI. Hospital day 12. 1. Acute encephalopathy, present on admission. Resolved. -Pt was unresponsive on arrival and not at baseline mentation, per family. Baseline mentation per family is conversational and controlling wheelchair. -Likely secondary to infectious process.e. -MRI not revealing any intracranial pathology -Today patient conversive with staff and myself. States she does not recall much of her hospitalization. 2. Acute hyperglycemia, present on admission. Resolved. -Pt w/o known diagnosis of diabetes -HbA1c 5.0 -Blood glucose monitoring q6h -Low-dose regular insulin protocol in place. 3. Severe sepsis, present on admission. Resolved. -Met criteria on admission with temp 37.7, HR 117, RR 22, encephalopathy, urinary & pulmonary source of infection -This most a short course of IV antibiotics ending with Linezolid and Meropenem -Antibiotics have been discontinued a few days ago by Dr. Hernandez. Dr. Hernandez does not believe the patient needs any further antibiotics at this time. 4. Healthcare associated pneumonia, present on admission. Treatment completed. See above -Positive for RSV. Sputum positive for MRSA. -Pt full-time resident of [facility], antibiotics to cover HCAP. -Guaifenesin 200 mg every 8 hours to help thin secretions. -Right lower lobe opacities as well as bilateral perihilar opacities on chest xray. -CT chest with contrast shows moderate to severe bilateral pneumonia with small right parapneumonic effusion. Superimposed nodular and groundglass densities. 5. Acute UTI, present on admission. Treatment completed. -Pt does not have chronic indwelling catheter at baseline. Renal ultrasound unremarkable. -Urine culture positive for E. coli, resistant to levofloxacin, ciprofloxacin and tetracycline. -Completed antibiotic treatment. 6.Chronic hypertension, present on admission. Stable -Restarted propranolol 10 mg 3 times a day. Home regimen is 20 mg 4 times a day. 7. Chronic depression, present on admission. Stable -Restarted Citalopram 20 mg daily. 8. Juvenile arthritis, chronic. present on admission. Stable -Home regimen includes gabapentin which is held at this time. 9. Chronic pain, present on admission. Stable. -Methadone 5 mg every 12 hours 10. Reported history of CHF, present on admission. Stable -Echo (03/14/16) while an suboptimal study showed no evidence of CHF. 11. Nutrition - Tube feeds at goal at 35 ml/hr. Residuals minimal. - Increased free water flushes to 40 ml per hr. - Speech evaluation cleared patient for stimulation diet on 03/22. Acetaminophen-fever/headache/mild/moderate pain Antiemetics, as needed Bowel regimen, as needed. Disposition: Patient's mentation significantly improved. Nutrition advanced to stimulation diet and continue tube feeds. [facility] pending any overnight events. Discussed with patient's mother at bedside. She is concerned that patient's wheelchair motor is broken. She states that the motor is currently her repairs. I do not believe that this should hold up her transfer to [facility] [place] tomorrow. We will need to discuss with elementary school social worker. Dr. Thurman will follow in a.m. for the hospitalist service. Pain Evaluation: Adequate Pain Control GI Prophylaxis: H2 amparo VTE Prophylaxis: Sub-Q Heparin (Unfractionated) Resuscitation Status: CPR: Attempt Resuscitation TracySy MD Mar 24, 2016 23:31
[2016-03-25] MEDS: guaiFENesin 20 mg/mL 10 mL Syrup PO SCH ×3 (01:03→16:43)
[2016-03-25] MEDS: Heparin 5,000 Unit/mL Inj SUBQ SCH ×3 (01:03→16:43)
[2016-03-25] MEDS: Insulin Human REGular 300 Unit/3 mL Inj SUBQ SCH ×4 (02:30→20:30)
--- NOTE | 2016-03-25 02:44 | NUR ---
TF Pt tolerating TF Jevity 1.5cal @35mL/hr through a Dobbhoff NGT (60in) with <10mL residual. HOB elevated between 20-30degrees. tolerating some bites of stim diet. Pt is more awake and able to make her needs known. No respiratory distress. Pt slept most of the night.
[2016-03-25 05:03] VITALS: BP 109/74; PULSE 97; RESP 16; O2SAT 93
--- NOTE | 2016-03-25 06:46 | NUR ---
turning Staff tried to turn pt q2hrs. pt adamantly wants to go back and lay on her right side every time she's on her back or on her left side. pt is educated of getting pressure ulcers if pressure is not relieved on that side. Pt still refused to turn to her back of her left side.
[2016-03-25 07:02] LABS: BASOPHILS % (AUTO) 0.2 % (0-3); MONOCYTES % (AUTO) 15.5 % (4-12); Magnesium 2.1 mg/dL (1.6-2.6); Mean Corpuscular Hemoglobin 28.7 pg (27.0-35.0); Mean Corpuscular Volume 89.1 fL (81-100); NEUTROPHILS % (AUTO) 61.7 % (40-74); Platelet Count 275 bil/L (150-400)
[2016-03-25 07:56] VITALS: PULSE 93; RESP 16; O2SAT 96
[2016-03-25] MEDS: Albuterol-Ipratropium 3 mL Inhalation Solution NEB SCH ×3 (07:56→16:10)
[2016-03-25] MEDS: Mupirocin 2% 22 Gm Ointment TOPICAL SCH ×2 (10:46→20:54)
[2016-03-25] MEDS: Sodium-Potassium Phosphorus Packet TUBE SCH (10:47)
[2016-03-25] MEDS: Methadone 10 mg/mL Oral Concentrate PO SCH ×2 (11:21→20:18)
[2016-03-25 11:30] VITALS: PULSE 94; RESP 16; O2SAT 95
--- NOTE | 2016-03-25 13:19 | NUR ---
Social Work: Initial Assessment / Readiness for d/c Data: Pt is a 45 y/o female admitted for pneumonia, UTI, sepsis. Pt's PCP is Dr Mcclellan, pt's insurance is Medicare with [facility] supp. Pt discussed in rounds, states pt likely to d/c tomorrow. EMR reviewed. LPN MEDICAL ASSISTANT spoke with pt's mother to complete initial assessment. She states pt lives at [facility] in [place]. She uses a wheel chair at baseline, does not drive, has no LTC or VA benefits, and is not a caregiver for another. Pt's mother states that she is pt's DPOA, LPN MEDICAL ASSISTANT requested a copy for the hospital. Pt's mother agreeable to pt returning to [facility] at d/c. LPN MEDICAL ASSISTANT will continue to follow. Assessment: Pt with DD. Plan: Pt will d/c back to [facility] when medically stable, likely tomorrow. LPN MEDICAL ASSISTANT will continue to follow. TIARA Baird Addendum: 03/25/16 at 1322 by SAUL CASTRO Amended: Links added.
--- NOTE | 2016-03-25 13:22 | NUR ---
NAIN signed Verbal permission to sign by pt's mother. TIARA Baird
--- NOTE | 2016-03-25 13:53 | PCM.PNMED ---
Subjective Date of Service Mar 25, 2016 Subjective pt lethargic this AM during exam. denies pain, sob, fever ,cp. dobhoff in place , elev K this AM - repeat elev, stopped k/phos and add one dose of kayexylate, cont duoneb tx Exam Vital Signs Vital Sign - Last Date Time Temp Pulse Resp B/P Pulse Ox O2 Delivery O2 Flow Rate FiO2 03/25/16 11:30 94 16 95 Room Air 03/25/16 05:03 36.9 109/74 03/20/16 08:05 2.00 Intake and Output 03/24/16 03/24/16 03/25/16 Cumulative From/Thru 15:00 23:00 07:00 03/11/16 22:44 - 03/25/16 06:58 Intake Total 0 ml 350 ml 879 ml 64671 ml Output Total 26882 ml Balance 0 ml 350 ml 879 ml 8022 ml Intake Oral 0 ml 350 ml 0 ml 900 ml IV Total 36878 ml Tube Feeding 383 ml 3380 ml Tube Irrigant 496 ml 3944 ml Output Urine Total 63326 ml Stool Total 675 ml Gastric Drainage Total 615 ml # Voids 2 2 2 12 # Bowel Movements 1 125 Exam General: Patient is laying on her right side almost flat in bed with her head elevated approximately 10-20. She is in no apparent distress. Patient exhibits poor physical and deformities associated with rheumatoid arthritis HEENT: Head is atraumatic normocephalic. Eyes: Pupils are equally round and reactive to light and accommodation. Extraocular muscles are intact. Sclera are white anicteric. Subconjunctival mucosa is pink. Ears are unremarkable. Nose: she has a nasogastric tube in place site is unremarkable. Oropharynx: There is no mucosal lesions, there is no thrush, there is no pharyngitis. Neck: Is supple, there are no nodes, or masses or tenderness appreciated. Chest: Exhibits coarse breath sounds are otherwise clear to auscultation and percussion. There are no rales, rhonchi, wheezes or rubs. Heart: Rate is slightly tachycardic, rhythm is regular. There is no murmur, rub or gallop. Abdomen: Good bowel sounds are present. Abdomen is soft, nontender, no organomegaly or masses were appreciated. Extremities: Are symmetrical and well perfused. There is no edema, there is no cellulitis, no rash. Neurologic: There are no focal neurological deficits. Cranial nerves II through XII are intact. There are no sensory or motor deficits. Psychiatric: Patients mood is calm and shows no sign of agitation. IVs and Medications Medications Reviewed: Medications were reviewed in detail Lab and Diagnostics Result Diagram: 03/25/16 0600 03/25/16 1110 Microbiology Urine for Legionella antigen is negative. Urine for Streptococcal pneumoniae antigen is negative. MRSA nasal screen is positive. Respiratory viral PCR panel positive for RSV. Sputum growing MRSA resistant to cefazolin, clindamycin , erythromycin, as well as oxacillin. Sensitive to linezolid and vancomycin. Sputum also growing pseudomonas aeruginosa (pansensitive). C. diff was negative. X-Rays, CTs and MRIs PROCEDURE: X-RAY ABDOMEN, ONE VIEW ([id number]) INDICATIONS: NG TUBE PLACEMENT TECHNIQUE: One view of the abdomen acquired. COMPARISON: [facility], CR, XR CHEST 1VW (PORTABLE), 03/22/2016, 3: 59. [facility], CR, XR ABD AP 1VW, 03/14/2016, 19:57. FINDINGS: Surgical changes and devices: There is a nasogastric tube redemonstrated with the tip extending into the stomach in the region of the antrum. Bowel: Bowel gas pattern is within normal limits. Soft tissues: There are small bilateral pleural effusions, left greater than right, with bibasilar patchy infrahilar opacities. Bones: There is in marked dextroscoliosis of the thoracolumbar spine redemonstrated as well as the dysmorphic appearance of the pelvis and hips. IMPRESSION: 1. Nasogastric tube extends into the stomach directed towards the antrum. 2. Small bilateral pleural effusions with medial bibasilar opacities in the lungs consistent with atelectasis, consolidation, or aspiration. 3. Scoliosis of the thoracolumbar spine and dysmorphic appearance of the bony pelvis and hips redemonstrated. Dictated by: Dejon Santillan M.D. on 03/22/2016 at 22:02 Approved by: Dejon Santillan M.D. on 03/22/2016 at 22:02 PROCEDURE: X-RAY CHEST ONE VIEW, PORTABLE ([id number]) INDICATIONS: pneumonia TECHNIQUE: One view of the chest was acquired. COMPARISON: [facility], CR, XR CHEST 1VW (PORTABLE), 03/19/2016, 1: 56. FINDINGS: Surgical changes and devices: Nasogastric tube present and the tip is not well- seen on the current exam. Lungs and pleura: Trace right pleural effusion present otherwise lungs are clear. No pneumothorax. Mediastinum: Mediastinal contours appear normal. Heart size is normal. Bones and chest wall: No suspicious bony lesions. Overlying soft tissues appear unremarkable. S-shaped scoliosis redemonstrated. IMPRESSION: Trace right pleural effusion otherwise interval resolution of basilar infiltrates. Dictated by: Nehemiah De León RRA Interpreted: Floresita Noble MD on 03/22/2016 at 9:39 Transcribed by: CHATA on 03/22/2016 at 9:39 Approved by: Floresita Noble M.D. on 03/22/2016 at 13:37 PROCEDURE: MRI BRAIN WITHOUT CONTRAST ([id number]) INDICATIONS: Altered mental status TECHNIQUE: Noncontrast axial T1 spin echo, axial T2 fast spin echo, sagittal and axial FLAIR, coronal T2 fast spin echo, axial gradient echo, axial diffusion and ADC through the brain. COMPARISON: None. FINDINGS: Image quality: Diagnostic. Brain: There is no acute intra-axial or extra-axial hemorrhage. Fluid signal along the medial aspect of the anterior left frontal lobe adjacent to the focus is identified, which is asymmetric when compared to the contralateral side. No definite cyst or loculated fluid collection is appreciated within this region. The possibility of a subtle nonvisualized arachnoid cyst is difficult to exclude. There is no shift of the midline falx related to this fluid. There may be mild mass effect of the fluid on the anterior left frontal lobe, however. No abnormal signal is appreciated on the flair images within this region or the T1 images to suggest a chronic hemorrhage. A similar appearance is noted involving the mid aspect of the right frontal lobe adjacent to the falx , which is slightly more centered within the region of the convexity (image 18, series 6 and image 11, series 10). The orbits are grossly unremarkable. There are a few subtle areas of increased flair signal noted within the deep white matter of the supratentorial brain adjacent to the frontal horns of the lateral ventricles. Along the dura of the right frontal region there is a structure adjacent to the dura that appears to have a dural tail that is isointense to the brain parenchyma and measures 1.2 x 0.7 x 1.0 cm. No definite additional lesions are evident within the brain. There is no parenchymal edema. No restricted diffusion is present. The midline intracranial structures are within normal limits. The major expected intracranial flow voids are visualized and unremarkable. The ventricles and cortical sulci are age-appropriate. Bones: The imaged osseous structures are grossly intact. No suspicious osseous lesions are identified. There are large bilateral mastoid effusions. Mucosal thickening is noted involving the inferior bilateral maxillary sinuses. There is also mucosal thickening of the sphenoid sinuses and ethmoid air cells. Extracranial soft tissues: The imaged overlying soft tissues of the face and head are grossly unremarkable. IMPRESSION: 1. No acute intracranial hemorrhage or ischemia. 2. Moderate sized extra-axial lesion adjacent to the dura overlying the right frontal region probably is a meningioma. Contrast enhanced MRI is recommended. 3. Asymmetric prominence of the extra-axial fluid along the right and left frontal regions near the falx (left greater than right) is unusual and most likely represents arachnoid cysts. Chronic subdural hygromas are felt to be less likely; however, cannot be excluded. 4. Prominent bilateral mastoid effusions. 5. Moderate paranasal sinus disease. Dictated by: Jakob Post M.D. on 03/20/2016 at 14:12 Approved by: Jakob Post M.D. on 03/20/2016 at 14:12 Cardiac Echo Impressions Echocardiogram Report Name: MEREDITH LAZO JStudy Date: 03/13/2016 Height: 41 in Hospital Exam Location: [facility] Weight: 102 lb Gender: Female BSA: 1.1 m2 : 1970 Age: 45 yrs BP: 115/63 mmHg Reason For Study: REPORTED HISTORY OF CHF [facility]ing [facility]: Adam Garrett Referring Physician: Natalia PIERRE Interpretation Summary Patient has dwarfism. The LV is difficult to reliably measure due to angle. The left ventricular cavity is small. There is normal left ventricular wall thickness. The left ventricular ejection fraction is grossly normal or hyperdynamic. Regional wall motion abnormalities cannot be excluded due to limited visualization. The right ventricular cavity is small. The right ventricular systolic function is normal. The right ventricular systolic pressure is estimated at 34 mmHg assuming a right atrial pressure of 3 mm Hg. The left atrium is not well visualized. The aortic root is normal size Assessment & Plan Meredith Lazo is a 45 year old female with a history of congenital dwarfism, juvenile arthritis, Felty syndrome, and CHF who presented to the ED from [facility] with altered mental status and shortness of breath. Admitted for severe sepsis secondary to RSV and pseudomonas pneumonia and UTI. Hospital day 12. 1. Acute encephalopathy, present on admission. Resolved. -Pt was unresponsive on arrival and not at baseline mentation, per family. Baseline mentation per family is conversational and controlling wheelchair. -Likely secondary to infectious process.e. -MRI not revealing any intracranial pathology -fatigued this AM - prev stated she does not recall much of her hospitalization. 2. Acute hyperglycemia, present on admission. Resolved. -Pt w/o known diagnosis of diabetes -HbA1c 5.0 -Blood glucose monitoring q6h -Low-dose regular insulin protocol in place. 3. Severe sepsis, present on admission. Resolved. -Met criteria on admission with temp 37.7, HR 117, RR 22, encephalopathy, urinary & pulmonary source of infection -This most a short course of IV antibiotics ending with Linezolid and Meropenem -Antibiotics have been discontinued a few days ago by Dr. Hernandez. Dr. Hernandez does not believe the patient needs any further antibiotics at this time. 4. Healthcare associated pneumonia, present on admission. Treatment completed. See above -Positive for RSV. Sputum positive for MRSA. -Pt full-time resident of [facility], antibiotics to cover HCAP. -Guaifenesin 200 mg every 8 hours to help thin secretions. -Right lower lobe opacities as well as bilateral perihilar opacities on chest xray. -CT chest with contrast shows moderate to severe bilateral pneumonia with small right parapneumonic effusion. Superimposed nodular and groundglass densities. 5. Acute UTI, present on admission. Treatment completed. -Pt does not have chronic indwelling catheter at baseline. Renal ultrasound unremarkable. -Urine culture positive for E. coli, resistant to levofloxacin, ciprofloxacin and tetracycline. -Completed antibiotic treatment. 6.Chronic hypertension, present on admission. Stable -Restarted propranolol 10 mg 3 times a day. Home regimen is 20 mg 4 times a day. 7. Chronic depression, present on admission. Stable -Restarted Citalopram 20 mg daily. 8. Juvenile arthritis, chronic. present on admission. Stable -Home regimen includes gabapentin which is held at this time. 9. Chronic pain, present on admission. Stable. -Methadone 5 mg every 12 hours 10. Reported history of CHF, present on admission. Stable -Echo (03/14/16) while an suboptimal study showed no evidence of CHF. 11. Nutrition - Tube feeds at goal at 35 ml/hr. Residuals minimal. - Increased free water flushes to 40 ml per hr. - Speech evaluation cleared patient for stimulation diet on 03/22: =Continue nutrition and hydration through the NG tube with trials of po when alert and awake of pureed and work with [employer] in rehabilitation facility to focus on improved diet toleration. 12.Hyperkalemia - Likely 2/2 to supplement, will give kayexylate today - recheck with AM labs Acetaminophen-fever/headache/mild/moderate pain Antiemetics, as needed Bowel regimen, as needed. Disposition: Patient's mentation significantly improved. Nutrition advanced to stimulation diet and continue tube feeds - will determine duration of expected TF, give pt tolerating PO - monitor PO intake with eventual dc TF at SNF if tolerating. [facility] pending any overnight events. Discussed with patient's mother at bedside. She is concerned that patient's wheelchair motor is broken. She states that the motor is currently her repairs. I do not believe that this should hold up [facility]. We will need to discuss with social professionals. GI Prophylaxis: H2 amparo VTE Prophylaxis: Sub-Q Heparin (Unfractionated) Resuscitation Status: CPR: Attempt Resuscitation Time spent 35 minutes spent with mgmt, coordination of care Chay Thurman DO Mar 25, 2016 13:53
[2016-03-25 16:11] VITALS: PULSE 97; RESP 16; O2SAT 96
[2016-03-25 17:03] VITALS: BP 108/75; PULSE 97; RESP 16; O2SAT 93
[2016-03-25 20:19] VITALS: BP 106/70; PULSE 102; RESP 16; O2SAT 95
[2016-03-26] VITALS (7 sets, daily range): BP systolic 101–106; BP diastolic 66–74; PULSE 91–110; RESP 14–20; O2SAT 93–96
[2016-03-26] MEDS: Heparin 5,000 Unit/mL Inj SUBQ SCH ×2 (00:58→08:30)
[2016-03-26] MEDS: guaiFENesin 20 mg/mL 10 mL Syrup PO SCH ×3 (00:58→17:12)
[2016-03-26] MEDS: Insulin Human REGular 300 Unit/3 mL Inj SUBQ SCH ×4 (02:30→20:30)
--- NOTE | 2016-03-26 06:27 | NUR ---
GI Pt denies n/v/abdominal pain. Abdomen distended,soft nontender, hypoactive BT. NG tube feeding running 35ml/hr feed, Water flush 45ml/hr. Pt refuses HOB 30-45 despite recommended, feels comfortable lying flat. Black smear in continent stool on brief twice overnight. VSS, recent BP 106/70 HR 91,afebrile. Addendum: 03/26/16 at 0635 by IHSAN GOODEN RN Pt convinced to HOB 30.
--- NOTE | 2016-03-26 08:11 | NUR ---
NG tube feeding Residual NG tube feeding residual checked by night nurse around 0730. residue amount was 450mL. Dr. Thurman at bedside. Order: Discard the residual, reduce NG tube feeding rate from 35mL/H to 15mL/H, reduce water flush rate from 45mL/H to 20mL/H, recheck residual in 4 hours if the pt tolerates the rate. Increase feeding rate to 25mL/H, and water flush to 45mL/H. Goal feeding rate 35mL/H. Addendum: 03/27/16 at 0152 by IHSAN GOODEN RN Student note reviewed.
[2016-03-26] MEDS: Albuterol-Ipratropium 3 mL Inhalation Solution NEB SCH ×5 (08:31→20:16)
[2016-03-26 08:54] LABS: BASOPHILS % (AUTO) 0.5 % (0-3); EOSINOPHILS % (AUTO) 0.1 % (0-5); MONOCYTES % (AUTO) 11.2 % (4-12); Mean Corpuscular Hemoglobin 29.2 pg (27.0-35.0); Mean Corpuscular Volume 87.9 fL (81-100); NEUTROPHILS % (AUTO) 68.8 % (40-74); Platelet Count 334 bil/L (150-400)
[2016-03-26] MEDS: Mupirocin 2% 22 Gm Ointment TOPICAL SCH ×2 (09:17→21:32)
[2016-03-26] MEDS: Methadone 10 mg/mL Oral Concentrate PO SCH ×2 (09:17→21:28)
--- NOTE | 2016-03-26 14:19 | PCM.PNMED ---
Subjective Date of Service Mar 26, 2016 Subjective Agency and this morning, more conversive and alert. Stating desired to be discharged but noting significant residuals on tube feeding up to 450 mL. Patient will need to remain upright to reduce residuals and have decreased to feeding rate with slow up titration. No discharge today and noted significant hemoglobin drop from 12-8 with dark stools. We will stop heparin and start iron Exam Vital Signs Vital Sign - Last Date Time Temp Pulse Resp B/P Pulse Ox O2 Delivery O2 Flow Rate FiO2 03/26/16 11:45 95 20 95 03/26/16 08:32 Room Air 03/26/16 04:13 36.8 106/70 03/20/16 08:05 2.00 Intake and Output 03/25/16 03/25/16 03/26/16 Cumulative From/Thru 15:00 23:00 07:00 03/11/16 22:44 - 03/26/16 06:33 Intake Total 902 ml 748 ml 13455 ml Output Total 79352 ml Balance 902 ml 748 ml 9672 ml Intake Oral 100 ml 0 ml 1000 ml IV Total 36266 ml Tube Feeding 351 ml 342 ml 4073 ml Tube Irrigant 451 ml 406 ml 4801 ml Output Urine Total 72118 ml Stool Total 675 ml Gastric Drainage Total 615 ml # Voids 2 2 16 # Bowel Movements 3 2 130 Exam General: Patient is laying on her right side almost flat in bed with her head elevated approximately 10-20. She is in no apparent distress. Patient exhibits poor physical and deformities associated with rheumatoid arthritis HEENT: Head is atraumatic normocephalic. Eyes: Pupils are equally round and reactive to light and accommodation. Extraocular muscles are intact. Sclera are white anicteric. Subconjunctival mucosa is pink. Ears are unremarkable. Nose: she has a nasogastric tube in place site is unremarkable. Oropharynx: There is no mucosal lesions, there is no thrush, there is no pharyngitis. Neck: Is supple, there are no nodes, or masses or tenderness appreciated. Chest: Exhibits coarse breath sounds are otherwise clear to auscultation and percussion. There are no rales, rhonchi, wheezes or rubs. Heart: Rate is slightly tachycardic, rhythm is regular. There is no murmur, rub or gallop. Abdomen: Good bowel sounds are present. Abdomen is soft, nontender, no organomegaly or masses were appreciated. Extremities: Are symmetrical and well perfused. There is no edema, there is no cellulitis, no rash. Neurologic: There are no focal neurological deficits. Cranial nerves II through XII are intact. There are no sensory or motor deficits. Psychiatric: Patients mood is calm and shows no sign of agitation. IVs and Medications Medications Reviewed: Medications were reviewed in detail Lab and Diagnostics Result Diagram: 03/26/1645 03/26/1645 Microbiology Urine for Legionella antigen is negative. Urine for Streptococcal pneumoniae antigen is negative. MRSA nasal screen is positive. Respiratory viral PCR panel positive for RSV. Sputum growing MRSA resistant to cefazolin, clindamycin , erythromycin, as well as oxacillin. Sensitive to linezolid and vancomycin. Sputum also growing pseudomonas aeruginosa (pansensitive). C. diff was negative. X-Rays, CTs and MRIs PROCEDURE: X-RAY ABDOMEN, ONE VIEW ([id number]) INDICATIONS: NG TUBE PLACEMENT TECHNIQUE: One view of the abdomen acquired. COMPARISON: [facility], CR, XR CHEST 1VW (PORTABLE), 03/22/2016, 3: 59. [facility], CR, XR ABD AP 1VW, 03/14/2016, 19:57. FINDINGS: Surgical changes and devices: There is a nasogastric tube redemonstrated with the tip extending into the stomach in the region of the antrum. Bowel: Bowel gas pattern is within normal limits. Soft tissues: There are small bilateral pleural effusions, left greater than right, with bibasilar patchy infrahilar opacities. Bones: There is in marked dextroscoliosis of the thoracolumbar spine redemonstrated as well as the dysmorphic appearance of the pelvis and hips. IMPRESSION: 1. Nasogastric tube extends into the stomach directed towards the antrum. 2. Small bilateral pleural effusions with medial bibasilar opacities in the lungs consistent with atelectasis, consolidation, or aspiration. 3. Scoliosis of the thoracolumbar spine and dysmorphic appearance of the bony pelvis and hips redemonstrated. Dictated by: Dejon Santillan M.D. on 03/22/2016 at 22:02 Approved by: Dejon Santillan M.D. on 03/22/2016 at 22:02 PROCEDURE: X-RAY CHEST ONE VIEW, PORTABLE ([id number]) INDICATIONS: pneumonia TECHNIQUE: One view of the chest was acquired. COMPARISON: [facility], CR, XR CHEST 1VW (PORTABLE), 03/19/2016, 1: 56. FINDINGS: Surgical changes and devices: Nasogastric tube present and the tip is not well- seen on the current exam. Lungs and pleura: Trace right pleural effusion present otherwise lungs are clear. No pneumothorax. Mediastinum: Mediastinal contours appear normal. Heart size is normal. Bones and chest wall: No suspicious bony lesions. Overlying soft tissues appear unremarkable. S-shaped scoliosis redemonstrated. IMPRESSION: Trace right pleural effusion otherwise interval resolution of basilar infiltrates. Dictated by: Nehemiah De León [facility] Interpreted: Floresita Noble MD on 03/22/2016 at 9:39 Transcribed by: CHATA on 03/22/2016 at 9:39 Approved by: Floresita Noble M.D. on 03/22/2016 at 13:37 PROCEDURE: MRI BRAIN WITHOUT CONTRAST ([id number]) INDICATIONS: Altered mental status TECHNIQUE: Noncontrast axial T1 spin echo, axial T2 fast spin echo, sagittal and axial FLAIR, coronal T2 fast spin echo, axial gradient echo, axial diffusion and ADC through the brain. COMPARISON: None. FINDINGS: Image quality: Diagnostic. Brain: There is no acute intra-axial or extra-axial hemorrhage. Fluid signal along the medial aspect of the anterior left frontal lobe adjacent to the focus is identified, which is asymmetric when compared to the contralateral side. No definite cyst or loculated fluid collection is appreciated within this region. The possibility of a subtle nonvisualized arachnoid cyst is difficult to exclude. There is no shift of the midline falx related to this fluid. There may be mild mass effect of the fluid on the anterior left frontal lobe, however. No abnormal signal is appreciated on the flair images within this region or the T1 images to suggest a chronic hemorrhage. A similar appearance is noted involving the mid aspect of the right frontal lobe adjacent to the falx , which is slightly more centered within the region of the convexity (image 18, series 6 and image 11, series 10). The orbits are grossly unremarkable. There are a few subtle areas of increased flair signal noted within the deep white matter of the supratentorial brain adjacent to the frontal horns of the lateral ventricles. Along the dura of the right frontal region there is a structure adjacent to the dura that appears to have a dural tail that is isointense to the brain parenchyma and measures 1.2 x 0.7 x 1.0 cm. No definite additional lesions are evident within the brain. There is no parenchymal edema. No restricted diffusion is present. The midline intracranial structures are within normal limits. The major expected intracranial flow voids are visualized and unremarkable. The ventricles and cortical sulci are age-appropriate. Bones: The imaged osseous structures are grossly intact. No suspicious osseous lesions are identified. There are large bilateral mastoid effusions. Mucosal thickening is noted involving the inferior bilateral maxillary sinuses. There is also mucosal thickening of the sphenoid sinuses and ethmoid air cells. Extracranial soft tissues: The imaged overlying soft tissues of the face and head are grossly unremarkable. IMPRESSION: 1. No acute intracranial hemorrhage or ischemia. 2. Moderate sized extra-axial lesion adjacent to the dura overlying the right frontal region probably is a meningioma. Contrast enhanced MRI is recommended. 3. Asymmetric prominence of the extra-axial fluid along the right and left frontal regions near the falx (left greater than right) is unusual and most likely represents arachnoid cysts. Chronic subdural hygromas are felt to be less likely; however, cannot be excluded. 4. Prominent bilateral mastoid effusions. 5. Moderate paranasal sinus disease. Dictated by: Jakob Post M.D. on 03/20/2016 at 14:12 Approved by: Jakob Post M.D. on 03/20/2016 at 14:12 Cardiac Echo Impressions Echocardiogram Report Name: MEREDITH LAZO JStudy Date: 03/13/2016 Height: 41 in Hospital Exam Location: [facility] Weight: 102 lb Gender: Female BSA: 1.1 m2 : 1970 Age: 45 yrs BP: 115/63 mmHg Reason For Study: REPORTED HISTORY OF CHF Ordering Physician: HOSPITALIST SVHPerformed By: Adam Garrett Referring Physician: Natalia PIRERE Interpretation Summary Patient has dwarfism. The LV is difficult to reliably measure due to angle. The left ventricular cavity is small. There is normal left ventricular wall thickness. The left ventricular ejection fraction is grossly normal or hyperdynamic. Regional wall motion abnormalities cannot be excluded due to limited visualization. The right ventricular cavity is small. The right ventricular systolic function is normal. The right ventricular systolic pressure is estimated at 34 mmHg assuming a right atrial pressure of 3 mm Hg. The left atrium is not well visualized. The aortic root is normal size Assessment & Plan Meredith Lazo is a 45 year old female with a history of congenital dwarfism, juvenile arthritis, Felty syndrome, and CHF who presented to the ED from [facility] with altered mental status and shortness of breath. Admitted for severe sepsis secondary to RSV and pseudomonas pneumonia and UTI. admission date : 03/12/16 1. Acute encephalopathy, present on admission. Resolved. -Pt was unresponsive on admission and not at baseline mentation, per family. Baseline mentation per family is conversational and controlling wheelchair. -Likely secondary to infectious process.e. -MRI not revealing any intracranial pathology 2. Acute hyperglycemia, present on admission. Resolved. -Pt w/o known diagnosis of diabetes -HbA1c 5.0 -Blood glucose monitoring q6h -Low-dose regular insulin protocol in place. 3. Severe sepsis, present on admission. Resolved. -Met criteria on admission with temp 37.7, HR 117, RR 22, encephalopathy, urinary & pulmonary source of infection -This most a short course of IV antibiotics ending with Linezolid and Meropenem -Antibiotics have been discontinued a few days ago by Dr. Hernandez. Dr. Hernandez does not believe the patient needs any further antibiotics at this time. 4. Healthcare associated pneumonia, present on admission. Treatment completed. See above -Positive for RSV. Sputum positive for MRSA. -Pt full-time resident of [facility], antibiotics to cover HCAP. -Guaifenesin 200 mg every 8 hours to help thin secretions. -Right lower lobe opacities as well as bilateral perihilar opacities on chest xray. -CT chest with contrast shows moderate to severe bilateral pneumonia with small right parapneumonic effusion. Superimposed nodular and groundglass densities. 5. Acute UTI, present on admission. Treatment completed. -Pt does not have chronic indwelling catheter at baseline. Renal ultrasound unremarkable. -Urine culture positive for E. coli, resistant to levofloxacin, ciprofloxacin and tetracycline. -Completed antibiotic treatment. 6.Chronic hypertension, present on admission. Stable -Restarted propranolol 10 mg 3 times a day. Home regimen is 20 mg 4 times a day. 7. Chronic depression, present on admission. Stable -Restarted Citalopram 20 mg daily. 8. Juvenile arthritis, chronic. present on admission. Stable -Home regimen includes gabapentin which is held at this time. 9. Chronic pain, present on admission. Stable. -Methadone 5 mg every 12 hours 10. Reported history of CHF, present on admission. Stable -Echo (03/14/16) while an suboptimal study showed no evidence of CHF. 11. Nutrition - Tube feeds at goal at 35 ml/hr. Residuals this time, emphasize upright posture -Decreased free water flushes and tube feeding rate today, slow up titration as tolerated - Speech evaluation cleared patient for stimulation diet on 03/22: =Continue nutrition and hydration through the NG tube with trials of po when alert and awake of pureed and work with [employer] in rehabilitation facility to focus on improved diet toleration. 12.Hyperkalemia - Likely 2/2 to supplement, will give kayexylate again today - recheck with AM labs Acetaminophen-fever/headache/mild/moderate pain Antiemetics, as needed Bowel regimen, as needed. Disposition: Patient's mentation significantly improved. Nutrition advanced to stimulation diet and continue tube feeds - will determine duration of expected TF, give pt tolerating PO - monitor PO intake with eventual dc TF at SNF if tolerating. She is concerned that patient's wheelchair motor is broken. She states that the motor is currently her repairs. We will need to discuss with licensed master social worker. Discharge pending anemia stability and toleration of tube feeds Pain Evaluation: Adequate Pain Control GI Prophylaxis: H2 amparo VTE Prophylaxis: Sub-Q Heparin (Unfractionated) VTE Mechanical Devices: Intermittant Pneumatic CD Resuscitation Status: CPR: Attempt Resuscitation Time spent 45 minutes spent with evaluation and management Chay Thurman DO Mar 26, 2016 14:19
--- NOTE | 2016-03-26 15:39 | NUR ---
NUTRITION FOLLOW UP: ASSESS: 45 YO F admitted to CCU with severe sepsis, acute hypoxic respiratory failure, gram-positive cocci bacteremia, RSV pneumonia, e.coli UTI in patient with congenital dwarfism. Pt continues on a stimulation diet with minimal PO intake but mentation has been improving. Pt has been tolerating TF well until this AM. Pt had high residuals ~450ml, likely due to HOB not being elevated to 30-45 degrees. TF is to be titrated back up to goal rate today. Wt is back to admit wt, however last wt recorded was 03/23. New wt requested. In order to help pts appetite improve, will decrease TF goal rate to 30ml/hr. RN aware of new goal rate. PMHx: Congenital dwarfism, kyphoscoliosis, juvenile RA, migraines, bilateral leg contractures, CHF, HTN, depression. DIET: NPO per ST TUBE FEEDING: Jevity 1.5 @ 15ml/hr + 45 ml H2O flush q 1 hr to provide 517kcal, 22g pro, and 1342 ml/d H2O LABS: Reviewed. K 5.5, Machine Pan Greaser .41, Glu 140, Alb 2.9 MEDICATIONS: Reviewed. GI: BM x2 03/26 SKIN: No skin issues per wound eval. ANTHROPOMETRICS: Current Wt: 44.4 kg, BMI: 40.9 kg/m2. IBW: 36.8kg, Adj BW 39.7kg. Admit Wt: 44.6 kg ESTIMATED NEEDS: BMI Calories: 995-1190 calories (25-30 kcal/kg Adj. BW) Protein: 45-60 g protein (1.2-1.5 g/kg Adj. BW) Fluid: Approx 1450 ml (30 ml/kg BW) NUTRITION DIAGNOSIS: 1) Chewing/swallowing difficulties related to congenital malformations, as evidenced by NPO status, pending swallow evaluation.---PERSISTS, pt on stim diet 2) Inadequate oral intake related to decreased ability to consume sufficient energy as evidenced by current NPO status per ST due to AMS---IMPROVING W/TF INTERVENTION: 1) Will decrease TF goal rate in hopes of increasing pt's appetite. Recommend decreasing goal rate to 30ml/hr to provide 1035kcal and 45g pro (lower end of estimated needs). Continue fluid flush of 45ml q 1 hr to provide 1604ml fluid. 2) Diet per ST recommendations MONITOR/EVALUATE: TF, ST eval, labs, wt, GI/nutrition status. Follow per high nutrition risk guidelines.
[2016-03-26] MEDS ORDERED: ProchlorPERazine 5 mg/mL 2 mL Inj IVPUSH ONE (17:15)
[2016-03-26] MEDS ORDERED: Ondansetron 2 mg/mL 2 mL Inj IVPUSH PRN (17:15)
--- NOTE | 2016-03-26 18:44 | NUR ---
Skin assessment P: Red but blanchable area on right hip I: Repositioned Q2H, educated pt regarding importance of turning schedule E: Redness decreased, no longer visible.
--- NOTE | 2016-03-26 19:25 | NUR ---
Positioning-NG Tube feed/Nausea-Vomiting/behavior Q2H turns, freq changes, HOB elevated to 30 degrees. Pt frequently requests to have HOB flat, uncomfortable with spine/sclerosis. Needs frequent reorienting to remind the need for positioning d/t NG tube feeding. NG Tube placement at 60cm fabiola. Pt is comfortable in her personal electric chair. 2PA to transfer, groin brace needs to be up when sitting - will report to oncoming shift. Pt is incontinent needed several changes during day. Calmoseptine applied to skin for protection. Family gave pt Soda, shortly after pt vomited it up. Instructed pt and family to only have sips. Pt has no s/sx of aspiration. paged for nausea medication. Pt frequently uses call light. Attempts to lie on R side only and to have HOB flat. Needs frequent/firm teaching to maintain safety.
--- NOTE | 2016-03-26 19:42 | PCM.CHPMED ---
Subjective Date of Service: Mar 26, 2016 Provider requesting consult: Chay Thurman DO Primary Physician: Admitting Physician: Aj Murry MD Primary Care Physician: Erlinda Mcclellan MD Attending Physician: Aj Murry MD Chief Complaint: Chief Complaint: Melena History of Present Illness: Meredith Sterling is a 45 year old female with a history of congenital dwarfism, juvenile arthritis, Felty syndrome, and CHF who was hospitalized 03/12/16 for acute encephalopathy secondary to severe sepsis, acute E. coli UTI, HCAP with MRSA, RSV, and Pseudomonas. She is now hospital day 15, completed antibiotic treatment, with resolution of sepsis, UTI, pneumonia, and encephalopathy. She had been eating poorly and nutrition started her on tube feeds with an NG tube, and her appetite had begun to improve. She was returning to baseline in terms of overall health and nearing discharge when she was noted to have dark stools overnight. Her Hb had dropped from 10.4 to 8.4 over 2 days. She denies nausea, vomiting, diarrhea, and denies any further dark stools, confirmed by nursing. She denies fevers, chills, abdominal pain, weakness, or dizziness, and overall has no complaints, and states she wishes to go home. 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 Allergies: Coded Allergies: Sulfa (Sulfonamide Antibiotics) (Verified Allergy, Unknown, 03/12/16) Family History Family History Denies history of colon cancer, celiac disease, Crohn's, UC Social History Hx Alcohol Use: NoHx Substance Use: No Smoking Status: Unknown if Ever Smoker Exam Vital Signs Vital Sign - Last Date Time Temp Pulse Resp B/P Pulse Ox O2 Delivery O2 Flow Rate FiO2 03/26/16 15:35 103 20 95 Room Air 03/26/16 13:40 37.0 106/74 03/20/16 08:05 2.00 Intake and Output 03/25/16 03/25/16 03/26/16 Cumulative From/Thru 15:00 23:00 07:00 03/11/16 22:44 - 03/26/16 06:33 Intake Total 902 ml 748 ml 27371 ml Output Total 18836 ml Balance 902 ml 748 ml 9672 ml Intake Oral 100 ml 0 ml 1000 ml IV Total 69042 ml Tube Feeding 351 ml 342 ml 4073 ml Tube Irrigant 451 ml 406 ml 4801 ml Output Urine Total 11210 ml Stool Total 675 ml Gastric Drainage Total 615 ml # Voids 2 2 16 # Bowel Movements 3 2 130 Additional Information: General: Small female with multiple body deformities including severe kyphosis and bilateral contractures of lower extremities. In no respiratory distress. Conversive.Alert, Oriented X3, Cooperative, No Acute Distress Head: Normocephalic, atraumatic. External ears normal. NG tube in place. Eyes: PERRLA, EOMI. Anicteric sclerae. Mouth: Mouth Normal, Mucous Membranes Moist/[place] Neck: Neck supple with full range of motion. Chest & Lungs: Clear to auscultation bilaterally with no crackles, wheezes, or rhonchi. Cardiovascular: Regular Rate/Rhythm, Normal S1, Normal S2, No Murmurs/Rubs/ Gallops Abdomen: Non-tender, Non-distended, No masses, Normoactive bowel tones, Soft Musculoskeletal: Normal Range of Motion Extremities: No cyanosis/clubbing/edema bilaterally Neurological: Grossly Neurologically Intact, Conversive with slow speech Lab and Diagnostics Result Diagram: 03/26/16 0845 03/26/16 0845 Assessment & Plan Assessment Meredith Sterling is a 45 year old female with a history of congenital dwarfism, juvenile arthritis, Felty syndrome, and CHF who was hospitalized 03/12/16 for acute encephalopathy secondary to severe sepsis, acute E. coli UTI, HCAP with MRSA, RSV, and Pseudomonas, who upon resolution of these problems developed dark stools and anemia. Possible upper GI bleed, acute - Pt had dark stool and drop in Hb over the last 2 days. She has no further bowel movements since then and Hb has stabilized. - Will schedule EGD for tomorrow to evaluate for source of bleed. - Continue to monitor for further bleeding - Continue famotidine BID Acute normocytic anemia - Hb was 10.4 3 days ago, increased to 12, then decreased to 8.4. It has remained fairly stable since then and only decreased to 8.2. On review of her labs, her Hb of 12 was likely a lab error as the entire CBC that day stands out as differing from the general trend on the CBC. Likely the patient's Hb drifted down from 10.4 to 8.4 over 2 days. Source may be upper GI bleed. - Continue to monitor H&H - Transfuse if necessary Nutrition - Pt has been on tube feeds through NG tube and tolerating poorly. She reports significant discomfort from the tube being in place and from being unable to lie flat in bed while the tube is in place. Her appetite and ability to eat are improving, and she will have the tube removed in the morning for the EGD. Will try patient off tube overnight and attempt to continue to feed her orally after the EGD. - Discontinued NG tube Problems: Pain Evaluation: Adequate Pain Control GI Prophylaxis: H2 amparo VTE Prophylaxis: Sub-Q Heparin (Unfractionated) VTE Mechanical Devices: Intermittant Pneumatic CD Resuscitation Status: CPR: Attempt Resuscitation Attending Statement Patient was seen and examined. Agree with assessment and plan as described by Dr Fuller. Moderate acute drop in h/h with black stool. I do not sense ongoing active hemorrhage, but there does appear to have been an upper GI bleeding source. The acute problems she was admitted with seem to have been resolved. I had the NGT removed this evening in advance of EGD tomorrow. Anesthesia has been requested in light of her numerous comorbidities. Patient has been on famotidine. No sign of any active hemorrhage at present. Depending on findings at EGD, may need to consider PPI for d/c. Patient is eager to be discharged back to [facility]. If there is no concerning pathology uncovered at EGD, from a GI standpoint that would be just fine. Juan Fuller Mar 26, 2016 19:42 Stalin Bone MD Mar 26, 2016 21:55
[2016-03-27] VITALS (9 sets, daily range): BP systolic 106–141; BP diastolic 66–93; PULSE 78–122; RESP 13–20; O2SAT 93–98
[2016-03-27] MEDS: guaiFENesin 20 mg/mL 10 mL Syrup PO SCH ×4 (00:21→16:19)
[2016-03-27] MEDS: Insulin Human REGular 300 Unit/3 mL Inj SUBQ SCH ×4 (00:21→20:30)
--- NOTE | 2016-03-27 02:04 | NUR ---
NG Tube D/C'd / Positioning per MD order, patient relieved and happy to have the tube out. frequent requests to reposition on right side, from partial supine to full side turns tolerated well. refuses SCD's
[2016-03-27] MEDS ORDERED: EPINEPHrine 0.1 mg/mL 10 mL Syringe ONE (05:11)
[2016-03-27] MEDS: Albuterol-Ipratropium 3 mL Inhalation Solution NEB SCH ×2 (07:46→20:02)
[2016-03-27 08:12] LABS: BASOPHILS % (AUTO) 1.4 % (0-3); EOSINOPHILS % (AUTO) 0.1 % (0-5); MONOCYTES % (AUTO) 11.4 % (4-12); Mean Corpuscular Hemoglobin 29.2 pg (27.0-35.0); Mean Corpuscular Volume 88.8 fL (81-100); NEUTROPHILS % (AUTO) 58.1 % (40-74); Platelet Count 311 bil/L (150-400)
--- NOTE | 2016-03-27 08:50 | NUR ---
NAIN signed. Verbal permission to sign by pt's mother over the phone. TIARA Baird
[2016-03-27] MEDS: Mupirocin 2% 22 Gm Ointment TOPICAL SCH ×2 (09:11→20:45)
[2016-03-27] MEDS ORDERED: Lactated Ringer's 1,000 ML IV ONE ×2 (09:59→10:28)
[2016-03-27] MEDS ORDERED: Lactated Ringer's 1,000 ML IV SCH (10:28)
[2016-03-27] MEDS ORDERED: Lactated Ringer's 500 ML IV PRN (10:28)
[2016-03-27] MEDS ORDERED: Ondansetron 2 mg/mL 2 mL Inj IVPUSH PRN (10:30)
--- NOTE | 2016-03-27 10:33 | PCM.HPANE ---
Patient Data Date of Service: Mar 27, 2016 Surgeon Admitting Provider:Aj Murry MD Attending Provider:Aj Murry MD Primary Care Physician:Erlinda Mcclellan MD Other Provider: Reason for Visit Pneumonia, Uti, Sepsis PNEUMONIA, UTI, SEPSIS Ht/WT & BMI Height (Feet): 3 Height (Inches): 5.00 Weight (Kilograms): 44.400 Body Mass Index 41.24 Allergies Coded Allergies: Sulfa (Sulfonamide Antibiotics) (Verified Allergy, Unknown, 03/12/16) Diabetes History Hx Diabetes?: No (unknown) Current Bedside Blood Glucose: 133 Medications Active Scripts Lactose-Free Food/Fiber (Jevity 1.5 Deng Liquid)1,000 Ml Liquid1,000 Ml PO 35 ml/ hr #5 BOTTLE Prov:JEANNIE CLIFFORD DO 03/23/16 Albuterol Neb Soln 2.5 Mg/3 Ml Vial.neb2.5 Mg NEB Q2H PRN For Shortness of Breath #1 NEB Prov:JEANNIE CLIFFORD DO 03/23/16 Reported Medications Triamcinolone Acet (Triamcinolone Acetonide Cream)1 Applic/0.25 Gm Cr1 Applic TOP DAILY PRN rash apply daily to rash on low back/buttocks daily as needed 03/12/16 Dextran 70/Hypromellose/Pf (Artificial Tears Drops)1 Each Droperette2 Drop BOTH_ EYES Q1H PRN dry eyes 03/12/16 Guaifenesin (Mucinex)600 Mg Tablet.er600 Mg PO BID PRN Allergies 03/12/16 Hydrocodone-Acetaminophen 7.5-325 mg 1 Each Tablet1 Tab PO TID PRN For Pain 03/12/16 Acetaminophen 325 Mg Akbclf616 Mg PO Q4H PRN For Fever PO or FL 03/12/16 Guaifenesin/Codeine Phosphate (Guaifenesin AC Cough Syrup)473 Ml Gwmtde87 Ml PO Q4H PRN For Cough 03/12/16 Loperamide 2 Mg Capsule2 Mg PO Q4H PRN For Diarrhea or Loose Stool 03/12/16 Ondansetron 4 Mg Tablet4 Mg PO Q4H PRN For Nausea 03/12/16 Prochlorperazine Maleate (Prochlorperazine)5 Mg Tablet5 Mg PO QID PRN For Nausea 03/12/16 Fluticasone Propionate (Fluticasone Propionate Nasal)16 Gm [place].susp2 Sprays NOSTRIL QAM PRN For Congestion 03/12/16 Mag Hydrox/Al Hydrox/Simeth (Antacid M Liquid)355 Ml Oral.susp30 Ml PO Q4H PRN For Indigestion 03/12/16 Sennosides (Senna)8.6 Mg Ajntrg15.2 Mg PO DAILY PRN For Constipation 03/12/16 Na Phos,M-B/Na Phos,Di-Ba (Fleet Enema)133 Ml Enema1 Dose RC PRN For Constipation if no BM 8 hours after suppository 03/12/16 Bisacodyl (Dulcolax Rectal)10 Mg Supp.rect10 Mg RC PRN For Constipation if no BM in 3 days, after trying milk of magnesia first 03/12/16 Magnesium Hydroxide (Milk of Magnesia)400 Mg/5 Ml Oral.susp30 Ml PO PRN For Constipation 03/12/16 Propranolol HCl 20 Mg Yjsgyf35 Mg PO QID hold for HR <55 03/12/16 Polyethylene Glycol 3350 17 Gm Powd.pack17 Gm PO every other day 03/12/16 Methadone 10 Mg Tab10 Mg PO QAM 03/12/16 Montelukast 10 Mg Dozqfp06 Mg PO DAILY 03/12/16 L.acidoph & Paracasei,B.lactis (Probiotic)10 Billion Cell Capsule1 Capsule PO BID 03/12/16 Omeprazole 20 Mg Capsule.dr20 Mg PO DAILY 03/12/16 Gabapentin 600 Mg Yizwxc829 Mg PO TID 6am, 12pm, 7pm 03/12/16 Cetirizine HCl (Zyrtec)10 Mg Cminyou09 Mg PO DAILY 03/12/16 Vit W-Ca,Fe,FA(<1 mg) ( Formula)1 Each Tablet1 Each PO DAILY 03/12/16 Medroxyprogesterone Acetate 150 Mg/1 Ml Vial1 Ml IM every 3 months 03/12/16 Amitriptyline 50 Mg Tab50 Mg PO BID 03/12/16 Citalopram 20 Mg Uibacs35 Mg PO DAILY 03/12/16 Trazodone 50 Mg Xqufwr38 Mg PO HS 03/12/16 Discontinued Reported Medications oxyCODONE 5 Mg Tablet5 Mg PO Q6H PRN For Pain 03/12/16 History History of ENT Problems?: Yes HEENT History: Positive for:: Sinus Problem (allergic rhinitis) Other HEENT Pertinent History: medical history obtained from medical records, pt poor historian at this time Hx of Heart Problems?: Yes Cardiovascular History: Positive for:: Congestive Heart Failure Denies:: Hypertension Other Cardiac History: medical history obtained from medical records, pt poor historian at this time Hx of Respiratory Problem?: No Respiratory History: Denies:: COPD (unknown) Tuberculosis (unknown) Other Resp Pertinent History: medical history obtained from medical records, pt poor historian at this time Hx Neurologic Problems?: Yes Neurological History: Positive for:: Headaches (migraines per H&P) Other Neurological Pertinent: per H&P- muscle weakness, Felty's syndrome, scoliosis, insomnia, polyneuropathy medical history obtained from medical records, pt poor historian at this time Hx of GI Problems?: Yes Other GI Pertinent History: medical history obtained from medical records, pt poor historian at this time per H&P, gallstones with open matthew and biliary drain Hx of Problems?: No Other Pertinent History: medical history obtained from medical records, pt poor historian at this time Female Hx: Denies:: Currently Other Skin Pertinent History: medical history obtained from medical records, pt poor historian at this time Hx Musculoskeletal Problems?: Yes Musculoskeletal History: Positive for:: Back Injury (cervical neck fusion, scoliosis) Hx of Psycho/Social Problems?: Yes Psycho Social History: Positive for:: Hx Depression Other Psych Pertinent History: medical history obtained from medical records, pt poor historian at this time Hx Any Other Health Problems?: Yes Hx Diabetes: No (unknown)Bedside Blood Glucose: 133 Other Pertinent History: medical history obtained from medical records, pt poor historian at this time Hx Alcohol Use: NoHx Substance Use: No Smoking Status: Unknown if Ever Smoker Have You Smoked inLast 12 mo: No Stop/Bang Risk Assessment Category Category 1A: Patient has history of documented sleep apnea, and HAS NOT received any narcotic, sedative or anesthesia administration during this stay. Category 1B: Patient has history of documented sleep apnea, and HAS received any narcotic , sedative or anesthesia administration during this stay Category 2: Patient has SUSPECTED Obstructive Sleep Apnea, and HAS received any narcotic , sedative or anesthesia administration during this stay. Category 3: Patient has SUSPECTED Obstructive Sleep Apnea and HAS NOT received narcotic, sedative or anesthesia administration during this stay. Category 4: Outpatient in Procedural Areas with known sleep apnea or who screen positive for High Risk via the STOP/BANG questionnaire. Exam Exam Vital Signs Vital Signs Date Time Temp Pulse Resp B/P Pulse Ox O2 Delivery O2 Flow Rate FiO2 03/27/16 07:46 78 20 97 Room Air 03/27/16 05:55 37.3 92 14 124/79 94 Room Air General Appearance: Alert, Oriented X3, Cooperative, No Acute Distress HEENT/AIRWAY: MP 4, Neck Movement (SEVERELY LIMITED) Lungs: Normal Air Movement Heart: Exam Unremarkable Meds/Labs/Diagnostics Admission Meds Current Medications Sodium Polystyrene Sulfonate (Kayexalate Susp) 15 gm ONCE ONCE PO Last administered on 03/26/16t 15:09; Start 03/26/16 at 14:20; Stop 03/26/16 at 14:28 ; Status DC Bedside Blood Glucose: 133 Labs Test 03/11/16 23:36 03/11/16 23:54 03/12/16 00:32 03/12/16 13:26 Troponin T < 0.010ug/L (0.0-0.011) Lipase 8U/L (13-60) Prothrombin Time 10.6sec (8.1-12.5) Prothromb Time International Ratio 0.99ratio Urine Color Yellow (YELLOW) Urine Appearance Cloudy (CLEAR,HAZY) Urine pH 6.0 (5.0-8.0) Urine Specific [place] 1.026 (1.003-1.035) Urine Protein 100mg/dL (NEG,TRACE) Urine Glucose (UA) Negativemg/dL (NEGATIVE) Urine Ketones 40mg/dL (NEGATIVE) Urine Occult Blood Negative (NEGATIVE) Urine Nitrite Positive (NEGATIVE) Urine Bilirubin Negative (NEGATIVE) Urine Urobilinogen Normalmg/dL (NORMAL) Urine Leukocyte Esterase Negative (NEGATIVE) Urine RBC 0-2/hpf (0-2) Urine WBC >50/hpf (0-5) Urine Epithelial Cells Moderate/hpf (NONE-MOD) Urine Crystals None seen (NONE SEEN) Urine Bacteria Many/hpf (NONE-FEW) Urine Hyaline Casts Rare/lpf (NONE) Urine Granular Casts None seen (NONE SEEN) Urine Waxy Casts None seen (NONE SEEN) Urine Red Blood Cell Casts None seen (NONE SEEN) Urine White Blood Cell Casts None seen (NONE SEEN) Urine Mucus Present (None Seen) Urine Trichomonas None seen (NONE SEEN) Urine Yeast None (NONE SEEN) Urinalysis Comment None Urine Culture Reflexed Indicated Urine Legionella pneumophilia Ag Negative (Negative) Hold Urine Received (Received) Test 03/13/16 03:35 03/13/16 13:40 03/14/16 03:45 03/15/16 04:15 Band Neutrophils % 16% (1-5) Lactic Acid Level 1.3mmol/L (0.4-2.0) Hemoglobin A1c 5.0% (4.8-5.6) Prealbumin 6mg/dL (20-40) Test 03/16/16 14:40 03/19/16 04:45 03/23/16 03:35 03/25/16 06:00 Hold [place] Top Tube Received (Received) Phosphorus Level 3.2mg/dL (2.5-4.9) Procalcitonin 0.10ng/mL (See Comment) Magnesium Level 2.1mg/dL (1.6-2.6) Total Bilirubin 0.5mg/dL (0.0-1.2) Aspartate Amino Transf (AST/SGOT) 20U/L (0-50) Alanine Aminotransferase (ALT/SGPT) 16U/L (0-32) Alkaline Phosphatase 55U/L (25-150) Total Protein 5.2g/dL (6.4-8.4) Albumin 2.9g/dL (3.4-5.0) Test 03/27/16 07:23 White Blood Count 9.5th/mm3 (3.8-10.1) Red Blood Count 2.67mil/mm3 (3.90-5.20) Hemoglobin 7.8g/dL (12.0-15.6) Hematocrit 23.7% (35.0-46.0) Mean Corpuscular Volume 88.8fL (81-100) Mean Corpuscular Hemoglobin 29.2pg (27.0-35.0) Mean Corpuscular Hemoglobin Concent 32.9% (32.0-37.0) Red Cell Distribution Width 15.9% (12.3-15.4) Platelet Count 311bil/L (150-400) Neutrophils (%) (Auto) 58.1% (40-74) Lymphocytes (%) (Auto) 23.3% (14-46) Monocytes (%) (Auto) 11.4% (4-12) Eosinophils (%) (Auto) 0.1% (0-5) Basophils (%) (Auto) 1.4% (0-3) Sodium Level 138mEq/L (134-144) Potassium Level 4.6mEq/L (3.5-5.2) Chloride Level 97mEq/L (97-108) Carbon Dioxide Level 29mmol/L (18-29) Blood Urea Nitrogen 20mg/dL (6-24) Creatinine 0.50mg/dL (0.57-1.00) Estimat Glomerular Filtration Rate 190mL/min (>59) Glucose Level 108mg/dL (60-99) Calcium Level 9.4mg/dL (8.5-10.1) Plan Impression Patient chart reviewed, patient interviewed and anesthestic plan with risks, benefits, and alternatives discussed, and informed consent obtained. 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
--- NOTE | 2016-03-27 11:13 | PCM.ANEP1 ---
Post Anesthesia Phase 1 PACU Phase 1 Assessment Date of Service: Mar 27, 2016 Vital Signs Vital Signs Date Time Temp Pulse Resp B/P Pulse Ox O2 Delivery O2 Flow Rate FiO2 03/27/16 07:46 78 20 97 Room Air 03/27/16 05:55 37.3 92 14 124/79 94 Room Air Anesthetic Administered: MAC Level of Alertness: Sleepy, easy to arouse Pain: No Pain Scale Score: 10 Nausea or Vomiting: No Oxygen Delivery: Nasal Cannula Lungs: Normal Air Movement Sy Young MD Mar 27, 2016 11:13
--- NOTE | 2016-03-27 11:13 | PCM.ANEP2 ---
Post Anesthesia Evaluation ASA/CMS Post Anesthesia Date of Service: Mar 27, 2016 VS in Patient's Normal Range?: Yes Resp Stable; Airway Patent?: Yes CV Function & Hydration Stable: Yes Mental Status Recovered?: Yes Pain control Satisfactory?: Yes N/V Control Satisfactory?: Yes Sy Young MD Mar 27, 2016 11:13
--- NOTE | 2016-03-27 11:49 | ENDO ---
[address] [address] ENDOSCOPY PROCEDURE PATIENT: TRAM LAZO : 1970 MR#: [id number] ADMIT: 03/12/2016 JOB ID: [id number] DATE OF SERVICE: 03/27/2016 PROCEDURE: Esophagogastroscopy with epinephrine injection and Gold Probe application for hemostasis. INDICATIONS: This is a 45-year-old female with numerous comorbidities who has essentially recovered from her respiratory sepsis. She, however, dropped her blood count and has demonstrated melena of late. An EGD is therefore pursued. EQUIPMENT: GIF-H180J and a GIF-160. SEDATION: Monitored anesthesia, as provided by Dr. Ric Young. COMPLICATIONS: None identified. PROCEDURE INFORMATION: After the risks and benefits were explained, written and verbal informed consent was obtained. The patient was brought into the endoscopy suite and placed into the left lateral decubitus position. An IV was placed by the IV team and eventually, sedation was applied. The GIF-H180J was introduced into the mouth through the bite block, and advanced through the esophagus down into the stomach. The patient had a J-shaped stomach and a fairly snug pyloric sphincter. There, however, was no ulcer or mass lesion at this location. I simply could not advance the scope through the pylorus into the duodenum proper. I did not see any sign of any active bleeding. There was a green bilious-stained gastric fluid that was easily suctioned up by way of the endoscope. We identified the likely culprit bleeder as described below and applied injection and cautery. The scope was thereafter removed. We did experience retroflexed views from within the stomach prior to doing this. I then attempted to advance the GIF-160. However, the bite block became dislodged and with the patient sedated, she did not seem to tolerate attempts at repositioning the bite block very well. She is edentulous and we thus attempted to navigate the scope into the posterior oropharynx without the bite block. The patient did not seem to be tolerating this attempt and I therefore aborted any further interrogation in that we had already pursued the likely definitive intervention. The scope was removed from the patient. Ultimately, she tolerated all of this acceptably well. FINDINGS: 1. Duodenum: Not seen. 2. Stomach: A J-shaped stomach. In the antrum and prepyloric region there was suggestion of some deformed mucosa that appeared to be demonstrating significant re-epithelialization consistent with prior ulceration and healing. The pylorus was quite tight but I did not appreciate any neoplasia or ulceration. I could not advance the scope through this location. In retroflexed views, the fundus and LES region appeared unremarkable. On the angularis, however, there was a small ulcer with a nonbleeding visible vessel. We used a 7-[place] Gold Probe and applied a couple of injections on either side of the ulcer; 0.5 total mm were injected of dilute 1:10,000 epinephrine. There was excellent blanching effect in this region. We then used the 7-[place] Gold Probe to cauterize the nonbleeding visible vessel. There were no hemorrhagic complications from this. No other pathology was appreciated in the stomach. There was some probable mild NG tube suction trauma in the more proximal body. 3. Esophagus: The squamocolumnar junction correlated with the top of the gastric folds. The GE junction was judged to be at about 39 cm from the incisors. No acute erosive changes. No strictures. No mass lesions. No varices apparent. ENDOSCOPIC DIAGNOSES: 1. Gastric small ulcer with nonbleeding visible vessel, treated with epinephrine injection and Gold Probe application. 2. Small hiatal hernia. 3. Mild patent pyloric stenosis, with a J-shaped stomach. RECOMMENDATIONS: 1. The patient's diet can be advanced per the Dietary/Nutrition services. 2. I have switched the patient over to PPI and would recommend b.i.d. PPI therapy for the next week to 10 days, and then perhaps 20 mg of pantoprazole daily with moving forward. 3. Blood transfusion I would leave to the discretion of her Primary service.
[2016-03-27] MEDS: Methadone 10 mg/mL Oral Concentrate PO SCH ×2 (12:00→20:45)
[2016-03-27] MEDS ORDERED: fentaNYL-PF 50 mCg/mL 2 mL Inj ONE (13:35)
--- NOTE | 2016-03-27 13:55 | PCM.PNMED ---
Subjective Date of Service Mar 27, 2016 Subjective Patient seen this morning, feeling better with Dobbhoff tube out. Had EGD today with evidence of small ulcer, started PPI per GI. He will hemoglobin down slightly will repeat CBC later today denies chest pain or shortness breath. We will do trial of no Dobbhoff for today and may need to be placed tomorrow per patient wishes and to see how by mouth intake fairs with encouragement Exam Vital Signs Vital Sign - Last Date Time Temp Pulse Resp B/P Pulse Ox O2 Delivery O2 Flow Rate FiO2 03/27/16 11:20 122 14 141/93 93 Nasal Cannula 2 03/27/16 05:55 37.3 Intake and Output 03/26/16 03/26/16 03/27/16 Cumulative From/Thru 15:00 23:00 07:00 03/11/16 22:44 - 03/27/16 06:01 Intake Total 0 ml 0 ml 10707 ml Output Total 450 ml 24775 ml Balance -450 ml 0 ml 0 ml 9222 ml Intake Oral 0 ml 0 ml 1000 ml IV Total 60516 ml Tube Feeding 4073 ml Tube Irrigant 4801 ml Output Urine Total 31417 ml Stool Total 675 ml Gastric Drainage Total 450 ml 1065 ml # Voids 4 3 23 # Bowel Movements 0 130 Exam General: Patient is laying on her right side almost flat in bed with her head elevated approximately 10-20. She is in no apparent distress. Patient exhibits poor physical and deformities associated with rheumatoid arthritis HEENT: Head is atraumatic normocephalic. Eyes: Pupils are equally round and reactive to light and accommodation. Extraocular muscles are intact. Sclera are white anicteric. Subconjunctival mucosa is pink. Ears are unremarkable. Nose: she has a nasogastric tube in place site is unremarkable. Oropharynx: There is no mucosal lesions, there is no thrush, there is no pharyngitis. Neck: Is supple, there are no nodes, or masses or tenderness appreciated. Chest: Exhibits coarse breath sounds are otherwise clear to auscultation and percussion. There are no rales, rhonchi, wheezes or rubs. Heart: Rate is slightly tachycardic, rhythm is regular. There is no murmur, rub or gallop. Abdomen: Good bowel sounds are present. Abdomen is soft, nontender, no organomegaly or masses were appreciated. Extremities: Are symmetrical and well perfused. There is no edema, there is no cellulitis, no rash. Neurologic: There are no focal neurological deficits. Cranial nerves II through XII are intact. There are no sensory or motor deficits. Psychiatric: Patients mood is calm and shows no sign of agitation. IVs and Medications Medications Reviewed: Medications were reviewed in detail Lab and Diagnostics Repeat CBC at 1700 to moderate hemoglobin, we will plan to transfuse if less than 7 Result Diagram: 03/27/1672203/27/16722 Microbiology Urine for Legionella antigen is negative. Urine for Streptococcal pneumoniae antigen is negative. MRSA nasal screen is positive. Respiratory viral PCR panel positive for RSV. Sputum growing MRSA resistant to cefazolin, clindamycin , erythromycin, as well as oxacillin. Sensitive to linezolid and vancomycin. Sputum also growing pseudomonas aeruginosa (pansensitive). C. diff was negative. X-Rays, CTs and MRIs PROCEDURE: X-RAY ABDOMEN, ONE VIEW ([id number]) INDICATIONS: NG TUBE PLACEMENT TECHNIQUE: One view of the abdomen acquired. COMPARISON: [facility], CR, XR CHEST 1VW (PORTABLE), 03/22/2016, 3: 59. [facility], CR, XR ABD AP 1VW, 03/14/2016, 19:57. FINDINGS: Surgical changes and devices: There is a nasogastric tube redemonstrated with the tip extending into the stomach in the region of the antrum. Bowel: Bowel gas pattern is within normal limits. Soft tissues: There are small bilateral pleural effusions, left greater than right, with bibasilar patchy infrahilar opacities. Bones: There is in marked dextroscoliosis of the thoracolumbar spine redemonstrated as well as the dysmorphic appearance of the pelvis and hips. IMPRESSION: 1. Nasogastric tube extends into the stomach directed towards the antrum. 2. Small bilateral pleural effusions with medial bibasilar opacities in the lungs consistent with atelectasis, consolidation, or aspiration. 3. Scoliosis of the thoracolumbar spine and dysmorphic appearance of the bony pelvis and hips redemonstrated. Dictated by: Dejon Santillan M.D. on 03/22/2016 at 22:02 Approved by: Dejon Santillan M.D. on 03/22/2016 at 22:02 PROCEDURE: X-RAY CHEST ONE VIEW, PORTABLE ([id number]) INDICATIONS: pneumonia TECHNIQUE: One view of the chest was acquired. COMPARISON: [facility], CR, XR CHEST 1VW (PORTABLE), 03/19/2016, 1: 56. FINDINGS: Surgical changes and devices: Nasogastric tube present and the tip is not well- seen on the current exam. Lungs and pleura: Trace right pleural effusion present otherwise lungs are clear. No pneumothorax. Mediastinum: Mediastinal contours appear normal. Heart size is normal. Bones and chest wall: No suspicious bony lesions. Overlying soft tissues appear unremarkable. S-shaped scoliosis redemonstrated. IMPRESSION: Trace right pleural effusion otherwise interval resolution of basilar infiltrates. Dictated by: Nehemiah De León RR Interpreted: Floresita Noble MD on 03/22/2016 at 9:39 Transcribed by: CHATA on 03/22/2016 at 9:39 Approved by: Floresita Noble M.D. on 03/22/2016 at 13:37 PROCEDURE: MRI BRAIN WITHOUT CONTRAST ([id number]) INDICATIONS: Altered mental status TECHNIQUE: Noncontrast axial T1 spin echo, axial T2 fast spin echo, sagittal and axial FLAIR, coronal T2 fast spin echo, axial gradient echo, axial diffusion and ADC through the brain. COMPARISON: None. FINDINGS: Image quality: Diagnostic. Brain: There is no acute intra-axial or extra-axial hemorrhage. Fluid signal along the medial aspect of the anterior left frontal lobe adjacent to the focus is identified, which is asymmetric when compared to the contralateral side. No definite cyst or loculated fluid collection is appreciated within this region. The possibility of a subtle nonvisualized arachnoid cyst is difficult to exclude. There is no shift of the midline falx related to this fluid. There may be mild mass effect of the fluid on the anterior left frontal lobe, however. No abnormal signal is appreciated on the flair images within this region or the T1 images to suggest a chronic hemorrhage. A similar appearance is noted involving the mid aspect of the right frontal lobe adjacent to the falx , which is slightly more centered within the region of the convexity (image 18, series 6 and image 11, series 10). The orbits are grossly unremarkable. There are a few subtle areas of increased flair signal noted within the deep white matter of the supratentorial brain adjacent to the frontal horns of the lateral ventricles. Along the dura of the right frontal region there is a structure adjacent to the dura that appears to have a dural tail that is isointense to the brain parenchyma and measures 1.2 x 0.7 x 1.0 cm. No definite additional lesions are evident within the brain. There is no parenchymal edema. No restricted diffusion is present. The midline intracranial structures are within normal limits. The major expected intracranial flow voids are visualized and unremarkable. The ventricles and cortical sulci are age-appropriate. Bones: The imaged osseous structures are grossly intact. No suspicious osseous lesions are identified. There are large bilateral mastoid effusions. Mucosal thickening is noted involving the inferior bilateral maxillary sinuses. There is also mucosal thickening of the sphenoid sinuses and ethmoid air cells. Extracranial soft tissues: The imaged overlying soft tissues of the face and head are grossly unremarkable. IMPRESSION: 1. No acute intracranial hemorrhage or ischemia. 2. Moderate sized extra-axial lesion adjacent to the dura overlying the right frontal region probably is a meningioma. Contrast enhanced MRI is recommended. 3. Asymmetric prominence of the extra-axial fluid along the right and left frontal regions near the falx (left greater than right) is unusual and most likely represents arachnoid cysts. Chronic subdural hygromas are felt to be less likely; however, cannot be excluded. 4. Prominent bilateral mastoid effusions. 5. Moderate paranasal sinus disease. Dictated by: Jakob Post M.D. on 03/20/2016 at 14:12 Approved by: Jakob Post M.D. on 03/20/2016 at 14:12 EGD 03/27 ENDOSCOPIC DIAGNOSES: 1. Gastric small ulcer with nonbleeding visible vessel, treated with epinephrine injection and Gold Probe application. 2. Small hiatal hernia. 3. Mild patent pyloric stenosis, with a J-shaped stomach. RECOMMENDATIONS: 1. The patient's diet can be advanced per the Dietary/Nutrition services. 2. I have switched the patient over to PPI and would recommend b.i.d. PPI therapy for the next week to 10 days, and then perhaps 20 mg of pantoprazole daily with moving forward. 3. Blood transfusion I would leave to the discretion of her Primary service. Cardiac Echo Impressions Echocardiogram Report Name: MEREDITH LAZO JStudy Date: 0 03/13/2016 Height: 41 in Hospital Exam Location: [facility] Weight: 102 lb Gender: Female BSA: 1.1 m2 : 1970 Age: 45 yrs BP: 115/63 mmHg Reason For Study: REPORTED HISTORY OF CHF Ordering Physician: HOSPITALIST SVHPerformed By: Adam Garrett Referring Physician: Natalia PIERRE Interpretation Summary Patient has dwarfism. The LV is difficult to reliably measure due to angle. The left ventricular cavity is small. There is normal left ventricular wall thickness. The left ventricular ejection fraction is grossly normal or hyperdynamic. Regional wall motion abnormalities cannot be excluded due to limited visualization. The right ventricular cavity is small. The right ventricular systolic function is normal. The right ventricular systolic pressure is estimated at 34 mmHg assuming a right atrial pressure of 3 mm Hg. The left atrium is not well visualized. The aortic root is normal size Assessment & Plan Meerdith Lazo is a 45 year old female with a history of congenital dwarfism, juvenile arthritis, Felty syndrome, and CHF who presented to the ED from [facility] with altered mental status and shortness of breath. Admitted for severe sepsis secondary to RSV and pseudomonas pneumonia and UTI. admission date : 03/12/16 1. Acute encephalopathy, present on admission. Resolved. -Pt was unresponsive on admission and not at baseline mentation, per family. Baseline mentation per family is conversational and controlling wheelchair. -Likely secondary to infectious process.e. -MRI not revealing any intracranial pathology 2. Acute hyperglycemia, present on admission. Resolved. -Pt w/o known diagnosis of diabetes -HbA1c 5.0 -Blood glucose monitoring q6h -Low-dose regular insulin protocol in place. 3. Severe sepsis, present on admission. Resolved. -Met criteria on admission with temp 37.7, HR 117, RR 22, encephalopathy, urinary & pulmonary source of infection -This most a short course of IV antibiotics ending with Linezolid and Meropenem -Antibiotics have been discontinued a few days ago by Dr. Hernandez. Dr. Hernandez does not believe the patient needs any further antibiotics at this time. 4. Healthcare associated pneumonia, present on admission. Treatment completed. See above -Positive for RSV. Sputum positive for MRSA. -Pt full-time resident of [facility], antibiotics to cover HCAP. -Guaifenesin 200 mg every 8 hours to help thin secretions. -Right lower lobe opacities as well as bilateral perihilar opacities on chest xray. -CT chest with contrast shows moderate to severe bilateral pneumonia with small right parapneumonic effusion. Superimposed nodular and groundglass densities. 5. Acute UTI, present on admission. Treatment completed. -Pt does not have chronic indwelling catheter at baseline. Renal ultrasound unremarkable. -Urine culture positive for E. coli, resistant to levofloxacin, ciprofloxacin and tetracycline. -Completed antibiotic treatment. 6.Chronic hypertension, present on admission. Stable -Restarted propranolol 10 mg 3 times a day. Home regimen is 20 mg 4 times a day. 7. Chronic depression, present on admission. Stable -Restarted Citalopram 20 mg daily. 8. Juvenile arthritis, chronic. present on admission. Stable -Home regimen includes gabapentin which is held at this time. 9. Chronic pain, present on admission. Stable. -Methadone 5 mg every 12 hours 10. Reported history of CHF, present on admission. Stable -Echo (03/14/16) while an suboptimal study showed no evidence of CHF. 11. Nutrition - Discontinued Tube feeds and assess by mouth intake, will consider replacing tomorrow if needed - Speech evaluation cleared patient for stimulation diet on 03/22: =Continue nutrition and hydration through the NG tube with trials of po when alert and awake of pureed and work with DYE WEIGHER in rehabilitation facility to focus on improved diet toleration. 12.Hyperkalemia - Likely 2/2 to supplement, will give kayexylate again today - recheck with AM labs 13. Upper GI bleed, acute blood loss anemia -Appreciate GI recommendations, will continue with PPI twice a day -Iron supplement daily -Repeat CBC at 5 PM today, plan for transfusion if less than 7 Acetaminophen-fever/headache/mild/moderate pain Antiemetics, as needed Bowel regimen, as needed. Disposition: Patient's mentation significantly improved. Nutrition advanced to stimulation diet and may consider continuing tube feeds tomorrow - will determine duration of expected TF, give pt tolerating PO - monitor PO intake with eventual dc TF at SNF if requiring tube feeds continuation. GI Prophylaxis: H2 amparo VTE Prophylaxis: Sub-Q Heparin (Unfractionated) VTE Mechanical Devices: Intermittant Pneumatic CD Resuscitation Status: CPR: Attempt Resuscitation Time spent 35 minutes spent evaluation and management Chay Thurman DO Mar 27, 2016 13:55
--- NOTE | 2016-03-27 15:56 | NUR ---
NUTRITION FOLLOW UP: ASSESS: 45 YO F admitted to CCU with severe sepsis, acute hypoxic respiratory failure, gram-positive cocci bacteremia, RSV pneumonia, e.coli UTI in patient with congenital dwarfism. NG / enteral feeding discontinued today as diet advanced to stimulation. Pt. feeling better with Dobbhoff tube out. She had EGD today with evidence of small ulcer, started PPI per GI. Plan for today is to carefully note PO intake with nursing encouragement. In the event plan fails, Dobbhoff will likely be replaced tomorrow, per patient wishes. PMHx: Congenital dwarfism, kyphoscoliosis, juvenile RA, migraines, bilateral leg contractures, CHF, HTN, depression. DIET: Stimulation. PO intake not yet recorded. TUBE FEEDING DISCONTINUED: Jevity 1.5 @ 15ml/hr + 45 ml H2O flush q 1 hr to provide 517kcal, 22g pro, and 1342 ml/d H2O LABS: Reviewed. Cr 0.50, Glu 108, Alb 2.9. MEDICATIONS: Reviewed. Insulin, methadone. GI: BM x 2 (03/26). SKIN: Excoriated but intact area, not related to pressure, approx 8cm x 8cm to left inner thigh, per Technical Marketing Engineer. ANTHROPOMETRICS: Current Wt: 44.4 kg, BMI: 40.9 kg/m2. IBW: 36.8kg, Adj BW 39.7kg. Admit Wt: 44.6 kg ESTIMATED NEEDS: BMI Calories: 995-1190 calories (25-30 kcal/kg Adj. BW) Protein: 45-60 g protein (1.2-1.5 g/kg Adj. BW) Fluid: Approx 1450 ml (30 ml/kg BW) NUTRITION DIAGNOSIS: 1) Chewing/swallowing difficulties related to congenital malformations, as evidenced by NPO status, pending swallow evaluation - POSSIBLY IMPROVED WITH DIET ADVANCE TO STIMULATION. 2) Inadequate oral intake related to decreased ability to consume sufficient energy as evidenced by current NPO status per ST due to AMS - PERSISTS. INTERVENTION: 1) Diet per ST recommendations. 2)In the event diet unable to be advanced beyond stimulation tomorrow, recommend restart enteral feeding, as a minimum to meet 50% nutrient needs. MONITOR/EVALUATE: Diet advance / tolerance, PO intake, nutrition support, labs, wt, GI/nutrition status. Follow per high nutrition risk guidelines.
[2016-03-27] MEDS: Pantoprazole 40 mg ER24 Tablet PO SCH (17:34)
[2016-03-27 18:55] LABS: Mean Corpuscular Volume 90.6 fL (81-100)
[2016-03-28] MEDS: guaiFENesin 20 mg/mL 10 mL Syrup PO SCH ×3 (00:38→08:05)
[2016-03-28] MEDS: Insulin Human REGular 300 Unit/3 mL Inj SUBQ SCH ×2 (02:30→08:00)
[2016-03-28 04:50] VITALS: BP 138/98; PULSE 91; RESP 14; O2SAT 97
[2016-03-28 05:51] LABS: BASOPHILS % (AUTO) 0.2 % (0-3); EOSINOPHILS % (AUTO) 0 % (0-5); MONOCYTES % (AUTO) 12.4 % (4-12); Mean Corpuscular Hemoglobin 29.3 pg (27.0-35.0); Mean Corpuscular Volume 88.6 fL (81-100); NEUTROPHILS % (AUTO) 60.9 % (40-74); Platelet Count 436 bil/L (150-400)
--- NOTE | 2016-03-28 06:33 | NUR ---
Over Night(Black stool) Pt c/o pain 5-7/10 at bilateral legs and headache 4/10, Methadone given at HS, Tylenol given at MN. Pain resolved. Pt wide awake and watching TV before MN, sleeping in wheel chair overnight, does not want to go back to bed. Driving wheelchair in hallway a couple to times. Pt appears more energy than a few days ago. Loose black stool at late evening, moderate amount. Denies N/V/abdominal pain/SOB/Fever/chills. VSS. Highly distended abdomen, soft,nontender, BT hypoactive.
[2016-03-28] MEDS: Methadone 10 mg/mL Oral Concentrate PO SCH (07:54)
[2016-03-28] MEDS: Pantoprazole 40 mg ER24 Tablet PO SCH (08:00)
[2016-03-28] MEDS: Mupirocin 2% 22 Gm Ointment TOPICAL SCH (08:00)
[2016-03-28 08:26] VITALS: PULSE 113; RESP 20; O2SAT 94
[2016-03-28] MEDS: Albuterol-Ipratropium 3 mL Inhalation Solution NEB SCH (08:26)
--- NOTE | 2016-03-28 12:44 | PCM.DIMED ---
Discharge Instructions Date of Service Mar 28, 2016 Dates of Hospitalization Mar 12, 2016 at 02:52 Discharge Diagnosis Discharge Diagnosis 1. Acute encephalopathy, present on admission. Resolved. # Acute upper GI bleed, acute blood loss anemia secondary to peptic ulcer disease 2. Acute hyperglycemia, present on admission. Active. 3. Severe sepsis, present on admission. Resolved. 4. Healthcare associated pneumonia, present on admission. Treatment completed. 5. Acute UTI, present on admission. Treatment completed. 6.Chronic hypertension, present on admission. Stable 7. Chronic depression, present on admission. Stable 8. Juvenile arthritis, chronic. present on admission. Stable 9. Chronic pain, present on admission. Active 10. Reported history of CHF, present on admission. Stable Medication Instructions Please take your acid reducing medication protonix twice daily to allow your ulcer ot heal. You were previously utilizing tube feeds for nutrition, specificall Jevity was utilized. Your tubefeeds were discontinued when you had the stomach scope with our GI service. Per speech therapy: Patient seen for dysphagia treatment today. NG tube out and patient noted to have increased awareness. Patient tolerating stimulation diet and reports being hungry. Seen with thin, nectar, honey and pureed. Patient noted to have wet phonation with thin by cup sip and straw sip, nectar with straw sip. Patient tolerated nectar by cup sip. Rec: Upgrade to nectar/pureed with 1:1 feed and no straws. Test Results Urine for Legionella antigen is negative. Urine for Streptococcal pneumoniae antigen is negative. MRSA nasal screen is positive. Respiratory viral PCR panel positive for RSV. Sputum growing MRSA resistant to cefazolin, clindamycin , erythromycin, as well as oxacillin. Sensitive to linezolid and vancomycin. Sputum also growing pseudomonas aeruginosa (pansensitive). C. diff was negative. X-Rays, CTs and MRIs PROCEDURE: X-RAY ABDOMEN, ONE VIEW ([id number]) INDICATIONS: NG TUBE PLACEMENT TECHNIQUE: One view of the abdomen acquired. COMPARISON: [facility], CR, XR CHEST 1VW (PORTABLE), 03/22/2016, 3: 59. [facility], CR, XR ABD AP 1VW, 03/14/2016, 19:57. FINDINGS: Surgical changes and devices: There is a nasogastric tube redemonstrated with the tip extending into the stomach in the region of the antrum. Bowel: Bowel gas pattern is within normal limits. Soft tissues: There are small bilateral pleural effusions, left greater than right, with bibasilar patchy infrahilar opacities. Bones: There is in marked dextroscoliosis of the thoracolumbar spine redemonstrated as well as the dysmorphic appearance of the pelvis and hips. IMPRESSION: 1. Nasogastric tube extends into the stomach directed towards the antrum. 2. Small bilateral pleural effusions with medial bibasilar opacities in the lungs consistent with atelectasis, consolidation, or aspiration. 3. Scoliosis of the thoracolumbar spine and dysmorphic appearance of the bony pelvis and hips redemonstrated. Dictated by: Dejon Santillan M.D. on 03/22/2016 at 22:02 Approved by: Dejon Santillan M.D. on 03/22/2016 at 22:02 PROCEDURE: X-RAY CHEST ONE VIEW, PORTABLE ([id number]) INDICATIONS: pneumonia TECHNIQUE: One view of the chest was acquired. COMPARISON: [facility], CR, XR CHEST 1VW (PORTABLE), 03/19/2016, 1: 56. FINDINGS: Surgical changes and devices: Nasogastric tube present and the tip is not well- seen on the current exam. Lungs and pleura: Trace right pleural effusion present otherwise lungs are clear. No pneumothorax. Mediastinum: Mediastinal contours appear normal. Heart size is normal. Bones and chest wall: No suspicious bony lesions. Overlying soft tissues appear unremarkable. S-shaped scoliosis redemonstrated. IMPRESSION: Trace right pleural effusion otherwise interval resolution of basilar infiltrates. Dictated by: Nehemiah De León [facility] Interpreted: Floresita Noble MD on 03/22/2016 at 9:39 Transcribed by: CHATA on 03/22/2016 at 9:39 Approved by: Floresita Noble M.D. on 03/22/2016 at 13:37 PROCEDURE: MRI BRAIN WITHOUT CONTRAST ([id number]) INDICATIONS: Altered mental status TECHNIQUE: Noncontrast axial T1 spin echo, axial T2 fast spin echo, sagittal and axial FLAIR, coronal T2 fast spin echo, axial gradient echo, axial diffusion and ADC through the brain. COMPARISON: None. FINDINGS: Image quality: Diagnostic. Brain: There is no acute intra-axial or extra-axial hemorrhage. Fluid signal along the medial aspect of the anterior left frontal lobe adjacent to the focus is identified, which is asymmetric when compared to the contralateral side. No definite cyst or loculated fluid collection is appreciated within this region. The possibility of a subtle nonvisualized arachnoid cyst is difficult to exclude. There is no shift of the midline falx related to this fluid. There may be mild mass effect of the fluid on the anterior left frontal lobe, however. No abnormal signal is appreciated on the flair images within this region or the T1 images to suggest a chronic hemorrhage. A similar appearance is noted involving the mid aspect of the right frontal lobe adjacent to the falx , which is slightly more centered within the region of the convexity (image 18, series 6 and image 11, series 10). The orbits are grossly unremarkable. There are a few subtle areas of increased flair signal noted within the deep white matter of the supratentorial brain adjacent to the frontal horns of the lateral ventricles. Along the dura of the right frontal region there is a structure adjacent to the dura that appears to have a dural tail that is isointense to the brain parenchyma and measures 1.2 x 0.7 x 1.0 cm. No definite additional lesions are evident within the brain. There is no parenchymal edema. No restricted diffusion is present. The midline intracranial structures are within normal limits. The major expected intracranial flow voids are visualized and unremarkable. The ventricles and cortical sulci are age-appropriate. Bones: The imaged osseous structures are grossly intact. No suspicious osseous lesions are identified. There are large bilateral mastoid effusions. Mucosal thickening is noted involving the inferior bilateral maxillary sinuses. There is also mucosal thickening of the sphenoid sinuses and ethmoid air cells. Extracranial soft tissues: The imaged overlying soft tissues of the face and head are grossly unremarkable. IMPRESSION: 1. No acute intracranial hemorrhage or ischemia. 2. Moderate sized extra-axial lesion adjacent to the dura overlying the right frontal region probably is a meningioma. Contrast enhanced MRI is recommended. 3. Asymmetric prominence of the extra-axial fluid along the right and left frontal regions near the falx (left greater than right) is unusual and most likely represents arachnoid cysts. Chronic subdural hygromas are felt to be less likely; however, cannot be excluded. 4. Prominent bilateral mastoid effusions. 5. Moderate paranasal sinus disease. Dictated by: Jakob Post M.D. on 03/20/2016 at 14:12 Approved by: Jakob Post M.D. on 03/20/2016 at 14:12 EGD 03/27 ENDOSCOPIC DIAGNOSES: 1. Gastric small ulcer with nonbleeding visible vessel, treated with epinephrine injection and Gold Probe application. 2. Small hiatal hernia. 3. Mild patent pyloric stenosis, with a J-shaped stomach. RECOMMENDATIONS: 1. The patient's diet can be advanced per the Dietary/Nutrition services. 2. I have switched the patient over to PPI and would recommend b.i.d. PPI therapy for the next week to 10 days, and then perhaps 20 mg of pantoprazole daily with moving forward. 3. Blood transfusion I would leave to the discretion of her Primary service. Cardiac Echo Impressions Echocardiogram Report Name: TRAM LAZO JStudy Date: 03/13/2016 Height: 41 in Hospital Exam Location: [facility] Weight: 102 lb Gender: Female BSA: 1.1 m2 : 1970 Age: 45 yrs BP: 115/63 mmHg Reason For Study: REPORTED HISTORY OF CHF Ordering Physician: HOSPITALIST CURTerformed By: Adam Garrett Referring Physician: Natalia PIERRE Interpretation Summary Patient has dwarfism. The LV is difficult to reliably measure due to angle. The left ventricular cavity is small. There is normal left ventricular wall thickness. The left ventricular ejection fraction is grossly normal or hyperdynamic. Regional wall motion abnormalities cannot be excluded due to limited visualization. The right ventricular cavity is small. The right ventricular systolic function is normal. The right ventricular systolic pressure is estimated at 34 mmHg assuming a right atrial pressure of 3 mm Hg. The left atrium is not well visualized. The aortic root is normal size Diet Other Activity Other (Patient wheelchair bound at baseline) Call your provider Fever or Chills, Shortness of breath, Chest pain, Excessive diarrhea, Weakness ( unilateral) Patient Instructions - During your hospitalization you were treated for multiple infections which have now resolved at this time. - Please continue with your home medication regimen. - Speech pathology at [facility] will continue to assess your tube feeds and ability to eat on your own. They will determine whether you are need of an nasogastric tube placement again due to inadequate nutrition but currently our speech therapy has advanced her diet as noted above with nectar thick recommendations as noted. - Please follow up with Dr. Mcclellan within 1 week. - Repeat labs on 03/26/16, are recommended including a CBC and CMP. - Thank you for allowing us to participate in your care. You also treated for a stomach ulcer which was likely the cause of your bleeding episode. Please take supplemental iron daily with food to restore your iron supply in your body. I would also like you to take Protonix, a medication to reduce the acid in her stomach twice a day for 10 days. Then you can take this once a day thereafter per recommendation from our GI team Follow-up Provider: Erlinda Mcclellan MD Follow-up with PCP in: 1 week Chay Thurman DO Mar 28, 2016 12:30
[2016-03-28] MEDS ORDERED: ONDA4VIA27 IVPUSH (12:51)
[2016-03-28] MEDS ORDERED: FERR-74 PO (12:51)
[2016-03-28] MEDS ORDERED: POLY17PO6 PO (12:51)
[2016-03-28] MEDS ORDERED: METH10OR PO (12:51)
[2016-03-28] MEDS ORDERED: PANT40TA3 PO (12:51)
[2016-03-28] MEDS ORDERED: PROP20TA5 PO (12:51)
--- NOTE | 2016-03-28 13:07 | PCM.DC.MED ---
Discharge Summary Date of Service Mar 28, 2016 Dates of Hospitalization Date of Hospital Admission Mar 12, 2016 at 02:52 Date of Discharge: Mar 28, 2016 Providers: Admitting Physician: Aj Murry MD Primary Care Physician: Erlinda Mcclellan MD Attending Physician: Aj Murry MD Diagnosis at Time of Discharge Diagnosis at Time of Discharge 1. Acute encephalopathy, present on admission. Resolved. # Acute upper GI bleed, resolved #acute blood loss anemia secondary to peptic ulcer disease 2. Acute hyperglycemia, present on admission. Active. 3. Severe sepsis, present on admission. Resolved. 4. Healthcare associated pneumonia, present on admission. Treatment completed. 5. Acute UTI, present on admission. Treatment completed. 6.Chronic hypertension, present on admission. Stable 7. Chronic depression, present on admission. Stable 8. Juvenile arthritis, chronic. present on admission. Stable 9. Chronic pain, present on admission. Active 10. Reported history of CHF, present on admission. Stable Consultations Dr. Bone of GI Infectious disease Pulmonary Procedures XRay, CTs & MRIs PROCEDURE: X-RAY ABDOMEN, ONE VIEW ([id number]) INDICATIONS: NG TUBE PLACEMENT TECHNIQUE: One view of the abdomen acquired. COMPARISON: [facility], CR, XR CHEST 1VW (PORTABLE), 03/22/2016, 3: 59. [facility], CR, XR ABD AP 1VW, 03/14/2016, 19:57. FINDINGS: Surgical changes and devices: There is a nasogastric tube redemonstrated with the tip extending into the stomach in the region of the antrum. Bowel: Bowel gas pattern is within normal limits. Soft tissues: There are small bilateral pleural effusions, left greater than right, with bibasilar patchy infrahilar opacities. Bones: There is in marked dextroscoliosis of the thoracolumbar spine redemonstrated as well as the dysmorphic appearance of the pelvis and hips. IMPRESSION: 1. Nasogastric tube extends into the stomach directed towards the antrum. 2. Small bilateral pleural effusions with medial bibasilar opacities in the lungs consistent with atelectasis, consolidation, or aspiration. 3. Scoliosis of the thoracolumbar spine and dysmorphic appearance of the bony pelvis and hips redemonstrated. Dictated by: Dejon Santillan M.D. on 03/22/2016 at 22:02 Approved by: Dejon Santillan M.D. on 03/22/2016 at 22:02 PROCEDURE: X-RAY CHEST ONE VIEW, PORTABLE ([id number]) INDICATIONS: pneumonia TECHNIQUE: One view of the chest was acquired. COMPARISON: [facility], CR, XR CHEST 1VW (PORTABLE), 03/19/2016, 1: 56. FINDINGS: Surgical changes and devices: Nasogastric tube present and the tip is not well- seen on the current exam. Lungs and pleura: Trace right pleural effusion present otherwise lungs are clear. No pneumothorax. Mediastinum: Mediastinal contours appear normal. Heart size is normal. Bones and chest wall: No suspicious bony lesions. Overlying soft tissues appear unremarkable. S-shaped scoliosis redemonstrated. IMPRESSION: Trace right pleural effusion otherwise interval resolution of basilar infiltrates. Dictated by: Nehemiah De León [facility] Interpreted: Floresita Noble MD on 03/22/2016 at 9:39 Transcribed by: CHATA on 03/22/2016 at 9:39 Approved by: Floresita Noble M.D. on 03/22/2016 at 13:37 PROCEDURE: MRI BRAIN WITHOUT CONTRAST ([id number]) INDICATIONS: Altered mental status TECHNIQUE: Noncontrast axial T1 spin echo, axial T2 fast spin echo, sagittal and axial FLAIR, coronal T2 fast spin echo, axial gradient echo, axial diffusion and ADC through the brain. COMPARISON: None. FINDINGS: Image quality: Diagnostic. Brain: There is no acute intra-axial or extra-axial hemorrhage. Fluid signal along the medial aspect of the anterior left frontal lobe adjacent to the focus is identified, which is asymmetric when compared to the contralateral side. No definite cyst or loculated fluid collection is appreciated within this region. The possibility of a subtle nonvisualized arachnoid cyst is difficult to exclude. There is no shift of the midline falx related to this fluid. There may be mild mass effect of the fluid on the anterior left frontal lobe, however. No abnormal signal is appreciated on the flair images within this region or the T1 images to suggest a chronic hemorrhage. A similar appearance is noted involving the mid aspect of the right frontal lobe adjacent to the falx , which is slightly more centered within the region of the convexity (image 18, series 6 and image 11, series 10). The orbits are grossly unremarkable. There are a few subtle areas of increased flair signal noted within the deep white matter of the supratentorial brain adjacent to the frontal horns of the lateral ventricles. Along the dura of the right frontal region there is a structure adjacent to the dura that appears to have a dural tail that is isointense to the brain parenchyma and measures 1.2 x 0.7 x 1.0 cm. No definite additional lesions are evident within the brain. There is no parenchymal edema. No restricted diffusion is present. The midline intracranial structures are within normal limits. The major expected intracranial flow voids are visualized and unremarkable. The ventricles and cortical sulci are age-appropriate. Bones: The imaged osseous structures are grossly intact. No suspicious osseous lesions are identified. There are large bilateral mastoid effusions. Mucosal thickening is noted involving the inferior bilateral maxillary sinuses. There is also mucosal thickening of the sphenoid sinuses and ethmoid air cells. Extracranial soft tissues: The imaged overlying soft tissues of the face and head are grossly unremarkable. IMPRESSION: 1. No acute intracranial hemorrhage or ischemia. 2. Moderate sized extra-axial lesion adjacent to the dura overlying the right frontal region probably is a meningioma. Contrast enhanced MRI is recommended. 3. Asymmetric prominence of the extra-axial fluid along the right and left frontal regions near the falx (left greater than right) is unusual and most likely represents arachnoid cysts. Chronic subdural hygromas are felt to be less likely; however, cannot be excluded. 4. Prominent bilateral mastoid effusions. 5. Moderate paranasal sinus disease. Dictated by: Jakob Post M.D. on 03/20/2016 at 14:12 Approved by: Jakob Post M.D. on 03/20/2016 at 14:12 EGD 03/27 ENDOSCOPIC DIAGNOSES: 1. Gastric small ulcer with nonbleeding visible vessel, treated with epinephrine injection and Gold Probe application. 2. Small hiatal hernia. 3. Mild patent pyloric stenosis, with a J-shaped stomach. RECOMMENDATIONS: 1. The patient's diet can be advanced per the Dietary/Nutrition services. 2. I have switched the patient over to PPI and would recommend b.i.d. PPI therapy for the next week to 10 days, and then perhaps 20 mg of pantoprazole daily with moving forward. 3. Blood transfusion I would leave to the discretion of her Primary service. Cardiac Echo Impression Echocardiogram Report Name: MEREDITH LAZO JStudy Date: 0 03/13/2016 Height: 41 in Hospital Exam Location: [facility] Weight: 102 lb Gender: Female BSA: 1.1 m2 : 1970 Age: 45 yrs BP: 115/63 mmHg Reason For Study: REPORTED HISTORY OF CHF Ordering Physician: HOSPITALIST SVHPerformed By: Adam Garrett Referring Physician: Natalia PIERRE Interpretation Summary Patient has dwarfism. The LV is difficult to reliably measure due to angle. The left ventricular cavity is small. There is normal left ventricular wall thickness. The left ventricular ejection fraction is grossly normal or hyperdynamic. Regional wall motion abnormalities cannot be excluded due to limited visualization. The right ventricular cavity is small. The right ventricular systolic function is normal. The right ventricular systolic pressure is estimated at 34 mmHg assuming a right atrial pressure of 3 mm Hg. The left atrium is not well visualized. The aortic root is normal size Brief History Meredith Lazo is a 45 year old female with a history of congenital dwarfism, juvenile arthritis, Felty syndrome, and CHF who was hospitalized 03/12/16 for acute encephalopathy secondary to severe sepsis, acute E. coli UTI, HCAP with MRSA, RSV, and Pseudomonas. She is now hospital day 15, completed antibiotic treatment, with resolution of sepsis, UTI, pneumonia, and encephalopathy. She had been eating poorly and nutrition started her on tube feeds with an NG tube, and her appetite had begun to improve. She was returning to baseline in terms of overall health and nearing discharge when she was noted to have dark stools overnight. Her Hb had dropped from 10.4 to 8.4 over 2 days. She denies nausea, vomiting, diarrhea, and denies any further dark stools, confirmed by nursing. She denies fevers, chills, abdominal pain, weakness, or dizziness, and overall has no complaints, and states she wishes to go home. Hospital Course Meredith Lazo is a 45 year old female with a history of congenital dwarfism, juvenile arthritis, Felty syndrome, and CHF who presented to the ED from [facility] with altered mental status and shortness of breath. Admitted for severe sepsis secondary to RSV and pseudomonas pneumonia and UTI. admission date : 03/12/16 1. Acute encephalopathy, present on admission. Resolved. -Pt was unresponsive on admission and not at baseline mentation, per family. Baseline mentation per family is conversational and controlling wheelchair. -Likely secondary to infectious process.e. -MRI not revealing any intracranial pathology 2. Acute hyperglycemia, present on admission. Resolved. -Pt w/o known diagnosis of diabetes -HbA1c 5.0 -Blood glucose monitoring q6h -Low-dose regular insulin protocol in place. 3. Severe sepsis, present on admission. Resolved. -Met criteria on admission with temp 37.7, HR 117, RR 22, encephalopathy, urinary & pulmonary source of infection -This most a short course of IV antibiotics ending with Linezolid and Meropenem -Antibiotics have been discontinued by Dr. Hernandez. Dr. Hernandez does not believe the patient needs any further antibiotics at this time. 4. Healthcare associated pneumonia, present on admission. Treatment completed. See above -Positive for RSV. Sputum positive for MRSA. -Pt full-time resident of [facility], antibiotics to cover HCAP. -Guaifenesin 200 mg every 8 hours to help thin secretions. -Right lower lobe opacities as well as bilateral perihilar opacities on chest xray. -CT chest with contrast shows moderate to severe bilateral pneumonia with small right parapneumonic effusion. Superimposed nodular and groundglass densities. 5. Acute UTI, present on admission. Treatment completed. -Pt does not have chronic indwelling catheter at baseline. Renal ultrasound unremarkable. -Urine culture positive for E. coli, resistant to levofloxacin, ciprofloxacin and tetracycline. -Completed antibiotic treatment prior to discharge 6.Chronic hypertension, present on admission. Stable -Restarted propranolol 10 mg 3 times a day. Home regimen is 20 mg 4 times a day. We will continue with propanolol 10 mg 3 times a day upon discharge today 7. Chronic depression, present on admission. Stable -Restarted Citalopram 20 mg daily and to continue at discharge 8. Juvenile arthritis, chronic. present on admission. Stable -Home regimen includes gabapentin which is held at this time. 9. Chronic pain, present on admission. Stable. -Methadone 5 mg every 12 hours continued at discharge 10. Reported history of CHF, present on admission. Stable -Echo (03/14/16) while an suboptimal study showed no evidence of CHF. 11. Nutrition - Discontinued Tube feeds and assess by mouth intake, on the day of discharge, speech therapy advance patient's diet nectar thick as noted in notes. Patient has necessitating a tube feed which was discontinued when patient pursued an EGD with treatment for a bleeding peptic ulcer. Should patient's intake and nutrition be suboptimal in the senior living facility, tube feeding would be recommended. Patient received Jevity at a goal of 35 mL per hour while here, please see nutrition notes for details should a repeat nasogastric tube for tube feeds be necessary - Speech evaluation cleared patient for stimulation diet on 03/22 - with trial by mouth only since yesterday March 27. Patient noted increased appetite and strong desire not to have nasogastric tube placed again 12.Hyperkalemia - Likely 2/2 to supplement, will give kayexylate again today - Resolved 13. Upper GI bleed, acute blood loss anemia -Appreciate GI recommendations, will continue with PPI twice a day for 10 days and take once daily thereafter, Protonix -Iron supplement daily and prescribed at the time of discharge -Repeat CBC stable with hemoglobin in the eights at time of discharge Acetaminophen-fever/headache/mild/moderate pain Antiemetics, as needed Bowel regimen, as needed. Disposition: To senior living facility and follow up with primary care physician, appreciate senior living facility physician involvement and continued care. Please contact me with any questions Exam Vital Signs (Last) Date Time Temp Pulse Resp B/P Pulse Ox O2 Delivery O2 Flow Rate FiO2 03/28/16 08:26 113 20 94 Room Air 03/28/16 04:50 36.8 138/98 03/27/16 11:20 2 Exam General: Patient is laying on her right side almost flat in bed with her head elevated approximately 10-20. She is in no apparent distress. Patient exhibits poor physical and deformities associated with rheumatoid arthritis HEENT: Head is atraumatic normocephalic. Eyes: Pupils are equally round and reactive to light and accommodation. Extraocular muscles are intact. Sclera are white anicteric. Subconjunctival mucosa is pink. Ears are unremarkable. Nose: she has a nasogastric tube in place site is unremarkable. Oropharynx: There is no mucosal lesions, there is no thrush, there is no pharyngitis. Neck: Is supple, there are no nodes, or masses or tenderness appreciated. Chest: Exhibits coarse breath sounds are otherwise clear to auscultation and percussion. There are no rales, rhonchi, wheezes or rubs. Heart: Rate is slightly tachycardic, rhythm is regular. There is no murmur, rub or gallop. Abdomen: Good bowel sounds are present. Abdomen is soft, nontender, no organomegaly or masses were appreciated. Extremities: Are symmetrical and well perfused. There is no edema, there is no cellulitis, no rash. Neurologic: There are no focal neurological deficits. Cranial nerves II through XII are intact. There are no sensory or motor deficits. Psychiatric: Patients mood is calm and shows no sign of agitation. Test 03/11/16 23:36 03/11/16 23:54 03/12/16 00:32 03/12/16 13:26 Troponin T < 0.010ug/L (0.0-0.011) Lipase 8U/L (13-60) Prothrombin Time 10.6sec (8.1-12.5) Prothromb Time International Ratio 0.99ratio Urine Color Yellow (YELLOW) Urine Appearance Cloudy (CLEAR,HAZY) Urine pH 6.0 (5.0-8.0) Urine Specific [place] 1.026 (1.003-1.035) Urine Protein 100mg/dL (NEG,TRACE) Urine Glucose (UA) Negativemg/dL (NEGATIVE) Urine Ketones 40mg/dL (NEGATIVE) Urine Occult Blood Negative (NEGATIVE) Urine Nitrite Positive (NEGATIVE) Urine Bilirubin Negative (NEGATIVE) Urine Urobilinogen Normalmg/dL (NORMAL) Urine Leukocyte Esterase Negative (NEGATIVE) Urine RBC 0-2/hpf (0-2) Urine WBC >50/hpf (0-5) Urine Epithelial Cells Moderate/hpf (NONE-MOD) Urine Crystals None seen (NONE SEEN) Urine Bacteria Many/hpf (NONE-FEW) Urine Hyaline Casts Rare/lpf (NONE) Urine Granular Casts None seen (NONE SEEN) Urine Waxy Casts None seen (NONE SEEN) Urine Red Blood Cell Casts None seen (NONE SEEN) Urine White Blood Cell Casts None seen (NONE SEEN) Urine Mucus Present (None Seen) Urine Trichomonas None seen (NONE SEEN) Urine Yeast None (NONE SEEN) Urinalysis Comment None Urine Culture Reflexed Indicated Urine Legionella pneumophilia Ag Negative (Negative) Hold Urine Received (Received) Test 03/13/16 03:35 03/13/16 13:40 03/14/16 03:45 03/15/16 04:15 Band Neutrophils % 16% (1-5) Lactic Acid Level 1.3mmol/L (0.4-2.0) Hemoglobin A1c 5.0% (4.8-5.6) Prealbumin 6mg/dL (20-40) Test 03/16/16 14:40 03/19/16 04:45 03/23/16 03:35 03/25/16 06:00 Hold [place] Top Tube Received (Received) Phosphorus Level 3.2mg/dL (2.5-4.9) Procalcitonin 0.10ng/mL (See Comment) Magnesium Level 2.1mg/dL (1.6-2.6) Total Bilirubin 0.5mg/dL (0.0-1.2) Aspartate Amino Transf (AST/SGOT) 20U/L (0-50) Alanine Aminotransferase (ALT/SGPT) 16U/L (0-32) Alkaline Phosphatase 55U/L (25-150) Total Protein 5.2g/dL (6.4-8.4) Albumin 2.9g/dL (3.4-5.0) Test 03/27/16 15:58 03/28/16 05:25 White Blood Count 11.5th/mm3 (3.8-10.1) Red Blood Count 2.80mil/mm3 (3.90-5.20) Hemoglobin 8.2g/dL (12.0-15.6) Hematocrit 24.8% (35.0-46.0) Mean Corpuscular Volume 88.6fL (81-100) Mean Corpuscular Hemoglobin 29.3pg (27.0-35.0) Mean Corpuscular Hemoglobin Concent 33.1% (32.0-37.0) Red Cell Distribution Width 16.3% (12.3-15.4) Platelet Count 436bil/L (150-400) Neutrophils (%) (Auto) 60.9% (40-74) Lymphocytes (%) (Auto) 25.5% (14-46) Monocytes (%) (Auto) 12.4% (4-12) Eosinophils (%) (Auto) 0% (0-5) Basophils (%) (Auto) 0.2% (0-3) Sodium Level 137mEq/L (134-144) Potassium Level 4.3mEq/L (3.5-5.2) Chloride Level 94mEq/L (97-108) Carbon Dioxide Level 26mmol/L (18-29) Blood Urea Nitrogen 24mg/dL (6-24) Creatinine 0.58mg/dL (0.57-1.00) Estimat Glomerular Filtration Rate 160mL/min (>59) Glucose Level 105mg/dL (60-99) Calcium Level 9.7mg/dL (8.5-10.1) Microbiology Results Urine for Legionella antigen is negative. Urine for Streptococcal pneumoniae antigen is negative. MRSA nasal screen is positive. Respiratory viral PCR panel positive for RSV. Sputum growing MRSA resistant to cefazolin, clindamycin , erythromycin, as well as oxacillin. Sensitive to linezolid and vancomycin. Sputum also growing pseudomonas aeruginosa (pansensitive). C. diff was negative. Discharge Medications Discharge Medications Amitriptyline (Amitriptyline) 50 Mg Tab 50 MG PO BID (Reported) Cetirizine HCl (Zyrtec) 10 Mg Capsule 10 MG PO DAILY (Reported) Citalopram (Citalopram) 20 Mg Tablet 20 MG PO DAILY (Reported) Ferrous Sulfate (Feosol) 325 Mg Tablet 325 MG PO DAILYAC Prescribed by: OSCAR NORIEGA DO Gabapentin (Gabapentin) 600 Mg Tablet 600 MG PO TID (Reported) 6am, 12pm, 7pm L.acidoph & Paracasei,B.lactis (Probiotic) 10 Billion Cell Capsule 1 CAPSULE PO BID (Reported) Lactose-Free Food/Fiber (Jevity 1.5 Deng Liquid) 1,000 Ml Liquid 1,000 ML PO 35 ml/hr Prescribed by: JEANNIE CLIFFORD DO Medroxyprogesterone Acetate (Medroxyprogesterone Acetate) 150 Mg/1 Ml Vial 1 ML IM every 3 months (Reported) Methadone (Methadone) 10 Mg Tab 10 MG PO QAM (Reported) Methadone Intensol (Methadone Intensol) 10 Mg/1 Ml Conc 5 MG PO Q12 Prescribed by: OSCAR NORIEGA DO Montelukast (Montelukast) 10 Mg Tablet 10 MG PO DAILY (Reported) Omeprazole (Omeprazole) 20 Mg Capsule.dr 20 MG PO DAILY (Reported) Pantoprazole (Pantoprazole DR) 40 Mg Tablet.dr 40 MG PO BIDAC Prescribed by: OSCAR NORIEGA DO Polyethylene Glycol 3350 (Polyethylene Glycol 3350) 17 Gm Powd.pack 17 GM PO every other day (Reported) Vit W-Ca,Fe,FA(<1 mg) ( Formula) 1 Each Tablet 1 EACH PO DAILY (Reported) Propranolol HCl (Propranolol HCl) 20 Mg Tablet 20 MG PO QID (Reported) hold for HR <55 Propranolol HCl (Propranolol HCl) 20 Mg Tablet 10 MG PO TID Prescribed by: OSCAR NORIEGA DO Trazodone (Trazodone) 50 Mg Tablet 50 MG PO HS (Reported) As needed Acetaminophen (Acetaminophen) 325 Mg Tablet 650 MG PO Q4H PRN PRN For Fever ( Reported) PO or OR Albuterol Neb Soln (Albuterol Neb Soln) 2.5 Mg/3 Ml Vial.neb 2.5 MG NEB Q2H PRN PRN For Shortness of Breath Prescribed by: JEANNIE CLIFFORD DO Bisacodyl (Dulcolax Rectal) 10 Mg Supp.rect 10 MG RC PRN For Constipation ( Reported) if no BM in 3 days, after trying milk of magnesia first Dextran 70/Hypromellose/Pf (Artificial Tears Drops) 1 Each Droperette 2 DROP BOTH_EYES Q1H PRN PRN dry eyes (Reported) Fluticasone Propionate (Fluticasone Propionate Nasal) 16 Gm [place].susp 2 SPRAYS NOSTRIL QAM PRN PRN For Congestion (Reported) Guaifenesin (Mucinex) 600 Mg Tablet.er 600 MG PO BID PRN PRN Allergies (Reported ) Guaifenesin/Codeine Phosphate (Guaifenesin AC Cough Syrup) 473 Ml Liquid 10 ML PO Q4H PRN PRN For Cough (Reported) Hydrocodone-Acetaminophen 7.5-325 mg (Hydrocodone-Acetaminophen 7.5-325 mg) 1 Each Tablet 1 TAB PO TID PRN PRN For Pain (Reported) Loperamide (Loperamide) 2 Mg Capsule 2 MG PO Q4H PRN PRN For Diarrhea or Loose Stool (Reported) Mag Hydrox/Al Hydrox/Simeth (Antacid M Liquid) 355 Ml Oral.susp 30 ML PO Q4H PRN PRN For Indigestion (Reported) Magnesium Hydroxide (Milk of Magnesia) 400 Mg/5 Ml Oral.susp 30 ML PO PRN For Constipation (Reported) Na Phos,M-B/Na Phos,Di-Ba (Fleet Enema) 133 Ml Enema 1 DOSE RC PRN For Constipation (Reported) if no BM 8 hours after suppository Ondansetron (Ondansetron) 4 Mg Tablet 4 MG PO Q4H PRN PRN For Nausea (Reported) Ondansetron PF (Ondansetron PF) 4 Mg/2 Ml Vial 4 MG IVPUSH Q4H PRN PRN For Nausea/Vomiting Prescribed by: OSCAR NORIEGA DO Polyethylene Glycol 3350 (Miralax) 17 Gm Powd.pack 17 GM PO DAILY PRN PRN For Constipation Prescribed by: OSCAR NORIEGA DO Prochlorperazine Maleate (Prochlorperazine) 5 Mg Tablet 5 MG PO QID PRN PRN For Nausea (Reported) Sennosides (Senna) 8.6 Mg Tablet 17.2 MG PO DAILY PRN PRN For Constipation ( Reported) Triamcinolone Acet (Triamcinolone Acetonide Cream) 1 Applic/0.25 Gm Cr 1 APPLIC TOP DAILY PRN PRN rash (Reported) apply daily to rash on low back/buttocks daily as needed Additional med instructions Please take your acid reducing medication protonix twice daily to allow your ulcer ot heal. You were previously utilizing tube feeds for nutrition, specificall Jevity was utilized. Your tubefeeds were discontinued when you had the stomach scope with our GI service. Per speech therapy: Patient seen for dysphagia treatment today. NG tube out and patient noted to have increased awareness. Patient tolerating stimulation diet and reports being hungry. Seen with thin, nectar, honey and pureed. Patient noted to have wet phonation with thin by cup sip and straw sip, nectar with straw sip. Patient tolerated nectar by cup sip. Rec: Upgrade to nectar/pureed with 1:1 feed and no straws. Followup Plan [facility] Discharge Diet: Other Discharge Activity: Other (Patient wheelchair bound at baseline) Patient Instructions - During your hospitalization you were treated for multiple infections which have now resolved at this time. - Please continue with your home medication regimen. - Speech pathology at [facility] will continue to assess your tube feeds and ability to eat on your own. They will determine whether you are need of an nasogastric tube placement again due to inadequate nutrition but currently our speech therapy has advanced her diet as noted above with nectar thick recommendations as noted. - Please follow up with Dr. Mcclellan within 1 week. - Repeat labs on 03/26/16, are recommended including a CBC and CMP. - Thank you for allowing us to participate in your care. You also treated for a stomach ulcer which was likely the cause of your bleeding episode. Please take supplemental iron daily with food to restore your iron supply in your body. I would also like you to take Protonix, a medication to reduce the acid in her stomach twice a day for 10 days. Then you can take this once a day thereafter per recommendation from our GI team Follow-up Provider: Erlinda Mcclellan MD Follow-up with PCP in: 1 week Time spent 40 minutes spent with evaluation and management including discharge of this patient. Greater than 50% of time was spent [id number] copies to: Erlinda Mcclellan MD, David DO Mar 28, 2016 13:07
--- NOTE | 2016-03-28 13:34 | NUR ---
Social Work: Discharge Data: Pt is on day 16 of hospitalization. EMR reviewed, d/c orders are in. PEDIATRIC PHYSICAL THERAPY ASSISTANT called [facility] who states they can accept pt back today. PEDIATRIC PHYSICAL THERAPY ASSISTANT set up transportation via [employer] with pt's [facility] benefit for 2:00pm. PEDIATRIC PHYSICAL THERAPY ASSISTANT called pt's mother to inform her of plan. PEDIATRIC PHYSICAL THERAPY ASSISTANT updated WOLF, RN, and MD of plan. All updated an agreeable. No further d/c planning needed at this time. PEDIATRIC PHYSICAL THERAPY ASSISTANT will continue to follow if needs arise. Assessment: Pt from [facility]. Plan: Pt will d/c to [facility] at 2:00PM today. All updated an agreeable. No further d/c planning needed at this time. PEDIATRIC PHYSICAL THERAPY ASSISTANT will continue to follow if needs arise. TIARA Baird
[2016-03-28] MEDS ORDERED: Propofol 10,000 mCg/mL 20 mL Inj ONE (14:19)
--- NOTE | 2016-03-28 14:44 | NUR ---
Discharge Pt picked up by [employer] service in van that can accommodate electric wheelchair at 1420. Discharge packet and body sheet with pt/cab service for transfer to [facility]. Report called into Floresita Diez RN at [facility]SNF. IV DCd intact, all belongings with pt, no s/sx of distress.
--- NOTE | 2016-03-28 20:55 | PROG NOTE ---
[address] [address] PROGRESS NOTE PATIENT: TRAM LAZO : 1970 MR#: [id number] ADMIT: 03/12/2016 JOB ID: [id number] DATE: 03/28/2016 SUBJECTIVE: The patient remains stable following EGD yesterday. No further clinical output suggestive of ongoing bleeding and hemoglobin was acceptably stable. H. pylori serology was requested yesterday and is still pending. The patient had been converted over to a proton pump inhibitor. OBJECTIVE: She was sitting in her motorized chair almost ready for discharge in no distress. Conversational. LABORATORY DATA: Hemoglobin this morning was 8.2, hematocrit 24.8, BUN was 24. ASSESSMENT AND PLAN: A 45-year-old female with a complex medical history admitted for sepsis found to have anemia and some melena. Blood count has essentially stabilized but at EGD she was found to have a small ulcer with nonbleeding visible vessel on the angularis. This was treated with injection and Gold probe electrocautery. She has been converted over to a PPI. I have recommended that this continue for at least the next 10 days at twice a day and then perhaps 20 mg daily moving forward. It would be advisable the patient follow up on H. pylori serology results in primary care.
== END 2016-03-28 14:20 | DRG 871 ==
LOC: EDUNIT# 22:26 → SED 22:26 → EDBD 22:26 → MPC 03-12 02:52 → PCC 03-12 05:05 → CCU 03-12 16:16 → PCC 03-18 14:05 → MPC 03-23 22:49
PROVIDERS: ADMIT Internal Medicine; ATTEND Internal Medicine
PROC: 02HV33Z Insertion of Infusion Device into Superior Vena Cava, Percutaneous Approach (ICD-10-PCS; principal; 2016-03-13)
PROC: 4A043R1 Measurement of Venous Saturation, Peripheral, Percutaneous Approach (ICD-10-PCS; 2016-03-14)
PROC: 06HN33Z Insertion of Infusion Device into Left Femoral Vein, Percutaneous Approach (ICD-10-PCS; 2016-03-14)
PROC: 3E0G8GC Introduction of Other Therapeutic Substance into Upper GI, Via Natural or Artificial Opening Endoscopic (ICD-10-PCS; 2016-03-27)
PROC: 0W3P8ZZ Control Bleeding in Gastrointestinal Tract, Via Natural or Artificial Opening Endoscopic (ICD-10-PCS; 2016-03-27)
DX: A41.9 Sepsis, unspecified organism (principal); J12.1 Respiratory syncytial virus pneumonia; R65.21 Severe sepsis with septic shock; R40.2312 Coma scale, best motor response, none, at arrival to emergency department; R40.2212 Coma scale, best verbal response, none, at arrival to emergency department; R40.2112 Coma scale, eyes open, never, at arrival to emergency department; G93.40 Encephalopathy, unspecified; J96.01 Acute respiratory failure with hypoxia; J96.02 Acute respiratory failure with hypercapnia; N39.0 Urinary tract infection, site not specified; D62 Acute posthemorrhagic anemia; E34.3 Short stature due to endocrine disorder; M05.00 Felty's syndrome, unspecified site; I10 Essential (primary) hypertension; F32.9 Major depressive disorder, single episode, unspecified; Y95 Nosocomial condition; Z22.322 Carrier or suspected carrier of Methicillin resistant Staphylococcus aureus; B96.20 Unspecified Escherichia coli [E. coli] as the cause of diseases classified elsewhere; Z78.1 Physical restraint status; B37.2 Candidiasis of skin and nail; R73.9 Hyperglycemia, unspecified; K25.9 Gastric ulcer, unspecified as acute or chronic, without hemorrhage or perforation